=== PATIENT | female | born 1930 | race Caucasian/White ===

== ENCOUNTER 2016-03-11 09:17 | Inpatient (IN) | payer MEDICARE, OTHER ==
[~2016-03-11] VITALS: Ht 154.9 cm; Wt 90.9 kg
[2016-03-11] VITALS (12 sets, daily range): BP systolic 120–158; BP diastolic 44–62; PULSE 52–109; RESP 14–20; O2SAT 95–100
[~2016-03-11 09:17] MED LIST: ACET325T51 PO; ASPI-973 PO; CEPH-512 PO; CHOL200047 PO; CITA10TA9 PO; CLON0.1T PO; CLOP75TA3 PO; DILT240C51 PO; DOCU-41 PO; EPIN0.3P17 IJ; FAMO20T PO; HYDR-3939 PO; LISI-567 PO; MAGN400O4 PO; NAM10 PO; PANT40TA2 PO; POLY17PO6 PO
[2016-03-11] MEDS ORDERED: HYDR-3939 PO (09:51)
[2016-03-11] MEDS ORDERED: DOCU-41 PO (09:51)
[2016-03-11] MEDS ORDERED: CLON0.1T PO (09:51)
[2016-03-11] MEDS ORDERED: POLY17PO2 PO (09:51)
[2016-03-11] MEDS ORDERED: DILT240C51 PO (09:51)
[2016-03-11] MEDS ORDERED: FAMO20TA4 PO (09:51)
[2016-03-11] MEDS ORDERED: EPIN0.3P17 IJ (09:51)
[2016-03-11] MEDS ORDERED: ACET325T51 PO (09:51)
[2016-03-11] MEDS ORDERED: NAM10 PO (09:51)
[2016-03-11] MEDS ORDERED: LISI-567 PO (09:51)
[2016-03-11] MEDS ORDERED: CITA20TA PO (09:51)
[2016-03-11] MEDS ORDERED: MAGN400O4 PO (09:51)
[2016-03-11] MEDS ORDERED: ASPI-973 PO (09:51)
[2016-03-11] MEDS ORDERED: PANT40TA3 PO (09:51)
[2016-03-11] MEDS ORDERED: CHOL200047 PO (09:51)
[2016-03-11] MEDS ORDERED: FUR20 PO (09:51)
[2016-03-11] MEDS ORDERED: CLOP75TA28 PO (09:51)
--- NOTE | 2016-03-11 10:08 | ED.REPORT ---
HPI-General Illness Date of Service Mar 11, 2016 ED Provider: Kirill Fernando MD 85 year old female with a hx of Alzheimer's, previous TIA's, paroxysmal atrial fibrillation on aspirin and Plavix, and an admit for pyelonephritis January 2016 who presents to the ED via EMS from the [facility] due to increasing weakness today. The patient had a fall yesterday without injury. Today the patient was unable to use her walker. Per care staff the patient vomited once today. She is unable to give any history due to dementia, although pt does deny pain at this time. Nursing Notes Stated Complaint: WEAKNESS Chief Complaint: General Complaint Nursing Notes Reviewed: Yes (HiConversion reconicled - on ASA and Plavix) Allergies: Coded Allergies: Honey Bee (Verified Allergy, Severe, all bees, 03/11/16) simvastatin (Verified Allergy, Intermediate, 03/11/16) Scheduled Aspirin (Aspirin) 81 Mg Tablet 81 MG PO DAILY Cholecalciferol (Vitamin D3) (Vitamin D3) 2,000 Unit Capsule 2,000 UNIT PO DAILY Citalopram Hydrobromide (Celexa) 20 Mg Tablet 20 MG PO DAILY Clonidine (Clonidine) 0.1 Mg Tablet 0.1 MG PO BID Clopidogrel (Clopidogrel) 75 Mg Tablet 75 MG PO DAILY Diltiazem ER (Cartia XT) 240 Mg Cap.er.24h 240 MG PO DAILY Docusate Sodium (Colace) 100 Mg Capsule 100 MG PO HS Famotidine (Famotidine) 20 Mg Tablet 20 MG PO DAILY Furosemide (Furosemide) 20 Mg Tab 20 MG PO DAILY Hydralazine (Hydralazine) 25 Mg Tablet 50 MG PO QID Lisinopril (Lisinopril) 20 Mg Tablet 20 MG PO DAILY Memantine (Namenda) 10 Mg Tablet 10 MG PO BID Pantoprazole DR (Pantoprazole DR) 40 Mg Tablet.dr 40 MG PO DAILY Polyethylene Glycol 3350 (Polyethylene Glycol 3350) 17 Gm Powd.pack 17 GM PO DAILY Scheduled PRN Acetaminophen (Acetaminophen) 325 Mg Tablet 325 MG PO q6hr PRN PRN For Pain Epinephrine (Epinephrine) 0.3 Mg/0.3 Ml Auto.injct 0.3 MG IJ PRN For Anaphyllaxis Magnesium Hydroxide (Milk of Magnesia) 400 Mg/5 Ml Oral.susp 30 ML PO prn PRN PRN For Constipation General Time Seen by : 09:53 Chief Complaint Weakness Hx Obtained From: EMS Unable to Obtain Hx: Mental status Arrived By: Ambulance Sudden in Onset?: No Severity: Current: No pain currently Past Medical History Past Medical History Notes: Code Status: DNR Patient underwent EEG February 2016 there was abnormal, with recommendations for repeat including sleep state - see note 02/21/16 Last ED visit for 20 10/21/2015 for ground level fall Last admitted 01/04/2016, pyelonephritis Past Medical History Dementia History of TIA with left facial droop Bradycardia From Previous Report in 2011 h/o Schatzki's ring h/o diverticulitis status post partial colectomy, reflux high cholesterol impaired fasting glucose urinary incontinence gout chronic kidney disease stage III, with a creatinine that runs 1.4-1.5. 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 Reports: Hyperlipidemia, Hypertension Reports: Depression Past Surgical History lap esthela multiple axillary surgeries on the right side, right-sided leg lesion removal Family History Noncontributory Smoking History Never Smoker Social History Alcohol Use: Denies alcohol use Drug Use: Denies drug use Other Social History: Lives alone, Lives in senior care Ambulatory Status Walker Review of Systems Unable to Obtain ROS Mental status Physical Exam Vital Signs Vital Signs Date Time Temp Pulse Resp B/P Pulse Ox O2 Delivery O2 Flow Rate FiO2 03/11/16 14:04 64 20 143/52 96 Room Air 03/11/16 10:50 55 14 127/44 99 Room Air 03/11/16 09:25 36.6 57 14 135/45 100 Room Air Initial VS: Reviewed ENT: Mucous membranes moist, Conjunctiva normal, No scleral icterus Skin: Warm, Dry General/Constitutional: Awake Demented, unable to give any history. Does not appear to be in any obvious discomfort. Head / Eyes: Normocephalic, PERRL No visible signs fo trauma to head. Neck: Atraumatic, Full range of motion Respiratory / Chest: Breath sounds NL, Breath sounds = bilat, No respiratory distress, No rales, No rhonchi, No wheezing Cardiovascular: Heart rate NL, Regular rhythm, Heart sounds NL, Cap refill not delayed, Peripheral circulation NL Abdomen: Soft, Non-tender Upper Extremities Upper Extremity / MS: No deformity, Neurologic intact No signs of hip or extremity fracture. Pt is globally weak and unable to lift any extremity off the bed, but there is no focal deficit. Neurologic: Speech NL Pt is globally weak and unable to lift any extremity off the bed, but there is no focal deficit. Demented. Interpretation & Diagnostics Lab Results Interpretation Result Diagram: 03/11/16 1640 03/11/16 1235 Test 03/11/16 12:16 03/11/16 12:35 Urine Color Straw (YELLOW) Urine Appearance Hazy (CLEAR,HAZY) Urine pH 6.0 (5.0-8.0) Urine Specific [place] 1.010 (1.003-1.035) Urine Protein Negativemg/dL (NEG,TRACE) Urine Glucose (UA) Negativemg/dL (NEGATIVE) Urine Ketones Negativemg/dL (NEGATIVE) Urine Occult Blood Negative (NEGATIVE) Urine Nitrite Negative (NEGATIVE) Urine Bilirubin Negative (NEGATIVE) Urine Urobilinogen Normalmg/dL (NORMAL) Urine Leukocyte Esterase Negative (NEGATIVE) Urine RBC 0-2/hpf (0-2) Urine WBC 0-5/hpf (0-5) Urine Epithelial Cells Occasional/hpf (NONE-MOD) Urine Crystals None seen (NONE SEEN) Urine Bacteria Few/hpf (NONE-FEW) Urine Hyaline Casts None/lpf (NONE) Urine Granular Casts None seen (NONE SEEN) Urine Waxy Casts None seen (NONE SEEN) Urine Red Blood Cell Casts None seen (NONE SEEN) Urine White Blood Cell Casts None seen (NONE SEEN) Urine Mucus None seen (None Seen) Urine Trichomonas None seen (NONE SEEN) Urine Yeast None (NONE SEEN) Urinalysis Comment None Urine Culture Reflexed Not indicated White Blood Count 12.1th/mm3 (3.8-10.1) Red Blood Count 2.88mil/mm3 (3.90-5.20) Mean Corpuscular Volume 74.7fL (81-100) Mean Corpuscular Hemoglobin 24.0pg (27.0-35.0) Mean Corpuscular Hemoglobin Concent 32.1% (32.0-37.0) Red Cell Distribution Width 14.7% (12.3-15.4) Platelet Count 326bil/L (150-400) Neutrophils (%) (Auto) 74.2% (40-74) Lymphocytes (%) (Auto) 16.7% (14-46) Monocytes (%) (Auto) 6.9% (4-12) Eosinophils (%) (Auto) 1.3% (0-5) Basophils (%) (Auto) 0.7% (0-3) Prothrombin Time 10.2sec (8.1-12.5) Prothromb Time International Ratio 0.95ratio Sodium Level 136mEq/L (134-144) Potassium Level 4.0mEq/L (3.5-5.2) Chloride Level 98mEq/L (97-108) Carbon Dioxide Level 22mmol/L (18-29) Blood Urea Nitrogen 44mg/dL (8-27) Creatinine 2.59mg/dL (0.57-1.00) Estimat Glomerular Filtration Rate 25mL/min (>59) Glucose Level 130mg/dL (60-99) Lactic Acid Level 0.8mmol/L (0.4-2.0) Calcium Level 8.9mg/dL (8.5-10.1) Iron Level 17ug/dL (35-150) Total Iron Binding Capacity 309ug/dL (250-450) Percent Iron Saturation 6%sat (15-50) Unsaturated Iron Binding 291.8ug/dL Ferritin 12ng/mL (13-150) Total Bilirubin 0.2mg/dL (0.0-1.2) Aspartate Amino Transf (AST/SGOT) 8U/L (0-50) Alanine Aminotransferase (ALT/SGPT) 5U/L (0-32) Alkaline Phosphatase 83U/L (25-165) Troponin T < 0.010ug/L (0.0-0.011) Total Protein 6.3g/dL (6.4-8.4) Albumin 3.3g/dL (3.4-5.0) Lab Results Interpretation: CMP trace leukocytosis, severe anemia-new and worse than previous, has not been this low since July 2015 CMP moderate renal insufficiency, creatinine has doubled since January 2016 UA negative General Lab Results Interp 1: Labs reviewed ECG Interpretation ECG Interpretation: Sinus bradycardia rate of 54, no acute ischemic changes Improved from previous EKG January 2016 in the sense that it is a clear sinus rhythm Time: 10:08 Interpreted by: ED physician X-Ray Chest Interpretation Chest Xray Interpretation: IMPRESSION: No acute cardiopulmonary disease process. Dictated by: Dorothy Ramsay MD, PhD on 03/11/2016 at 11:24 View: Portable, 1 view Interpretation / Wet Read by: Interpret - Radiologist CT Head Interpretation IMPRESSION: 1. No definite acute intracranial abnormality. 2. Left sided encephalomalacia involving the occipital and posterior parietal lobes redemonstrated similar in appearance to the prior study but increased in extent compared to the 06/04/15 study. Consider further evaluation with MRI if clinical concern persists. 3. Moderate cerebral volume loss and chronic white matter small vessel ischemic changes redemonstrated. Dictated by: Ar Black M.D. on 03/11/2016 at 11:38 Study: Head CT no contrast Interpretation / Wet Read by: Interpret - Radiologist Re-Eval/Medical Decision Med Decision/Clinical Course This is an 85-year-old demented female unable provide any useful history herself. She was sent into worsening global weakness to the point that she is no longer ambulate even with a walker. Been a relatively recent falls, details unclear. Patient denies any pain. She is extremely pale, but she can answer questions and follow commands. She is globally weak-but has no focal deficits. I do not appreciate visible external signs of trauma. Records indicate combination of aspirin and Plavix use and patient has a history of previous GI bleeds with documented AVMs in July 2015, and intermittent transfusions in the interim. She was last admitted for pyelonephritis in recent months. Lungs are clear, she is not getting Percocet, abdomen soft nontender. She does have brown stool that is guaiac positive on rectal exam. Blood work is notable for severe anemia, concerning for worsening slow GI bleed in the setting of aspirin and Plavix use. CT the head revealed no signs of intracranial injury or trauma. Blood work is also notable for worsening creatinine. UA is negative for markers of infection. Patient is being typed and crossed, transfusion as planned and ordered for 3 units of packed red cells. She has been starting on a Protonix drip. The plan is still currently hold the aspirin and Plavix. Family is just arrived in the hopes of having discussion over how aggressive she wants to be with her medical care. In the meantime and consult GI for their input. Case has been discussed with the hospitalist. 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 Brown stool, Guaiac positive. Patient family now in room. Plan for admission. Consultation #1: Referral / Consult Name: Nano Lu MD Call Returned at: 14:19 Rn Quality: Will see patient Note: GI- Consultation #2: Referral / Consult Name: Mika Weeks MD Consulted With: Hospitalist Call Returned at: 14:30 Rn Quality: Will see patient, Agrees with eval, Agrees with plan, Accepts admit Differential Diagnosis: Negative: Drug dependence, Neutropenia, Pneumonia, Urinary tract infection Counseled Regarding: Diagnosis, Lab results, Need for admission Discharge & Departure Primary Impression: Symptomatic anemia Additional Impressions: GI bleed GI bleed type/associated pathology: unspecified gastrointestinal hemorrhage type Qualified Code: K92.2 - Gastrointestinal hemorrhage, unspecified Acute on chronic renal insufficiency Disposition: ADMITTED TO HOSPITAL Discharge Condition All VS Reviewed: Yes Referrals: Jose G Brown MD (PCP) Scribe Attestation Portions of this note were transcribed by Shalini Suarez. I, (Dr. Fernando) personally performed the history, physical exam and medical decision-making; I reviewed and confirmed the accuracy of the information in the transcribed note. Signed by: Shalini Suarez. 03/11/2016, 0393 copies to: Jose G Brown MD, Matthew F MD Mar 11, 2016 10:08 Shalini Suarez Mar 11, 2016 10:23
--- NOTE | 2016-03-11 11:26 | DRSVH ---
PROCEDURE: X-RAY CHEST ONE VIEW, PORTABLE ([id number]) INDICATIONS: fall, weakness TECHNIQUE: One view of the chest was acquired. COMPARISON: [facility], CR, XR CHEST 1VW (PORTABLE), 01/03/2016, 22:36. FINDINGS: Surgical changes and devices: Cholecystectomy clips Lungs and pleura: No pleural effusions or pneumothorax. Lungs are clear. Mediastinum: Mediastinal contours appear normal. Heart size is normal. Bones and chest wall: No suspicious bony lesions. Overlying soft tissues appear unremarkable. IMPRESSION: No acute cardiopulmonary disease process. Dictated by: Dorothy Ramsay MD, PhD on 03/11/2016 at 11:24 Approved by: Dorothy Ramsay MD, PhD on 03/11/2016 at 11:24
--- NOTE | 2016-03-11 11:40 | DRSVH ---
PROCEDURE: CT BRAIN WITHOUT CONTRAST ([id number]) INDICATIONS: fall, weakness TECHNIQUE: Noncontrast 4.5 mm thick angled axial sections acquired from the foramen magnum to the vertex, with c oronal reformats. COMPARISON: [facility], CT, CT BRAIN WO CON, 07/01/2015, 9:01. [facility], C T, CT BRAIN WO CON, 02/21/2016, 13:17. FINDINGS: Image quality: Excellent. CSF spaces: Basal cisterns are patent. No extra-axial fluid collections. There is moderate cerebra l volume loss, with resultant ventricular and sulcal prominence. Brain: No acute intracranial hemorrhage, mass, or mass effect. There is encephalomalacia redemonstr ated within the left occipital and posterior parietal lobes consistent with a prior infarct. This ap pears similar to the prior study but increased in extent compared to the 07/01/15 study. There are smyth bcortical, periventricular and deep white matter hypodensities consistent with moderate chronic small vessel ischemic changes. A few scattered more distinct hypodensities in the bilateral basal ganglia and external capsules are suggestive of prior lacunar infarcts. There is intracranial internal bradford tid artery atherosclerosis. Skull and face: Calvarium and visualized facial bones appear intact, without suspicious lesions. Sinuses: Visualized sinuses and mastoids are clear. IMPRESSION: 1. No definite acute intracranial abnormality. 2. Left sided encephalomalacia involving the occipital and posterior parietal lobes redemonstrated s imilar in appearance to the prior study but increased in extent compared to the 06/04/15 study. Consid er further evaluation with MRI if clinical concern persists. 3. Moderate cerebral volume loss and chronic white matter small vessel ischemic changes redemonstrat ed. Dictated by: Ar Black M.D. on 03/11/2016 at 11:38 Approved by: Ar Black M.D. on 03/11/2016 at 11:38
[2016-03-11 12:46] LABS: BASOPHILS % (AUTO) 0.7 % (0-3); EOSINOPHILS % (AUTO) 1.3 % (0-5); MONOCYTES % (AUTO) 6.9 % (4-12); Mean Corpuscular Volume 74.7 fL (81-100); NEUTROPHILS % (AUTO) 74.2 % (40-74); Platelet Count 326 bil/L (150-400)
[2016-03-11 13:18] LABS: APPEARANCE,URINE HAZY (CLEAR,HAZY); COLOR,URINE STRAW (YELLOW); OCCULT BLOOD,URINE NEGATIVE (NEGATIVE); UROBILINOGEN,URINE NORMAL (NORMAL)
[2016-03-11 13:21] LABS: TROPONIN T < 0.010 ug/L (0.0-0.011)
[2016-03-11 14:27] LABS: INR 0.95 ratio
[2016-03-11] MEDS ORDERED: Pantoprazole Inj 80 MG, Pharmacy To Mix 1 EA in 0.9% Sodium Chloride 80 ML IV ONE ×2 (14:30)
[2016-03-11] MEDS ORDERED: Pantoprazole 4 mg/mL 10 mL Inj IVPUSH ONE (14:30)
--- NOTE | 2016-03-11 14:34 | PCM.HPMED ---
Subjective Date of Service Mar 11, 2016 Primary Provider: Admitting Physician: Mika Weeks MD Primary Care Physician: Jose G Brown MD Attending Physician: Mika Weeks MD Chief Complaint: Weakness, falling, acute on chronic anemia History of Present Illness: 85 year old female with a hx of vascular dementia, previous TIA's, paroxysmal atrial fibrillation on aspirin and Plavix, and an admit for pyelonephritis January 2016 who presents to the ED via EMS from the [facility] due to increasing weakness today. The patient had a fall yesterday without injury. Today the patient was unable to use her walker. Per care staff the patient vomited once today. She is unable to give any history due to dementia, although pt does deny pain at this time. Entire history is obtained from the chart as the patient is unable to give any meaningful information. Review of Systems: Unobtainable, none reported by son who is at the bedside but states he does not know everything. Gen.: No fevers chills weight loss weight gain Eyes: no visual disturbances or blurring vision HEENT: No nose/throat drainage, no pain in ears or throat, no hearing loss Lymph: No lymph nodes noted Cardiac: No chest pain, orthopnea, PND, palpitations , pedal edema or dyspnea on exertion Pulmonary: no cough, wheezing or bringing up of sputum GI: No anorexia nausea vomiting blood or black in the stool : no dysuria hematuria urinary frequency or decrease in urine output Musculoskeletal: Joint swelling no joint pain no new muscle aches or back pain Neuro: No syncope, seizures no loss of consciousness no new focal weakness, numbness or tingling Psychiatric: New new anxiety insomnia or depression Endocrine: No new heat or cold intolerances polyuria or polydipsia Hematology: No lymphadenopathy or easy bleeding or bruising noted skin: No new rashes, stasis dermatitis Allergies Coded Allergies: Honey Bee (Verified Allergy, Severe, all bees, 03/11/16) simvastatin (Verified Allergy, Intermediate, 03/11/16) Home Medications Scheduled Aspirin (Aspirin) 81 Mg Tablet 81 MG PO DAILY Cholecalciferol (Vitamin D3) (Vitamin D3) 2,000 Unit Capsule 2,000 UNIT PO DAILY Citalopram Hydrobromide (Celexa) 20 Mg Tablet 20 MG PO DAILY Clonidine (Clonidine) 0.1 Mg Tablet 0.1 MG PO BID Clopidogrel (Clopidogrel) 75 Mg Tablet 75 MG PO DAILY Diltiazem ER (Cartia XT) 240 Mg Cap.er.24h 240 MG PO DAILY Docusate Sodium (Colace) 100 Mg Capsule 100 MG PO HS Famotidine (Famotidine) 20 Mg Tablet 20 MG PO DAILY Furosemide (Furosemide) 20 Mg Tab 20 MG PO DAILY Hydralazine (Hydralazine) 25 Mg Tablet 50 MG PO QID Lisinopril (Lisinopril) 20 Mg Tablet 20 MG PO DAILY Memantine (Namenda) 10 Mg Tablet 10 MG PO BID Pantoprazole DR (Pantoprazole DR) 40 Mg Tablet.dr 40 MG PO DAILY Polyethylene Glycol 3350 (Polyethylene Glycol 3350) 17 Gm Powd.pack 17 GM PO DAILY Scheduled PRN Acetaminophen (Acetaminophen) 325 Mg Tablet 325 MG PO q6hr PRN PRN For Pain Epinephrine (Epinephrine) 0.3 Mg/0.3 Ml Auto.injct 0.3 MG IJ PRN For Anaphyllaxis Magnesium Hydroxide (Milk of Magnesia) 400 Mg/5 Ml Oral.susp 30 ML PO prn PRN PRN For Constipation PMH 1. 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 2. Atrial fibrillation new in April of 2015. 3. Diverticulosis. 4. Dementia. 5. Esophageal thickening on CT scan. 6. Diastolic CHF with preserved ejection fraction April of 2015. 7. Hypertension. 8. Chronic kidney disease stage 3. 9. Depression. 10. Gout. 11. Chronic left hip pain. 12. Mild chronic normocytic anemia. 13. Schatzki ring. 14. Diverticulitis. 15. Status post partial colectomy. 16. GERD. SOCIAL HISTORY: No smoking. No alcohol use. She lives at the [facility] and has significant dementia. Her son and daughter live locally. ALLERGIES: BEE STINGS. FAMILY HISTORY: No known history of early cancer or heart disease Social History Hx Alcohol Use: No Hx Substance Use: No Hx Tobacco Use: No Smoking Status: Never Smoker Exam Vital Signs Vital Sign - Last Date Time Temp Pulse Resp B/P Pulse Ox O2 Delivery O2 Flow Rate FiO2 03/11/16 14:04 64 20 143/52 96 Room Air 03/11/16 09:25 36.6 Exam Gen.- A+ O 1 no apparent distress. Pale elderly female with uncontrolled pulled up to her neck lying in bed Eyes- open conjunctiva clear, pupils equal nonicteric Mouth- oral mucosa moist, no exudate, mucosa and lips moist ENT- ears normal, nose normal Neck- supple/trach midline, JVD less than 8 cm CVS- RRR no murmur or gallop, trace pedal edema Lungs CTA GI- NABS/NT soft, flat Musc- moving 4 no obvious deformity Neuro- cranial nerves II through XII intact to gross examination, nonfocal Skin- warm and dry, no rashes/lesions/wounds noted Psych-patient is not misbehaving, but does not want to participate with physical exam and takes coaxing from her son, Lab and Diagnostics Labs PT/INR 10.2/0.95, LFTs WNL, troponin 0.01, UA clear Result Diagram: 03/11/16 1235 03/11/16 1235 X-Rays, CTs and MRIs CT brain concurrently reviewed by myself. 1. No definite acute intracranial abnormality. 2. Left sided encephalomalacia involving the occipital and posterior parietal lobes redemonstrated similar in appearance to the prior study but increased in extent compared to the 06/04/15 study. Consider further evaluation with MRI if clinical concern persists. 3. Moderate cerebral volume loss and chronic white matter small vessel ischemic changes redemonstrated. CXR concurrently reviewed by myself no acute cardiopulmonary disease process. 12-lead ECG No EKG Assessment & Plan 85-year-old female with known gastric angiodysplasia comes in with recurrent anemia and heme positive stool. Her presentation was because she was too weak to walk around and falling. She can give no pertinent history due to advanced dementia. GI bleed- GI consulted, patient on PPI drip likely recurrence of bleeding from angiodysplasia that is known. Endoscopy planned for 03/12. Consider IR intervention/coiling if there is ongoing occult bleeding that is not identified by endoscopy. Acute/chronic anemia-we will go ahead and hold aspirin and Plavix and transfusing 3units PRBCs as ordered from ED, given her renal failure I am holding off on giving her a semi-between the units. Also check anemia panels prior to giving blood. Follow H&H every 4 hours, patient seems to be tolerating her anemia pretty well though I do not think this is acute. A. fib-known and chronic, rate controlled. Presumably aspirin and Plavix are being used his anticoagulation in lieu of warfarin in a patient with a propensity to bleed, not sure this is a great choice and perhaps warfarin may be a better choice only in that it is easily reversed. DIXON/CKD3- baseline creatinine closer to 1.5, continue gentle hydration and follow-up BUN/creatinine and avoid nephrotoxic drugs, hold PRANAV HTN-holding Pranav and continue all other BP meds on parameters. Blood pressure still surprisingly high. Dementia-chronic, patient unable to give any meaningful history. Weakness-PT/OT eval when patient is stable. Prophylaxis- SCDs for legs heparin is contraindicated in setting of GI bleed , GI patients on a PPI drip Disposition- patient comes from assisted living and is DO NOT RESUSCITATE Mika Weeks MD Mar 11, 2016 14:34
[2016-03-11] MEDS ORDERED: Polyethylene Glycol (PEG) 17 Gm Powder PO PRN (14:35)
[2016-03-11] MEDS ORDERED: Ondansetron 2 mg/mL 2 mL Inj IVPUSH PRN (14:35)
[2016-03-11] MEDS ORDERED: HYDROcodone-APAP 5-325 mg Tablet PO PRN (14:35)
[2016-03-11] MEDS ORDERED: Alum-Mag Hydrox-Simeth 30 mL Suspension PO PRN (14:35)
[2016-03-11] MEDS ORDERED: Magnesium Hydroxide 10 mL Oral Concentration PO PRN (15:15)
[2016-03-11] MEDS: 0.9% Sodium Chloride 1,000 ML IV SCH (15:52)
--- NOTE | 2016-03-11 15:52 | NUR ---
Blood transfusion consent POAna María, herminio is at work now and could not be reached according to son in room. She is off work at 1640. Will contact daughter then to get transfusion consent. Addendum: 03/11/16 at 1622 by ROMI LIVE RN Dr. Weeks aware of the above info. Will transfuse blood when consent available. Addendum: 03/11/16 at 1722 by ROMI LIVE RN Lyndsey Smith came to [facility] after work. She signed informed consent for blood transfusion.
[2016-03-11] MEDS ORDERED: OLANZapine Zydis ODT 5 mg Tablet PO PRN (16:30)
[2016-03-11] MEDS ORDERED: 0.9% Sodium Chloride 250 ML ONE ×2 (16:41→21:33)
[2016-03-11 16:45] LABS: Unsaturated Iron Binding 291.8 ug/dL
--- NOTE | 2016-03-11 17:22 | NUR ---
Discontinued Telemetry Pt. was combative and confused (baseline dementia). She frequently pulled on her tele leads. Leads were replaced multiple times. She continued to pull on the leads soon after the leads were replaced. Discontinue telemetry per standing order from Dr. Weeks.
--- NOTE | 2016-03-11 18:04 | PCM.CHPMED ---
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 Per ED notes, she had a fall yesterday without injury and was unable to use her walker today. Per care staff she had vomited once today. She was unable to give any history due to dementia. However , she does deny nausea, vomiting, or any sort of pain at this time. In the ED, stool guaiac was positive. Vitals were stable. Hgb was 6.9, Hct 21.5. AST 8, ALT 5, alk phos 83. Trop <0.01. Lactic acid 0.8. INR 0.95. Review of Systems: Review of systems limited due to patient mental status. PMH Past Medical History Vascular dementia with CVA right frontal last year. CVA - 2014, right frontal, right springer radiata, middle cerebral artery vascular disease, on Plavix History of TIA with left facial droop History of paroxysmal atrial fibrillation on aspirin and Plavix, initially Anemia, transfused 1 unit January 2016, AVMs stomach July 2015 History of GI bleeds h/o Schatzki's ring h/o diverticulitis status post partial colectomy, GERD Atrial fibrillation new in April of 2015. Bradycardia Hyperlipidemia impaired fasting glucose urinary incontinence Gout CKD stage III, with a creatinine that runs 1.4-1.5. Admit for pyelonephritis January 2016 Hyperlipidemia Hypertension Depression Allergies: Coded Allergies: Honey Bee (Verified Allergy, Severe, all bees, 03/11/16) simvastatin (Verified Allergy, Intermediate, 03/11/16) Family History Family History No known family history of colon cancer. Social History Hx Alcohol Use: NoHx Substance Use: NoHx Tobacco Use: No Smoking Status: Never Smoker Exam Vital Signs Vital Sign - Last Date Time Temp Pulse Resp B/P Pulse Ox O2 Delivery O2 Flow Rate FiO2 03/11/16 14:04 64 20 143/52 96 Room Air 03/11/16 09:25 36.6 General: Alert, Cooperative, No Acute Distress, Other (Oriented only to name) Head: Normal Eyes: PERRLA, EOMI Mouth: Mucous Membranes Dry Chest & Lungs: Clear to auscultation & percussion Cardiovascular: Regular Rate/Rhythm, Normal S1, Normal S2, No Murmurs/Rubs/ Gallops Abdomen: Non-tender, Non-distended, No masses, Normoactive bowel tones, Soft, Other (Hypoactive bowel tones) Neurological: Normal Speech, Other (Global weakness in all 4 extremities, equally) Lab and Diagnostics Result Diagram: 03/11/16 1235 03/11/16 1235 Assessment & Plan Assessment Patient is an 85 year old female with history of prior CVA, paroxysmal afib on Aspirin and Plavix, gastric AVMs, diverticulitis s/p partial colectomy, and anemia with upper GI bleed s/p transfusion on 2 hospitalizations who presents with progressive weakness. She was admitted for acute blood loss anemia and acute GI bleed. 1. Acute GI bleed. - Patient with a history of multiple GI bleeds, on aspirin and Plavix presents with severe anemia and guaiac positive stools. Given her gastric AVMs, possibility for upper GI bleed is high. Given her history of diverticulitis and hemorrhoids, lower GI bleed is possible but unlikely given lack of hematochezia. - Pt may take clear liquids until 6 AM, NPO after 6 AM. - Upper endoscopy planned for tomorrow - Protonix 40 mg IV BID 2. Acute anemia - Patient presents with Hb of 6.9. Likely multifactorial given history of iron deficiency, multiple GI bleeds, and CKD Stage 3. - Upper endoscopy to search for cause of bleeding. Problems: GI Prophylaxis: Proton Pump Inhibitor Resuscitation Status: DNR/DNI:Do Not Resuscitate/Intubate Attending Statement pt seen and examined with resident physician. I agree with his History, physical , assessment and plan as outlined above. Kaleb De La Vega Mar 11, 2016 15:29 Nano Lu MD Mar 13, 2016 15:04
--- NOTE | 2016-03-11 18:15 | NUR ---
PRBC L. AC site infiltrated during transfusion. New peripheral IV re-established by IV nurse. PRBC restart at 1812.
[2016-03-11] MEDS: cloNIDine 0.1 mg Tablet PO SCH (22:06)
[2016-03-12] VITALS (13 sets, daily range): BP systolic 116–202; BP diastolic 45–69; PULSE 48–62; RESP 14–20; O2SAT 94–100
[2016-03-12] MEDS: 0.9% Sodium Chloride 1,000 ML IV SCH ×3 (00:32→15:11)
[2016-03-12] MEDS: Pantoprazole Inj 80 MG in 0.9% Sodium Chloride 80 ML IV SCH ×2 (02:17→12:13)
--- NOTE | 2016-03-12 03:13 | NUR ---
care update patient receiving third unitt of blood. tolerating well.
[2016-03-12 07:21] LABS: BASOPHILS % (AUTO) 0.7 % (0-3); EOSINOPHILS % (AUTO) 3.4 % (0-5); MONOCYTES % (AUTO) 9.4 % (4-12); Mean Corpuscular Hemoglobin 25.7 pg (27.0-35.0); Mean Corpuscular Volume 77.9 fL (81-100); NEUTROPHILS % (AUTO) 67.4 % (40-74); Platelet Count 280 bil/L (150-400)
--- NOTE | 2016-03-12 07:23 | NUR ---
family at bedside family explained that they will have a family member at the bedside throughout the day. noted to merlene mata rn.
[2016-03-12] MEDS: Polyethylene Glycol (PEG) 17 Gm Powder PO SCH (07:57)
[2016-03-12] MEDS: cloNIDine 0.1 mg Tablet PO SCH ×2 (07:57→21:26)
[2016-03-12] MEDS: Diltiazem CD 120 mg ER24 Capsule PO SCH ×2 (08:30→20:30)
[2016-03-12] MEDS ORDERED: Pantoprazole 40 mg ER24 Tablet PO SCH (08:30)
--- NOTE | 2016-03-12 09:28 | NUR ---
Evaluation completed. Please go to "Notes" then click on "Assessments and Notes" (bottom left corner of screen). Then select appropriate discipline tab on top of screen.
--- NOTE | 2016-03-12 09:32 | NUR ---
Hold Lasix and Cardizem Discussed with Dr. Joshi that pt. was on PO Lasix and NS 100mL/hr, also pt. has been in Sinus bradycardia 40-50s. Dr. Joshi ordered holding PO Lasix and PO Cardizem. Continue NS infusion at current rate.
--- NOTE | 2016-03-12 09:34 | PCM.PNMED ---
Subjective Date of Service Mar 12, 2016 Subjective Patient completed 3U PRBCs overnight, tolerated well without any adverse effects. Uneventful overnight, no episodes of nausea, vomiting, or hematochezia. She has no complaints this morning and denies abdominal pain, N/V/ D, fevers, or chills. Exam Vital Signs Vital Sign - Last Date Time Temp Pulse Resp B/P Pulse Ox O2 Delivery O2 Flow Rate FiO2 03/12/16 07:28 36.8 51 20 185/66 100 Room Air Intake and Output 03/11/16 03/11/16 03/12/16 Cumulative From/Thru 15:00 23:00 07:00 03/11/16 09:25 - 03/12/16 06:34 Intake Total 441 ml 925 ml 1366 ml Output Total 675 ml 675 ml Balance 441 ml 250 ml 691 ml Intake Oral 0 ml 0 ml IV Total 38 ml 243 ml 281 ml Packed Cells 403 ml 682 ml 1085 ml Output Urine Total 675 ml 675 ml Exam General: Alert, Cooperative, No Acute Distress, Other (Oriented only to name, generalized weakness). Mouth: Mucous Membranes Moist Chest & Lungs: Clear to auscultation & percussion Cardiovascular: Regular Rate/Rhythm, Normal S1, Normal S2, No Murmurs/Rubs/ Gallops Abdomen: Non-tender, Non-distended, No masses, Normoactive bowel tones, Soft, Other (Hypoactive bowel tones) Neuro: Normal speech, grossly neurologically intact. Lab and Diagnostics Result Diagram: 03/12/1634 03/12/16 0634 X-Rays, CTs and MRIs CT brain concurrently reviewed by myself. 1. No definite acute intracranial abnormality. 2. Left sided encephalomalacia involving the occipital and posterior parietal lobes redemonstrated similar in appearance to the prior study but increased in extent compared to the 06/04/15 study. Consider further evaluation with MRI if clinical concern persists. 3. Moderate cerebral volume loss and chronic white matter small vessel ischemic changes redemonstrated. CXR concurrently reviewed by myself no acute cardiopulmonary disease process. 12-lead ECG No EKG Assessment & Plan Patient is an 85 year old female with history of prior CVA, paroxysmal afib on Aspirin and Plavix, gastric AVMs, diverticulitis s/p partial colectomy, and anemia with upper GI bleed s/p transfusion on 2 hospitalizations who presents with progressive weakness. She was admitted for acute blood loss anemia and acute GI bleed. 1. Acute GI bleed. - Patient with a history of multiple GI bleeds, on aspirin and Plavix presents with severe anemia and guaiac positive stools. Given her gastric AVMs, possibility for upper GI bleed is high. Given her history of diverticulitis and hemorrhoids, lower GI bleed is possible but unlikely given lack of hematochezia. - Will proceed with upper endoscopy today - Continue Protonix drip 2. Acute anemia - Patient presents with Hb of 6.9. Likely multifactorial given history of iron deficiency, multiple GI bleeds, and CKD Stage 3. Iron low at 17, ferritin low at 12. B12 low at 157. - Upper endoscopy to search for cause of bleeding. - Recommend iron supplements and B12 supplementation GI Prophylaxis: Proton Pump Inhibitor Resuscitation Status: DNR/DNI:Do Not Resuscitate/Intubate Attending Statement pt seen and examined. agree with resident physician note above. patient's daughter and son updated. Kaleb De La Vega Mar 12, 2016 08:50 Nano Lu MD Mar 13, 2016 15:05
--- NOTE | 2016-03-12 11:40 | PCM.HPANE ---
Patient Data Surgeon Admitting Provider:Mika Weeks MD Attending Provider:Mika Weeks MD Primary Care Physician:Jose G Brown MD Other Provider: Reason for Visit Symptomatic Anemia, Gi Bleed SYMPTOMATIC ANEMIA, GI BLEED Ht/WT & BMI Height (Feet): 5 Height (Inches): 1.00 Weight (Kilograms): 90.910 Body Mass Index 37.84 Allergies Coded Allergies: Honey Bee (Verified Allergy, Severe, all bees, 03/11/16) simvastatin (Verified Allergy, Intermediate, 03/11/16) Past Anesthesia History Anesthesia History: Denies:: Anesthesia Reactions Diabetes History Hx Diabetes?: No MRSA MRSA: No Medications Reported Medications Magnesium Hydroxide (Milk of Magnesia)400 Mg/5 Ml Oral.susp30 Ml PO prn PRN For Constipation 03/11/16 Epinephrine 0.3 Mg/0.3 Ml Auto.injct0.3 Mg IJ PRN For Anaphyllaxis 03/11/16 Acetaminophen 325 Mg Blmbgl801 Mg PO q6hr PRN For Pain 03/11/16 Polyethylene Glycol 3350 17 Gm Powd.pack17 Gm PO DAILY 03/11/16 Docusate Sodium (Colace)100 Mg Jileucp337 Mg PO HS 03/11/[address] 40 Mg Tablet.dr40 Mg PO DAILY 03/11/16 Lisinopril 20 Mg Rbtukr42 Mg PO DAILY 03/11/16 Cholecalciferol (Vitamin D3) (Vitamin D3)2,000 Unit Capsule2,000 Unit PO DAILY 03/11/16 Memantine (Namenda)10 Mg Phttyz47 Mg PO BID 03/11/16 Hydralazine 25 Mg Ninjra54 Mg PO QID 03/11/16 Famotidine 20 Mg Tmigdg04 Mg PO DAILY 03/11/16 Clopidogrel 75 Mg Rhkltz38 Mg PO DAILY 03/11/16 Clonidine 0.1 Mg Tablet0.1 Mg PO BID 03/11/16 Diltiazem ER (Cartia XT)240 Mg Cap.er.60e212 Mg PO DAILY 03/11/16 Aspirin 81 Mg Kamvsf23 Mg PO DAILY 03/11/16 Furosemide 20 Mg Tab20 Mg PO DAILY 03/11/16 Citalopram Hydrobromide (Celexa)20 Mg Zrqpek33 Mg PO DAILY 03/11/16 Discontinued Reported Medications Docusate Sodium (Colace)100 Mg Letxekz183 Mg PO HS Ref 0 01/04/16 Magnesium Hydroxide (Milk of Magnesia)400 Mg/5 Ml Oral.susp30 Ml PO DAILY PRN For Constipation 07/22/15 Lisinopril 20 Mg Hwmwkw50 Mg PO DAILY 07/22/15 Famotidine (Pepcid)20 Mg Qgfrlt33 Mg PO DAILY 07/22/15 Clonidine 0.1 Mg Tablet0.1 Mg PO BID Ref 0 07/22/15 Diltiazem ER (Cartia XT)240 Mg Cap.er.33u343 Mg PO DAILY 07/22/15 Memantine (Namenda)10 Mg Tqjpph05 Mg PO BID 30 Days Ref 0 04/12/15 Aspirin 81 Mg Gfnksn11 Mg PO DAILY Ref 0 04/12/15 Citalopram 10 Mg Wpvzsa01 Mg PO DAILY 30 Days Ref 0 05/14/14 Epinephrine 0.3 Mg/0.3 Ml Auto.injct0.3 Mg IJ PRN PRN For Anaphyllaxis 05/14/14 Acetaminophen 325 Mg Pxyogx722 Mg PO Q6 PRN For Pain 05/14/14 Cholecalciferol (Vitamin D3) (Vitamin D3)2,000 Unit Capsule2,000 Unit PO DAILY 05/14/14 Discontinued Scripts Cephalexin (Keflex)500 Mg Xervrjd451 Mg PO QID 3 Days Ref 0 Prov:ErickElie Livingston DO 01/09/16 Polyethylene Glycol 3350 (Miralax)17 Gm Powd.pack17 Gm PO DAILY #30 PACKET Ref 0 Prov:BranchEvonne Medina DO 07/26/[address] (Protonix)40 Mg Ytpeil89 Mg PO DAILY #30 TABLET Ref 0 Prov:Angelo Wood MD 07/03/15 Hydralazine 25 Mg Cwwuyx07 Mg PO QID #120 Ref 0 hold if BP<120,if BP>180 on two consecutive checks, give and additional 25mg Prov:Angelo Wood MD 07/03/15 Clopidogrel Bisulfate (Plavix)75 Mg Djauyl35 Mg PO DAILY 30 Days Prov:Shannan Adair MD 05/20/14 History History of ENT Problems?: Yes HEENT History: Positive for:: Cataracts Dysphagia (Sometimes she choked on dry food) Glaucoma Denies:: Hearing Problem Sinus Problem Hx of Heart Problems?: Yes Cardiovascular History: Positive for:: Congestive Heart Failure Edema Hypertension Irregular Heartbeat (A. Fib) Denies:: Cardiac Surgery Chest Pain Heart Murmur Pacemaker Thrombophlebitis Hx of Respiratory Problem?: Yes Respiratory History: Positive for:: Pneumonia Denies:: Asthma COPD Chest Surgery Dyspnea Emphysema Hemoptysis Tuberculosis 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) Dementia Dizziness Headaches Denies:: Parkinson's Disease Seizures Hx of GI Problems?: Yes Gastrointestinal History: Positive for:: Diverticulitis (s/p partial colectomy ) Gastroesphageal Reflux Gastrointestinal Bleeding Denies:: Heartburn (Unsure) Hepatitis Hiatal Hernia Rectal Bleeding Other GI Pertinent History: Total hysterectomy Hx of Problems?: Yes Genitourinary History: Positive for:: Urinary Tract Infection Denies:: HX of Hemodialysis Kidney Stones HX of Peritoneal Dialysis: No Other Pertinent History: Chronic kidney insufficientcy Female Hx: Denies:: Currently Endometriosis Pelvic Inflammatory Problems with Breasts? Hx Musculoskeletal Problems?: Yes Musculoskeletal History: Positive for:: Back Injury Denies:: Joint Replacement Musculoskeletal Trauma Hx of Psycho/Social Problems?: Yes Psycho Social History: Positive for:: Hx Depression Denies:: Anxiety Bipolar Disorder Suicide Attempt Hx Surgeries?: Yes (right arm-- lumps removed x3 as a child, esthela) Hx Any Other Health Problems?: Yes Other History: Positive for:: Hospitalization (childbirth, appendectomy, hysterectomy) Denies:: Cancer Endocrine Disease Thyroid Disease History Blood Transfusions: Positive for:: Accept Blood Products? Blood Transfusions Denies:: Blood Transfuse Reaction Hx Diabetes: No Hx Alcohol Use: NoHx Substance Use: No Smoking Status: Never Smoker Have You Smoked inLast 12 mo: No Stop/Bang S-Snoring: Do You Snore Loudly: No T-Tired: feel tired, fatigued: No O-Obsered: Observed not breath: No P-Blood Pressure: treated: Yes B- Body Mass Index > 35 kg/m2: No A- Age over 50: Yes N- Neck Large Circumference: No G- Gender Male: No ROYCE Total Score: 1 Risk Assessment Category Category 1A: Patient has history of documented sleep apnea, and HAS NOT received any narcotic, sedative or anesthesia administration during this stay. Category 1B: Patient has history of documented sleep apnea, and HAS received any narcotic , sedative or anesthesia administration during this stay Category 2: Patient has SUSPECTED Obstructive Sleep Apnea, and HAS received any narcotic , sedative or anesthesia administration during this stay. Category 3: Patient has SUSPECTED Obstructive Sleep Apnea and HAS NOT received narcotic, sedative or anesthesia administration during this stay. Category 4: Outpatient in Procedural Areas with known sleep apnea or who screen positive for High Risk via the STOP/BANG questionnaire. Exam Exam Vital Signs Vital Signs Date Time Temp Pulse Resp B/P Pulse Ox O2 Delivery O2 Flow Rate FiO2 03/12/16 11:31 36.6 53 16 164/69 98 Room Air 03/12/16 07:28 36.8 51 20 185/66 100 Room Air 03/12/16 04:53 36.4 48 18 164/67 Meds/Labs/Diagnostics Admission Meds Current Medications Pantoprazole 80 mg 80 mg STAT ONCE IVPUSH Last administered on 03/11/16 14:40 ; Start 03/11/16 at 14:30; Stop 03/11/16 at 14:31; Status DC Pantoprazole 80 mg/Miscellaneous 1 ea/Sodium Chloride 100 ml @ 10 mls/hr ONCE ONCE IV Last administered on 03/11/16 15:52; Start 03/11/16 at 14:30; Stop 03/12 at 00:29; Status DC Sodium Chloride (Normal Saline) 1,000 ml @ 100 mls/hr Q10H IV Last administered on 03/11/16 15:52; Start 03/11/16 at 14:32 Citalopram Hydrobromide (CeleXA) 20 mg DAILY PO Last administered on 03/12/16 07:57; Start 03/12/16 at 08:30 Clonidine (Catapres) 0.1 mg BID PO Last administered on 03/12/16 07:57; Start 03/11/16 at 20:30 Hydralazine HCl (Apresoline) 50 mg QID PO Last administered on 03/12/16 07:57 ; Start 03/11/16 at 16:30 Lisinopril (Zestril) 20 mg DAILY PO Last administered on 03/12/16 07:57; Start 03/12/16 at 08:30 Memantine 10 mg 10 mg BID PO Last administered on 03/12/16 07:57; Start at 20:30 Pantoprazole 80 mg/Sodium Chloride 100 ml @ 10 mls/hr Q10H IV Last administered on 03/12/16 02:17; Start 03/12/16 at 01:00 Sodium Chloride 250 ml @ STK-MED ONCE .ROUTE Last administered on 03/11/16 18:09; Start 03/11/16 at 16:41; Stop 03/11/16 at 16:42; Status DC Sodium Chloride (Normal Saline) 250 ml @ STK-MED ONCE .ROUTE Last administered on 03/11/16 22:08; Start 03/11/16 at 21:33; Stop 03/11/16 at 21:34; Status DC Labs Test 03/11/16 12:16 03/11/16 12:35 03/12/16 06:34 Urine Color Straw (YELLOW) Urine Appearance Hazy (CLEAR,HAZY) Urine pH 6.0 (5.0-8.0) Urine Specific [place] 1.010 (1.003-1.035) Urine Protein Negativemg/dL (NEG,TRACE) Urine Glucose (UA) Negativemg/dL (NEGATIVE) Urine Ketones Negativemg/dL (NEGATIVE) Urine Occult Blood Negative (NEGATIVE) Urine Nitrite Negative (NEGATIVE) Urine Bilirubin Negative (NEGATIVE) Urine Urobilinogen Normalmg/dL (NORMAL) Urine Leukocyte Esterase Negative (NEGATIVE) Urine RBC 0-2/hpf (0-2) Urine WBC 0-5/hpf (0-5) Urine Epithelial Cells Occasional/hpf (NONE-MOD) Urine Crystals None seen (NONE SEEN) Urine Bacteria Few/hpf (NONE-FEW) Urine Hyaline Casts None/lpf (NONE) Urine Granular Casts None seen (NONE SEEN) Urine Waxy Casts None seen (NONE SEEN) Urine Red Blood Cell Casts None seen (NONE SEEN) Urine White Blood Cell Casts None seen (NONE SEEN) Urine Mucus None seen (None Seen) Urine Trichomonas None seen (NONE SEEN) Urine Yeast None (NONE SEEN) Urinalysis Comment None Urine Culture Reflexed Not indicated Reticulocyte Count,Calculated 0.8% (0.6-2.6) Prothrombin Time 10.2sec (8.1-12.5) Prothromb Time International Ratio 0.95ratio Lactic Acid Level 0.8mmol/L (0.4-2.0) Iron Level 17ug/dL (35-150) Total Iron Binding Capacity 309ug/dL (250-450) Percent Iron Saturation 6%sat (15-50) Unsaturated Iron Binding 291.8ug/dL Ferritin 12ng/mL (13-150) Total Bilirubin 0.2mg/dL (0.0-1.2) Aspartate Amino Transf (AST/SGOT) 8U/L (0-50) Alanine Aminotransferase (ALT/SGPT) 5U/L (0-32) Alkaline Phosphatase 83U/L (25-165) Troponin T < 0.010ug/L (0.0-0.011) Total Protein 6.3g/dL (6.4-8.4) Albumin 3.3g/dL (3.4-5.0) Vitamin B12 Level 157pg/mL (211-946) White Blood Count 10.2th/mm3 (3.8-10.1) Red Blood Count 4.44mil/mm3 (3.90-5.20) Hemoglobin 11.4g/dL (12.0-15.6) Hematocrit 34.6% (35.0-46.0) Mean Corpuscular Volume 77.9fL (81-100) Mean Corpuscular Hemoglobin 25.7pg (27.0-35.0) Mean Corpuscular Hemoglobin Concent 32.9% (32.0-37.0) Red Cell Distribution Width 15.4% (12.3-15.4) Platelet Count 280bil/L (150-400) Neutrophils (%) (Auto) 67.4% (40-74) Lymphocytes (%) (Auto) 18.6% (14-46) Monocytes (%) (Auto) 9.4% (4-12) Eosinophils (%) (Auto) 3.4% (0-5) Basophils (%) (Auto) 0.7% (0-3) Sodium Level 139mEq/L (134-144) Potassium Level 3.7mEq/L (3.5-5.2) Chloride Level 100mEq/L (97-108) Carbon Dioxide Level 23mmol/L (18-29) Blood Urea Nitrogen 37mg/dL (8-27) Creatinine 2.22mg/dL (0.57-1.00) Estimat Glomerular Filtration Rate 30mL/min (>59) Glucose Level 114mg/dL (60-99) Calcium Level 8.8mg/dL (8.5-10.1) Plan Impression Patient chart reviewed, patient interviewed and anesthestic plan with risks, benefits, and alternatives discussed, and informed consent obtained. NPO Status: GREATER THAN 8 HOURS Uli Orr MD Mar 12, 2016 11:40
--- NOTE | 2016-03-12 12:55 | NUR ---
Palliative Care Palliative Care received verbal order from Dr Joshi 03/12/16 to assist with goals of care. Patient is an 85 year old female with history of prior CVA, paroxysmal afib, gastric AVMs, diverticulitis s/p partial colectomy and anemia with upper GI bleed s/p transfusion on 2 hospitalizations. She presented to the ED with progressive weakness 03/11/16 and was admitted. She is receiving care for acute blood loss anemia and acute GI bleed. Palliative Care team saw patient several times during 05/2014 admission. Patient lives at [facility]. Lyndsey Briseida (daughter) [phone] Kar Stone (son) [phone] Palliative Care to follow. Sara Sanches
--- NOTE | 2016-03-12 13:43 | NUR ---
Evaluation completed. Please go to "Notes" then click on "Assessments and Notes" (bottom left corner of screen). Then select appropriate discipline tab on top of screen.
--- NOTE | 2016-03-12 14:34 | NUR ---
Endo Pt. transferred to ENDO at 1434 via a stretcher, accompanied by 2 RNs and daughter. Daughter, who is a POA signed the informed consent for upper endoscopy. Dr. Lu explained the procedure to daughter yesterday. Addendum: 03/12/16 at 1835 by ROMI LIVE RN Pt. returned to [facility] at 1632. She was alert. Daughter at bedside.
[2016-03-12] MEDS ORDERED: Propofol 10,000 mCg/mL 20 mL Inj ONE (14:38)
--- NOTE | 2016-03-12 15:08 | PCM.HPANE ---
Patient Data Surgeon Admitting Provider:Mika Weeks MD Attending Provider:Mika Weeks MD Primary Care Physician:Jose G Brown MD Other Provider: Reason for Visit Symptomatic Anemia, Gi Bleed SYMPTOMATIC ANEMIA, GI BLEED Ht/WT & BMI Height (Feet): 5 Height (Inches): 1.00 Weight (Kilograms): 90.910 Body Mass Index 37.00 Allergies Coded Allergies: Honey Bee (Verified Allergy, Severe, all bees, 03/11/16) simvastatin (Verified Allergy, Intermediate, 03/11/16) Past Anesthesia History Anesthesia History: Denies:: Abnormal Airway, Anesthesia Reactions, Difficult Intubation, Fam Anesthesia Reaction, Fam Malignant Hypertherm, Malignant Hyperthermia Diabetes History Hx Diabetes?: No MRSA MRSA: No Medications Blood Thinner: Aspirin, Plavix Last Dose Blood Thinner: Mar 11, 2016 Reported Medications Magnesium Hydroxide (Milk of Magnesia)400 Mg/5 Ml Oral.susp30 Ml PO prn PRN For Constipation 03/11/16 Epinephrine 0.3 Mg/0.3 Ml Auto.injct0.3 Mg IJ PRN For Anaphyllaxis 03/11/16 Acetaminophen 325 Mg Gtylzh777 Mg PO q6hr PRN For Pain 03/11/16 Polyethylene Glycol 3350 17 Gm Powd.pack17 Gm PO DAILY 03/11/16 Docusate Sodium (Colace)100 Mg Vqigrmn030 Mg PO HS 03/11/[address] 40 Mg Tablet.dr40 Mg PO DAILY 03/11/16 Lisinopril 20 Mg Zezpmd76 Mg PO DAILY 03/11/16 Cholecalciferol (Vitamin D3) (Vitamin D3)2,000 Unit Capsule2,000 Unit PO DAILY 03/11/16 Memantine (Namenda)10 Mg Ahadzw75 Mg PO BID 03/11/16 Hydralazine 25 Mg Oacfsk43 Mg PO QID 03/11/16 Famotidine 20 Mg Vzfevt47 Mg PO DAILY 03/11/16 Clopidogrel 75 Mg Ezdkkz59 Mg PO DAILY 03/11/16 Clonidine 0.1 Mg Tablet0.1 Mg PO BID 03/11/16 Diltiazem ER (Cartia XT)240 Mg Cap.er.54m372 Mg PO DAILY 03/11/16 Aspirin 81 Mg Odqbrh55 Mg PO DAILY 03/11/16 Furosemide 20 Mg Tab20 Mg PO DAILY 03/11/16 Citalopram Hydrobromide (Celexa)20 Mg Jupaer89 Mg PO DAILY 03/11/16 Discontinued Reported Medications Docusate Sodium (Colace)100 Mg Zkfrips807 Mg PO HS Ref 0 01/04/16 Magnesium Hydroxide (Milk of Magnesia)400 Mg/5 Ml Oral.susp30 Ml PO DAILY PRN For Constipation 07/22/15 Lisinopril 20 Mg Yahmoi57 Mg PO DAILY 07/22/15 Famotidine (Pepcid)20 Mg Evzdgw95 Mg PO DAILY 07/22/15 Clonidine 0.1 Mg Tablet0.1 Mg PO BID Ref 0 07/22/15 Diltiazem ER (Cartia XT)240 Mg Cap.er.10b279 Mg PO DAILY 07/22/15 Memantine (Namenda)10 Mg Gwkbfw87 Mg PO BID 30 Days Ref 0 04/12/15 Aspirin 81 Mg Frujiq63 Mg PO DAILY Ref 0 04/12/15 Citalopram 10 Mg Kdigzr22 Mg PO DAILY 30 Days Ref 0 05/14/14 Epinephrine 0.3 Mg/0.3 Ml Auto.injct0.3 Mg IJ PRN PRN For Anaphyllaxis 05/14/14 Acetaminophen 325 Mg Gegzxb187 Mg PO Q6 PRN For Pain 05/14/14 Cholecalciferol (Vitamin D3) (Vitamin D3)2,000 Unit Capsule2,000 Unit PO DAILY 05/14/14 Discontinued Scripts Cephalexin (Keflex)500 Mg Zzbzloz684 Mg PO QID 3 Days Ref 0 Prov:Elie Suarez DO 01/09/16 Polyethylene Glycol 3350 (Miralax)17 Gm Powd.pack17 Gm PO DAILY #30 PACKET Ref 0 Prov:Evonne Joshi DO 07/26/[address] (Protonix)40 Mg Ukmsgb30 Mg PO DAILY #30 TABLET Ref 0 Prov:Angelo Wood MD 07/03/15 Hydralazine 25 Mg Smnkkr19 Mg PO QID #120 Ref 0 hold if BP<120,if BP>180 on two consecutive checks, give and additional 25mg Prov:Angelo Wood MD 07/03/15 Clopidogrel Bisulfate (Plavix)75 Mg Ewespx72 Mg PO DAILY 30 Days Prov:Shannan Adair MD 05/20/14 History History of ENT Problems?: Yes HEENT History: Positive for:: Cataracts Dysphagia (Sometimes she choked on dry food) Glaucoma Denies:: Abnormal Airway Difficult Intubation Hearing Problem Sinus Problem Hx of Heart Problems?: Yes Cardiovascular History: Positive for:: Atrial Fibrillation Congestive Heart Failure Edema Hypertension Irregular Heartbeat (A. 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) Dementia Dizziness Headaches Denies:: Parkinson's Disease Seizures Hx of GI Problems?: Yes Gastrointestinal History: Positive for:: Diverticulitis (s/p partial colectomy ) Gastroesphageal Reflux Gastrointestinal Bleeding Denies:: Heartburn (Unsure) Hepatitis Hiatal Hernia Rectal Bleeding Other GI Pertinent History: Total hysterectomy Hx of Problems?: Yes Genitourinary History: Positive for:: Urinary Tract Infection Denies:: HX of Hemodialysis Kidney Stones HX of Peritoneal Dialysis: No Other Pertinent History: Chronic kidney insufficientcy Female Hx: Denies:: Currently Endometriosis Pelvic Inflammatory Problems with Breasts? Hx Musculoskeletal Problems?: Yes Musculoskeletal History: Positive for:: Back Injury Denies:: Joint Replacement Musculoskeletal Trauma Hx of Psycho/Social Problems?: Yes Psycho Social History: Positive for:: Hx Depression Denies:: Anxiety Bipolar Disorder Suicide Attempt Hx Surgeries?: Yes (right arm-- lumps removed x3 as a child, esthela) Hx Any Other Health Problems?: Yes Other History: Positive for:: Hospitalization (childbirth, appendectomy, hysterectomy) Denies:: Cancer Endocrine Disease Thyroid Disease History Blood Transfusions: Positive for:: Accept Blood Products? Blood Transfusions Denies:: Blood Transfuse Reaction Hx Diabetes: No Hx Alcohol Use: NoHx Substance Use: No Smoking Status: Never Smoker Have You Smoked inLast 12 mo: No Stop/Bang Treated for Sleep Apnea?: No Do You Have a CPAP Machine?: No S-Snoring: Do You Snore Loudly: No T-Tired: feel tired, fatigued: No O-Obsered: Observed not breath: No P-Blood Pressure: treated: Yes B- Body Mass Index > 35 kg/m2: No A- Age over 50: Yes N- Neck Large Circumference: No G- Gender Male: No ROYCE Total Score: 2 ROYCE Risk Assessment: Low Risk, <3 Yes Risk Assessment Category Category 1A: Patient has history of documented sleep apnea, and HAS NOT received any narcotic, sedative or anesthesia administration during this stay. Category 1B: Patient has history of documented sleep apnea, and HAS received any narcotic , sedative or anesthesia administration during this stay Category 2: Patient has SUSPECTED Obstructive Sleep Apnea, and HAS received any narcotic , sedative or anesthesia administration during this stay. Category 3: Patient has SUSPECTED Obstructive Sleep Apnea and HAS NOT received narcotic, sedative or anesthesia administration during this stay. Category 4: Outpatient in Procedural Areas with known sleep apnea or who screen positive for High Risk via the STOP/BANG questionnaire. Exam Exam Vital Signs Vital Signs Date Time Temp Pulse Resp B/P Pulse Ox O2 Delivery O2 Flow Rate FiO2 03/12/16 14:49 37.2 59 14 174/67 97 Room Air 03/12/16 11:31 36.6 53 16 164/69 98 Room Air 03/12/16 07:28 36.8 51 20 185/66 100 Room Air General Appearance: Alert, Oriented X3, Cooperative, No Acute Distress HEENT/AIRWAY: MP 2 Lungs: Clear to Auscultation, Normal Air Movement Heart: Exam Unremarkable, Regular Rate/Rhythm, No Murmurs/Rubs/Gallops Meds/Labs/Diagnostics Admission Meds Current Medications Citalopram Hydrobromide (CeleXA) 20 mg DAILY PO Last administered on 03/12/16 07:57; Start 03/12/16 at 08:30 Clonidine (Catapres) 0.1 mg BID PO Last administered on 03/12/16 07:57; Start 03/11/16 at 20:30 Hydralazine HCl (Apresoline) 50 mg QID PO Last administered on 03/12/16 12:17 ; Start 03/11/16 at 16:30 Lisinopril (Zestril) 20 mg DAILY PO Last administered on 03/12/16 07:57; Start 03/12/16 at 08:30 Memantine 10 mg 10 mg BID PO Last administered on 03/12/16 07:57; Start at 20:30 Pantoprazole 80 mg/Sodium Chloride 100 ml @ 10 mls/hr Q10H IV Last administered on 03/12/16 12:13; Start 03/12/16 at 01:00 Sodium Chloride 250 ml @ STK-MED ONCE .ROUTE Last administered on 03/11/16 18:09; Start 03/11/16 at 16:41; Stop 03/11/16 at 16:42; Status DC Sodium Chloride (Normal Saline) 250 ml @ STK-MED ONCE .ROUTE Last administered on 03/11/16 22:08; Start 03/11/16 at 21:33; Stop 03/11/16 at 21:34; Status DC Labs Test 03/11/16 12:16 03/11/16 12:35 03/12/16 06:34 03/12/16 13:13 Urine Color Straw (YELLOW) Urine Appearance Hazy (CLEAR,HAZY) Urine pH 6.0 (5.0-8.0) Urine Specific [place] 1.010 (1.003-1.035) Urine Protein Negativemg/dL (NEG,TRACE) Urine Glucose (UA) Negativemg/dL (NEGATIVE) Urine Ketones Negativemg/dL (NEGATIVE) Urine Occult Blood Negative (NEGATIVE) Urine Nitrite Negative (NEGATIVE) Urine Bilirubin Negative (NEGATIVE) Urine Urobilinogen Normalmg/dL (NORMAL) Urine Leukocyte Esterase Negative (NEGATIVE) Urine RBC 0-2/hpf (0-2) Urine WBC 0-5/hpf (0-5) Urine Epithelial Cells Occasional/hpf (NONE-MOD) Urine Crystals None seen (NONE SEEN) Urine Bacteria Few/hpf (NONE-FEW) Urine Hyaline Casts None/lpf (NONE) Urine Granular Casts None seen (NONE SEEN) Urine Waxy Casts None seen (NONE SEEN) Urine Red Blood Cell Casts None seen (NONE SEEN) Urine White Blood Cell Casts None seen (NONE SEEN) Urine Mucus None seen (None Seen) Urine Trichomonas None seen (NONE SEEN) Urine Yeast None (NONE SEEN) Urinalysis Comment None Urine Culture Reflexed Not indicated Reticulocyte Count,Calculated 0.8% (0.6-2.6) Prothrombin Time 10.2sec (8.1-12.5) Prothromb Time International Ratio 0.95ratio Lactic Acid Level 0.8mmol/L (0.4-2.0) Iron Level 17ug/dL (35-150) Total Iron Binding Capacity 309ug/dL (250-450) Percent Iron Saturation 6%sat (15-50) Unsaturated Iron Binding 291.8ug/dL Ferritin 12ng/mL (13-150) Total Bilirubin 0.2mg/dL (0.0-1.2) Aspartate Amino Transf (AST/SGOT) 8U/L (0-50) Alanine Aminotransferase (ALT/SGPT) 5U/L (0-32) Alkaline Phosphatase 83U/L (25-165) Troponin T < 0.010ug/L (0.0-0.011) Total Protein 6.3g/dL (6.4-8.4) Albumin 3.3g/dL (3.4-5.0) Vitamin B12 Level 157pg/mL (211-946) White Blood Count 10.2th/mm3 (3.8-10.1) Red Blood Count 4.44mil/mm3 (3.90-5.20) Mean Corpuscular Volume 77.9fL (81-100) Mean Corpuscular Hemoglobin 25.7pg (27.0-35.0) Mean Corpuscular Hemoglobin Concent 32.9% (32.0-37.0) Red Cell Distribution Width 15.4% (12.3-15.4) Platelet Count 280bil/L (150-400) Neutrophils (%) (Auto) 67.4% (40-74) Lymphocytes (%) (Auto) 18.6% (14-46) Monocytes (%) (Auto) 9.4% (4-12) Eosinophils (%) (Auto) 3.4% (0-5) Basophils (%) (Auto) 0.7% (0-3) Sodium Level 139mEq/L (134-144) Potassium Level 3.7mEq/L (3.5-5.2) Chloride Level 100mEq/L (97-108) Carbon Dioxide Level 23mmol/L (18-29) Blood Urea Nitrogen 37mg/dL (8-27) Creatinine 2.22mg/dL (0.57-1.00) Estimat Glomerular Filtration Rate 30mL/min (>59) Glucose Level 114mg/dL (60-99) Calcium Level 8.8mg/dL (8.5-10.1) Hemoglobin 12.4g/dL (12.0-15.6) Hematocrit 36.0% (35.0-46.0) Plan Impression Patient chart reviewed, patient interviewed and anesthestic plan with risks, benefits, and alternatives discussed, and informed consent obtained. NPO Status: GREATER THAN 8 HOURS ASA Physical Status: ASA3 Severe Disease Anesthetic Plan: MAC Bene/Risks/Altern/Consents: Yes HP Complete Prior to Induction: Yes Other dementia, daughter signed permit Neil Santos MD Mar 12, 2016 15:08
--- NOTE | 2016-03-12 15:45 | PCM.ANEP2 ---
Post Anesthesia Evaluation ASA/CMS Post Anesthesia VS in Patient's Normal Range?: Yes Resp Stable; Airway Patent?: Yes CV Function & Hydration Stable: Yes Mental Status Recovered?: Yes Pain control Satisfactory?: Yes N/V Control Satisfactory?: Yes Neil Santos MD Mar 12, 2016 15:45
--- NOTE | 2016-03-12 15:45 | PCM.ANEP1 ---
Post Anesthesia Phase 1 PACU Phase 1 Assessment Date of Service: Mar 11, 2016 Vital Signs Vital Signs Date Time Temp Pulse Resp B/P Pulse Ox O2 Delivery O2 Flow Rate FiO2 03/12/16 14:49 37.2 59 14 174/67 97 Room Air 03/12/16 11:31 36.6 53 16 164/69 98 Room Air Anesthetic Administered: MAC Level of Alertness: Awake, talking KUMAR's with Equal Strength: Yes Pain: No Nausea or Vomiting: No Oxygen Delivery: Nasal Cannula Lungs: Clear to Auscultation, Normal Air Movement Neil Santos MD Mar 12, 2016 15:45
--- NOTE | 2016-03-12 18:01 | PCM.PNMED ---
Subjective Date of Service Mar 12, 2016 Subjective denies any pain or discomfort Exam Vital Signs Vital Sign - Last Date Time Temp Pulse Resp B/P Pulse Ox O2 Delivery O2 Flow Rate FiO2 03/12/16 16:42 36.5 62 15 202/61 97 Room Air Intake and Output 03/11/16 03/11/16 03/12/16 Cumulative From/Thru 15:00 23:00 07:00 03/11/16 09:25 - 03/12/16 06:34 Intake Total 441 ml 925 ml 1366 ml Output Total 675 ml 675 ml Balance 441 ml 250 ml 691 ml Intake Oral 0 ml 0 ml IV Total 38 ml 243 ml 281 ml Packed Cells 403 ml 682 ml 1085 ml Output Urine Total 675 ml 675 ml General: Alert, Cooperative, No Acute Distress, Other (disoriented x 3) Head: Normal Eyes: Scleral Anicteric Mouth: Mucous Membr Moist/[employer] Neck: Supple Chest & Lungs: Chest Wall Normal, Clear to auscultation & percussion Cardiovascular: Regular Rate/Rhythm Abdomen: Non-tender, Normoactive bowel tones, Soft Extremities: No cyanosis/clubbing/edma bilat Neurological: Grossly Neurologically Intact, Normal Speech IVs and Medications Medications Reviewed: Medications were reviewed in detail Lab and Diagnostics Result Diagram: 03/12/16 1713 03/12/16 0634 X-Rays, CTs and MRIs CT brain concurrently reviewed by myself. 1. No definite acute intracranial abnormality. 2. Left sided encephalomalacia involving the occipital and posterior parietal lobes redemonstrated similar in appearance to the prior study but increased in extent compared to the 06/04/15 study. Consider further evaluation with MRI if clinical concern persists. 3. Moderate cerebral volume loss and chronic white matter small vessel ischemic changes redemonstrated. CXR concurrently reviewed by myself no acute cardiopulmonary disease process. 12-lead ECG No EKG Assessment & Plan 85 year old female with history of prior CVA, paroxysmal afib on Aspirin and Plavix, gastric AVMs, diverticulitis s/p partial colectomy, and anemia with upper GI bleed s/p transfusion on 2 hospitalizations who presents with progressive weakness. She was admitted for acute blood loss anemia and acute GI bleed. # Suspected acute upper GI bleed. poa - Patient with a history of multiple GI bleeds, on aspirin and Plavix presents with severe anemia and guaiac positive stools. - post 3 units of PRBC transfusion after admission - f/u h/h - appreciate GI consult. will f/u w/ recs - plan for upper endoscopy today - Continue Protonix drip # Acute on chronic anemia. poa - Patient presents with Hb of 6.9. Likely multifactorial given history of iron deficiency, multiple GI bleeds, and CKD Stage 3. - post PRBC transfusion as noted above - EGD as noted above - f/u # A. fib. chronic, rate controlled. - c/w Diltiazem - hold Aspirin and Plavix # DIXON/CKD3 - baseline creatinine closer to 1.5 - avoid nephrotoxic drugs - f/u repeat labs in am now that h/h improved # HTN. chronic. poorly controlled - c/w home current meds - cover with prn IV Hydralazine as well. # Dementia, chronic and advanced - at baseline per discussion with her children # Weakness - PT/OT eval when patient is stable. # Goals of care. - discussed with her daughter (DPOA) and pt's son who wish to talk with palliative care and consider possible hospice if pt would qualify - palliative care consulted. will f/u w/ recs Dispo: 2-3 days GI Prophylaxis: Proton Pump Inhibitor VTE Mechanical Devices: Intermittant Pneumatic CD Resuscitation Status: DNR/DNI:Do Not Resuscitate/Intubate Time spent 35 min Sergei Joshi Mar 12, 2016 18:01
[2016-03-12] MEDS ORDERED: hydrALAZINE 20 mg/mL Inj IV PRN (18:05)
--- NOTE | 2016-03-12 22:40 | NUR ---
diltiazem held diltiazem held. hr 50.
--- NOTE | 2016-03-12 22:48 | NUR ---
fatigued patient is fatigued. sleepy. awakens easily to take her evening meds daughter at bedside
--- NOTE | 2016-03-12 23:48 | ENDO ---
[address] [address] ENDOSCOPY PROCEDURE PATIENT: RAÚL LINCOLN : 1930 MR#: [id number] ADMIT: 03/11/2016 JOB ID: [id number] PROCEDURE: Esophagogastroduodenoscopy. INDICATION: Anemia. Please see anesthesia report for details regarding ASA classification, Mallampati score, and medications. INSTRUMENT USED: [id number]. PROCEDURE DETAILS: After informed consent was obtained, the patient was brought to the GI suite, where she was placed on oxygen via nasal cannula and monitored with continuous pulse oximeter, telemetry, and blood pressure monitoring. A time-out was performed. Then, she was placed in a left lateral decubitus position and medications were administered for sedation. A bite block was placed. The standard EGD scope was inserted through the bite block and advanced under direct visualization to second portion of duodenum without difficulty. FINDINGS: 1. Normal-appearing duodenal bulb, first and second portion. 2. Normal-appearing pylorus. 3. In the antrum and body of stomach, there was mild diffuse erythema suggestive of gastritis. 4. Retroflexed views in the gastric body revealed a normal-appearing cardia and fundus, with continuation of mild erythema suggestive of gastritis. Multiple random biopsies were not obtained as the patient is on Plavix and aspirin. 5. Normal-appearing GE junction with a regular Z-line. 6. Normal-appearing esophagus. IMPRESSION: Mild gastritis, otherwise normal exam from the esophagus to second portion of duodenum. No findings to explain the patient's acute anemia. RECOMMENDATIONS: I had a long discussion with the patient's daughter and son yesterday regarding further workup of anemia if the upper endoscopy should be normal, and the decision for colonoscopy was deferred as the patient is not able to prep for colonoscopy. I would continue to follow H and H, consider discontinuing aspirin and Plavix if able. COMPLICATIONS: None. ESTIMATED BLOOD LOSS: 0.
[2016-03-13 01:22] VITALS: BP 185/79; PULSE 58; RESP 16; O2SAT 94
--- NOTE | 2016-03-13 01:24 | NUR ---
activity up to bsc with one person assist. patient denies dizzyness, vs stable. persona and bed alarm on. given supportive care
[2016-03-13 06:25] VITALS: BP 186/69; RESP 16; O2SAT 98
[2016-03-13] MEDS: Pantoprazole 40 mg ER24 Tablet PO SCH (06:33)
[2016-03-13] MEDS: Diltiazem CD 120 mg ER24 Capsule PO SCH ×2 (09:18→20:30)
[2016-03-13] MEDS: cloNIDine 0.1 mg Tablet PO SCH ×2 (09:18→20:38)
[2016-03-13] MEDS: Polyethylene Glycol (PEG) 17 Gm Powder PO SCH (09:19)
[2016-03-13] MEDS ORDERED: fentaNYL-PF 50 mCg/mL 2 mL Inj ONE (11:05)
--- NOTE | 2016-03-13 11:13 | PCM.PNMED ---
Subjective Date of Service Mar 13, 2016 Subjective Patient had an uneventful night. This morning she has no complaints, denies N/V/ D, abdominal pain, or hematochezia. Denies fevers or chills. Exam Vital Signs Vital Sign - Last Date Time Temp Pulse Resp B/P Pulse Ox O2 Delivery O2 Flow Rate FiO2 03/13/16 06:25 37.0 16 186/69 98 Room Air 03/13/16 01:22 58 Intake and Output 03/12/16 03/12/16 03/13/16 Cumulative From/Thru 15:00 23:00 07:00 03/11/16 09:25 - 03/13/16 03:22 Intake Total 1037 ml 2403 ml Output Total 675 ml Balance 1037 ml 1728 ml Intake Oral 0 ml 0 ml IV Total 1037 ml 1318 ml Packed Cells 1085 ml Output Urine Total 675 ml # Voids 3 3 # Bowel Movements 1 1 Exam General: Alert, Cooperative, No Acute Distress, Other (Oriented only to name, generalized weakness). Mouth: Mucous Membranes Moist Chest & Lungs: Clear to auscultation & percussion Cardiovascular: Regular Rate/Rhythm, Normal S1, Normal S2, No Murmurs/Rubs/ Gallops Abdomen: Non-tender, Non-distended, No masses, Normoactive bowel tones, Soft, Other (Hypoactive bowel tones) Neuro: Normal speech, grossly neurologically intact. Lab and Diagnostics Result Diagram: 03/13/16 0602 03/13/16 0602 X-Rays, CTs and MRIs CT brain concurrently reviewed by myself. 1. No definite acute intracranial abnormality. 2. Left sided encephalomalacia involving the occipital and posterior parietal lobes redemonstrated similar in appearance to the prior study but increased in extent compared to the 06/04/15 study. Consider further evaluation with MRI if clinical concern persists. 3. Moderate cerebral volume loss and chronic white matter small vessel ischemic changes redemonstrated. CXR concurrently reviewed by myself no acute cardiopulmonary disease process. 12-lead ECG No EKG Assessment & Plan Patient is an 85 year old female with history of prior CVA, paroxysmal afib on Aspirin and Plavix, gastric AVMs, diverticulitis s/p partial colectomy, and anemia with upper GI bleed s/p transfusion on 2 hospitalizations who presents with progressive weakness. She was admitted for acute blood loss anemia and acute GI bleed. 1. Acute GI bleed. - Patient with a history of multiple GI bleeds, on aspirin and Plavix presents with severe anemia and guaiac positive stools. EGD on 03/12/16 was negative other than mild gastritis, with no findings to explain the patient's acute anemia. Given her history of diverticulitis and hemorrhoids, lower GI bleed is possible but unlikely given lack of hematochezia. On discussion with family, decision for colonoscopy was deferred as the patient is not able to prep for colonoscopy. - Status post 3 U PRBC after admission - Continue Protonix drip - Hold Aspirin/Plavix. Consider discontinuing these medications completely if possible. 2. Acute anemia - Patient presents with Hb of 6.9. Likely multifactorial given history of iron deficiency, multiple GI bleeds, and CKD Stage 3. Iron low at 17, ferritin low at 12. B12 low at 157. - Upper endoscopy to search for cause of bleeding. - Recommend iron supplements and B12 supplementation - Continue to trend H&H, transfuse as needed GI Prophylaxis: Proton Pump Inhibitor VTE Mechanical Devices: Intermittant Pneumatic CD Resuscitation Status: DNR/DNI:Do Not Resuscitate/Intubate Attending Statement pt seen and examined agree with resident physician progress note. Discussed with daughter who is patient's power of securities attorney regarding colonoscopy for further evaluation of anemia. Daughter deferred pursuing colonoscopy at this time. Recommend discontinuing Plavix if able. Kaleb De La Vega Mar 13, 2016 11:13 Nano Lu MD Mar 13, 2016 17:31
--- NOTE | 2016-03-13 13:51 | NUR ---
Social Work Initial Assessment Attempt: ESTEFANI attempted to meet with patient at bedside to discuss discharge plan. Patient demented. Patient is an 85 year old female admitted on 03/11/16 for symptomatic anemia, GI bleed. Patient payer as Medicare and [facility]. Patient is a resident of [facility] and expected to return back upon discharge. ESTEFANI contacted [facility], [phone]. Per [facility] rep Cassy, patient uses a walker at facility. patient independent with feeding and requires assistance with bathing and transfers. Rep aware of possible discharge for tomorrow. Cassy states that she to report to bedside today to ensure bed assessment for return back. ESTEFANI faxed clinicals to [facility], [phone] for review. Palliative care also following. ESTEFANI to also await therapy assessment to ensure discharge needs. ESTEFANI to follow. PLAN: Return back to [facility], pending discussion with daughter and [facility] bedside assessment today. ESTEFANI will continue to follow. ARLETH pendin peterson. David ARGUELLES Addendum: 03/13/16 at 1708 by FAMILIA MAHARAJ SS ESTEFANI completed assessment with patient daughter Jossie who verified information. Plan is for patient to return back to the [facility]. Patient as resided at facility for 2 years. Patient has previous SNF history at [facility]. Patient has previous C history. Patient uses a walker for use at facility. Patient PCP as MD Nicole. Patient has AD on file per daughter. No other anticiapted discharge needs at this time. ARLETH completed with daughter. ESTEFANI to follow. PLAN: PLAN: Return back to [facility],pending bedside assessment today. SW will continue to follow. David ARGUELLES
[2016-03-13 14:55] VITALS: BP 168/64; PULSE 50; RESP 16; O2SAT 97
--- NOTE | 2016-03-13 15:26 | NUR ---
Progress Patient up to chair today sat through lunch. Patient not eating very little Po intake. Pt enc so diet increased to full liquids in hope patient will eat something at dinner. Pt 's hydralazine with held at 1130 as sbp < 130 as parameters say.
--- NOTE | 2016-03-13 17:05 | PCM.PNMED ---
Subjective Date of Service Mar 13, 2016 Subjective denies any pain or discomfort Exam Vital Signs Vital Sign - Last Date Time Temp Pulse Resp B/P Pulse Ox O2 Delivery O2 Flow Rate FiO2 03/13/16 14:55 36.7 50 16 168/64 97 Room Air Intake and Output 03/12/16 03/12/16 03/13/16 Cumulative From/Thru 15:00 23:00 07:00 03/11/16 09:25 - 03/13/16 03:22 Intake Total 1037 ml 2403 ml Output Total 675 ml Balance 1037 ml 1728 ml Intake Oral 0 ml 0 ml IV Total 1037 ml 1318 ml Packed Cells 1085 ml Output Urine Total 675 ml # Voids 3 3 # Bowel Movements 1 1 Exam General: Alert, Cooperative, No Acute Distress, Other (disoriented x 3) Head: Normal Eyes: Scleral Anicteric Mouth: Mucous Membr Moist/Fabrica Neck: Supple Chest & Lungs: Chest Wall Normal, Clear to auscultation bilat Cardiovascular: Regular Rate/Rhythm Abdomen: Non-tender, Normoactive bowel tones, Soft Extremities: No cyanosis/clubbing/edema bilat Neurological: Grossly Neurologically Intact, Normal Speech IVs and Medications Medications Reviewed: Medications were reviewed in detail Lab and Diagnostics Result Diagram: 03/13/16 0602 03/13/16 0602 X-Rays, CTs and MRIs CT brain concurrently reviewed by myself. 1. No definite acute intracranial abnormality. 2. Left sided encephalomalacia involving the occipital and posterior parietal lobes redemonstrated similar in appearance to the prior study but increased in extent compared to the 06/04/15 study. Consider further evaluation with MRI if clinical concern persists. 3. Moderate cerebral volume loss and chronic white matter small vessel ischemic changes redemonstrated. CXR concurrently reviewed by myself no acute cardiopulmonary disease process. 12-lead ECG No EKG Assessment & Plan 85 year old female with history of prior CVA, paroxysmal afib on Aspirin and Plavix, gastric AVMs, diverticulitis s/p partial colectomy, and anemia with upper GI bleed s/p transfusion on 2 hospitalizations who presents with progressive weakness. She was admitted for acute blood loss anemia and acute GI bleed. # Suspected acute upper GI bleed. poa - Patient with a history of multiple GI bleeds, on aspirin and Plavix presents with severe anemia and guaiac positive stools. - post 3 units of PRBC transfusion after admission - f/u h/h - appreciate GI consult. will f/u w/ recs - post EGD on 03/12/16 without any obvious source of bleeding - Continue Protonix # Acute on chronic anemia. poa - Patient presents with Hb of 6.9. Likely multifactorial given history of iron deficiency, multiple GI bleeds, and CKD Stage 3. - post PRBC transfusion as noted above - EGD as noted above - f/u # A. fib. chronic, rate controlled. - c/w Diltiazem - hold Aspirin and Plavix # DIXON/CKD3. improving - baseline creatinine closer to 1.5 - avoid nephrotoxic drugs - f/u repeat labs in am # HTN. chronic. poorly controlled - c/w home current meds - cover with prn IV Hydralazine as well. # Dementia, chronic and advanced - at baseline per discussion with her children # Weakness - PT/OT eval when patient is stable. # Goals of care. - f/u w/ palliative care consult Dispo: likely 2 days pending stale h/h and goals of care GI Prophylaxis: Proton Pump Inhibitor VTE Mechanical Devices: Intermittant Pneumatic CD Resuscitation Status: DNR/DNI:Do Not Resuscitate/Intubate Time spent 25 min Sergei Joshi Mar 13, 2016 17:05
[2016-03-13 20:26] VITALS: BP 148/55; PULSE 49; RESP 16; O2SAT 96
--- NOTE | 2016-03-13 20:47 | NUR ---
availablity of POA for palliative care daughter mg is available from 1230-1pm tomorrow to speak to palliative care. and then will be available at 5pm to take [facility] if [facility]. 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
--- NOTE | 2016-03-13 20:49 | PCM.CONPAL ---
Date of Service Mar 13, 2016 Date of Hospital Admission: Mar 11, 2016 at 14:33 Date of Palliative Consult: Mar 13, 2016 Requesting Provider: Kirill Fernando MD Reason Palliative Care Consult: Goals of Care Discussion Hospital Unit @time of consult: Orthopedic/Surgical Care Palliative Care Recommendation Summary of palliative recommendations: -Symptom management (Pain/other) No pain Risk of fall Dementia-moderate GI Bleed with recurrent Fe def. No reversible lesion found on EGD and decision based on GI note is to hold on colonoscopy. AFib with hx CVA on dual antiplatelet tx. Based on recurrent GI bleed and recurrent Fe def anemia it would be prudent to discontinue antiplatelet therapy. At a minimum she should only be on a single agent. Based on her only moderate dementia and hx, I suspect her life expectancy is in range of yr or yrs giving her time to manifest her risk of stroke. But contraindications include risk of fall and GI bleed. Code status- per EMR is DNR/DNI. -DPOA/Advanced Directives/POLST--Daughter is listed as DPOAHC -Family/emotional support-involved son and daug -Spiritual support I will try again to connect with her daughter to review and confirm GOC. Problems: Disposition Back to [facility] when stable Resuscitation Status Resuscitation Status: DNR/DNI:Do Not Resuscitate/Intubate Pt History History of Present Illness Patient is an 85 year old female with history of severe dementia, prior CVA in 2014, paroxysmal afib on Aspirin and Plavix, AVMs in the gastric cardia, diverticulitis s/p partial colectomy, and anemia s/p transfusion in Jan 2016 who presents for progressive weakness. Per ED notes, she had a fall yesterday without injury and was unable to use her walker today. Per care staff she had vomited once today. She was unable to give any history due to dementia. However , she does deny nausea, vomiting, or any sort of pain at this time. In the ED, stool guaiac was positive. Vitals were stable. Hgb was 6.9, Hct 21.5. AST 8, ALT 5, alk phos 83. Trop <0.01. Lactic acid 0.8. INR 0.95. PALLIATIVE CARE NOTE: 85 yo female followed by Dr. Jose G Brown with hx of GI bleed and recurrent Fe def anemia. Reason for consult is to review goals of care. She has a hx of gastritis and gastric AVMs with eval in the past for same She has also been on ASA and plavix due to hx of CVA in 2014 and hx of afib. She was brought to [facility] ER due to progressive weakness and recent fall and was noted to have Hgb 6.9 and guaiac + stools. She was last transfused in January. She lives at the [facility] with dx of dementia-moderately severe with hx of CVA 2014 and HTN Past Medical History Significant PMH Noted: PMH Past Medical History Vascular dementia with CVA right frontal last year. CVA - 2015, right frontal, right springer radiata, middle cerebral artery vascular disease, on Plavix History of TIA with left facial droop History of paroxysmal atrial fibrillation on aspirin and Plavix, initially Anemia, transfused 1 unit January 2016, AVMs stomach July 2015 History of GI bleeds h/o Schatzki's ring h/o diverticulitis status post partial colectomy, GERD Atrial fibrillation new in April of 2015. Bradycardia Hyperlipidemia impaired fasting glucose urinary incontinence Gout CKD stage III, with a creatinine that runs 1.4-1.5. Admit for pyelonephritis January 2016 Hyperlipidemia Hypertension nonsmoker and ho hx ETOH overuse FMHX-not obtainable from pt due to dementia Social History Occupation: retired Family Members Issues: son Kar and daughter Lawrence live locally Living Situation: live in assisted care at the [facility] Spiritual Support Spiritual Support unknown Responsive Patient Symptoms Other patient denies any problem but is not accurate historian Palliative Performance Scale PPS Ambulation: Reduced PPS Activity: Unable to do any work PPS Self-Care: Considerable assistance required PPS Intake: Normal or reduced PPS Conscious Level: Full or drowsey, +/- confusion Performance Scale: 70% FAST Scale FAST Score: 6-A (I suspect but would need nsg input) Allergy Allergies Reviewed: Yes Medications Current Medications: Current Medications Citalopram Hydrobromide 20 mg DAILY PO Last administered on 03/13/16 09:18; Admin Dose 20 MG; Start 03/12/16 at 08:30 Diltiazem HCl 120 mg BID PO Last administered on 03/13/16 09:18; Admin Dose 120 MG; Start 03/12/16 at 08:30 Docusate Sodium 100 mg HS PO Last administered on 03/13/16 20:40; Admin Dose 100 MG; Start 03/11/16 at 21:00 Furosemide 20 mg DAILY PO; Start 03/12/16 at 08:30; Stop 03/12/16 at 18:02; Status DC Lisinopril 20 mg DAILY PO Last administered on 03/13/16 09:19; Admin Dose 20 MG ; Start 03/12/16 at 08:30 Pantoprazole 40 mg DAILY PO; Start 03/12/16 at 08:30; Stop 03/13/16 at 08:37; Status DC Polyethylene Glycol 17 gm 17 gm DAILY PO Last administered on 03/13/16 09:19; Admin Dose 17 GM; Start 03/12/16 at 08:30 Pantoprazole/ Sodium Chloride 100 ml @ 10 mls/hr Q10H IV Last administered on 12:13; Admin Dose 10 MLS/HR; Start 03/12/16 at 01:00; Stop 03/12/16 at 17:41; Status DC Pantoprazole 40 mg 0630 PO Last administered on 03/13/16 06:33; Admin Dose 40 MG; Start 03/13/16 at 06:30 Hydralazine HCl 10 mg Q6H PRN IV; Start 03/12/16 at 18:05 Hydralazine HCl 50 mg QID PO Last administered on 03/13/16 20:39; Admin Dose 50 MG; Start 03/13/16 at 21:30 Scheduled Aspirin (Aspirin) 81 Mg Tablet 81 MG PO DAILY Cholecalciferol (Vitamin D3) (Vitamin D3) 2,000 Unit Capsule 2,000 UNIT PO DAILY Citalopram Hydrobromide (Celexa) 20 Mg Tablet 20 MG PO DAILY Clonidine (Clonidine) 0.1 Mg Tablet 0.1 MG PO BID Clopidogrel (Clopidogrel) 75 Mg Tablet 75 MG PO DAILY Diltiazem ER (Cartia XT) 240 Mg Cap.er.24h 240 MG PO DAILY Docusate Sodium (Colace) 100 Mg Capsule 100 MG PO HS Famotidine (Famotidine) 20 Mg Tablet 20 MG PO DAILY Furosemide (Furosemide) 20 Mg Tab 20 MG PO DAILY Hydralazine (Hydralazine) 25 Mg Tablet 50 MG PO QID Lisinopril (Lisinopril) 20 Mg Tablet 20 MG PO DAILY Memantine (Namenda) 10 Mg Tablet 10 MG PO BID Pantoprazole DR (Pantoprazole DR) 40 Mg Tablet.dr 40 MG PO DAILY Polyethylene Glycol 3350 (Polyethylene Glycol 3350) 17 Gm Powd.pack 17 GM PO DAILY Scheduled PRN Acetaminophen (Acetaminophen) 325 Mg Tablet 325 MG PO q6hr PRN PRN For Pain Epinephrine (Epinephrine) 0.3 Mg/0.3 Ml Auto.injct 0.3 MG IJ PRN For Anaphyllaxis Magnesium Hydroxide (Milk of Magnesia) 400 Mg/5 Ml Oral.susp 30 ML PO prn PRN PRN For Constipation Objective Findings Exam Vital Sign - Last Date Time Temp Pulse Resp B/P Pulse Ox O2 Delivery O2 Flow Rate FiO2 03/13/16 20:26 37.2 49 16 148/55 96 Room Air Intake and Output 03/12/16 03/12/16 03/13/16 Cumulative From/Thru 15:00 23:00 07:00 03/11/16 09:25 - 03/13/16 03:22 Intake Total 1037 ml 2403 ml Output Total 675 ml Balance 1037 ml 1728 ml Intake Oral 0 ml 0 ml IV Total 1037 ml 1318 ml Packed Cells 1085 ml Output Urine Total 675 ml # Voids 3 3 # Bowel Movements 1 1 Objective BP ranges 155-185/ HR usually around 50 General: Alert, Oriented, Person HEENT: PERRLA, EOMI, Scleral Anicteric Heart: Dysrhythmia Present Lungs: Diminished, Other (mostly due to poor effort for deep breath) Abdomen: Soft Neuro: Other Extremities: No Edema Lab/Diagnostics Lab and Imaging results reviewed in detail in EMR. Hgb stable at 11 and Hct 34-35 CR 2.2-1.9 Patient/Family Conference Members Present Family Members Present patient only msgs left with daughter. son apparently left town today Discussion/Goals of Care Discussion Patient is too demented to assess and discuss and family not available If patient is no longer alert and aware because of their illness, would you choose comfort for them? Palliative Care counselled: Time spent Total time [45 ] minutes; >50% face to face with patient and/or family, providing counselling regarding plans and recommendations, and in care coordination with his/her medical teams. Review of records, hx, review of d/c planning with SS/CM and attempts to connect with family. I also spent an additional [ ] minutes counseling for advanced care planning with the patient/the patients family/the surrogate decision maker. Gale Pacheco MD Mar 13, 2016 20:49
--- NOTE | 2016-03-14 00:21 | NUR ---
activity patient able to eat dinner. given medications. no complaints ronal alarm on. no attempts to get oob.
[2016-03-14 05:09] VITALS: BP 161/46; PULSE 48; RESP 16; O2SAT 97
[2016-03-14] MEDS: Pantoprazole 40 mg ER24 Tablet PO SCH (06:12)
[2016-03-14 08:12] LABS: Mean Corpuscular Hemoglobin 26.1 pg (27.0-35.0); Mean Corpuscular Volume 78.9 fL (81-100)
[2016-03-14] MEDS: Diltiazem CD 120 mg ER24 Capsule PO SCH (08:30)
--- NOTE | 2016-03-14 09:08 | PCM.PNMED ---
Subjective Date of Service Mar 14, 2016 Subjective Uneventful overnight. Patient has no complaints, denies N/V/D, hematochezia, fevers, chills, SOB, cough, wheezing, dizziness. Exam Vital Signs Vital Sign - Last Date Time Temp Pulse Resp B/P Pulse Ox O2 Delivery O2 Flow Rate FiO2 03/14/16 05:09 36.9 48 16 161/46 97 Room Air Intake and Output 03/13/16 03/13/16 03/14/16 Cumulative From/Thru 15:00 23:00 07:00 03/11/16 09:25 - 03/14/16 06:10 Intake Total 0 ml 340 ml 150 ml 2893 ml Output Total 675 ml Balance 0 ml 340 ml 150 ml 2218 ml Intake Oral 0 ml 340 ml 150 ml 490 ml IV Total 1318 ml Packed Cells 1085 ml Output Urine Total 675 ml # Voids 3 2 2 10 # Bowel Movements 0 0 1 Exam General: Alert, Cooperative, No Acute Distress, Other (Oriented only to name). Mouth: Mucous Membranes Moist Chest & Lungs: Clear to auscultation & percussion Cardiovascular: Regular Rate/Rhythm, Normal S1, Normal S2, No Murmurs/Rubs/ Gallops Abdomen: Non-tender, Non-distended, No masses, Normoactive bowel tones, Soft Neuro: Normal speech, grossly neurologically intact. Lab and Diagnostics Result Diagram: 03/14/16 0800 03/14/16 0800 X-Rays, CTs and MRIs CT brain concurrently reviewed by myself. 1. No definite acute intracranial abnormality. 2. Left sided encephalomalacia involving the occipital and posterior parietal lobes redemonstrated similar in appearance to the prior study but increased in extent compared to the 06/04/15 study. Consider further evaluation with MRI if clinical concern persists. 3. Moderate cerebral volume loss and chronic white matter small vessel ischemic changes redemonstrated. CXR concurrently reviewed by myself no acute cardiopulmonary disease process. 12-lead ECG No EKG Assessment & Plan Patient is an 85 year old female with history of prior CVA, paroxysmal afib on Aspirin and Plavix, gastric AVMs, diverticulitis s/p partial colectomy, and anemia with upper GI bleed s/p transfusion on 2 hospitalizations who presents with progressive weakness. She was admitted for acute blood loss anemia and acute GI bleed. 1. Acute GI bleed. Stable. - Patient with a history of multiple GI bleeds, on aspirin and Plavix presents with severe anemia and guaiac positive stools. EGD on 03/12/16 was negative other than mild gastritis, with no findings to explain the patient's acute anemia. Given her history of diverticulitis and hemorrhoids, lower GI bleed is possible but unlikely given lack of hematochezia. On discussion with family, decision for colonoscopy was deferred as the patient is not able to prep for colonoscopy. She has not had any jian red blood in her stools during this hospitalization. - Status post 3 U PRBC on admission - Protonix 40 mg daily - Hold Aspirin/Plavix. Consider discontinuing these medications completely if possible. 2. Acute anemia. Stable. - Patient presents with Hb of 6.9. Likely multifactorial given history of iron deficiency, multiple GI bleeds, and CKD Stage 3. Her Hb has remained stable between 11.5 - 12.5 since 03/12/16 after blood transfusion on admission. - Recommend iron supplements and B12 supplementation - Continue to trend H&H daily, transfuse as needed GI Prophylaxis: Proton Pump Inhibitor VTE Mechanical Devices: Intermittant Pneumatic CD Resuscitation Status: DNR/DNI:Do Not Resuscitate/Intubate Attending Statement Patient seen and examined Agree with present physician note Plan as outlined in his notes. Kaleb De La Vega Mar 14, 2016 09:08 Nano Lu MD Apr 01, 2016 14:46
[2016-03-14] MEDS: Polyethylene Glycol (PEG) 17 Gm Powder PO SCH (09:50)
[2016-03-14] MEDS: cloNIDine 0.1 mg Tablet PO SCH (09:53)
--- NOTE | 2016-03-14 10:05 | PCM.DIMED ---
Discharge Instructions Date of Service Mar 14, 2016 Dates of Hospitalization Mar 11, 2016 at 14:33 Discharge Diagnosis Discharge Diagnosis # Suspected acute GI bleed. present on admission - post 3 units of packed red blood cell (PRBC) transfusion on admission - post esophagogastroduodenoscopy (EGD) on 03/12/16 without any obvious source of bleeding # Acute on chronic anemia. present on admission with workup and treatment as noted above # A. fib. chronic, rate controlled. # Acute kidney injury (DIXON) on top of chronic kidney disease (CKD stage 3). Improved # Hypertension, chronic. stable. # Dementia, chronic and advanced # Generalized weakness and deconditioning. Medication Instructions Stop taking Aspirin and Plavix until followup with primary care provider within about one week to determine when and if to resume either of these medications. Diet Low fat, Low Sodium, Heart Healthy Activity Other (as tolerated) Call your provider Fever or Chills, Shortness of breath, Bleeding, Chest pain, Vomitting Patient Instructions Follow-up plan 1. Followup with primary care provider in 5-10 days Follow-up Provider: Jose G Brown MD, Masoud Mar 14, 2016 10:05
--- NOTE | 2016-03-14 10:30 | NUR ---
Social Work Continued Discharge Planning: Order for discharge acknowledged. Plan is return back to [facility]. ESTEFANI spoke to [facility] rep Cassy who states that bedside assessment took place yesterday and patient accepted to return back to [facility]. ESTEFANI contacted patient daughter Lyndsey who is aware and in agreement for transfer today. Family to transport patient at 5p today. [facility] rep Cassy made aware. ESTEFANI faxed discharge instructions for facility at [phone]. SW to follow. PLAN: Return back to [facility]
[2016-03-14 10:35] VITALS: BP 128/73; PULSE 77; RESP 16; O2SAT 96
[2016-03-14 12:12] VITALS: BP 124/74; PULSE 82; RESP 16; O2SAT 96
[2016-03-14 12:17] VITALS: BP 146/59
[2016-03-14 12:57] VITALS: BP 118/63; PULSE 81; RESP 20; O2SAT 98
--- NOTE | 2016-03-14 13:05 | NUR ---
Progress/meds Patient up to chair for lunch . Patient cooperative with care, took am meds. Hydralazine at 1130 withheld as BP was 118/63. Lisinopril withheld this am related to creatinine level above parameters. Plan is for patient to go back [facility] this evening and daughter will transport.
[2016-03-14] MEDS ORDERED: CYAN10008 PO (13:47)
[2016-03-14] MEDS ORDERED: FERR-83 PO (13:47)
--- NOTE | 2016-03-14 14:33 | PCM.PNPALL ---
Date of Service Mar 14, 2016 Date of Hospital Admission: Mar 11, 2016 at 14:33 Date of Palliative Consult: Mar 13, 2016 Palliative Care Recommendation Summary of palliative recommendations: -Symptom management (Pain/other) No pain Risk of fall-high Dementia-moderate GI Bleed with recurrent Fe def. No reversible lesion found on EGD and decision based on GI note is to hold on colonoscopy. AFib with hx CVA on dual antiplatelet tx. Based on recurrent GI bleed and recurrent Fe def anemia it would be prudent to discontinue antiplatelet therapy. At a minimum she should only be on a single agent. Based on her only moderate dementia and hx, I suspect her life expectancy is in range of yr or yrs giving her time to manifest her risk of stroke. But contraindications include risk of fall and GI bleed. See discussion- will continue ASA only, start oral iron and cover for constipation. Vit B12 def-advise treatment. All of the above is discussed with hospitalist who defers to pt's PCP-call to Dr. Nicole to review case and issue and arrange for close f/u on H/H Code status- per EMR is DNR/DNI.POLST done and [facility]. -DPOA/Advanced Directives/POLST--Daughter is listed as DPOAHC -Family/emotional support-involved son and daug Problems: End of Life Preferences DNR/DNI Goals of Care To continue transfusions as needed for recurrent anemia Disposition Back to [facility] when stable Resuscitation Status Resuscitation Status: DNR/DNI:Do Not Resuscitate/Intubate Limited Interventions: Medications and IV Fluid POLST Updates/Changes POLST Discussed with: Health Care Agent (DPOAHC) (daughter) Palliative Subjective Palliative Care Daily Responde: Patient, Family/Proxy (daughter Lawrence) Brief History 85 yo female with hx of dementia and recurrent iron def anemia with known persistent GI bleed. No identified source of bleeding with EGD. This is 2nd hospitalization for transfusion. She has hx of CVA and afib and was on 2 antiplt agents Discussion with daughter-Lawrence. Patient has moderately severe dementia. Patient/Family Concerns goals of care, risk of stroke, ?hospice Subjective patient has no complaints but is not an accurate historian Palliative Performance Scale PPS Ambulation: Mainly Sit/Lie PPS Activity: Unable to do any work PPS Self-Care: 1 person assist PPS Intake: Normal or reduced PPS Conscious Level: Full or drowsey, +/- confusion Performace Scale: 60% Objective Findings Exam Vital Sign - Last Date Time Temp Pulse Resp B/P Pulse Ox O2 Delivery O2 Flow Rate FiO2 03/14/16 12:57 36.7 81 20 118/63 98 Room Air Intake and Output 03/13/16 03/13/16 03/14/16 Cumulative From/Thru 15:00 23:00 07:00 03/11/16 09:25 - 03/14/16 06:10 Intake Total 0 ml 340 ml 150 ml 2893 ml Output Total 675 ml Balance 0 ml 340 ml 150 ml 2218 ml Intake Oral 0 ml 340 ml 150 ml 490 ml IV Total 1318 ml Packed Cells 1085 ml Output Urine Total 675 ml # Voids 3 2 2 10 # Bowel Movements 0 0 1 General: Alert, Oriented, Person HEENT: PERRLA, EOMI, Scleral Anicteric Heart: Dysrhythmia Present Lungs: Diminished, Other (mostly due to poor effort for deep breath) Abdomen: Soft Neuro: Other (L facial weakness, up in chair, needs to be fed-seems to just not think of it, can move her arms.) Extremities: Edema (1+) Lab/Diagnostics Lab and Imaging results reviewed in detail in EMR. HCT stable at 12 low iron and vit B12 of 157 Patient/Family Conference Members Present Family Members Present daughter Lawrence Medical Team Members Present? Kim ZUÑIGA and later phone call to Dr. Joshi and Dr. Brown Discussion/Goals of Care Discussion FAMILY UNDERSTANDING OF DISEASE: Daughter concerned re risk of CVA if off her antiplatelets and as per Dr. Brown -- had this concern in the past even when it was dropped to just ASA in past and daughter requested back on both.Reviewed signif increase in risk of bleeding in elderly and with 2 antiplatelet agents. One could argue to stop both. I do not think there is an argument to be on 2 with her now recurrence of anemia and GI blood loss. Agreement is to continue with only ASA and that will not start for another week. Reviewed that she may qualify for hospice if it is decided not to have further transfusions but the daughter is not comfortable with that at this time. Reviewed goal to keep her out of hospital with close monitoring of labs treating with replacement iron and vit B12 and transfuse as needed. 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 Confirmed DNR/DNI DISEASE PROGRESSION/EVIDENCE OF DECLINE: SYMPTOM BURDEN: GOALS: To [facility] HOPES/WORRIES: Daughter fears another CVA since it took such a toll on her mother with 1st. Time spent Total time [ 50] minutes; >50% face to face with patient and/or family, providing counselling regarding plans and recommendations, and in care coordination with his/her medical teams. including time with coordinaiton of care with hospitalist and with PCP and review of GOC with her daughter I also spent an additional [ ] minutes counseling for advanced care planning with the patient/the patients family/the surrogate decision maker. copies to: Jose G Brown MD, Deborah A MD Mar 14, 2016 14:33
--- NOTE | 2016-03-14 16:15 | PCM.DC.MED ---
Discharge Summary Date of Service Mar 14, 2016 Dates of Hospitalization Date of Hospital Admission Mar 11, 2016 at 14:33 Date of Discharge: Mar 14, 2016 Providers: Admitting Physician: Mika Weeks MD Primary Care Physician: Jose G Brown MD Attending Physician: Mika Weeks MD Diagnosis at Time of Discharge Diagnosis at Time of Discharge # Suspected acute GI bleed. present on admission - post 3 units of packed red blood cell (PRBC) transfusion on admission - post esophagogastroduodenoscopy (EGD) on 03/12/16 without any obvious source of bleeding # Acute on chronic anemia. present on admission with workup and treatment as noted above # A. fib. chronic, rate controlled. # Acute kidney injury (DIXON) on top of chronic kidney disease (CKD stage 3). Improved # Hypertension, chronic. stable. # Dementia, chronic and advanced # Generalized weakness and deconditioning. Consultations 1. GI 2. Palliative care Procedures XRay, CTs & MRIs Date of Service: 03/11/16 1016 PROCEDURE: X-RAY CHEST ONE VIEW, PORTABLE ([id number]) IMPRESSION: No acute cardiopulmonary disease process. Dictated by: Dorothy Ramsay MD, PhD on 03/11/2016 at 11:24 Approved by: Dorothy Ramsay MD, PhD on 03/11/2016 at 11:24 Date of Service: 03/11/16 1016 PROCEDURE: CT BRAIN WITHOUT CONTRAST ([id number]) IMPRESSION: 1. No definite acute intracranial abnormality. 2. Left sided encephalomalacia involving the occipital and posterior parietal lobes redemonstrated similar in appearance to the prior study but increased in extent compared to the 06/04/15 study. Consider further evaluation with MRI if clinical concern persists. 3. Moderate cerebral volume loss and chronic white matter small vessel ischemic changes redemonstrated. Dictated by: Ar Black M.D. on 03/11/2016 at 11:38 Approved by: Ar Black M.D. on 03/11/2016 at 11:38 Invasive Procedures PROCEDURE: Esophagogastroduodenoscopy. INDICATION: Anemia. FINDINGS: 1. Normal-appearing duodenal bulb, first and second portion. 2. Normal-appearing pylorus. 3. In the antrum and body of stomach, there was mild diffuse erythema suggestive of gastritis. 4. Retroflexed views in the gastric body revealed a normal-appearing cardia and fundus, with continuation of mild erythema suggestive of gastritis. Multiple random biopsies were not obtained as the patient is on Plavix and aspirin. 5. Normal-appearing GE junction with a regular Z-line. 6. Normal-appearing esophagus. IMPRESSION: Mild gastritis, otherwise normal exam from the esophagus to second portion of duodenum. No findings to explain the patient's acute anemia. RECOMMENDATIONS: I had a long discussion with the patient's daughter and son yesterday regarding further workup of anemia if the upper endoscopy should be normal, and the decision for colonoscopy was deferred as the patient is not able to prep for colonoscopy. I would continue to follow H and H, consider discontinuing aspirin and Plavix if able. Nano Lu MD 03/12/16 1541 <Electronically signed by Nano Lu MD> 03/13/16 1507 Brief History 85 year old female with history of prior CVA, paroxysmal afib on Aspirin and Plavix, gastric AVMs, diverticulitis s/p partial colectomy, and anemia with upper GI bleed s/p transfusion on 2 hospitalizations who presents with progressive weakness. She was admitted for acute blood loss anemia and acute GI bleed. Hospital Course # Suspected acute GI bleed. poa - Patient with a history of multiple GI bleeds, on aspirin and Plavix presents with severe anemia and guaiac positive stools. - appreciate GI consult. - post EGD on 03/12/16 without any obvious source of bleeding - colonoscopy not done per GI report due to family request because concern pt unable to tolerate the prep - Continue Protonix - will hold ASA and Plavix for now with recommendation to f/u w/ PCP in one week to determine if and when to resume these medications. # Acute on chronic anemia. poa - Patient presents with Hb of 6.9. Likely multifactorial given history of iron deficiency, multiple GI bleeds, and CKD Stage 3. - post 3 units of PRBC transfusion after admission - h/h stable post transfusion - iron and B12 deficiency noted. will d/c on supplemental iron and B12 # A. fib. chronic, rate controlled. - c/w Diltiazem - hold Aspirin and Plavix until further f/u w/ PCP in about one week # DIXON/CKD3. improved - Cr. on presentation was 2.59 - avoid nephrotoxic drugs # HTN. chronic. stable - c/w home current meds # Dementia, chronic and advanced - at baseline per discussion with her children by day of d/c lungs CTA bilat. abdomen soft, nt, nd, +bs Exam Vital Signs (Last) Date Time Temp Pulse Resp B/P Pulse Ox O2 Delivery O2 Flow Rate FiO2 03/14/16 12:57 36.7 81 20 118/63 98 Room Air Test 03/11/16 12:16 03/11/16 12:35 03/12/16 06:34 03/14/16 08:00 Urine Color Straw (YELLOW) Urine Appearance Hazy (CLEAR,HAZY) Urine pH 6.0 (5.0-8.0) Urine Specific [place] 1.010 (1.003-1.035) Urine Protein Negativemg/dL (NEG,TRACE) Urine Glucose (UA) Negativemg/dL (NEGATIVE) Urine Ketones Negativemg/dL (NEGATIVE) Urine Occult Blood Negative (NEGATIVE) Urine Nitrite Negative (NEGATIVE) Urine Bilirubin Negative (NEGATIVE) Urine Urobilinogen Normalmg/dL (NORMAL) Urine Leukocyte Esterase Negative (NEGATIVE) Urine RBC 0-2/hpf (0-2) Urine WBC 0-5/hpf (0-5) Urine Epithelial Cells Occasional/hpf (NONE-MOD) Urine Crystals None seen (NONE SEEN) Urine Bacteria Few/hpf (NONE-FEW) Urine Hyaline Casts None/lpf (NONE) Urine Granular Casts None seen (NONE SEEN) Urine Waxy Casts None seen (NONE SEEN) Urine Red Blood Cell Casts None seen (NONE SEEN) Urine White Blood Cell Casts None seen (NONE SEEN) Urine Mucus None seen (None Seen) Urine Trichomonas None seen (NONE SEEN) Urine Yeast None (NONE SEEN) Urinalysis Comment None Urine Culture Reflexed Not indicated Reticulocyte Count,Calculated 0.8% (0.6-2.6) Prothrombin Time 10.2sec (8.1-12.5) Prothromb Time International Ratio 0.95ratio Lactic Acid Level 0.8mmol/L (0.4-2.0) Iron Level 17ug/dL (35-150) Total Iron Binding Capacity 309ug/dL (250-450) Percent Iron Saturation 6%sat (15-50) Unsaturated Iron Binding 291.8ug/dL Ferritin 12ng/mL (13-150) Total Bilirubin 0.2mg/dL (0.0-1.2) Aspartate Amino Transf (AST/SGOT) 8U/L (0-50) Alanine Aminotransferase (ALT/SGPT) 5U/L (0-32) Alkaline Phosphatase 83U/L (25-165) Troponin T < 0.010ug/L (0.0-0.011) Total Protein 6.3g/dL (6.4-8.4) Albumin 3.3g/dL (3.4-5.0) Vitamin B12 Level 157pg/mL (211-946) Neutrophils (%) (Auto) 67.4% (40-74) Lymphocytes (%) (Auto) 18.6% (14-46) Monocytes (%) (Auto) 9.4% (4-12) Eosinophils (%) (Auto) 3.4% (0-5) Basophils (%) (Auto) 0.7% (0-3) White Blood Count 11.2th/mm3 (3.8-10.1) Red Blood Count 4.60mil/mm3 (3.90-5.20) Hemoglobin 12.0g/dL (12.0-15.6) Hematocrit 36.3% (35.0-46.0) Mean Corpuscular Volume 78.9fL (81-100) Mean Corpuscular Hemoglobin 26.1pg (27.0-35.0) Mean Corpuscular Hemoglobin Concent 33.1% (32.0-37.0) Red Cell Distribution Width 16.2% (12.3-15.4) Platelet Count 313bil/L (150-400) Sodium Level 140mEq/L (134-144) Potassium Level 3.8mEq/L (3.5-5.2) Chloride Level 103mEq/L (97-108) Carbon Dioxide Level 24mmol/L (18-29) Blood Urea Nitrogen 27mg/dL (8-27) Creatinine 2.00mg/dL (0.57-1.00) Estimat Glomerular Filtration Rate 34mL/min (>59) Glucose Level 114mg/dL (60-99) Calcium Level 8.7mg/dL (8.5-10.1) Discharge Medications Discharge Medications Cholecalciferol (Vitamin D3) (Vitamin D3) 2,000 Unit Capsule 2,000 UNIT PO DAILY (Reported) Citalopram Hydrobromide (Celexa) 20 Mg Tablet 20 MG PO DAILY (Reported) Clonidine (Clonidine) 0.1 Mg Tablet 0.1 MG PO BID (Reported) Cyanocobalamin (Vitamin B-12) (Vitamin B-12) 1,000 Mcg Tablet 1,000 MCG PO DAILY Prescribed by: SHREE HAAS MD Diltiazem ER (Cartia XT) 240 Mg Cap.er.24h 240 MG PO DAILY (Reported) Docusate Sodium (Colace) 100 Mg Capsule 100 MG PO HS (Reported) Famotidine (Famotidine) 20 Mg Tablet 20 MG PO DAILY (Reported) Ferrous Sulfate (Ferrous Sulfate) 325 Mg Tablet 325 MG PO TID Prescribed by: SHREE HAAS MD Hydralazine (Hydralazine) 25 Mg Tablet 50 MG PO QID (Reported) Lisinopril (Lisinopril) 20 Mg Tablet 20 MG PO DAILY (Reported) Memantine (Namenda) 10 Mg Tablet 10 MG PO BID (Reported) Pantoprazole DR (Pantoprazole DR) 40 Mg Tablet.dr 40 MG PO DAILY (Reported) Polyethylene Glycol 3350 (Polyethylene Glycol 3350) 17 Gm Powd.pack 17 GM PO DAILY (Reported) As needed Acetaminophen (Acetaminophen) 325 Mg Tablet 325 MG PO q6hr PRN PRN For Pain ( Reported) Epinephrine (Epinephrine) 0.3 Mg/0.3 Ml Auto.injct 0.3 MG IJ PRN For Anaphyllaxis (Reported) Magnesium Hydroxide (Milk of Magnesia) 400 Mg/5 Ml Oral.susp 30 ML PO prn PRN PRN For Constipation (Reported) Additional med instructions Stop taking Aspirin and Plavix until followup with primary care provider within about one week to determine when and if to resume either of these medications. Followup Plan Disposition: assisted living Follow-up plan 1. Followup with primary care provider in 5-10 days Discharge Diet: Low fat, Low Sodium, Heart Healthy Discharge Activity: Other (as tolerated) Follow-up Provider: Jose G Brown MD Follow-up with PCP in: 1 week Time spent 35 min copies to: Jose G Brown MD, Masoud Mar 14, 2016 16:15
--- NOTE | 2016-03-14 18:00 | NUR ---
Discharge Pt left with family in stable condition with all belongings to [facility] at 1735, No IV access, prescriptions given. instructions for scheduling follow up appointment given to daughter.
--- NOTE | 2016-03-26 13:03 | NUR ---
Palliative care note D/A: Chart reviewed for consideration of call to pt, post dc from acute care. Review of chart reveals that pt is currently admitted. Case discussed with Dr. Pacheco, who saw pt as PC consult during last admit. Dr. Pacheco to review and will talk to hospitalist regarding referral for consult, if felt to be beneficial. P: Palliative to follow as needed. Davina DHILLON, CCM
== END 2016-03-14 17:46 | disposition home or self-care (01) | DRG 378 ==
LOC: EDUNIT# 09:17 → EDBD 09:17 → SED 09:17 → OSC 14:33
PROVIDERS: ADMIT Hospitalist; ATTEND Hospitalist
PROC: 0DJ08ZZ Inspection of Upper Intestinal Tract, Via Natural or Artificial Opening Endoscopic (ICD-10-PCS; principal; 2016-02-10)
PROC: 30233N1 Transfusion of Nonautologous Red Blood Cells into Peripheral Vein, Percutaneous Approach (ICD-10-PCS; 2016-03-11)
PROC: 30233N1 Transfusion of Nonautologous Red Blood Cells into Peripheral Vein, Percutaneous Approach (ICD-10-PCS; 2016-03-12)
DX: K92.2 Gastrointestinal hemorrhage, unspecified (principal); D62 Acute posthemorrhagic anemia; I48.0 Paroxysmal atrial fibrillation; G30.9 Alzheimer's disease, unspecified; F02.80 Dementia in other diseases classified elsewhere, unspecified severity, without behavioral disturbance, psychotic disturbance, mood disturbance, and anxiety; Z66 Do not resuscitate; I69.992 Facial weakness following unspecified cerebrovascular disease; E78.00 Pure hypercholesterolemia, unspecified; R29.6 Repeated falls; K21.9 Gastro-esophageal reflux disease without esophagitis; I12.9 Hypertensive chronic kidney disease with stage 1 through stage 4 chronic kidney disease, or unspecified chronic kidney disease; D50.9 Iron deficiency anemia, unspecified; N18.3 Chronic kidney disease, stage 3 (moderate); Z79.82 Long term (current) use of aspirin; Z86.73 Personal history of transient ischemic attack (TIA), and cerebral infarction without residual deficits; Z79.01 Long term (current) use of anticoagulants

== ENCOUNTER 2016-03-23 20:51 | Inpatient (IN) | payer MEDICARE, OTHER ==
[~2016-03-23] VITALS: Ht 157.5 cm; Wt 68.4 kg
[~2016-03-23 20:51] MED LIST changes: -ASPI-973 PO; -CEPH-512 PO; -CITA10TA9 PO; +CITA20TA PO; -CLOP75TA3 PO; +CYAN10008 PO; -FAMO20T PO; +FAMO20TA4 PO; +FERR-83 PO; -PANT40TA2 PO; +PANT40TA3 PO; +POLY17PO2 PO; -POLY17PO6 PO
[2016-03-23 20:55] VITALS: BP 162/60; PULSE 54; RESP 12; O2SAT 98
--- NOTE | 2016-03-23 21:22 | ED.REPORT ---
HPI-Altered Mental Status Date of Service Mar 23, 2016 ED Provider: Jonas Liang MD Pt is an 85 y.o. female with a hx of Alzheimer's, HTN, CKD, and GERD who presents to the ED via EMS from [facility], with worsening confusion. Per daughter staff at the [facility] states that the pt has been notably getting worse , and daughter states pt is not talking as much and is slower to respond. Pt was Pt unable to provide a hx due to mental status. Nursing Notes Stated Complaint: AMS Chief Complaint: Neuro Symptoms/ Deficits Nursing Notes Reviewed: Yes Allergies: Coded Allergies: Honey Bee (Verified Allergy, Severe, all bees, 03/11/16) simvastatin (Verified Allergy, Intermediate, 03/11/16) Scheduled Cholecalciferol (Vitamin D3) (Vitamin D3) 2,000 Unit Capsule 2,000 UNIT PO DAILY Citalopram Hydrobromide (Celexa) 20 Mg Tablet 20 MG PO DAILY Clonidine (Clonidine) 0.1 Mg Tablet 0.1 MG PO BID Cyanocobalamin (Vitamin B-12) (Vitamin B-12) 1,000 Mcg Tablet 1,000 MCG PO DAILY Diltiazem ER (Cartia XT) 240 Mg Cap.er.24h 240 MG PO DAILY Docusate Sodium (Colace) 100 Mg Capsule 100 MG PO HS Famotidine (Famotidine) 20 Mg Tablet 20 MG PO DAILY Ferrous Sulfate (Ferrous Sulfate) 325 Mg Tablet 325 MG PO TID Hydralazine (Hydralazine) 25 Mg Tablet 50 MG PO QID Lisinopril (Lisinopril) 20 Mg Tablet 20 MG PO DAILY Memantine (Namenda) 10 Mg Tablet 10 MG PO BID Pantoprazole DR (Pantoprazole DR) 40 Mg Tablet.dr 40 MG PO DAILY Polyethylene Glycol 3350 (Polyethylene Glycol 3350) 17 Gm Powd.pack 17 GM PO DAILY Scheduled PRN Acetaminophen (Acetaminophen) 325 Mg Tablet 325 MG PO q6hr PRN PRN For Pain Epinephrine (Epinephrine) 0.3 Mg/0.3 Ml Auto.injct 0.3 MG IJ PRN For Anaphyllaxis Magnesium Hydroxide (Milk of Magnesia) 400 Mg/5 Ml Oral.susp 30 ML PO prn PRN PRN For Constipation General Time Seen by MD: 21:20 Transferred From: long-term Chief Complaint Confused Hx Obtained From: Daughter Unable to Obtain Hx: Patient condition, Mental status Arrived By: Ambulance Sudden in Onset?: No Onset Occurred: 3 days ago Symptom Duration: Since onset Progression since Onset: Gradually worsening Severity: Current: No pain currently Recent Healthcare: Recent hospitalization Similar Sx Previous: No Past Medical History Past Medical History Notes: Code Status: DNR Patient underwent EEG February 2016 there was abnormal, with recommendations for repeat including sleep state - see note 02/21/16 Last ED visit for 20 10/21/2015 for ground level fall Last admitted 01/04/2016, pyelonephritis Past Medical History Dementia History of TIA with left facial droop Bradycardia From Previous Report in 2011 h/o Schatzki's ring h/o diverticulitis status post partial colectomy, reflux high cholesterol impaired fasting glucose urinary incontinence gout chronic kidney disease stage III, with a creatinine that runs 1.4-1.5. 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 Reports: Hyperlipidemia, Hypertension Reports: Depression Past Surgical History lap esthela multiple axillary surgeries on the right side, right-sided leg lesion removal Family History Noncontributory Smoking History Never Smoker Social History Alcohol Use: Denies alcohol use Drug Use: Denies drug use Other Social History: Lives alone, Lives in intermediate Ambulatory Status Walker Review of Systems Psychiatric: Reports: Change mental status, Confusion Complete sys rev & neg: except as marked. Physical Exam Initial Vital Signs Vital Signs (First) Date Time Temp Pulse Resp B/P Pulse Ox O2 Delivery O2 Flow Rate FiO2 03/23/16 20:55 36.9 54 12 162/60 98 Room Air Initial VS: Reviewed Abdomen / GI: Soft, Non-tender Skin: Warm, Dry, No cyanosis General/Constitutional: Awake, No acute distress, Not toxic appearing Pt is non-verbal upon examination Head / Eyes: Atraumatic, Normocephalic, PERRL Neck: Atraumatic Respiratory / Chest: Atraumatic, Breath sounds NL, Breath sounds = bilat, No respiratory distress, No rales, No rhonchi, No wheezing, No retractions, No stridor Cardiovascular: Heart rate NL, Heart sounds NL Trace bilateral lower extremity edema Mental Status: Positive: Confused Alzheimer's Abdomen: Atraumatic, Soft, Non-tender, No guarding, No rebound Rectum / Perineum: Atraumatic, No gross blood Rectal for Blood: Positive: Blood - occult heme +, Negative: Melena present Interpretation & Diagnostics Lab Results Interpretation Result Diagram: 03/23/163 03/23/162222 Test 03/23/16 21:17 03/23/16 22:23 Urine Color Yellow (YELLOW) Urine Appearance Clear (CLEAR,HAZY) Urine pH 5.5 (5.0-8.0) Urine Specific [place] 1.020 (1.003-1.035) Urine Protein Tracemg/dL (NEG,TRACE) Urine Glucose (UA) Negativemg/dL (NEGATIVE) Urine Ketones Negativemg/dL (NEGATIVE) Urine Occult Blood Negative (NEGATIVE) Urine Nitrite Negative (NEGATIVE) Urine Bilirubin Negative (NEGATIVE) Urine Urobilinogen Normalmg/dL (NORMAL) Urine Leukocyte Esterase Negative (NEGATIVE) Urine RBC 0-2/hpf (0-2) Urine WBC 0-5/hpf (0-5) Urine Epithelial Cells Occasional/hpf (NONE-MOD) Urine Crystals None seen (NONE SEEN) Urine Bacteria Few/hpf (NONE-FEW) Urine Hyaline Casts None/lpf (NONE) Urine Granular Casts None seen (NONE SEEN) Urine Waxy Casts None seen (NONE SEEN) Urine Red Blood Cell Casts None seen (NONE SEEN) Urine White Blood Cell Casts None seen (NONE SEEN) Urine Mucus None seen (None Seen) Urine Trichomonas None seen (NONE SEEN) Urine Yeast None (NONE SEEN) Urinalysis Comment Amorphous sediment Urine Culture Reflexed Not indicated White Blood Count 9.5th/mm3 (3.8-10.1) Red Blood Count 4.09mil/mm3 (3.90-5.20) Hemoglobin 10.6g/dL (12.0-15.6) Hematocrit 32.8% (35.0-46.0) Mean Corpuscular Volume 80.2fL (81-100) Mean Corpuscular Hemoglobin 25.9pg (27.0-35.0) Mean Corpuscular Hemoglobin Concent 32.3% (32.0-37.0) Red Cell Distribution Width 18.3% (12.3-15.4) Platelet Count 271bil/L (150-400) Neutrophils (%) (Auto) 66.2% (40-74) Lymphocytes (%) (Auto) 19.0% (14-46) Monocytes (%) (Auto) 10.8% (4-12) Eosinophils (%) (Auto) 3.3% (0-5) Basophils (%) (Auto) 0.4% (0-3) Sodium Level 134mEq/L (134-144) Potassium Level 4.5mEq/L (3.5-5.2) Chloride Level 100mEq/L (97-108) Carbon Dioxide Level 20mmol/L (18-29) Blood Urea Nitrogen 41mg/dL (8-27) Creatinine 2.28mg/dL (0.57-1.00) Estimat Glomerular Filtration Rate 29mL/min (>59) Glucose Level 121mg/dL (60-99) Lactic Acid Level 0.8mmol/L (0.4-2.0) Calcium Level 8.9mg/dL (8.5-10.1) Total Bilirubin 0.2mg/dL (0.0-1.2) Aspartate Amino Transf (AST/SGOT) 10U/L (0-50) Alanine Aminotransferase (ALT/SGPT) 5U/L (0-32) Alkaline Phosphatase 89U/L (25-165) Total Protein 6.2g/dL (6.4-8.4) Albumin 3.3g/dL (3.4-5.0) X-Ray Chest Interpretation Chest Xray Interpretation: IMPRESSION: 1. Partially visualized prominent bowel loops within the upper abdomen. This is of clinical concern for potential structure ileus, abdomen x-ray is recommended for additional evaluation. 2. No acute pulmonary process. Dictated by: Rupa Blakely M.D. on 03/23/2016 at 21:57 Approved by: Rupa Blakely M.D. on 03/23/2016 at 21:57 CT Head Interpretation IMPRESSION: 1. No acute intracranial process. 2. Moderate to severe atrophy and chronic microvascular ischemic changes. Dictated by: Rupa Blakely M.D. on 03/23/2016 at 21:59 Approved by: Rupa Blakely M.D. on 03/23/2016 at 21:59 CT Abd / Pelvis Interpretation CONCLUSION: Multiple stones in the distal CBD, which is dilated t 1.2cm, nonspecific, uncertain chronicity. Status post cholecystectomy. Nonspecific small bowel fluid levels, cannot rule out mild gastroenteritis or ileus. Gaseous distention and fecal loading of capacious colon. Radiologist: Naima Garza M.D. Re-Eval/Medical Decision Med Decision/Clinical Course 85-year-old female history of Alzheimer's, CK D, paroxysmal atrial fibrillation, diverticulitis status post colectomy, status post cholecystectomy recent admission suspected GI bleed 2 weeks ago with normal endoscopy presenting sent in by her assisted living facility for possible worsening mental status over the last couple days. Further details unobtainable. Per daughter, she is slightly slower than usual. CT brain no acute pathology. Urine and chest x-ray negative for infection. CT abdomen and pelvis performed given questionable voluntary guarding and finding of choledocholithiasis with common bile duct 1.2 cm. Normal LFTs. Lipase pending. Discussed with GI Dr Wisdom who recommended admission and repeating LFTs in the morning and that he will see patient in morning. Normal workup for altered mental status in ED as above. Given normal white blood cell count do not suspect cholangitis. Will not start on antibiotics at this time. Admitted to floor. DNR/DNI. Source of Hx: Old records Re-Evaluation/Progress : Time of Eval: 23:34 Re-Evaluation/Progress Note: Pt rechecked. Pt is voluntarily guarding. Discussed with daughter possible need for admit, daughter understands and agrees with plan. Consultation #1: Referral / Consult Name: mAos Wisdom MD Call Returned at: 23:47 Note: Consulted with Dr. Wisdom. Recommends admit for observation, will see pt tomorrow. Consultation #2: Referral / Consult Name: Ariana Calabrese DO Call Returned at: 00:16 Pants Closer: Accepts admit Note: Discussed pt condition and consult by Dr. Wisdom. Accepts admit Counseled Regarding: Diagnosis, Lab results Patient Discharge & Departure Impression: Primary Impression: Altered mental status Additional Impression: Choledocholithiasis Disposition: ADMITTED TO HOSPITAL Discharge Condition All VS Reviewed: Yes Condition: Stable Referrals: Jose G Brown MD (PCP) Brodieibomar Attestation Portions of this note were transcribed by Marino Sanchez I, Dr. Liang personally performed the history, physical exam and medical decision-making; I reviewed and confirmed the accuracy of the information in the transcribed note. Signed by: Airam Perry, 03/24/16 and 0018. copies to: Jose G Brown MD, Ben M MD Mar 23, 2016 21:21 MARINO SANCHEZ Mar 23, 2016 21:31
[2016-03-23 21:50] LABS: APPEARANCE,URINE CLEAR (CLEAR,HAZY); COLOR,URINE YELLOW (YELLOW); OCCULT BLOOD,URINE NEGATIVE (NEGATIVE); PH,URINE 5.5 (5.0-8.0); UROBILINOGEN,URINE NORMAL (NORMAL)
--- NOTE | 2016-03-23 21:58 | DRSVH ---
PROCEDURE: X-RAY CHEST ONE VIEW, PORTABLE ([id number]) INDICATIONS: altered mental status TECHNIQUE: One view of the chest was acquired. COMPARISON: None. FINDINGS: Surgical changes and devices: Cholecystectomy clips. Lungs and pleura: No pleural effusions or pneumothorax. Lungs are clear. Mediastinum: Mediastinal contours appear normal. Heart size is normal. Bones and chest wall: No suspicious bony lesions. Overlying soft tissues appear unremarkable. Other: Partially visualized prominent polyps are seen within the upper abdomen. IMPRESSION: 1. Partially visualized prominent bowel loops within the upper abdomen. This is of clinical concern f or potential structure ileus, abdomen x-ray is recommended for additional evaluation. 2. No acute pulmonary process. Dictated by: Rupa Blakely M.D. on 03/23/2016 at 21:57 Approved by: Rupa Blakely M.D. on 03/23/2016 at 21:57
--- NOTE | 2016-03-23 22:01 | DRSVH ---
PROCEDURE: CT BRAIN WITHOUT CONTRAST ([id number]) INDICATIONS: altered mental status TECHNIQUE: Noncontrast 4.5 mm thick angled axial sections acquired from the foramen magnum to the vertex, with c oronal reformats. COMPARISON: [facility], CT, CT BRAIN WO CON, 03/11/2016, 11:13. FINDINGS: Image quality: Excellent. CSF spaces: Basal cisterns are patent. No extra-axial fluid collections. The ventricles are symmet sree in size and shape. Brain: No intracranial bleeds or masses. There is cerebral volume loss for age, with resultant vent ricular and sulcal prominence. There are periventricular and deep white matter chronic small vessel ischemic changes. There is intracranial internal carotid artery atherosclerosis. Old left parieto-o ccipital infarction. Skull and face: Calvarium and visualized facial bones appear intact, without suspicious lesions. Sinuses: Visualized sinuses and mastoids are clear. IMPRESSION: 1. No acute intracranial process. 2. Moderate to severe atrophy and chronic microvascular ischemic changes. Dictated by: Rupa Blakely M.D. on 03/23/2016 at 21:59 Approved by: Rupa Blaekly M.D. on 03/23/2016 at 21:59
[2016-03-23 22:54] LABS: BASOPHILS % (AUTO) 0.4 % (0-3); EOSINOPHILS % (AUTO) 3.3 % (0-5); MONOCYTES % (AUTO) 10.8 % (4-12); Mean Corpuscular Hemoglobin 25.9 pg (27.0-35.0); Mean Corpuscular Volume 80.2 fL (81-100); NEUTROPHILS % (AUTO) 66.2 % (40-74); Platelet Count 271 bil/L (150-400)
[2016-03-24] VITALS (11 sets, daily range): BP systolic 160–195; BP diastolic 65–87; PULSE 52–87; RESP 16–18; O2SAT 95–98
[2016-03-24] MEDS ORDERED: Polyethylene Glycol (PEG) 17 Gm Powder PO PRN (00:20)
[2016-03-24] MEDS ORDERED: Alum-Mag Hydrox-Simeth 30 mL Suspension PO PRN (00:20)
--- NOTE | 2016-03-24 04:45 | PCM.HPMED ---
Subjective Date of Service Mar 24, 2016 Primary Provider: Admitting Physician: Ariana Calabrese DO Primary Care Physician: Jose G Brown MD Attending Physician: Ariana Calabrese DO Chief Complaint: Confusion History of Present Illness: Patient is an 85 YO female with a history of Alzheimer's, previous TIA's, HTN, CKD and GERD who presented to [facility] ED via EMS from [facility], [facility], with worsening confusion. She is unable to give any history due to dementia, although patient does deny pain at this time. Per her daughter, who was by the patient's bedside, the patient was noted by the staff at the [facility] to be notably getting worse, weaker and more confused over the last couple of days. Entire history is obtained from the chart as the patient is unable to give any meaningful information. Patient was hospitalized for suspected acute GI bleed earlier this month, s/p post esophagogastroduodenoscopy (EGD) on 03/12/16 without any obvious source of bleeding. Her evaluation in the emergency room includes creatinine noted to be 2.28, BUN 41, glucose 121. Hgb 10.6, normal white blood cell count. UA is negative for infection. Chest x-ray revealed prominent bowel loops within the upper abdomen. CT head without acute intracranial process. CT abdomen revealed multiple stones in the distal CBD, which is dilated to 1.2 cm. Review of Systems: Unobtainable, none reported by the patient, daughter, who is at the bedside but states she has not seen patient for a few days and does not know what exactly is happening. Allergies Coded Allergies: Honey Bee (Verified Allergy, Severe, all bees, 03/24/16) simvastatin (Verified Allergy, Intermediate, 03/24/16) Home Medications Scheduled Cholecalciferol (Vitamin D3) (Vitamin D3) 2,000 Unit Capsule 2,000 UNIT PO DAILY Citalopram Hydrobromide (Celexa) 20 Mg Tablet 20 MG PO DAILY Clonidine (Clonidine) 0.1 Mg Tablet 0.1 MG PO BID Cyanocobalamin (Vitamin B-12) (Vitamin B-12) 1,000 Mcg Tablet 1,000 MCG PO DAILY Diltiazem ER (Cartia XT) 240 Mg Cap.er.24h 240 MG PO DAILY Docusate Sodium (Colace) 100 Mg Capsule 100 MG PO HS Famotidine (Famotidine) 20 Mg Tablet 20 MG PO DAILY Ferrous Sulfate (Ferrous Sulfate) 325 Mg Tablet 325 MG PO TID Hydralazine (Hydralazine) 25 Mg Tablet 50 MG PO QID Lisinopril (Lisinopril) 20 Mg Tablet 20 MG PO DAILY Memantine (Namenda) 10 Mg Tablet 10 MG PO BID Pantoprazole DR (Pantoprazole DR) 40 Mg Tablet.dr 40 MG PO DAILY Polyethylene Glycol 3350 (Polyethylene Glycol 3350) 17 Gm Powd.pack 17 GM PO DAILY Scheduled PRN Acetaminophen (Acetaminophen) 325 Mg Tablet 325 MG PO q6hr PRN PRN For Pain Epinephrine (Epinephrine) 0.3 Mg/0.3 Ml Auto.injct 0.3 MG IJ PRN For Anaphyllaxis Magnesium Hydroxide (Milk of Magnesia) 400 Mg/5 Ml Oral.susp 30 ML PO prn PRN PRN For Constipation PMH Dementia History of TIA with left facial droop Bradycardia From Previous Report in 2011 h/o Schatzki's ring h/o diverticulitis status post partial colectomy, reflux high cholesterol impaired fasting glucose urinary incontinence gout chronic kidney disease stage III, with a creatinine that runs 1.4-1.5. 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 Reports: Hyperlipidemia, Hypertension Reports: Depression Surgical History lap esthela multiple axillary surgeries on the right side, right-sided leg lesion removal Family History unable to obtain d/t dementia Social History Hx Alcohol Use: No Hx Substance Use: No Hx Tobacco Use: No Smoking Status: Never Smoker Living Arrangement: Assisted Living Exam Vital Signs Vital Sign - Last Date Time Temp Pulse Resp B/P Pulse Ox O2 Delivery O2 Flow Rate FiO2 03/24/16 01:10 36.2 56 16 161/74 97 Room Air Exam GEN: Patient was awake, non-verbal HEENT: PERRL, EOMI, Neck soft supple, trachea midline, nomocephalic/atraumatic CV: +S1/S2, normal heart rate Respiratory: CTAB, no wheezes, rales, rhonchi GI: +bowel sounds x4, soft, no guarding, no rebound EXT: mild lower extremity prieto; dry, erythematous skin L>R Psych: confused, non-verbal Lab and Diagnostics Result Diagram: 03/23/16222203/23/162222 Microbiology UA negative X-Rays, CTs and MRIs PROCEDURE: X-RAY CHEST ONE VIEW, PORTABLE ([id number]) INDICATIONS: altered mental status IMPRESSION: 1. Partially visualized prominent bowel loops within the upper abdomen. This is of clinical concern for potential structure ileus, abdomen x-ray is recommended for additional evaluation. 2. No acute pulmonary process. Dictated by: Rupa Blakely M.D. on 03/23/2016 at 21:57 Approved by: Rupa Blakely M.D. on 03/23/2016 at 21:57 PROCEDURE: CT BRAIN WITHOUT CONTRAST ([id number]) INDICATIONS: altered mental status IMPRESSION: 1. No acute intracranial process. 2. Moderate to severe atrophy and chronic microvascular ischemic changes. Dictated by: Rupa Blakely M.D. on 03/23/2016 at 21:59 Approved by: Rupa Blakely M.D. on 03/23/2016 at 21:59 Assessment & Plan This is an 85 YO female with a hx of Alzheimer's, HTN, CKD, and GERD who presents to the ED via EMS from [facility], with worsening confusion. Patient admitted for choledocholithiasis. # Confusion, acute on chronic, present on admission - Pt has a history of Alzheimer's and TIA's, presented with worsening confusion. UA is negative, CT brain with no acute pathology. Possible worsening dementia.Continue to monitor. - Speech and swallow evaluation in the morning # Choledocholithiasis, unknown chronicity, present on admission - On CT abdomen/pelvis pt was found to have multiple stones in the distal CBD which is dilated to 1.2 cm.Patient is nonverbal, however she denies abdominal pain. She is afebrile and no jaundice noted on exam. No reports of loss of appetite, nausea and/or vomiting, roxanne-colored stools. Normal LFTs. Dr. Wisdom was consulted and he will see the pt in the morning. ERCP will be considered if LFTs should increase. - Monitor LFTs - no concern for cholangitis at this time given presentation, low threshold to start abx # DIXON, present on admission - Pt with CKD, stage III. Today's BUN is 41, Cr 2.28, GFR 29 which is much worse compared to he last admission on 03/14/16 (BUN was 27, Cr 2.00, GFR 34). - Avoid nephrotoxic agents - IVF and recheck labs in the morning # Anemia, acute on chronic, present on admission - Patient presents with Hb of 10.6 and stool occult blood positive. Likely multifactorial given history of iron deficiency, multiple GI bleeds, and CKD Stage III. Pt takes ferrous sulfate 325 mg PO TID daily. - Pt was was hospitalized for suspected acute GI bleed earlier this month, s/p PRBC transfusion and post esophagogastroduodenoscopy (EGD) on 03/12/16 without any obvious source of bleeding. Acute on chronic anemia. poa - Monitor H&H # H/o paroxysmal atrial fibrillation - Pt used to be on aspirin and plavix which were D/C d/t last BI bleed - Telemetry # Bradycardia, chronic, stable - Telemetry # HTN, chronic, stable - c/w home current meds # Dementia, chronic and advanced - worsening per discussion with her daughter Pain Evaluation: Other (no pain per patient) GI Prophylaxis: H2 abdi VTE Mechanical Devices: Intermittant Pneumatic CD Resuscitation Status: DNR/DNI:Do Not Resuscitate/Intubate Attending Statement The patient was seen and examined together with house staff on 03/24/2016 and I agree with the history, exam and plan as outlined in the note above. DWAYNE CALL DO Mar 24, 2016 04:45 Ariana Calabrese DO Mar 24, 2016 05:31
[2016-03-24] MEDS: 0.9% Sodium Chloride 1,000 ML IV SCH ×2 (05:27→14:45)
--- NOTE | 2016-03-24 06:16 | NUR ---
Admit to floor Alert to self, follows simple commands, denies pain. Tele; sinus deonna 54 overnight. placed NPO and IVF NS started, then IV site failed. Very fragile veins, ED in dept at 0615 to restart. Med rec not yet completed - may need to contact [facility] for medication update.
[2016-03-24 06:47] LABS: BASOPHILS % (AUTO) 0.5 % (0-3); EOSINOPHILS % (AUTO) 3.6 % (0-5); MONOCYTES % (AUTO) 12.4 % (4-12); Mean Corpuscular Hemoglobin 26.3 pg (27.0-35.0); Mean Corpuscular Volume 80.3 fL (81-100); Platelet Count 272 bil/L (150-400)
[2016-03-24 07:12] LABS: Bilirubin, Direct 0.2 mg/dL (0.0-0.3)
--- NOTE | 2016-03-24 07:40 | DRSVH ---
PROCEDURE: CT ABDOMEN AND PELVIS WITHOUT CONTRAST ([id number]) INDICATIONS: Abdominal pain TECHNIQUE: Noncontrast 5 mm thick sections acquired from the diaphragms to the symphysis. 5 mm coronal and sagi ttal reformats were then performed. For radiation dose reduction, the following was used: automated exposure control, adjustment of mA and/or kV according to patient size. COMPARISON: [facility], CT, CT ABD PELVIS WO CON, 04/12/2015, 18:07. FINDINGS: Image quality: Excellent. ABDOMEN: Lung bases: Lung bases are clear. Heart size is normal. Solid organs: Liver and spleen are normal in size. Gallbladder is surgically absent. Pancreas is n ormal in contours. Multiple focal radiopacities measuring up to 1.4 cm in the long axis are present w ithin the common bile duct suggesting choledocholithiasis. No intrahepatic biliary ductal dilatation on this noncontrast study. No adrenal nodules. Kidneys are normal in size, without hydronephrosis or nephrolithiasis. Peritoneum and bowel: Unenhanced bowel loops demonstrate normal wall thickness and caliber. There is moderate gaseous distention of the colon, likely within normal limits. The appendix is not visualize d; however there is no discrete right lower quadrant fluid or fat stranding to suggest acute appendic itis. No free fluid or air. Surgical clips are present in the left lower quadrant. Nodes and vessels: No retroperitoneal or mesenteric adenopathy by size criteria. Aorta and inferior vena cava are normal in caliber. There are scattered atheromatous calcifications throughout the aor ta and iliac arteries bilaterally. Miscellaneous: No ventral hernias. PELVIS: Genitourinary: Bladder wall thickness is normal. Uterus is nonvisualized and may be surgically abse nt. Miscellaneous: No inguinal hernias or adenopathy. Bones: No suspicious bony lesions. No vertebral body compression fractures. There is left convex s coliosis and severe degenerative changes centered at L2-3. IMPRESSION: 1. Findings suspicious for choledocholithiasis. If further characterization is warranted, MRCP may be helpful. There is no intrahepatic biliary ductal dilatation to suggest obstruction. 2. The appendix is not visualized; however there are no ancillary findings to suggest acute cholecyst itis. These findings are concordant with the overnight interpretation. Dictated by: Tamiko Keller M.D. on 03/24/2016 at 7:22 Approved by: Tamiko Keller M.D. on 03/24/2016 at 7:31
[2016-03-24] MEDS: Pantoprazole 40 mg ER24 Tablet PO SCH (08:30)
--- NOTE | 2016-03-24 08:30 | NUR ---
Evaluation completed. Patient is NPO for potential procedure. When cleared by MD, Patient is safe for thin/pureed diet with medication in pureed. Discussed with RN. FOXER to sign off. Please go to "Notes" then click on "Assessments and Notes" (bottom left corner of screen). Then select appropriate discipline tab on top of screen.
--- NOTE | 2016-03-24 10:48 | NUR ---
Phone call with Dr. Wisdom P: Pt NPO for potential ERCP. I: Dr. Wisdom phoned, no plan for ERCP today. Will consult tomorrow. No need for pt to be made NPO at midnight at this time. E: Speech performed swallow eval and made recommendations for diet. Liver function tests continue to be WNL. Family notified.
--- NOTE | 2016-03-24 14:16 | NUR ---
Case Management D: I spoke with Lyndsey, pt's daughter on the phone. ANGELICA explained. All questions answered. Permission for verbal signature given by Lyndsey. Will leave copy of DOMINGUEZ and medication part D in pt's room for Lyndsey to strip picker.
[2016-03-24] MEDS ORDERED: ASCO-294 PO (15:04)
[2016-03-24] MEDS: Diltiazem CD 240 mg ER24 Capsule PO SCH (17:20)
--- NOTE | 2016-03-24 19:36 | NUR ---
Blood Pressure P: Morning medications held d/t potential ERCP. Medication reconcilliation completed at 1430, MD made aware to reorder the rest of her medications. BP 195/87 at 1500. Pt asymptomatic upon assessment. I: notified. Clarified that MD did not want IV Hydralazine to be given and to just continue home doses. Pharmacy needed clarification on tablet formulary. After 3 phone calls to Ana, dose was finally received at 1700. BP at this time was 165/72. Doses given. E: Pt continues to be asymptomatic. YOLANDA RICHARDS to recheck BP at 1999. Addendum: 03/24/16 at 1942 by VALENTINE LO RN Follow up BP BP at 1830 was 161/74.
[2016-03-24] MEDS: Ondansetron 2 mg/mL 2 mL Inj IVPUSH PRN (21:07)
--- NOTE | 2016-03-24 21:54 | CONS ---
[address] [address] CONSULTATION REPORT PATIENT: RAÚL LINCOLN : 1930 MR#: [id number] ADMIT: 03/24/2016 JOB ID: [id number] DATE OF SERVICE: 03/24/2016 REQUESTING PROVIDER: Jonas Liang MD. REASON FOR CONSULTATION: Choledocholithiasis. HISTORY OF PRESENT ILLNESS: This is an 85-year-old female with numerous comorbidities including Alzheimer's, hypertension, chronic kidney disease, reflux, atrial fibrillation, and a recent admission for GI bleeding symptoms evaluated by my colleague, Dr. Lu a little over a week ago. The patient was sent back from her assisted living because they thought she appeared more confused and weaker than before. The patient was evaluated in the emergency department and found to have a normal white count with no left shift. Her blood count was acceptable with a hemoglobin 10.6, hematocrit 32.8. She has chronic renal insufficiency. Creatinine was 2.28, BUN was 41. Liver tests were completely normal. During the evaluation in the ED, she had an abdominopelvic CT and this was done without IV contrast, but there did appear to be several moderate to large stones in the common bile duct. That said, there was no radiographic suggestion of active obstruction. REVIEW OF SYSTEMS: The patient has not had any fevers or chills. She denies any abdominal pain. There has not been any nausea or vomiting. She apparently has not had any recurrent symptoms of bleeding. Review is as per HPI. ALLERGIES: HONEY BEES and SIMVASTATIN. MEDICATIONS: 1. Aspirin and Plavix have been on hold. 2. Ferrous sulfate. 3. Clonidine. 4. Diltiazem. 5. Hydralazine. 6. Lisinopril. 7. Periodic Tylenol. 8. Citalopram. 9. Namenda. 10. Colace. 11. Famotidine. 12. Pantoprazole. 13. MiraLAX. 14. Vitamin C. 15. Vitamin D3. 16. Vitamin B12. 17. Milk of magnesia. PAST MEDICAL HISTORY: Diverticulitis status post partial colectomy, cholecystectomy, vascular dementia with stroke, TIA, paroxysmal atrial fibrillation, anemia, GI bleed, Schatzki's ring, reflux, atrial fibrillation, bradycardia, hyperlipidemia, depression, hypertension, pyelonephritis, chronic kidney disease, gout, urinary incontinence and an impaired fasting glucose. Recent EGD by Dr. Lu revealed mild gastritis but otherwise a fairly normal exam. FAMILY HISTORY: Noncontributory. SOCIAL HISTORY: The patient resides in assisted living. Her daughter was at the bedside to provide collateral history. PHYSICAL EXAMINATION: The patient was minimally verbal. She has been afebrile today, but I note as of this dictation that she has a temperature recorded at 37.8 around quarter to 4 in the afternoon. Blood pressures have been slightly elevated, pulse in the 80s, breathing comfortably. Sats high 90s on room air. The patient followed commands and attempted to answer some of my questions. In speaking with her daughter, she felt that her cognitive status at this point was actually pretty close to baseline. She felt that her mom had improved quite considerably simply with the IV fluids that had been started in the emergency department. She has not seen her up and around. Typically she needs assistance to get up to use her walker but once at the walker position, is able to ambulate to some degree. I did not visualize this during the examination. Lungs were clear anteriorly. Heart regular. No significant edema appreciated. Abdomen was soft. Bowel sounds present. I did not appreciate any tenderness to exam. Definitely no discomfort in the right upper quadrant region. LABORATORY DATA: Hemoglobin 11.2, hematocrit 34.2, white count normal, platelets 272. Liver tests normal x2. Creatinine is 2.20, potassium was up a little bit today 5.3, no evidence of urinary tract infection. IMAGING: CT of abdomen and pelvis was as described above. ASSESSMENT AND RECOMMENDATIONS: This is an 85-year-old female who was sent over to the hospital for mental status change concerns. She seems to have responded to IV fluids at this point. She does not appear to have any recurrent bleeding. She was found to have what appears to be choledocholithiasis (I personally reviewed the CT images and concur that there does appear to be some mildly calcified stones in the CBD). However, there is no suggestion at present that the patient has any element of biliary obstruction nor cholangitis to account for her mental status changes and therefore I do not feel that proceeding with ERCP is necessary acutely. I suspect these stones have probably been present for many years in this position judging by their size. We discussed the possibility of moving forward with an elective ERCP, but the patient and her daughter may we may simply wish to play this by ear and only pursue something if she started to develop more classic symptoms of biliary obstruction or rising liver chemistries. I would recommend a physical therapy evaluation to see if she is at her acceptable physical baseline and, if so, at the discretion of the patient's daughter, she may be eligible for transfer back to her assisted living facility. I will sign off the case for now from a GI standpoint. I have requested the patient have repeat LFTs in about three weeks and follow up in Dr. Lu's clinic for further discussion.
[2016-03-25] VITALS (12 sets, daily range): BP systolic 164–208; BP diastolic 74–81; PULSE 69–106; RESP 16–18; O2SAT 93–97
[2016-03-25] MEDS: 0.9% Sodium Chloride 1,000 ML IV SCH (00:50)
[2016-03-25 06:39] LABS: Mean Corpuscular Hemoglobin 26.3 pg (27.0-35.0); Mean Corpuscular Volume 79.2 fL (81-100)
--- NOTE | 2016-03-25 07:24 | NUR ---
GI 2100 patient with sudden emesis approx 200 - 300ml pale green. Zofran given and no further nausea overnight. No signs of pain or discomfort. Turned Q2hrs and performed oral care. Slept well the rest of the night.
--- NOTE | 2016-03-25 07:27 | NUR ---
elevated B/p 208/81 at 0500. Scheduled Hydralazine PO 50mg's given. Day RN to reassess on morning rounds.
[2016-03-25] MEDS: Pantoprazole 40 mg ER24 Tablet PO SCH (07:53)
[2016-03-25] MEDS: Diltiazem CD 240 mg ER24 Capsule PO SCH (08:01)
[2016-03-25 10:09] LABS: Mean Corpuscular Volume 80.5 fL (81-100)
--- NOTE | 2016-03-25 10:36 | NUR ---
Evaluation completed. Please go to "Notes" then click on "Assessments and Notes" (bottom left corner of screen). Then select appropriate discipline tab on top of screen.
--- NOTE | 2016-03-25 14:48 | NUR ---
Wound Care Pressure ulcer protocol received, Pt seen at bedside. Patient is an 85 YO female with a history of Alzheimer's, previous TIA's, HTN, CKD and GERD who presented to [facility] ED via EMS from [facility], with worsening confusion. Inspection of skin today reveals no pressure related skin issues at this time. Given this patients Trace Score and confusion would recommend frequent repositioning and floating of heels.
[2016-03-25] MEDS ORDERED: MeTOProlol 1 mg/mL 5 mL Inj IVPUSH ONE (16:40)
--- NOTE | 2016-03-25 18:18 | PCM.PNMED ---
Subjective Date of Service Mar 25, 2016 Subjective Patient was examined at bedside today. Patient denies any chest pain, shortness of breath, diarrhea. Overnight the patient had a temperature 37.8 and one episode of vomiting. The temperature self resolved and the patient has not had any further bouts of nausea or vomiting. Exam Vital Signs Vital Sign - Last Date Time Temp Pulse Resp B/P Pulse Ox O2 Delivery O2 Flow Rate FiO2 03/25/16 15:35 37.0 105 16 196/81 93 Room Air Intake and Output 03/24/16 03/24/16 03/25/16 Cumulative From/Thru 15:00 23:00 07:00 03/23/16 20:55 - 03/25/16 05:50 Intake Total 1178 ml 600 ml 200 ml 1978 ml Output Total 700 ml 640 ml 1340 ml Balance 478 ml 600 ml -440 ml 638 ml Intake Oral 520 ml 600 ml 200 ml 1320 ml IV Total 658 ml 658 ml Output Urine Total 700 ml 640 ml 1340 ml # Voids 4 3 7 # Bowel Movements 2 0 2 Exam Physical Exam: GEN: Patient was awake, alert, responding appropriately to questions HEENT: PERRLA, EOMI, Neck soft supple, trachea midline, nomocephalic/atraumatic CV: +S1/S2, RRR, no murmurs auscultated Respiratory: CTAB, no wheezes, rales, rhonchi GI: +bowel sounds x4, soft, compressible, TTP EXT: no c/c/e, +2 pitting edema Neuro: CN II-XII grossly intact Psych: mood and affect were appropriate IVs and Medications Medications Reviewed: Medications were reviewed in detail Medications Current Medications Al Hydrox/Mg Hydrox/Simethicone 30 ml Q6H PRN PO; Start 03/24/16 at 00:20 Ondansetron HCl 4 to 8 mg Q4H PRN IVPUSH Last administered on 03/24/16 21:07; Admin Dose 4 MG; Start 03/24/16 at 00:20 Senna 17.2 mg BID PRN PO; Start 03/24/16 at 00:20 Polyethylene Glycol 17 gm 17 gm DAILY PRN PO; Start 03/24/16 at 00:20 Sodium Chloride 1,000 ml @ 100 mls/hr Q10H IV Last administered on 03/24/16 05 :27; Admin Dose 100 MLS/HR; Start 03/24/16 at 04:50; Stop 03/25/16 at 07:34; Status DC Famotidine 20 mg DAILY PO Last administered on 03/25/16 08:01; Admin Dose 20 MG ; Start 03/24/16 at 08:30 Lisinopril 20 mg DAILY PO Last administered on 03/25/16 08:01; Admin Dose 20 MG ; Start 03/24/16 at 08:30 Memantine 10 mg BID PO Last administered on 03/25/16 08:01; Admin Dose 10 MG; Start 03/24/16 at 08:30 Pantoprazole 40 mg DAILY PO; Start 03/24/16 at 08:30 Diltiazem HCl 240 mg MORNING PO; Start 03/24/16 at 15:40; Stop 03/24/16 at 16:16 ; Status DC Hydralazine HCl 50 mg QID PO Last administered on 03/25/16 17:01; Admin Dose 50 MG; Start 03/24/16 at 16:30 Diltiazem HCl 240 mg DAILY PO Last administered on 03/25/16 08:01; Admin Dose 240 MG; Start 03/24/16 at 17:05 Lab and Diagnostics Result Diagram: 03/25/16 0958 03/25/16 0550 Microbiology UA negative X-Rays, CTs and MRIs PROCEDURE: X-RAY CHEST ONE VIEW, PORTABLE ([id number]) INDICATIONS: altered mental status IMPRESSION: 1. Partially visualized prominent bowel loops within the upper abdomen. This is of clinical concern for potential structure ileus, abdomen x-ray is recommended for additional evaluation. 2. No acute pulmonary process. Dictated by: Rupa Blakely M.D. on 03/23/2016 at 21:57 Approved by: Rupa Blakely M.D. on 03/23/2016 at 21:57 PROCEDURE: CT BRAIN WITHOUT CONTRAST ([id number]) INDICATIONS: altered mental status IMPRESSION: 1. No acute intracranial process. 2. Moderate to severe atrophy and chronic microvascular ischemic changes. Dictated by: Rupa Blakely M.D. on 03/23/2016 at 21:59 Approved by: Rupa Blakely M.D. on 03/23/2016 at 21:59 Assessment & Plan This is an 85 YO female in her blood pressures have been high while with a hx of Alzheimer's, HTN, CKD, and GERD who presents to the ED via EMS from [facility], with worsening confusion. Patient admitted for choledocholithiasis. # Confusion, acute on chronic, present on admission - Pt has a history of Alzheimer's and TIA's, presented with worsening confusion. UA is negative, CT brain with no acute pathology. Possible worsening dementia.Continue to monitor. - PT eval and treat - Stage eval pending # Choledocholithiasis, unknown chronicity, present on admission - GI consulted does not recommend ERCP at this time - LFTs currently stable -Patient recently spiked a temperature overnight and leukocytosis white blood cell count 11.4 we will treat the patient for cholangitis with Zosyn renally dose and ceftriaxone. - Repeat a CBC and CMP in the morning # DIXON, present on admission - Pt with CKD, stage III. Today's BUN is 41, Cr 2.28, GFR 29 which is much worse compared to he last admission on 03/14/16 (BUN was 27, Cr 2.00, GFR 34). - Creatinine Improving today 1.94 - We will continue to monitor # Anemia, acute on chronic, present on admission - Patient presents with Hb of 10.6 and stool occult blood positive. Likely multifactorial given history of iron deficiency, multiple GI bleeds, and CKD Stage III. Pt takes ferrous sulfate 325 mg PO TID daily. - Pt was was hospitalized for suspected acute GI bleed earlier this month, s/p PRBC transfusion and post esophagogastroduodenoscopy (EGD) on 03/12/16 without any obvious source of bleeding. Acute on chronic anemia. poa - Today H&H is stable 12.5/38.7 # H/o paroxysmal atrial fibrillation - Pt used to be on aspirin and plavix which were D/C d/t last BI bleed - Telemetry # Bradycardia, chronic, stable - Telemetry # HTN, chronic, - Unstable patient has been having bouts of elevated blood pressure 5 mg of Lopressor was given will continue to monitor and adjust medications as necessary # Dementia, chronic and advanced - worsening per discussion with her daughter Disposition: Yesterday the patient appeared well and seemed that she would be ready for discharge today however overnight the patient spiked a temperature and this morning her white blood cell count elevated to 11.4. We had a low threshold for treating for cholangitis for this particular patient. We will continue to monitor LFTs but are currently stable. We will treat the patient with Zosyn and Rocephin and follow-up with the patient in the morning. GI Prophylaxis: H2 abdi VTE Mechanical Devices: Intermittant Pneumatic CD Resuscitation Status: DNR/DNI:Do Not Resuscitate/Intubate Beatriz Martínez DO Mar 25, 2016 18:05
[2016-03-25] MEDS ORDERED: cefTRIAXone Inj 1,000 MG in IV Premix 1 EACH IV SCH (18:30)
[2016-03-25] MEDS ORDERED: cefTRIAXone Inj 1,000 MG in Dextrose 5% Minibag Plus 50 ML IV SCH (18:31)
--- NOTE | 2016-03-25 18:43 | NUR ---
Hypertension/HR P: BP at 1545 196/81 with increased HR at 105bpm. I: MD notified at 1620 and order received for IV Metoprolol 5mg; verified by pharmacy and med available at 1745. 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 E: Follow up BP/HR at 1815 shows improved BP at 170/81 with HR at 72.
[2016-03-25] MEDS: Piperacillin-Tazo 3.375 Gm Inj 3.375 GM in Dextrose 5% Minibag Plus 50 ML IV SCH (20:43)
[2016-03-25] MEDS: Ondansetron 2 mg/mL 2 mL Inj IVPUSH PRN (22:38)
[2016-03-26] VITALS (9 sets, daily range): BP systolic 112–159; BP diastolic 64–82; PULSE 82–104; RESP 14–18; O2SAT 93–97
[2016-03-26] MEDS ORDERED: Acetaminophen IV 1,000 MG in IV Premix 1 EACH IV PRN (00:45)
--- NOTE | 2016-03-26 04:44 | NUR ---
Fever Pt spiked a temp of 38.6 and was also having nausea with emesis x2. Zofran given with good result. paged for increased temperature and ordered IV Tylenol. Pt temp now down to 37.4. Pt has also had loose stools x2 this shift. Incontinent of both bowel and urine. Pt has been turned q2 hrs this shift and will be placed on a P500 bed this morning.
[2016-03-26 06:54] LABS: BASOPHILS % (AUTO) 0.2 % (0-3); EOSINOPHILS % (AUTO) 0 % (0-5); MONOCYTES % (AUTO) 8.5 % (4-12); Mean Corpuscular Hemoglobin 25.9 pg (27.0-35.0); Mean Corpuscular Volume 80.7 fL (81-100); NEUTROPHILS % (AUTO) 87.9 % (40-74); Platelet Count 299 bil/L (150-400)
[2016-03-26] MEDS: Piperacillin-Tazo 3.375 Gm Inj 3.375 GM in Dextrose 5% Minibag Plus 50 ML IV SCH ×2 (07:45→23:01)
[2016-03-26] MEDS: Diltiazem CD 240 mg ER24 Capsule PO SCH (07:46)
[2016-03-26] MEDS: Pantoprazole 40 mg ER24 Tablet PO SCH (07:46)
--- NOTE | 2016-03-26 12:02 | NUR ---
Blood pressure. Notified Doctor r/t BP 111/69, pulse 85 before giving scheduled dose of Hydralazine. Doctor's verbal orders to hold Hydralazine.
--- NOTE | 2016-03-26 14:00 | NUR ---
Case Management- Daughter notified of IP status and IMM. Arianna GONZALEZ - RN
--- NOTE | 2016-03-26 15:14 | NUR ---
Social Work Initial Assessment: SW attempted to meet with patient at bedside to discuss discharge plan. Patient unable to participate in discharge planning due to AMS. Patient is a 85 year old female admitted under observation status for ALT mental status, choledocholithiasis. SW contacted daughter Lyndsey, to confirm discharge plan. Patient payer as Medicare and [employer] supp. Patient PCP as MD Brown. Patient is a resident of [facility], . [facility] pending bedside assessment. Patient 1 person assist at facility and uses a walker. Patient independent with feeds at facility. SW faxed clinical information to facility, . SW reviewed PT notes which reflect recommendations for return back to [facility] with further PT eval. No other needs identified at this time. SW to follow. PLAN: Return back to [facility], [facility], pending clinical course and bedside eval at discharge. SW to follow Sarah ARGUELLES Addendum: 03/26/16 at 1519 by FAMILIA HART Amended: Links added.
--- NOTE | 2016-03-26 17:27 | PCM.PNMED ---
Subjective Date of Service Mar 26, 2016 Subjective Patient was seen and examined at bedside. Patient seems more lethargic. Exam Vital Signs Vital Sign - Last Date Time Temp Pulse Resp B/P Pulse Ox O2 Delivery O2 Flow Rate FiO2 03/26/16 15:38 37.1 85 18 130/77 97 Room Air Intake and Output 03/25/16 03/25/16 03/26/16 Cumulative From/Thru 15:00 23:00 07:00 03/23/16 20:55 - 03/26/16 06:27 Intake Total 736 ml 350 ml 3064 ml Output Total 1340 ml Balance 736 ml 350 ml 1724 ml Intake Oral 736 ml 100 ml 2156 ml IV Total 250 ml 908 ml Output Urine Total 1340 ml # Voids 2 3 12 # Bowel Movements 0 2 4 Exam Physical Exam: GEN: Patient was awake, lethargic, would only answer questions with no or yes HEENT: PERRLA, Neck soft supple, trachea midline, nomocephalic/atraumatic CV: +S1/S2, RRR, Respiratory: CTAB, no wheezes, rales, rhonchi GI: +bowel sounds x4, soft, compressible, TTP EXT: no c/c/e Neuro: CN II-XII grossly intact IVs and Medications Medications Reviewed: Medications were reviewed in detail Medications Current Medications Piperacillin Sod/ Tazobactam Sod 3.375 gm/Dextrose/ Water 50 ml @ 12.5 mls/hr Q12 IV Last administered on 03/26/16 07:45; Admin Dose 12.5 MLS/HR; Start 03/25 at 20:30 Ceftriaxone Sodium/Dextrose 1000 mg/Premix 50 ml @ 100 mls/hr Q24 IV; Start at 18:30; Stop 03/25/16 at 18:30; Status DC Ceftriaxone Sodium 1000 mg/ Dextrose/Water 50 ml @ 100 mls/hr Q24 IV Last administered on 03/25/16 19:54; Admin Dose 100 MLS/HR; Start 03/25/16 at 18:31 ; Stop 03/26/16 at 11:49; Status DC Acetaminophen 1000 mg/Premix 100 ml @ 400 mls/hr Q6H PRN IV Last administered on 03/26/16 01:10; Admin Dose 400 MLS/HR; Start 03/26/16 at 00:45; Stop at 00:46 Ceftriaxone Sodium/Dextrose/ Water 50 ml @ 100 mls/hr Q24H IV; Start 03/26/16 at 20:00 Lab and Diagnostics Result Diagram: 03/26/16 0602 03/26/16 0602 Microbiology UA negative X-Rays, CTs and MRIs PROCEDURE: X-RAY CHEST ONE VIEW, PORTABLE ([id number]) INDICATIONS: altered mental status IMPRESSION: 1. Partially visualized prominent bowel loops within the upper abdomen. This is of clinical concern for potential structure ileus, abdomen x-ray is recommended for additional evaluation. 2. No acute pulmonary process. Dictated by: Rupa Blakely M.D. on 03/23/2016 at 21:57 Approved by: Rupa Blakely M.D. on 03/23/2016 at 21:57 PROCEDURE: CT BRAIN WITHOUT CONTRAST ([id number]) INDICATIONS: altered mental status IMPRESSION: 1. No acute intracranial process. 2. Moderate to severe atrophy and chronic microvascular ischemic changes. Dictated by: Rupa Blakely M.D. on 03/23/2016 at 21:59 Approved by: Rupa Blakely M.D. on 03/23/2016 at 21:59 Assessment & Plan This is an 85 YO female in her blood pressures have been high while with a hx of Alzheimer's, HTN, CKD, and GERD who presents to the ED via EMS from [facility], an [facility], with worsening confusion. Patient admitted for choledocholithiasis. #Leukocytosis -White blood cell count is 27.2 -Contacted GI for possible cholangitis however GI feels that this is not ascending cholangitis and other etiologies may be the source of infection. - Lactic acid pending -Antibiotic coverage with Rocephin and Zosyn -UA pending -Follow up chest x-ray # Confusion, acute on chronic, present on admission - Pt has a history of Alzheimer's and TIA's, presented with worsening confusion. UA is negative, CT brain with no acute pathology. Possible worsening dementia.Continue to monitor. - PT eval and treat - Stage eval pending # Choledocholithiasis, unknown chronicity, present on admission - GI consulted does not recommend ERCP at this time - LFTs currently stable -Patient recently spiked a temperature overnight and leukocytosis white blood cell count 11.4 we will treat the patient for cholangitis with Zosyn renally dose and ceftriaxone. - Repeat a CBC and CMP in the morning # DIXON, present on admission - Pt with CKD, stage III. Today's BUN is 41, Cr 2.28, GFR 29 which is much worse compared to he last admission on 03/14/16 (BUN was 27, Cr 2.00, GFR 34). - Creatinine Improving today 1.94 - We will continue to monitor # Anemia, acute on chronic, present on admission - Patient presents with Hb of 10.6 and stool occult blood positive. Likely multifactorial given history of iron deficiency, multiple GI bleeds, and CKD Stage III. Pt takes ferrous sulfate 325 mg PO TID daily. - Pt was was hospitalized for suspected acute GI bleed earlier this month, s/p PRBC transfusion and post esophagogastroduodenoscopy (EGD) on 03/12/16 without any obvious source of bleeding. Acute on chronic anemia. poa - Today H&H is stable 12.5/38.7 # H/o paroxysmal atrial fibrillation - Pt used to be on aspirin and plavix which were D/C d/t last BI bleed - Telemetry # Bradycardia, chronic, stable - Telemetry # HTN, chronic, - Unstable patient has been having bouts of elevated blood pressure 5 mg of Lopressor was given will continue to monitor and adjust medications as necessary # Dementia, chronic and advanced - worsening per discussion with her daughter Disposition: The patient's white blood cell count seems to be increasing at this time. We will try to rule out any sources of infection. When the patient was admitted she seemed to be doing well after IV fluids and rehydration. The patient was to be discharged home the following day however she developed a white blood cell count of 11.2. The patient was then started on Rocephin and Zosyn as there was a low threshold for small ascending cholangitis as her bile duct was dilated 1.2 cm as found on CT scan. GI was read consulted, but feels that this is not related to ascending cholangitis and has recommended looking for other sources of infection. We will continue to treat and monitor the patient. GI Prophylaxis: H2 abdi VTE Mechanical Devices: Intermittant Pneumatic CD Resuscitation Status: DNR/DNI:Do Not Resuscitate/Intubate Beatriz Martínez DO Mar 26, 2016 17:26
--- NOTE | 2016-03-26 18:21 | PCM.PNMED ---
Subjective Date of Service Mar 26, 2016 Subjective Pt resting comfortably in bed. Arousable but slow to answer questions. Denies fevers, chills, N/V/D, abdominal pain. Further history is limited. Exam Vital Signs Vital Sign - Last Date Time Temp Pulse Resp B/P Pulse Ox O2 Delivery O2 Flow Rate FiO2 03/26/16 15:38 37.1 85 18 130/77 97 Room Air Intake and Output 03/25/16 03/25/16 03/26/16 Cumulative From/Thru 15:00 23:00 07:00 03/23/16 20:55 - 03/26/16 06:27 Intake Total 736 ml 350 ml 3064 ml Output Total 1340 ml Balance 736 ml 350 ml 1724 ml Intake Oral 736 ml 100 ml 2156 ml IV Total 250 ml 908 ml Output Urine Total 1340 ml # Voids 2 3 12 # Bowel Movements 0 2 4 Exam General: Alert, Cooperative, No Acute Distress. Lethargic, would only answer questions with no or yes Head: Normocephalic, atraumatic. External ears normal. Eyes: PERRLA, EOMI. Anicteric sclerae. Mouth: Mouth Normal, Mucous Membranes Moist/[place] Neck: Neck supple with full range of motion. Chest & Lungs: Clear to auscultation bilaterally with no crackles, wheezes, or rhonchi. Cardiovascular: Regular Rate/Rhythm, Normal S1, Normal S2, No Murmurs/Rubs/ Gallops Abdomen: Non-tender, Non-distended, No masses, Normoactive bowel tones, Soft Musculoskeletal: Normal Range of Motion Extremities: No cyanosis/clubbing/edema bilaterally Neurological: Grossly Neurologically Intact, Lethargic Lab and Diagnostics Result Diagram: 03/26/16 0602 03/26/16 0602 Microbiology UA negative X-Rays, CTs and MRIs PROCEDURE: X-RAY CHEST ONE VIEW, PORTABLE ([id number]) INDICATIONS: altered mental status IMPRESSION: 1. Partially visualized prominent bowel loops within the upper abdomen. This is of clinical concern for potential structure ileus, abdomen x-ray is recommended for additional evaluation. 2. No acute pulmonary process. Dictated by: Rupa Blakely M.D. on 03/23/2016 at 21:57 Approved by: Rupa Blakely M.D. on 03/23/2016 at 21:57 PROCEDURE: CT BRAIN WITHOUT CONTRAST ([id number]) INDICATIONS: altered mental status IMPRESSION: 1. No acute intracranial process. 2. Moderate to severe atrophy and chronic microvascular ischemic changes. Dictated by: Rupa Blakely M.D. on 03/23/2016 at 21:59 Approved by: Rupa Blakely M.D. on 03/23/2016 at 21:59 Assessment & Plan This is an 85 YO female in her blood pressures have been high while with a hx of Alzheimer's, HTN, CKD, and GERD who presents to the ED via EMS from [facility], with worsening confusion. Leukocytosis, acute. -WBC colt from 11.4 to 27.2. Pt had fevers overnight. Her CT shows chronic choledocholithiasis which appears to be stable. Her bilirubin, LFTs, and alk phos are all normal at this time, so there is no suggestion that there is any biliary obstruction, and ascending cholangitis is unlikely. ERCP is not necessary acutely; recommend evaluating for other sources of infection. We will sign off for now. Please do not hesitate to contact us with any further questions. - Lactic acid pending - Ordered GGT - Repeat LFTs in AM - Consider ordering procalcitonin - Continue empiric antibiotics. Choledocholithiasis, unknown chronicity - LFTs, bilirubin, alk phos all stable at this time. Her stones do not appear to be causing biliary obstruction so acute intervention is not necessary at this time. Previously discussed the possibility of moving forward with an elective ERCP, but the patient and her daughter wish to simply wish to play this by ear and only pursue something if she started to develop more classic symptoms of biliary obstruction or rising liver chemistries. - Repeat LFTs in 3 weeks - Follow up with Dr. Sommers in 3 weeks for further discussion I spoke with Dr. Uriostegui and about this patient since I do not perform ERCP. They both do not believe believe that this is consistent with ascending cholangitis and therefore do not believe that acute ERCP is necessary. If you have any further questions, please contact either Dr. Uriostegui and or . GI Prophylaxis: H2 abdi VTE Mechanical Devices: Intermittant Pneumatic CD Resuscitation Status: DNR/DNI:Do Not Resuscitate/Intubate Kaleb De La Vega Mar 26, 2016 18:21 Holden Rosario MD Mar 28, 2016 14:02
--- NOTE | 2016-03-26 19:41 | NUR ---
Mentation patient is alert to self only. room air. non verbal. no sign and symptoms of respiratory discomfort or chest discomfort noted. patient up at bed side with physical therapy. Chest X ray done this shift. continue to monitor.
[2016-03-26] MEDS ORDERED: cefTRIAXone Inj 1,000 MG in Dextrose 5% Minibag Plus 50 ML IV SCH (20:00)
[2016-03-27 01:14] VITALS: BP 139/87; PULSE 99; RESP 16; O2SAT 97
[2016-03-27 04:57] LABS: APPEARANCE,URINE CLEAR (CLEAR,HAZY); COLOR,URINE YELLOW (YELLOW); OCCULT BLOOD,URINE NEGATIVE (NEGATIVE); PH,URINE 5.5 (5.0-8.0); UROBILINOGEN,URINE NORMAL (NORMAL)
--- NOTE | 2016-03-27 05:01 | NUR ---
Activity Pt much more alert this shift, eyes wide open, making eye contact and responding to yes/no questions. Pt denies pain/nausea. In and out cath done to obtain UA sample, sent to lab.
[2016-03-27 05:03] VITALS: BP 145/82; PULSE 83; RESP 16; O2SAT 96
[2016-03-27 06:08] LABS: Mean Corpuscular Hemoglobin 25.8 pg (27.0-35.0); Mean Corpuscular Volume 81.4 fL (81-100)
[2016-03-27] MEDS: Pantoprazole 40 mg ER24 Tablet PO SCH (08:28)
[2016-03-27] MEDS: Piperacillin-Tazo 3.375 Gm Inj 3.375 GM in Dextrose 5% Minibag Plus 50 ML IV SCH ×2 (08:28→17:47)
[2016-03-27] MEDS: Diltiazem CD 240 mg ER24 Capsule PO SCH (08:28)
[2016-03-27 09:15] VITALS: PULSE 100
--- NOTE | 2016-03-27 09:53 | DRSVH ---
PROCEDURE: X-RAY CHEST ONE VIEW, PORTABLE ([id number]) INDICATIONS: infection TECHNIQUE: One view of the chest was acquired. COMPARISON: [facility], CR, XR CHEST 1VW (PORTABLE), 03/23/2016, 21:35. FINDINGS: Surgical changes and devices: None. Lungs and pleura: No pleural effusions or pneumothorax. Lungs are clear. Mediastinum: Mediastinal contours appear normal. Heart size is normal. Bones and chest wall: No suspicious bony lesions. Overlying soft tissues appear unremarkable. IMPRESSION: Expiratory chest demonstrating no definite acute cardiopulmonary process. Dictated by: Sarmad Paredes [facility] Interpreted: Roger Funez MD on 03/27/2016 at 9:52 Transcribed by: OBDULIO on 03/27/2016 at 9:52 Approved by: Roger Funez M.D. on 03/28/2016 at 10:47
[2016-03-27 11:25] VITALS: BP 119/79; PULSE 94; RESP 18; O2SAT 94
--- NOTE | 2016-03-27 12:22 | NUR ---
Blood pressure P: BP at 1130 119/79, HR 94. I: Hydralazine withheld. E: Will recheck BP in 4 hours.
[2016-03-27 13:47] VITALS: BP 114/74; PULSE 92; RESP 16; O2SAT 97
[2016-03-27] MEDS ORDERED: 0.9% Sodium Chloride 250 ML ONE (17:39)
[2016-03-27 20:22] VITALS: BP 125/77; PULSE 89; RESP 18; O2SAT 97
--- NOTE | 2016-03-27 22:33 | PCM.PNMED ---
Subjective Date of Service Mar 27, 2016 Subjective Patient is feeling a little bit better today. She has no new complaints. She has no pain no fever no chills no sweats. Exam Vital Signs Vital Sign - Last Date Time Temp Pulse Resp B/P Pulse Ox O2 Delivery O2 Flow Rate FiO2 03/27/16 20:22 36.5 89 18 125/77 97 Room Air Intake and Output 03/26/16 03/26/16 03/27/16 Cumulative From/Thru 15:00 23:00 07:00 03/23/16 20:55 - 03/27/16 06:23 Intake Total 100 ml 257 ml 3421 ml Output Total 200 ml 1540 ml Balance 100 ml 57 ml 1881 ml Intake Oral 100 ml 0 ml 2256 ml IV Total 257 ml 1165 ml Output Urine Total 200 ml 1540 ml # Voids 4 2 18 # Bowel Movements 4 Exam General: Patient appears somewhat somnolent and fatigued. She is easily arousable and responsive. HEENT: Head is atraumatic normocephalic. Eyes: Pupils are equally round and reactive to light and accommodation. Extraocular muscles are intact. Sclera are white anicteric. Subconjunctival mucosa is pink. Ears and nose are unremarkable. Oropharynx: There is no mucosal lesions, there is no thrush, there is no pharyngitis. Neck: Is supple, there are no nodes, or masses, or tenderness. Chest: Is clear to auscultation and percussion. There are no rales, rhonchi, wheezes or rubs. Heart: Rate, rhythm is regular. There is no murmur, rub or gallop. Abdomen: Good bowel sounds are present. Abdomen is soft, nontender, no organomegaly or masses were appreciated. Extremities: Are symmetrical and well perfused. There is no edema, there is no cellulitis, no rash. Neurologic: There are no focal neurological deficits. Cranial nerves II through XII are intact. There are no sensory or motor deficits. Psychiatric: Patients mood is calm and shows no sign of agitation. Genital: Deferred Rectal: Deferred Lab and Diagnostics Result Diagram: 03/27/16 0536 03/27/16 0536 Microbiology UA negative X-Rays, CTs and MRIs PROCEDURE: X-RAY CHEST ONE VIEW, PORTABLE ([id number]) INDICATIONS: altered mental status IMPRESSION: 1. Partially visualized prominent bowel loops within the upper abdomen. This is of clinical concern for potential structure ileus, abdomen x-ray is recommended for additional evaluation. 2. No acute pulmonary process. Dictated by: Rupa Blakely M.D. on 03/23/2016 at 21:57 Approved by: Rupa Blakely M.D. on 03/23/2016 at 21:57 PROCEDURE: CT BRAIN WITHOUT CONTRAST ([id number]) INDICATIONS: altered mental status IMPRESSION: 1. No acute intracranial process. 2. Moderate to severe atrophy and chronic microvascular ischemic changes. Dictated by: Rupa Blakely M.D. on 03/23/2016 at 21:59 Approved by: Rupa Blakely M.D. on 03/23/2016 at 21:59 Caution: Report not yet finalized and possibly incomplete! PROCEDURE: X-RAY CHEST ONE VIEW, PORTABLE ([id number]) INDICATIONS: infection TECHNIQUE: One view of the chest was acquired. COMPARISON: [facility], CR, XR CHEST 1VW (PORTABLE), 03/23/2016, 21: 35. FINDINGS: Surgical changes and devices: None. Lungs and pleura: No pleural effusions or pneumothorax. Lungs are clear. Mediastinum: Mediastinal contours appear normal. Heart size is normal. Bones and chest wall: No suspicious bony lesions. Overlying soft tissues appear unremarkable. IMPRESSION: Expiratory chest demonstrating no definite acute cardiopulmonary process. Dictated by: Sarmad Paredes [facility] Interpreted: Roger Funez MD on 03/27/2016 at 9: 52 Transcribed by: OBDULIO on 03/27/2016 at 9:52 Assessment & Plan This is an 85 YO female in her blood pressures have been high while with a hx of Alzheimer's, HTN, CKD, and GERD who presents to the ED via EMS from [facility], an BONY, with worsening confusion. Patient admitted for choledocholithiasis. #Leukocytosis -White blood cell count has peaked at 27.2 and is now 17.8 -Contacted GI for possible cholangitis however GI feels that this is not ascending cholangitis and other etiologies may be the source of infection. However, as it is true there is no evidence of biliary obstruction there is still evidence of choledocholithiasis which could still be a potential source of infection. - Lactic acid pending -We will continue antibiotic coverage with Zosyn. -We will discontinue Rocephin as there is no need for double beta-lactam coverage. -UA shows no evidence of infection. -Follow up chest x-ray shows no evidence of infection. # Confusion, acute on chronic, present on admission - Pt has a history of Alzheimer's and TIA's, presented with worsening confusion. UA is negative, CT brain with no acute pathology. Possible worsening dementia versus exacerbation due to infection. - Continue to monitor. - PT eval and treat - Stage eval pending # Choledocholithiasis, unknown chronicity, present on admission - GI consulted and they do not recommend ERCP at this time - LFTs currently stable -Patient recently spiked a temperature overnight and leukocytosis white blood cell count up to 27.2 from 11.4. We will continue to treat the patient for cholangitis with Zosyn. - Repeat a CBC and CMP in the morning # DIXON, present on admission - Pt with acute on chronic renal failure with CKD, stage III. BUN was 41, and Cr 2.28, GFR 29 which is much worse compared to he last admission on 03/14/16 ( BUN was 27, Cr 2.00, GFR 34). Today BUN is 33 and creatinine 1.93 - Creatinine Improving today 1.94 - We will continue to monitor # Anemia, acute on chronic, present on admission - Patient presents with Hb of 10.6 and stool occult blood positive. Likely multifactorial given history of iron deficiency, multiple GI bleeds, and CKD Stage III. Pt takes ferrous sulfate 325 mg PO TID daily. - Pt was was hospitalized for suspected acute GI bleed earlier this month, s/p PRBC transfusion and post esophagogastroduodenoscopy (EGD) on 03/12/16 without any obvious source of bleeding. Acute on chronic anemia. poa - Today H&H is stable 12.5/38.7 # H/o paroxysmal atrial fibrillation - Pt used to be on aspirin and plavix which were D/C d/t last BI bleed - Telemetry monitoring to continue # Bradycardia, chronic, stable - Telemetry monitoring to continue # HTN, chronic, - Unstable patient has been having bouts of elevated blood pressure 5 mg of Lopressor was given will continue to monitor and adjust medications as necessary # Dementia, chronic and advanced - Worsening per discussion with her daughter. This certainly could be due to current infection. Disposition: The patient's elevated white blood cell count is concerning at this time. We will try to rule out any sources of infection. When the patient was admitted she seemed to be doing well after IV fluids and rehydration. The patient was to be discharged home the following day however she developed a white blood cell count of 11.2. The patient was then started on Rocephin and Zosyn as there was a low threshold for small ascending cholangitis as her bile duct was dilated 1.2 cm as found on CT scan. GI was read consulted, but feels that this is not related to ascending cholangitis and has recommended looking for other sources of infection. We will continue to treat and monitor the patient. Pain Evaluation: Adequate Pain Control GI Prophylaxis: Proton Pump Inhibitor VTE Mechanical Devices: Intermittant Pneumatic CD Resuscitation Status: DNR/DNI:Do Not Resuscitate/Intubate Alfonzo Murdock MD Mar 27, 2016 22:33
[2016-03-28] VITALS (7 sets, daily range): BP systolic 120–146; BP diastolic 71–79; PULSE 79–111; RESP 16–19; O2SAT 93–95
[2016-03-28] MEDS: Heparin 5,000 Unit/mL Inj SUBQ SCH ×3 (02:08→21:12)
[2016-03-28] MEDS: Piperacillin-Tazo 3.375 Gm Inj 3.375 GM in Dextrose 5% Minibag Plus 50 ML IV SCH ×3 (02:09→17:29)
--- NOTE | 2016-03-28 06:08 | NUR ---
INCONTINENT: Pt. incontinent of urine x2 and incontinent of stool x1 tonight. Incontinent care done. Wears a brief. Turned Q2hr. BPs WNL tonight. Uneventful night.
[2016-03-28 07:16] LABS: BASOPHILS % (AUTO) 0.4 % (0-3); EOSINOPHILS % (AUTO) 0.7 % (0-5); MONOCYTES % (AUTO) 8.8 % (4-12); Mean Corpuscular Hemoglobin 26.4 pg (27.0-35.0); Mean Corpuscular Volume 80.6 fL (81-100); NEUTROPHILS % (AUTO) 79.3 % (40-74); Platelet Count 291 bil/L (150-400)
[2016-03-28] MEDS: Diltiazem CD 240 mg ER24 Capsule PO SCH (07:51)
[2016-03-28] MEDS: Pantoprazole 40 mg ER24 Tablet PO SCH (07:51)
--- NOTE | 2016-03-28 13:31 | NUR ---
Discussed signing off MANAGER CORE with Dr. Murdock. Agreed at this time. Continue 1:1 feeding with nectar/pureed diet as least restrictive safe diet
--- NOTE | 2016-03-28 14:31 | NUR ---
Social Work Continued Discharge Planning: SW contacted and spoke to patient daughter Lyndsey, to discuss discharge plan. Patient is a resident of [facility], [phone] and daughter wanting patient to return at discharge. Therapy has discharged patient from services at this time as a result to patient not following commands. Patient not skillable at this time. SW contacted the [facility] and spoke to rep Cassy who was made aware of clinical status and lack of therapy progression. Rep states that patient accepted back and aware of patient inabilities to follow commands/limited mobility. Rep states that increase service support to be provided to patient at facility to accommodate her current needs. [facility] to conduct a bedside assessment upon discharge. Patient to undergo ERCP tomorrow. SW to follow. ARLETH completed with daughter via phone. PLAN: Return back the [facility], accepted back pending [facility] bedside assessment and clinical course. SW to follow David ARGUELLES
--- NOTE | 2016-03-28 15:59 | NUR ---
Shift: Pt with hx of dementia, answers some yes/no questions, is not oriented, does not move extremities. Q2h turn, incontinent of bowel/bladder, aman care provided as needed. Puree diet with nectar thick liquids, pt requires multiple cues to swallow, pockets meds with applesauce. Care ongoing.
--- NOTE | 2016-03-28 23:23 | PCM.PNMED ---
Subjective Date of Service Mar 28, 2016 Subjective The patient is less verbal today and in fact not speak any words to me while I was in the room asking her questions and examining her. She did follow some commands. But appears slightly more withdrawn today. Exam Vital Signs Vital Sign - Last Date Time Temp Pulse Resp B/P Pulse Ox O2 Delivery O2 Flow Rate FiO2 03/28/16 19:58 36.5 79 16 127/75 95 Room Air Intake and Output 03/27/16 03/27/16 03/28/16 Cumulative From/Thru 15:00 23:00 07:00 03/23/16 20:55 - 03/28/16 05:43 Intake Total 270 ml 120 ml 3811 ml Output Total 1540 ml Balance 270 ml 120 ml 2271 ml Intake Oral 100 ml 120 ml 2476 ml IV Total 170 ml 1335 ml Output Urine Total 1540 ml # Voids 2 2 22 # Bowel Movements 0 1 5 Exam General: Patient appears somewhat withdrawn today. She is easily arousable and responsive. However, she is nonverbal today. Her daughter "Lawrence" believes that this is not the patient's baseline and is much worse than her usual baseline. HEENT: Head is atraumatic normocephalic. Eyes: Pupils are equally round and reactive to light and accommodation. Extraocular muscles are intact. Sclera are white anicteric. Subconjunctival mucosa is pink. Ears and nose are unremarkable. Oropharynx: There is no mucosal lesions, there is no thrush, there is no pharyngitis. Neck: Is supple, there are no nodes, or masses, or tenderness. Chest: Is clear to auscultation and percussion. There are no rales, rhonchi, wheezes or rubs. Heart: Rate, rhythm is regular. There is no murmur, rub or gallop. Abdomen: Good bowel sounds are present. Abdomen is soft, nontender, no organomegaly or masses were appreciated. Extremities: Are symmetrical and well perfused. There is no edema, there is no cellulitis, no rash. Neurologic: There are no focal neurological deficits. Cranial nerves II through XII are intact. There are no sensory or motor deficits. Psychiatric: Patients mood is calm and shows no sign of agitation. Genital: Deferred Rectal: Deferred Lab and Diagnostics Result Diagram: 03/28/16 0647 03/28/16 0647 Microbiology UA negative X-Rays, CTs and MRIs PROCEDURE: X-RAY CHEST ONE VIEW, PORTABLE ([id number]) INDICATIONS: altered mental status IMPRESSION: 1. Partially visualized prominent bowel loops within the upper abdomen. This is of clinical concern for potential structure ileus, abdomen x-ray is recommended for additional evaluation. 2. No acute pulmonary process. Dictated by: Rupa Blakely M.D. on 03/23/2016 at 21:57 Approved by: Rupa Blakely M.D. on 03/23/2016 at 21:57 PROCEDURE: CT BRAIN WITHOUT CONTRAST ([id number]) INDICATIONS: altered mental status IMPRESSION: 1. No acute intracranial process. 2. Moderate to severe atrophy and chronic microvascular ischemic changes. Dictated by: Rupa Blakely M.D. on 03/23/2016 at 21:59 Approved by: Rupa Blakely M.D. on 03/23/2016 at 21:59 Caution: Report not yet finalized and possibly incomplete! PROCEDURE: X-RAY CHEST ONE VIEW, PORTABLE ([id number]) INDICATIONS: infection TECHNIQUE: One view of the chest was acquired. COMPARISON: [facility], CR, XR CHEST 1VW (PORTABLE), 03/23/2016, 21: 35. FINDINGS: Surgical changes and devices: None. Lungs and pleura: No pleural effusions or pneumothorax. Lungs are clear. Mediastinum: Mediastinal contours appear normal. Heart size is normal. Bones and chest wall: No suspicious bony lesions. Overlying soft tissues appear unremarkable. IMPRESSION: Expiratory chest demonstrating no definite acute cardiopulmonary process. Dictated by: Sarmad Paredes [facility] Interpreted: Roger Funez MD on 03/27/2016 at 9: 52 Transcribed by: OBDULIO on 03/27/2016 at 9:52 Assessment & Plan This is an 85 YO female in her blood pressures have been high while with a hx of Alzheimer's, HTN, CKD, and GERD who presents to the ED via EMS from [facility], an [facility], with worsening confusion. Patient admitted for choledocholithiasis. #Leukocytosis -White blood cell count has peaked at 27.2 and is now 13.6 -Contacted GI for possible cholangitis however GI feels that this is not ascending cholangitis and other etiologies may be the source of infection. However, as it is true there is no evidence of biliary obstruction, there is still evidence of choledocholithiasis which could still be a potential source of infection.. -As there is no other source of infection found I spoke to Dr. Uriostegui today, and also the patient's daughter Lawrence, and all are in agreement to proceed with ERCP for choledocholithiasis tomorrow. - Lactic acid pending, -We will continue antibiotic coverage with Zosyn. -We will discontinue Rocephin as there is no need for double beta-lactam coverage. -UA shows no evidence of infection. -Follow up chest x-ray shows no evidence of infection. # Confusion, acute on chronic, present on admission - Pt has a history of Alzheimer's and TIA's, presented with worsening confusion. UA is negative, CT brain with no acute pathology. Possible worsening dementia versus exacerbation due to infection. Patient's daughter states that the patient has experienced a significant decline in her performance status. - Continue to monitor. - PT eval and treat - Stage eval pending # Choledocholithiasis, unknown chronicity, present on admission - GI consulted and they will proceed with ERCP. - LFTs currently stable -Patient recently spiked a temperature and had leukocytosis with a white blood cell count up to 27.2 from 11.4. We will continue to treat the patient for cholangitis (without obstruction) with Zosyn. - Repeat a CBC and CMP in the morning # DIXON, present on admission - Pt with acute on chronic renal failure with CKD, stage III. BUN was 41, and Cr 2.28, GFR 29 which is much worse compared to he last admission on 03/14/16 ( BUN was 27, Cr 2.00, GFR 34). Today BUN is 34 and creatinine 2.2. - Creatinine was to stabilize. - We will continue to monitor # Anemia, acute on chronic, present on admission - Patient presents with Hb of 10.6 and stool occult blood positive. Likely multifactorial given history of iron deficiency, multiple GI bleeds, and CKD Stage III. Pt takes ferrous sulfate 325 mg PO TID daily. - Pt was was hospitalized for suspected acute GI bleed earlier this month, s/p PRBC transfusion and post esophagogastroduodenoscopy (EGD) on 03/12/16 without any obvious source of bleeding. Acute on chronic anemia. poa - Today H&H is stable 12.8/39 # H/o paroxysmal atrial fibrillation - Pt used to be on aspirin and plavix which were D/C d/t last BI bleed - Telemetry monitoring to continue # Bradycardia, chronic, stable - Telemetry monitoring to continue # HTN, chronic, - Unstable patient has been having bouts of elevated blood pressure 5 mg of Lopressor was given will continue to monitor and adjust medications as necessary # Dementia, chronic and advanced - Worsening per discussion with her daughter. This certainly could be due to current infection. Disposition: Patient is to have an ERCP tomorrow due to choledocholithiasis. GI Prophylaxis: Proton Pump Inhibitor VTE Mechanical Devices: Intermittant Pneumatic CD Resuscitation Status: DNR/DNI:Do Not Resuscitate/Intubate Alfonzo Murdock MD Mar 28, 2016 23:22
[2016-03-29] VITALS (13 sets, daily range): BP systolic 120–154; BP diastolic 62–82; PULSE 87–120; RESP 14–22; O2SAT 93–97
[2016-03-29] MEDS: Piperacillin-Tazo 3.375 Gm Inj 3.375 GM in Dextrose 5% Minibag Plus 50 ML IV SCH ×3 (00:27→18:09)
--- NOTE | 2016-03-29 06:28 | NUR ---
Activity/Pain/Diet Patient on bedrest. Being turned [id number] by two staff members. Tolerating well. No s/sx of pain or discomfort. FELDT score=0. Cooperative with care. Diet changed to clears @ 0000 and will be made NPO in preparation for ERCP later today.
[2016-03-29 06:54] LABS: BASOPHILS % (AUTO) 0.3 % (0-3); EOSINOPHILS % (AUTO) 0.1 % (0-5); MONOCYTES % (AUTO) 11.1 % (4-12); Mean Corpuscular Hemoglobin 26.3 pg (27.0-35.0); Mean Corpuscular Volume 80.6 fL (81-100); NEUTROPHILS % (AUTO) 79.9 % (40-74); Platelet Count 314 bil/L (150-400)
[2016-03-29 07:00] LABS: Magnesium 2.1 mg/dL (1.6-2.6); Phosphorus 3.5 mg/dL (2.5-4.9)
[2016-03-29] MEDS: Pantoprazole 40 mg ER24 Tablet PO SCH (08:30)
[2016-03-29] MEDS: Diltiazem CD 240 mg ER24 Capsule PO SCH (08:30)
[2016-03-29] MEDS: Heparin 5,000 Unit/mL Inj SUBQ SCH ×2 (10:54→21:10)
[2016-03-29] MEDS ORDERED: fentaNYL-PF 50 mCg/mL 2 mL Inj ONE (12:58)
[2016-03-29] MEDS ORDERED: Succinylcholine Chloride 20 mg/mL 5 mL Inj ONE (12:59)
[2016-03-29] MEDS ORDERED: Propofol 10,000 mCg/mL 20 mL Inj ONE (12:59)
--- NOTE | 2016-03-29 14:19 | NUR ---
Meds Patient lethargic this am, not safely following any directions to swallow meds so they were with held this am. Pt now npo for ERCP this afternoon. Addendum: 03/29/16 at 2017 by CORY LOUIS RN Post ERCP Patient received back from endo s/p ERCP. Pt is drowsy, does not talk much baseline is usually non verbal . Daughter at bedside.
[2016-03-29] MEDS ORDERED: Lactated Ringer's 1,000 ML IV ONE (14:31)
--- NOTE | 2016-03-29 15:16 | PCM.HPANE ---
Patient Data Surgeon Admitting Provider:Ariana Calabrese DO Attending Provider:Ariana Calabrese DO Primary Care Physician:Jose G Brown MD Other Provider: Reason for Visit Alt Mental Status,Choledocholithiasis ALT MENTAL STATUS,CHOLEDOCHOLITHIASIS Ht/WT & BMI Height (Feet): 5 Height (Inches): 2.00 Weight (Kilograms): 60.400 Body Mass Index 24.00 Allergies Coded Allergies: Honey Bee (Verified Allergy, Severe, all bees, 03/24/16) simvastatin (Verified Allergy, Intermediate, 03/24/16) Past Anesthesia History Anesthesia History: Denies:: Abnormal Airway, Anesthesia Reactions, Difficult Intubation, Fam Anesthesia Reaction, Fam Malignant Hypertherm, Malignant Hyperthermia Diabetes History Hx Diabetes?: No Current Bedside Blood Glucose: 136 MRSA MRSA: No Medications Blood Thinner: Aspirin, Plavix Active Scripts Ferrous Sulfate 325 Mg Abvbgq393 Mg PO TID 30 Days Ref 0 Prov:Sergei Joshi 03/14/16 Cyanocobalamin (Vitamin B-12) (Vitamin B-12)1,000 Mcg Tablet1,000 Mcg PO DAILY # 30 TABLET Prov:Sergei Joshi 03/14/16 Reported Medications Ascorbate Calcium (Vitamin C)500 Mg Vexjrs251 Mg PO DAILY 03/24/16 Epinephrine 0.3 Mg/0.3 Ml Auto.injct0.3 Mg IJ PRN For Anaphyllaxis 03/11/16 Acetaminophen 325 Mg Krfxfy150 Mg PO q6hr PRN For Pain 03/11/16 Polyethylene Glycol 3350 17 Gm Powd.pack17 Gm PO DAILY 03/11/16 Docusate Sodium (Colace)100 Mg Fqnncbl170 Mg PO HS 03/11/[address] 40 Mg Tablet.dr40 Mg PO DAILY 03/11/16 Lisinopril 20 Mg Dugwpz70 Mg PO DAILY 03/11/16 Cholecalciferol (Vitamin D3) (Vitamin D3)2,000 Unit Capsule2,000 Unit PO DAILY 03/11/16 Memantine (Namenda)10 Mg Xlcpbn23 Mg PO BID 03/11/16 Hydralazine 25 Mg Kygvkt07 Mg PO QID 03/11/16 Famotidine 20 Mg Uxddyc64 Mg PO DAILY 03/11/16 Clonidine 0.1 Mg Tablet0.1 Mg PO BID 1/9/17 Diltiazem ER (Cartia XT)240 Mg Cap.er.31h622 Mg PO DAILY 03/11/16 Citalopram Hydrobromide (Celexa)20 Mg Qengii02 Mg PO DAILY 03/11/16 Discontinued Reported Medications Magnesium Hydroxide (Milk of Magnesia)400 Mg/5 Ml Oral.susp30 Ml PO prn PRN For Constipation 03/11/16 History History of ENT Problems?: Yes HEENT History: Positive for:: Cataracts Dysphagia (Sometimes she choked on dry food) Denies:: Abnormal Airway Difficult Intubation Hearing Problem Sinus Problem Denture Type: Full- Upper Full- Lower Hx of Heart Problems?: Yes Cardiovascular History: Positive for:: Atrial Fibrillation Congestive Heart Failure Edema Hypertension Irregular Heartbeat (A. Fib) Denies:: AICD Cardiac Surgery Chest Pain Heart Murmur Pacemaker Thrombophlebitis Other History/Comments cARDIAC ros NEGATIVE Daughter denies any previous history of [place], CHF, CAD Hx of Respiratory Problem?: Yes Respiratory History: Positive for:: Pneumonia Denies:: Asthma COPD Chest Surgery Dyspnea Emphysema Hemoptysis Tuberculosis Other Resp Pertinent History: RA lung sounds clear. 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) Dementia Dizziness Headaches Denies:: Parkinson's Disease Seizures Other History/Comments TIA three years ago, no residual, age related activities Hx of GI Problems?: Yes Gastrointestinal History: Positive for:: Diverticulitis (s/p partial colectomy ) Gastroesphageal Reflux Gastrointestinal Bleeding Denies:: Heartburn (Unsure) Hepatitis Hiatal Hernia Rectal Bleeding Hx of Problems?: Yes Genitourinary History: Positive for:: Urinary Tract Infection Denies:: HX of Hemodialysis Kidney Stones HX of Peritoneal Dialysis: No Female Hx: Denies:: Currently Endometriosis Pelvic Inflammatory Problems with Breasts? Hx Musculoskeletal Problems?: Yes Musculoskeletal History: Positive for:: Back Injury Denies:: Joint Replacement Musculoskeletal Trauma Hx of Psycho/Social Problems?: Yes Psycho Social History: Positive for:: Hx Depression Denies:: Anxiety Bipolar Disorder Suicide Attempt Hx Surgeries?: Yes (right arm-- lumps removed x3 as a child, esthela) Hx Any Other Health Problems?: Yes Other History: Positive for:: Hospitalization (childbirth, appendectomy, hysterectomy) Denies:: Cancer Endocrine Disease Thyroid Disease History Blood Transfusions: Positive for:: Blood Transfusions Denies:: Blood Transfuse Reaction Hx Diabetes: NoBedside Blood Glucose: 136 Hx Alcohol Use: NoHx Substance Use: No Smoking Status: Never Smoker Have You Smoked inLast 12 mo: No Stop/Bang Treated for Sleep Apnea?: No Do You Have a CPAP Machine?: No S-Snoring: Do You Snore Loudly: No T-Tired: feel tired, fatigued: No O-Obsered: Observed not breath: No P-Blood Pressure: treated: Yes B- Body Mass Index > 35 kg/m2: No A- Age over 50: Yes N- Neck Large Circumference: No G- Gender Male: No ROYCE Total Score: 2 Risk Assessment Category Category 1A: Patient has history of documented sleep apnea, and HAS NOT received any narcotic, sedative or anesthesia administration during this stay. Category 1B: Patient has history of documented sleep apnea, and HAS received any narcotic , sedative or anesthesia administration during this stay Category 2: Patient has SUSPECTED Obstructive Sleep Apnea, and HAS received any narcotic , sedative or anesthesia administration during this stay. Category 3: Patient has SUSPECTED Obstructive Sleep Apnea and HAS NOT received narcotic, sedative or anesthesia administration during this stay. Category 4: Outpatient in Procedural Areas with known sleep apnea or who screen positive for High Risk via the STOP/BANG questionnaire. Exam Exam Vital Signs Vital Signs Date Time Temp Pulse Resp B/P Pulse Ox O2 Delivery O2 Flow Rate FiO2 03/29/16 13:36 36.6 100 14 154/77 94 Room Air 03/29/16 10:29 36.8 107 14 147/81 96 Room Air 03/29/16 08:00 120 General Appearance: Alert, Cooperative, No Acute Distress HEENT/AIRWAY: MP 2 Lungs: Clear to Auscultation Heart: Exam Unremarkable Meds/Labs/Diagnostics Bedside Blood Glucose: 136 Labs Test 03/23/16 21:17 03/24/16 06:30 03/26/16 17:40 03/27/16 03:45 Urine Culture Reflexed Not indicated Direct Bilirubin 0.2mg/dL (0.0-0.3) Lactic Acid Level 0.9mmol/L (0.4-2.0) Urine Color Yellow (YELLOW) Urine Appearance Clear (CLEAR,HAZY) Urine pH 5.5 (5.0-8.0) Urine Specific [place] 1.025 (1.003-1.035) Urine Protein 30mg/dL (NEG,TRACE) Urine Glucose (UA) Negativemg/dL (NEGATIVE) Urine Ketones Negativemg/dL (NEGATIVE) Urine Occult Blood Negative (NEGATIVE) Urine Nitrite Negative (NEGATIVE) Urine Bilirubin Negative (NEGATIVE) Urine Urobilinogen Normalmg/dL (NORMAL) Urine Leukocyte Esterase Negative (NEGATIVE) Urine RBC 0-2/hpf (0-2) Urine WBC 0-5/hpf (0-5) Urine Epithelial Cells Few/hpf (NONE-MOD) Urine Crystals None seen (NONE SEEN) Urine Bacteria Few/hpf (NONE-FEW) Urine Hyaline Casts None/lpf (NONE) Urine Granular Casts None seen (NONE SEEN) Urine Waxy Casts None seen (NONE SEEN) Urine Red Blood Cell Casts None seen (NONE SEEN) Urine White Blood Cell Casts None seen (NONE SEEN) Urine Mucus None seen (None Seen) Urine Trichomonas None seen (NONE SEEN) Urine Yeast None (NONE SEEN) Urinalysis Comment None Test 03/28/16 06:47 03/29/16 06:10 Prealbumin 17mg/dL (20-40) White Blood Count 17.7th/mm3 (3.8-10.1) Red Blood Count 5.06mil/mm3 (3.90-5.20) Hemoglobin 13.3g/dL (12.0-15.6) Hematocrit 40.8% (35.0-46.0) Mean Corpuscular Volume 80.6fL (81-100) Mean Corpuscular Hemoglobin 26.3pg (27.0-35.0) Mean Corpuscular Hemoglobin Concent 32.6% (32.0-37.0) Red Cell Distribution Width 20.2% (12.3-15.4) Platelet Count 314bil/L (150-400) Neutrophils (%) (Auto) 79.9% (40-74) Lymphocytes (%) (Auto) 8.3% (14-46) Monocytes (%) (Auto) 11.1% (4-12) Eosinophils (%) (Auto) 0.1% (0-5) Basophils (%) (Auto) 0.3% (0-3) Sodium Level 146mEq/L (134-144) Potassium Level 3.9mEq/L (3.5-5.2) Chloride Level 107mEq/L (97-108) Carbon Dioxide Level 20mmol/L (18-29) Blood Urea Nitrogen 35mg/dL (8-27) Creatinine 2.16mg/dL (0.57-1.00) Estimat Glomerular Filtration Rate 31mL/min (>59) Glucose Level 188mg/dL (60-99) Calcium Level 9.1mg/dL (8.5-10.1) Phosphorus Level 3.5mg/dL (2.5-4.9) Magnesium Level 2.1mg/dL (1.6-2.6) Total Bilirubin 0.6mg/dL (0.0-1.2) Aspartate Amino Transf (AST/SGOT) 25U/L (0-50) Alanine Aminotransferase (ALT/SGPT) 14U/L (0-32) Alkaline Phosphatase 71U/L (25-165) Total Protein 6.3g/dL (6.4-8.4) Albumin 3.3g/dL (3.4-5.0) Procalcitonin 3.57ng/mL (See Comment) Plan Impression Patient chart reviewed, patient interviewed and anesthestic plan with risks, benefits, and alternatives discussed, and informed consent obtained. NPO Status: GREATER THAN 8 HOURS ASA Physical Status: ASA3 Plus Emergency Anesthetic Plan: GA Bene/Risks/Altern/Consents: Yes HP Complete Prior to Induction: Yes (History taken from DaughterLyndsey) Amor Tran MD Mar 29, 2016 15:16
[2016-03-29] MEDS ORDERED: Lactated Ringer's 500 ML IV PRN (16:45)
[2016-03-29] MEDS ORDERED: Ondansetron 2 mg/mL 2 mL Inj IVPUSH PRN (16:45)
[2016-03-29] MEDS ORDERED: HYDROmorphone 1 mg/mL Inj IVPUSH PRN (16:45)
[2016-03-29] MEDS ORDERED: fentaNYL-PF 50 mCg/mL 2 mL Inj IVPUSH PRN (16:45)
[2016-03-29] MEDS ORDERED: EPHEDrine Sulfate 50 mg/mL Inj IVPUSH PRN (16:45)
[2016-03-29] MEDS ORDERED: Dexamethasone 4 mg/mL Inj IVPUSH PRN (16:45)
[2016-03-29] MEDS ORDERED: Phenylephrine 10,000 mCg/mL Inj IVPUSH PRN (16:45)
[2016-03-29] MEDS ORDERED: MetoCLOpramide 5 mg/mL 2 mL Inj IVPUSH PRN (16:45)
[2016-03-29] MEDS ORDERED: Lactated Ringer's 1,000 ML IV SCH (16:45)
--- NOTE | 2016-03-29 16:55 | DRSVH ---
PROCEDURE: X-RAY E.R.C. BILIARY DUCTS ([id number]) INDICATIONS: CBD STONE TECHNIQUE: Fluoroscopic spot films were acquired by the gastroenterology service during ERCP procedu re. COMPARISON: None. FINDINGS: Spot images from ERCP demonstrate sweeping of the common bile duct. IMPRESSION: Common bile duct sweeping. Dictated by: Ale Graves M.D. on 03/29/2016 at 16:51 Approved by: Ale Graves M.D. on 03/29/2016 at 16:51
[2016-03-29] MEDS: 0.9% NaCl + KCl 20 mEq/L 1,000 ML IV SCH (22:23)
--- NOTE | 2016-03-29 23:54 | PCM.PNMED ---
Subjective Date of Service Mar 29, 2016 Subjective Patient was seen after her ERCP procedure and she remains somewhat somnolent. She otherwise appears quite comfortable. She remains nonverbal Exam Vital Signs Vital Sign - Last Date Time Temp Pulse Resp B/P Pulse Ox O2 Delivery O2 Flow Rate FiO2 03/29/16 21:00 Supplement Oxygen 03/29/16 20:00 87 03/29/16 19:58 36.6 16 128/75 93 03/29/16 18:00 2.00 Intake and Output 03/28/16 03/28/16 03/29/16 Cumulative From/Thru 15:00 23:00 07:00 03/23/16 20:55 - 03/29/16 06:35 Intake Total 200 ml 513 ml 4524 ml Output Total 1540 ml Balance 200 ml 513 ml 2984 ml Intake Oral 200 ml 100 ml 2776 ml IV Total 413 ml 1748 ml Output Urine Total 1540 ml # Voids 2 24 # Bowel Movements 0 5 Exam General: Patient appears somewhat withdrawn today. She is easily arousable and responsive. However, she is nonverbal today. Her daughter "Lawrence" believes that this is not the patient's baseline and is much worse than her usual baseline. HEENT: Head is atraumatic normocephalic. Eyes: Pupils are equally round and reactive to light and accommodation. Extraocular muscles are intact. Sclera are white anicteric. Subconjunctival mucosa is pink. Ears and nose are unremarkable. Oropharynx: There is no mucosal lesions, there is no thrush, there is no pharyngitis. Neck: Is supple, there are no nodes, or masses, or tenderness. Chest: Is clear to auscultation and percussion. There are no rales, rhonchi, wheezes or rubs. Heart: Rate, rhythm is regular. There is no murmur, rub or gallop. Abdomen: Good bowel sounds are present. Abdomen is soft, nontender, no organomegaly or masses were appreciated. Extremities: Are symmetrical and well perfused. There is no edema, there is no cellulitis, no rash. Neurologic: There are no focal neurological deficits. Cranial nerves II through XII are intact. There are no sensory or motor deficits. Psychiatric: Patients mood is calm and shows no sign of agitation. Genital: Deferred Rectal: Deferred Lab and Diagnostics Result Diagram: 03/29/1660903/29/16609 Microbiology UA negative X-Rays, CTs and MRIs PROCEDURE: X-RAY CHEST ONE VIEW, PORTABLE ([id number]) INDICATIONS: altered mental status IMPRESSION: 1. Partially visualized prominent bowel loops within the upper abdomen. This is of clinical concern for potential structure ileus, abdomen x-ray is recommended for additional evaluation. 2. No acute pulmonary process. Dictated by: Ruap Blakely M.D. on 03/23/2016 at 21:57 Approved by: Rupa Blakely M.D. on 03/23/2016 at 21:57 PROCEDURE: CT BRAIN WITHOUT CONTRAST ([id number]) INDICATIONS: altered mental status IMPRESSION: 1. No acute intracranial process. 2. Moderate to severe atrophy and chronic microvascular ischemic changes. Dictated by: Rupa Blakely M.D. on 03/23/2016 at 21:59 Approved by: Rupa Blakely M.D. on 03/23/2016 at 21:59 Caution: Report not yet finalized and possibly incomplete! PROCEDURE: X-RAY CHEST ONE VIEW, PORTABLE ([id number]) INDICATIONS: infection TECHNIQUE: One view of the chest was acquired. COMPARISON: [facility], CR, XR CHEST 1VW (PORTABLE), 03/23/2016, 21: 35. FINDINGS: Surgical changes and devices: None. Lungs and pleura: No pleural effusions or pneumothorax. Lungs are clear. Mediastinum: Mediastinal contours appear normal. Heart size is normal. Bones and chest wall: No suspicious bony lesions. Overlying soft tissues appear unremarkable. IMPRESSION: Expiratory chest demonstrating no definite acute cardiopulmonary process. Dictated by: Sarmad Paredes [facility] Interpreted: Roger Funez MD on 03/27/2016 at 9: 52 Transcribed by: OBDULIO on 03/27/2016 at 9:52 Assessment & Plan This is an 85 YO female in her blood pressures have been high while with a hx of Alzheimer's, HTN, CKD, and GERD who presents to the ED via EMS from [facility], [facility], with worsening confusion. Patient admitted for choledocholithiasis. #Leukocytosis with white blood cell count increased again today -White blood cell count has increased again today -Contacted GI for possible cholangitis however GI feels that this is not ascending cholangitis and other etiologies may be the source of infection. However, as it is true there is no evidence of biliary obstruction, there is still evidence of choledocholithiasis which could still be a potential source of infection.. -As there is no other source of infection found I spoke to Dr. Uriostegui yesterday and patient was taken for ERCP today there was finding of large stones in the common bile duct which were removed. -We will continue antibiotic coverage with Zosyn. -We have discontinued Rocephin as there is no need for double beta-lactam coverage. -UA shows no evidence of infection. -Follow up chest x-ray shows no evidence of infection. # Confusion, acute on chronic, present on admission - Pt has a history of Alzheimer's and TIA's, presented with worsening confusion. UA is negative, CT brain with no acute pathology. Possible worsening dementia versus exacerbation due to infection. Patient's daughter states that the patient has experienced a significant decline in her performance status. - Continue to monitor. - PT eval and treat - Stage eval pending # Choledocholithiasis, unknown chronicity, present on admission - GI consulted and they will proceed with ERCP. - LFTs currently stable -Patient recently spiked a temperature and had leukocytosis with a white blood cell count up to 27.2 from 11.4. We will continue to treat the patient for possible cholangitis (without obstruction) with Zosyn. - Repeat a CBC and CMP in the morning - ERCP performed today with successful removal of large stones from the common bile duct # DIXON, present on admission - Pt with acute on chronic renal failure with CKD, stage III. BUN was 41, and Cr 2.28, GFR 29 which is much worse compared to he last admission on 03/14/16 ( BUN was 27, Cr 2.00, GFR 34). Today BUN is 34 and creatinine 2.2. - Creatinine was to stabilize. - We will continue to monitor # Anemia, acute on chronic, present on admission - Patient presents with Hb of 10.6 and stool occult blood positive. Likely multifactorial given history of iron deficiency, multiple GI bleeds, and CKD Stage III. Pt takes ferrous sulfate 325 mg PO TID daily. - Pt was was hospitalized for suspected acute GI bleed earlier this month, s/p PRBC transfusion and post esophagogastroduodenoscopy (EGD) on 03/12/16 without any obvious source of bleeding. Acute on chronic anemia. poa - Today H&H is stable 12. # H/o paroxysmal atrial fibrillation - Pt used to be on aspirin and plavix which were D/C d/t last BI bleed - Telemetry monitoring to continue # Bradycardia, chronic, stable - Telemetry monitoring to continue # HTN, chronic, - Unstable patient has been having bouts of elevated blood pressure 5 mg of Lopressor was given will continue to monitor and adjust medications as necessary # Dementia, chronic and advanced - Worsening per discussion with her daughter. This certainly could be due to current infection. Disposition: Patient had an ERCP today due to choledocholithiasis. Several large common bile duct stones were removed. Pain Evaluation: Adequate Pain Control GI Prophylaxis: Proton Pump Inhibitor VTE Mechanical Devices: Intermittant Pneumatic CD Resuscitation Status: DNR/DNI:Do Not Resuscitate/Intubate Alfonzo Murdock MD Mar 29, 2016 23:54
[2016-03-30] VITALS (8 sets, daily range): BP systolic 124–155; BP diastolic 69–91; PULSE 93–108; RESP 16–18; O2SAT 90–96
[2016-03-30] MEDS: Piperacillin-Tazo 3.375 Gm Inj 3.375 GM in Dextrose 5% Minibag Plus 50 ML IV SCH ×3 (00:51→17:06)
--- NOTE | 2016-03-30 02:54 | ENDO ---
[address] [address] ENDOSCOPY PROCEDURE PATIENT: RAÚL LINCOLN : 1930 MR#: [id number] ADMIT: 03/24/2016 JOB ID: [id number] PROCEDURE: Endoscopic retrograde cholangiopancreatography with biliary sphincterotomy and stone extraction. INDICATIONS: An 85-year-old female who presented with altered mental status of uncertain etiology. She was found to have choledocholithiasis on CT scan. She, however, has had consistently normal LFTs. She had a low grade temperature elevation and spiked a leukocytosis. Empiric antibiotics were started with the thought that this may still be cholangitis. She has responded to the antibiotics and we thus offered the patient, by way of her daughter, an early ERCP to clear the duct of stones and evaluate for the presence of biliary purulence. EQUIPMENT: Standard duodenoscope. SEDATION: General anesthesia with endotracheal intubation as provided by Dr. Tran. COMPLICATIONS: None identified. PROCEDURE INFORMATION: After the risks and benefits were explained, written and verbal informed consent was obtained. The patient was brought into the endoscopy suite and placed into the prone position following anesthesia and intubation. The scope was introduced into the mouth through the bite block, and advanced under indirect visualization to the stomach. Then under direct visualization, we guided into the second portion of the duodenum. The major papilla was identified and appeared to be morphologically within normal limits. There was bile easily seen emanating from the biliary os. I did not see any pus or purulence. Using an Olympus 20 mm sphincterotome preloaded with an 025 short straight VisiGlide wire, we easily obtained biliary access and guided the wire up into the intrahepatics. Biliary injection with contrast disclosed obvious filling defect consistent with multiple large stones. Biliary sphincterotomy was accomplished and quite adequate, yielding mcrae bile. I did not see any purulence. Using the Below balloon injection port stone extraction catheter, we tested the sphincterotomy at the 8.5 setting. It came through quite easily. I then advanced to the 11.5 setting, which in essence matched the two larger stones that were sitting there in the more proximal CBD. The balloon came through easily at the 11.5 setting. We thereafter engaged the first stone, the smaller of the two, and pulled it through. There were perhaps a couple of much smaller stones that were caught up in its removal. But this was successfully delivered into the duodenum. We then turned our attention to the larger more proximal stone, worked it down into the distal duct and engaged it with the 11.5 balloon, but it did not easily come through the sphincterotomy. This was perhaps slightly larger than the balloon at the 11.5 mm setting. We swapped this catheter out thereafter for 2.5 cm [employer] trapezoid basket. This was successfully advanced over the wire and the stone engaged within the basket. It was crushed and fragmented within the duct and then we pulled a large fragment of this stone out using the basket. We then swabbed out for the balloon tipped catheter once again and cleared the duct of small stone debris. The balloon was inflated at the level of the proximal common hepatic duct and brought down through the distal duct and the sphincterotomy without any further significant filling defects. It came through the sphincterotomy quite easily. All large debris appeared to have been removed. The intra-hepatics were not significantly dilated. The wire and catheter were thus removed. The scope was brought back into the stomach. Excess air and fluid was removed. The scope was then removed from the patient who tolerated the procedure well. The 100 mg indomethacin suppository was placed to prophylax against post ERCP pancreatitis. The patient was then extubated and transferred to the PACU in stable condition. FINDINGS: See above. Dilated biliary tree with several large stones removed by way of the combination of balloon and trapezoid basket destruction. Biliary sphincterotomy appeared to be quite adequate. ENDOSCOPIC DIAGNOSES: Choledocholithiasis status post biliary sphincterotomy, stone destruction, stone extraction. RECOMMENDATIONS: 1. N.p.o. x5 hours. 2. Otherwise continue pre ERCP orders as per primary team including antibiotics for now. 3. Clear liquids can be started at around 5 hours post ERCP. She can have her diet advanced to her baseline once again tomorrow morning as tolerated. 4. CBC, CMP are pending for the morning. 5. Note: I did not see any convincing evidence of cholangitis at this time. Depending on her ongoing response to antibiotic therapy, further investigation as to the cause for her leukocytosis and low grade fever may still be warranted.
[2016-03-30 06:20] LABS: BASOPHILS % (AUTO) 0.2 % (0-3); EOSINOPHILS % (AUTO) 0 % (0-5); MONOCYTES % (AUTO) 8.9 % (4-12); Mean Corpuscular Hemoglobin 25.7 pg (27.0-35.0); Mean Corpuscular Volume 82.8 fL (81-100); NEUTROPHILS % (AUTO) 83.3 % (40-74); Platelet Count 263 bil/L (150-400)
--- NOTE | 2016-03-30 08:48 | PCM.ANEP1 ---
Post Anesthesia Phase 1 PACU Phase 1 Assessment Vital Signs Vital Signs Date Time Temp Pulse Resp B/P Pulse Ox O2 Delivery O2 Flow Rate FiO2 03/30/16 04:13 36.7 95 18 155/80 95 Nasal Cannula 2.00 03/30/16 01:02 Supplement Oxygen 03/30/16 00:48 36.3 93 16 133/78 90 Nasal Cannula 2.00 Anesthetic Administered: GA Level of Alertness: Sleepy, easy to arouse KUMAR's with Equal Strength: Yes Pain: No Nausea or Vomiting: No Oxygen Delivery: Simple Mask Lungs: Clear to Auscultation Dermatome Level: Full Sensation Amor Tran MD Mar 30, 2016 08:48
--- NOTE | 2016-03-30 08:48 | PCM.ANEP2 ---
Post Anesthesia Evaluation ASA/CMS Post Anesthesia VS in Patient's Normal Range?: Yes Resp Stable; Airway Patent?: Yes CV Function & Hydration Stable: Yes Mental Status Recovered?: Yes Pain control Satisfactory?: Yes N/V Control Satisfactory?: Yes Amor Tran MD Mar 30, 2016 08:48
[2016-03-30] MEDS: Diltiazem CD 240 mg ER24 Capsule PO SCH (09:32)
[2016-03-30] MEDS: Pantoprazole 40 mg ER24 Tablet PO SCH (09:32)
[2016-03-30] MEDS: Heparin 5,000 Unit/mL Inj SUBQ SCH ×2 (09:33→20:00)
[2016-03-30 09:46] LABS: BASOPHILS % (AUTO) 0.3 % (0-3); EOSINOPHILS % (AUTO) 0.1 % (0-5); MONOCYTES % (AUTO) 7.4 % (4-12); Mean Corpuscular Hemoglobin 26.2 pg (27.0-35.0); Mean Corpuscular Volume 81.9 fL (81-100); NEUTROPHILS % (AUTO) 84.9 % (40-74); Platelet Count 267 bil/L (150-400)
[2016-03-30] MEDS: 0.9% NaCl + KCl 20 mEq/L 1,000 ML IV SCH (11:10)
--- NOTE | 2016-03-30 15:58 | NUR ---
Communication / Behavior Pt sleeping this a.m., but was easily awakened. She was able to tell me her name, but did not respond when I asked her for her date of . She was able to take her medications with applesauce without any problems. Pt has not spoken at all today beyond telling me her name this a.m. She has been awake and her eyes have been open much of the day. Pt will make eye contact, but sometimes does not respond to or follow commands. Other times she will nod her head "yes" or shake her head "no" in response to questions. Pt is cooperative with her care and shows no signs of pain or discomfort. Q 2 turns and heels floated for skin protection. Family at the bedside and helped feed pt at lunchtime. Care continues.
--- NOTE | 2016-03-30 23:57 | PCM.PNMED ---
Subjective Date of Service Mar 30, 2016 Subjective Patient was able to speak a few words today. She is a little bit more awake and alert than yesterday. She however is not following very many commands. She does appear comfortable and in no apparent distress. Exam Vital Signs Vital Sign - Last Date Time Temp Pulse Resp B/P Pulse Ox O2 Delivery O2 Flow Rate FiO2 03/30/16 22:05 107 03/30/16 15:37 37.0 16 124/69 96 Nasal Cannula 2.00 Intake and Output 03/29/16 03/29/16 03/30/16 Cumulative From/Thru 15:00 23:00 07:00 03/23/16 20:55 - 03/30/16 06:30 Intake Total 313 ml 761 ml 5598 ml Output Total 1540 ml Balance 313 ml 761 ml 4058 ml Intake Oral 0 ml 2776 ml IV Total 313 ml 761 ml 2822 ml Output Urine Total 1540 ml # Voids 1 25 # Bowel Movements 5 Exam General: Patient appears somewhat more responsive today. However, she continues to be somewhat withdrawn and nonverbal. She is following very few commands. HEENT: Head is atraumatic normocephalic. Eyes: Pupils are equally round and reactive to light and accommodation. Extraocular muscles are intact. Sclera are white anicteric. Subconjunctival mucosa is pink. Ears and nose are unremarkable. Oropharynx: There is no mucosal lesions, there is no thrush, there is no pharyngitis. Neck: Is supple, there are no nodes, or masses, or tenderness. Chest: Is clear to auscultation and percussion. There are no rales, rhonchi, wheezes or rubs. Heart: Rate, rhythm is regular. There is no murmur, rub or gallop. Abdomen: Good bowel sounds are present. Abdomen is soft, nontender, no organomegaly or masses were appreciated. Extremities: Are symmetrical and well perfused. There is no edema, there is no cellulitis, no rash. Neurologic: There are no focal neurological deficits. Cranial nerves II through XII are intact. There are no sensory or motor deficits. Psychiatric: Patients mood is calm and shows no sign of agitation. Genital: Deferred Rectal: Deferred Lab and Diagnostics Result Diagram: 03/30/16 0937 03/30/16 0937 Microbiology UA negative X-Rays, CTs and MRIs PROCEDURE: X-RAY CHEST ONE VIEW, PORTABLE ([id number]) INDICATIONS: altered mental status IMPRESSION: 1. Partially visualized prominent bowel loops within the upper abdomen. This is of clinical concern for potential structure ileus, abdomen x-ray is recommended for additional evaluation. 2. No acute pulmonary process. Dictated by: Rupa Blakely M.D. on 03/23/2016 at 21:57 Approved by: Rupa Blakely M.D. on 03/23/2016 at 21:57 PROCEDURE: CT BRAIN WITHOUT CONTRAST ([id number]) INDICATIONS: altered mental status IMPRESSION: 1. No acute intracranial process. 2. Moderate to severe atrophy and chronic microvascular ischemic changes. Dictated by: Rupa Blakely M.D. on 03/23/2016 at 21:59 Approved by: Rupa Blakely M.D. on 03/23/2016 at 21:59 Caution: Report not yet finalized and possibly incomplete! PROCEDURE: X-RAY CHEST ONE VIEW, PORTABLE ([id number]) INDICATIONS: infection TECHNIQUE: One view of the chest was acquired. COMPARISON: [facility], CR, XR CHEST 1VW (PORTABLE), 03/23/2016, 21: 35. FINDINGS: Surgical changes and devices: None. Lungs and pleura: No pleural effusions or pneumothorax. Lungs are clear. Mediastinum: Mediastinal contours appear normal. Heart size is normal. Bones and chest wall: No suspicious bony lesions. Overlying soft tissues appear unremarkable. IMPRESSION: Expiratory chest demonstrating no definite acute cardiopulmonary process. Dictated by: Sarmad Paredes RR Interpreted: Roger Funez MD on 03/27/2016 at 9: 52 Transcribed by: OBDULIO on 03/27/2016 at 9:52 Assessment & Plan This is an 85 YO female in her blood pressures have been high while with a hx of Alzheimer's, HTN, CKD, and GERD who presents to the ED via EMS from [place], an [facility], with worsening confusion. Patient admitted for choledocholithiasis. #Leukocytosis with white blood cell count improved today -White blood cell count has improved today -Contacted GI for possible cholangitis however GI feels that this is not ascending cholangitis and other etiologies may be the source of infection. However, as it is true there is no evidence of biliary obstruction, there is still evidence of choledocholithiasis which could still be a potential source of infection.. -As there is no other source of infection found I spoke to Dr. Uriostegui yesterday and patient was taken for ERCP yesterday and there was a finding of large stones in the common bile duct which were removed. -We will continue antibiotic coverage with Zosyn. -We have discontinued Rocephin as there is no need for double beta-lactam coverage. -UA shows no evidence of infection. -Follow up chest x-ray shows no evidence of infection. # Toxic metabolic encephalopathy with confusion, acute on chronic, present on admission - Pt has a history of Alzheimer's and TIA's, presented with worsening confusion. UA is negative, CT brain with no acute pathology. Possible worsening dementia versus exacerbation due to infection. Patient's daughter states that the patient has experienced a significant decline in her performance status. - Continue to monitor. - PT eval and treat - Stage eval pending # Choledocholithiasis, unknown chronicity, present on admission - GI consulted and they will proceed with ERCP. - LFTs currently stable -Patient recently spiked a temperature and had leukocytosis with a white blood cell count up to 27.2 from 11.4. We will continue to treat the patient for possible cholangitis (without obstruction) with Zosyn. - Repeat a CBC and CMP in the morning - ERCP performed 03/29/2016 with successful removal of large stones from the common bile duct # DIXON, present on admission - Pt with acute on chronic renal failure with CKD, stage III. BUN was 41, and Cr 2.28, GFR 29 which is much worse compared to he last admission on 03/14/16 ( BUN was 27, Cr 2.00, GFR 34). Today BUN is 43 and creatinine 2.34. - Creatinine appears to have stabilize. - We will continue to monitor # Anemia, acute on chronic, present on admission - Patient presents with Hb of 10.6 and stool occult blood positive. Likely multifactorial given history of iron deficiency, multiple GI bleeds, and CKD Stage III. Pt takes ferrous sulfate 325 mg PO TID daily. - Pt was was hospitalized for suspected acute GI bleed earlier this month, s/p PRBC transfusion and post esophagogastroduodenoscopy (EGD) on 03/12/16 without any obvious source of bleeding. Acute on chronic anemia. poa - Today H&H is stable at 11.5/ 37.1 # H/o paroxysmal atrial fibrillation - Pt used to be on aspirin and plavix which were D/C d/t last BI bleed - Telemetry monitoring to continue # Bradycardia, chronic, stable - Telemetry monitoring to continue # HTN, chronic, - Unstable patient has been having bouts of elevated blood pressure 5 mg of Lopressor was given will continue to monitor and adjust medications as necessary # Dementia, chronic and advanced - Worsening per discussion with her daughter. This certainly could be due to current infection, along with possible progressive dementia. Case discussed with patient's daughter "Lawrence" at bedside. Disposition: Patient had an ERCP yesterday due to choledocholithiasis. Several large common bile duct stones were removed. Patient still has leukocytosis. We will continue Zosyn over the weekend and see how she responds. Pain Evaluation: Adequate Pain Control GI Prophylaxis: Proton Pump Inhibitor VTE Mechanical Devices: Intermittant Pneumatic CD Resuscitation Status: DNR/DNI:Do Not Resuscitate/Intubate Alfonzo Murdock MD Mar 30, 2016 23:57
[2016-03-31] VITALS (8 sets, daily range): BP systolic 97–151; BP diastolic 64–88; PULSE 72–110; RESP 16–18; O2SAT 95–97
[2016-03-31] MEDS: 0.9% NaCl + KCl 20 mEq/L 1,000 ML IV SCH (00:17)
[2016-03-31] MEDS: Piperacillin-Tazo 3.375 Gm Inj 3.375 GM in Dextrose 5% Minibag Plus 50 ML IV SCH (00:21)
[2016-03-31 05:31] LABS: BASOPHILS % (AUTO) 0.2 % (0-3); EOSINOPHILS % (AUTO) 0.3 % (0-5); MONOCYTES % (AUTO) 6.2 % (4-12); Mean Corpuscular Hemoglobin 25.8 pg (27.0-35.0); Mean Corpuscular Volume 83.2 fL (81-100); NEUTROPHILS % (AUTO) 86.8 % (40-74); Platelet Count 272 bil/L (150-400)
--- NOTE | 2016-03-31 07:45 | NUR ---
Low grade temp 99.3 overnight. no chills or diaphoresis. Alert, but mostly non-verbal. Incontinent of Lg semi-formed stool this morning. No s/s of pain. Continue to turn Q 2hrs.
[2016-03-31] MEDS: Pantoprazole 40 mg ER24 Tablet PO SCH (08:30)
[2016-03-31] MEDS ORDERED: 0.9% Sodium Chloride 500 ML IV ONE (09:30)
[2016-03-31] MEDS: Diltiazem CD 240 mg ER24 Capsule PO SCH (10:31)
[2016-03-31] MEDS: Heparin 5,000 Unit/mL Inj SUBQ SCH ×2 (10:33→20:58)
[2016-03-31] MEDS: levoFLOXacin Inj 250 MG in IV Premix 1 EACH IV SCH (12:22)
[2016-03-31 15:24] LABS: APPEARANCE,URINE HAZY (CLEAR,HAZY); COLOR,URINE YELLOW (YELLOW); OCCULT BLOOD,URINE NEGATIVE (NEGATIVE); UROBILINOGEN,URINE NORMAL (NORMAL); YEAST,URINE MANY (NONE SEEN)
--- NOTE | 2016-03-31 17:14 | CONS ---
[address] [address] CONSULTATION REPORT PATIENT: RAÚL LINCOLN : 1930 MR#: [id number] ADMIT: 03/24/2016 JOB ID: [id number] DATE OF SERVICE: 03/31/2016 REQUESTING PHYSICIAN: Alfonzo Murdock MD. REASON FOR CONSULTATION: Management of acute kidney injury. PRESENT ILLNESS: This is an 85-year-old lady with past medical history of hypertension, chronic kidney disease, Alzheimer disease, GERD who was brought to the emergency department due to altered mental status. The patient is not able to provide me any history given underlying disease of dementia. I have gathered information from the medical record. The patient was admitted on March 24, 2016. The septic workup was done. Initially, it did not show any significant source of infection. However, a CAT scan of the abdomen showed suspicious for choledocholithiasis. She was found to have worsening leukocytosis peaked at 27.2. She was started on IV Zosyn. Special Event Assistant was then consulted to rule out cholangitis. The patient underwent ERCP with biliary sphincterotomy and stone extraction on March 29, 2016. Of note, 100 mg indomethacin suppository was placed after the procedure to prevent post ERCP pancreatitis. The patient's blood pressure has been stable throughout the hospitalization. There was no evidence of hypotension, rather she has had hypertension. She has not received any IV contrast over the past 72 hours. According to our records, her serum creatinines have ranged between 1.5-1.9. Her initial serum creatinine this time was 2.28 and has risen to 3.43 today. Since her kidney function has gotten worse, Dr. Murdock has stopped IV Zosyn and switched to Levaquin. The patient has been on multiple blood pressure medications including lisinopril, hydralazine, diltiazem. PAST MEDICAL HISTORY: 1. Hypertension with hypertensive nephrosclerosis. 2. Chronic kidney disease stage 3. 3. History of TIA. 4. Alzheimer disease. 5. GERD. 6. Diverticulitis status post partial colectomy. 7. Dyslipidemia. 8. Urinary incontinence. 9. Gout. 10. Paroxysmal atrial fibrillation. PAST SURGICAL HISTORY: 1. Status post laparoscopic cholecystectomy. 2. Status post partial colectomy. FAMILY HISTORY: Unable to obtain. SOCIAL HISTORY: The patient lives at assisted living. ALLERGIES: 1. SIMVASTATIN. 2. HONEY BEE. REVIEW OF SYSTEMS: Unable to obtain due to poor mentation. PHYSICAL EXAMINATION: Vitals: Temperature 37.2, pulse 103, respiratory rate 16, blood pressure 151/88, O2 sat 97% on 1 L nasal cannula. General appearance: Chronically ill-looking. Nonverbal. In no acute distress. Localized pain. HEENT: Mild pallor. No jaundice. No JVD. No lymphadenopathy. No thyroid enlargement. Dry mucous membranes. Heart: Regular rhythm. Normal S1, S2. No murmurs, rubs, or gallops. Lungs: Good air entry bilaterally. No wheezing. No rhonchi. Abdomen is soft, hyperactive bowel sounds. Nontender, nondistended. No hepatosplenomegaly. Extremity: No edema, cyanosis or clubbing of fingers. LABORATORY: Sodium 152, potassium 4.4, chloride 117, bicarb 18, BUN 56, creatinine 3.43, albumin 2.7, calcium 8.2. CBC: WBC 14.1, hemoglobin 10.9. ASSESSMENT: 1. Acute kidney injury superimposed on chronic kidney disease stage 3. Of note, her serum creatinine has gone up significantly on the following day after endoscopic retrograde cholangiopancreatography performed. Of note, she has been on lisinopril for the blood pressure. She also received one dose of indomethacin 100 mg suppository to prevent post ERCP pancreatitis. There was no evidence of hypotension, no evidence off IV contrast media administration. Dr. Murdock has stopped IV Zosyn for the potential complication from antibiotics, for example, acute interstitial nephritis or acute tubular necrosis. In my opinion, I think she has postoperative acute tubular necrosis, medication-induced acute tubular necrosis, for example, indomethacin or IV antibiotics. Moreover, she has been on lisinopril and that could interfere with renal hemodynamics. At this point, I would like to discontinue lisinopril, will change her antihypertensive medications. I will avoid giving her any nephrotoxins. I will check postvoid residual to rule out obstructive uropathy since she has history of urinary incontinence. I agreed with Dr. Murdock to switch Zosyn to Levaquin. I will repeat her UA and check urine eosinophils. I will switch Protonix to Pepcid. Again, this medication can induce acute interstitial nephritis. 2. Choledocholithiasis status post endoscopic retrograde cholangiopancreatography on March 29, 2016 with successful removal of large stones from the common bile duct. 3. Hypertension, uncontrolled. I will readjust her medication. She also has tachycardia. I will hold hydralazine and will restart labetalol. Will discontinue lisinopril. 4. Dementia with worsening mental status likely related to metabolic encephalopathy from the ongoing infections. 5. Hypernatremia is likely due to iatrogenic and inability to access to free water given history of dementia. I will switch normal saline to half normal saline running at 100 cc/hour. Thank you, Dr. Murdock, for allowing me to participate in the care of your patient.
--- NOTE | 2016-03-31 17:49 | NUR ---
HR Pt on tele AM call to tele ST [phone] Labetalol administered this afternoon Call from telesales manager asking if pt was given something because HR was coming down Currently running SR 76 Bed down and in locked position, frequent rounding as pt does not use call light
--- NOTE | 2016-04-01 04:42 | NUR ---
CV; heart rate 70's sinus rhythm. GI; took pills crushed in applesauce without problems.
[2016-04-01 05:40] VITALS: BP 117/72; PULSE 82; RESP 16; O2SAT 97
[2016-04-01 07:33] LABS: BASOPHILS % (AUTO) 0.4 % (0-3); EOSINOPHILS % (AUTO) 0.7 % (0-5); MONOCYTES % (AUTO) 9.3 % (4-12); Mean Corpuscular Hemoglobin 25.8 pg (27.0-35.0); Mean Corpuscular Volume 83.6 fL (81-100); Platelet Count 241 bil/L (150-400)
[2016-04-01 09:08] VITALS: BP 134/74; PULSE 84; O2SAT 96
[2016-04-01] MEDS: Heparin 5,000 Unit/mL Inj SUBQ SCH ×2 (09:08→20:56)
[2016-04-01] MEDS: Diltiazem CD 240 mg ER24 Capsule PO SCH (09:08)
--- NOTE | 2016-04-01 09:51 | NUR ---
Social Work: CONNER CONNER signed
[2016-04-01 11:17] VITALS: PULSE 70
--- NOTE | 2016-04-01 14:06 | PCM.PNMED ---
Subjective Date of Service Apr 01, 2016 Subjective Nephrology Progress Note: Attending Dr. Simone Stone is an 85-year-old demented female with a past medical history of Alzheimer's, hypertension, CKD stage III, and GERD who presented to [facility] ED via EMS from [facility] assisted living facility with worsening confusion. Patient admitted for choledocholithiasis. Hospital Day #9. Overnight: There were no acute events. Telemetry overnight: Sinus rhythm, heart rate 70-80's, without ectopy. Subjective exam and review of systems unobtainable as patient is non-verbal secondary to encephalopathy and underlying dementia. . Exam Vital Signs Vital Sign - Last Date Time Temp Pulse Resp B/P Pulse Ox O2 Delivery O2 Flow Rate FiO2 04/01/16 11:17 70 04/01/16 09:15 Supplement Oxygen 04/01/16 09:08 36.7 134/74 96 2.00 04/01/16 05:40 16 Intake and Output 03/31/16 03/31/16 04/01/16 Cumulative From/Thru 15:00 23:00 07:00 03/23/16 20:55 - 04/01/16 05:30 Intake Total 875 ml 1643 ml 920 ml 50933 ml Output Total 1540 ml Balance 875 ml 1643 ml 920 ml 8572 ml Intake Oral 0 ml 400 ml 3376 ml IV Total 875 ml 1243 ml 920 ml 6736 ml Output Urine Total 1540 ml # Voids 1 2 30 # Bowel Movements 1 2 8 Exam General: Elderly female lying in bed, in no acute distress, tremulous, well- developed, well-nourished, non-verbal. HEENT: Normocephalic, atraumatic. External ears without defect. Pupils equal, round, and reactive to light. Anicteric sclerae and no lid lag. Dry mucous membranes. Neck: Poor turgor. No lymphadenopathy or thyromegaly. Cardiovascular: Regular rate and rhythm with no murmurs, rubs, or gallops appreciated. Pulmonary: Clear to auscultation bilaterally with no crackles, wheezes, or rhonchi. Normal respiratory effort with no use of accessory muscles. Abdomen: Soft, nontender, nondistended, bowel sounds present. Extremities: No clubbing, cyanosis, or edema. Skin: Normal temperature, turgor, and texture; no rash, ulcers, or subcutaneous nodules appreciated. Neurological: Cranial nerves grossly intact. Normal muscle strength, tone, and bulk. Reflexes, coordination, and sensory function within normal limits. No known gait impairment. . IVs and Medications Medications Reviewed: Medications were reviewed in detail Lab and Diagnostics Item Value Date Time Procalcitonin 7.62 ng/mL 03/28/16 0647 Procalcitonin 3.57 ng/mL 03/29/16 0610 Item Value Date Time Calcium Level 8.0 mg/dL L 04/01/16 0725 Total Bilirubin 0.2 mg/dL 04/01/16 0725 Aspartate Amino Transf (AST/SGOT) 47 U/L 04/01/16 0725 Alanine Aminotransferase (ALT/SGPT) 29 U/L 04/01/16 0725 Alkaline Phosphatase 55 U/L 04/01/16 0725 Total Protein 5.3 g/dL L 04/01/16 0725 Albumin 2.7 g/dL L 04/01/16 0725 Result Diagram: 04/01/16 0725 04/01/16 0725 Microbiology Urine culture shows no growth to date. Urine eosinophils negative. . X-Rays, CTs and MRIs X-RAY CHEST ONE VIEW, PORTABLE INDICATIONS: altered mental status IMPRESSION: 1. Partially visualized prominent bowel loops within the upper abdomen. This is of clinical concern for potential structure ileus, abdomen x-ray is recommended for additional evaluation. 2. No acute pulmonary process. Dictated by: Rupa Blakely M.D. on 03/23/2016 at 21:57 Approved by: Rupa Blakely M.D. on 03/23/2016 at 21:57 CT BRAIN WITHOUT CONTRAST INDICATIONS: altered mental status IMPRESSION: 1. No acute intracranial process. 2. Moderate to severe atrophy and chronic microvascular ischemic changes. Dictated by: Rupa Blakely M.D. on 03/23/2016 at 21:59 Approved by: Rupa Blakely M.D. on 03/23/2016 at 21:59 CT ABDOMEN AND PELVIS WITHOUT CONTRAST IMPRESSION: 1. Findings suspicious for choledocholithiasis. If further characterization is warranted, MRCP may be helpful. There is no intrahepatic biliary ductal dilatation to suggest obstruction. 2. The appendix is not visualized; however there are no ancillary findings to suggest acute cholecystitis. These findings are concordant with the overnight interpretation. Dictated by: Tamiko Keller M.D. on 03/24/2016 at 7:22 Approved by: Tamiko Keller M.D. on 03/24/2016 at 7:31 X-RAY CHEST ONE VIEW, PORTABLE INDICATIONS: infection TECHNIQUE: One view of the chest was acquired. COMPARISON: [facility], CR, XR CHEST 1VW (PORTABLE), 03/23/2016, 21: 35. FINDINGS: Surgical changes and devices: None. Lungs and pleura: No pleural effusions or pneumothorax. Lungs are clear. Mediastinum: Mediastinal contours appear normal. Heart size is normal. Bones and chest wall: No suspicious bony lesions. Overlying soft tissues appear unremarkable. IMPRESSION: Expiratory chest demonstrating no definite acute cardiopulmonary process. Dictated by: Sarmad Pareeds [facility] Interpreted: Roger Funez MD on 03/27/2016 at 9: 52 Transcribed by: OBDULIO on 03/27/2016 at 9:52 X-RAY E.R.C. BILIARY DUCTS IMPRESSION: Common bile duct sweeping. Dictated by: Ale Graves M.D. on 03/29/2016 at 16:51 Approved by: Ale Graves M.D. on 03/29/2016 at 16:51 . Assessment & Plan Jossie Stone is an 85-year-old demented female with a past medical history of Alzheimer's, hypertension, CKD stage III, and GERD who presented to [facility] ED via EMS from [facility] assisted living facility with worsening confusion. Patient admitted for choledocholithiasis. Hospital Day #9. Impression: 1. Acute kidney injury superimposed on chronic kidney disease stage III. Acute portion likely secondary to postoperative acute tubular necrosis and medication- induced acute tubular necrosis (indomethacin, lisinopril, or Zosyn). 2. Choledocholithiasis status post endoscopic retrograde cholangiopancreatography on 03/29/2016 with successful removal of large stones from the common bile duct. 3. Hypertension, uncontrolled. 4. Dementia with worsening mental status likely related to metabolic encephalopathy from the ongoing infections. 5. Hypernatremia likely due to iatrogenic and inability to access to free water. Plan: - Continue labetalol 200 mg twice daily. Continue to hold hydralazine ( tachycardia) and lisinopril (DIXON). - Urine culture shows no growth to date. - Urine eosinophils negative. - Continue Pepcid as PPI's can induce acute interstitial nephritis. - Continue IVF with 0.45% NS at 100 mL/hour. - Renal function is improving very slowly. Baseline Cr between 1.5-1.9. Continue to monitor urine output and renal function closely. Avoid nephrotoxic agents. Does not require renal replacement therapy at this time. . GI Prophylaxis: Proton Pump Inhibitor VTE Mechanical Devices: Intermittant Pneumatic CD Resuscitation Status: DNR/DNI:Do Not Resuscitate/Intubate Attending Statement Nephrology attending: The patient's chart was reviewed and she was examined with the internal medicine resident please note as detailed above. We have discussed the patient and I agree with the above note and recommendations. 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 Evonne Joshi DO Apr 01, 2016 13:43 Bib Nichols DO Apr 01, 2016 14:57
[2016-04-01 14:37] VITALS: BP 101/58; PULSE 63; RESP 20; O2SAT 98
--- NOTE | 2016-04-01 18:47 | NUR ---
Activity/edema Pt extremely drowsy today. Groans w/ brief changes, q2 turns and opens eyes to cool wash rag and sternal rub. Daughter states this is not usual for her. Arms appear more edematous than previous shift w/ patient. Hospitalist notified, no new orders. Bed down and in locked position, call light w/in reach, however pt does not use call light. frequent rounding.
[2016-04-01 20:00] VITALS: PULSE 71
[2016-04-01 21:21] VITALS: BP 115/70; PULSE 74; RESP 16; O2SAT 95
--- NOTE | 2016-04-01 22:00 | PCM.PNMED ---
Subjective Date of Service Apr 01, 2016 Subjective Patient is sitting up in bed and her daughter "Lawrence" is feeding her. She is eating very slowly. She appears to be eating without difficulty otherwise. She has no new complaints. Exam Vital Signs Vital Sign - Last Date Time Temp Pulse Resp B/P Pulse Ox O2 Delivery O2 Flow Rate FiO2 04/01/16 21:21 36.8 74 16 115/70 95 Nasal Cannula 2.00 Intake and Output 03/31/16 03/31/16 04/01/16 Cumulative From/Thru 15:00 23:00 07:00 03/23/16 20:55 - 04/01/16 05:30 Intake Total 875 ml 1643 ml 920 ml 22037 ml Output Total 1540 ml Balance 875 ml 1643 ml 920 ml 8572 ml Intake Oral 0 ml 400 ml 3376 ml IV Total 875 ml 1243 ml 920 ml 6736 ml Output Urine Total 1540 ml # Voids 1 2 30 # Bowel Movements 1 2 8 Exam General: Patient appears somewhat more responsive today. She is responding well to her daughter feeding her. Although, she is eating very slowly. Patient still appears quite weak. HEENT: Head is atraumatic normocephalic. Eyes: Pupils are equally round and reactive to light and accommodation. Extraocular muscles are intact. Sclera are white anicteric. Subconjunctival mucosa is pink. Ears and nose are unremarkable. Oropharynx: There is no mucosal lesions, there is no thrush, there is no pharyngitis. Neck: Is supple, there are no nodes, or masses, or tenderness. Chest: Is clear to auscultation and percussion. There are no rales, rhonchi, wheezes or rubs. Heart: Rate, rhythm is regular. There is no murmur, rub or gallop. Abdomen: Good bowel sounds are present. Abdomen is soft, nontender, no organomegaly or masses were appreciated. Extremities: Are symmetrical and well perfused. There is no edema, there is no cellulitis, no rash. Neurologic: There are no focal neurological deficits. Cranial nerves II through XII are intact. There are no sensory or motor deficits. However, patient appears to exhibit generalized weakness. Psychiatric: Patients mood is calm and shows no sign of agitation. Genital: Deferred Rectal: Deferred Lab and Diagnostics Result Diagram: 04/01/16 0725 04/01/16 0725 Microbiology Urine culture shows no growth to date. Urine eosinophils negative. . X-Rays, CTs and MRIs X-RAY CHEST ONE VIEW, PORTABLE INDICATIONS: altered mental status IMPRESSION: 1. Partially visualized prominent bowel loops within the upper abdomen. This is of clinical concern for potential structure ileus, abdomen x-ray is recommended for additional evaluation. 2. No acute pulmonary process. Dictated by: Rupa Blakely M.D. on 03/23/2016 at 21:57 Approved by: Rupa Blakely M.D. on 03/23/2016 at 21:57 CT BRAIN WITHOUT CONTRAST INDICATIONS: altered mental status IMPRESSION: 1. No acute intracranial process. 2. Moderate to severe atrophy and chronic microvascular ischemic changes. Dictated by: Rupa Blakely M.D. on 03/23/2016 at 21:59 Approved by: Rupa Blakely M.D. on 03/23/2016 at 21:59 CT ABDOMEN AND PELVIS WITHOUT CONTRAST IMPRESSION: 1. Findings suspicious for choledocholithiasis. If further characterization is warranted, MRCP may be helpful. There is no intrahepatic biliary ductal dilatation to suggest obstruction. 2. The appendix is not visualized; however there are no ancillary findings to suggest acute cholecystitis. These findings are concordant with the overnight interpretation. Dictated by: Tamiko Keller M.D. on 03/24/2016 at 7:22 Approved by: Tamiko Keller M.D. on 03/24/2016 at 7:31 X-RAY CHEST ONE VIEW, PORTABLE INDICATIONS: infection TECHNIQUE: One view of the chest was acquired. COMPARISON: [facility], , XR CHEST 1VW (PORTABLE), 03/23/2016, 21: 35. FINDINGS: Surgical changes and devices: None. Lungs and pleura: No pleural effusions or pneumothorax. Lungs are clear. Mediastinum: Mediastinal contours appear normal. Heart size is normal. Bones and chest wall: No suspicious bony lesions. Overlying soft tissues appear unremarkable. IMPRESSION: Expiratory chest demonstrating no definite acute cardiopulmonary process. Dictated by: Sarmad MORGAN Interpreted: Roger Funez MD on 03/27/2016 at 9: 52 Transcribed by: OBDULIO on 03/27/2016 at 9:52 X-RAY E.R.C. BILIARY DUCTS IMPRESSION: Common bile duct sweeping. Dictated by: Ale Graves M.D. on 03/29/2016 at 16:51 Approved by: Ale Graves M.D. on 03/29/2016 at 16:51 . Assessment & Plan This is an 85 YO female in her blood pressures have been high while with a hx of Alzheimer's, HTN, CKD, and GERD who presents to the ED via EMS from [place], [place], with worsening confusion. Patient admitted for choledocholithiasis. #Leukocytosis with white blood cell count -Elevated White blood cell count can use to improve after ERCP -Contacted GI for possible cholangitis however GI feels that this is not ascending cholangitis and other etiologies may be the source of infection. However, as it is true there is no evidence of biliary obstruction, there is still evidence of choledocholithiasis which could still be a potential source of infection.. -As there is no other source of infection found I spoke to Dr. Uriostegui and patient was taken for ERCP 03/29/2016 and there was a finding of large stones in the common bile duct which were removed. -We will continue antibiotic coverage with Levaquin and Flagyl in place of Zosyn which was discontinued when patient developed renal failure. -We have discontinued Rocephin as there is no need for double beta-lactam coverage. -UA shows no evidence of infection. -Follow up chest x-ray shows no evidence of infection. # Toxic metabolic encephalopathy with confusion, acute on chronic, present on admission - Pt has a history of Alzheimer's and TIA's, presented with worsening confusion. UA is negative, CT brain with no acute pathology. Possible worsening dementia versus exacerbation due to infection. Patient's daughter states that the patient has experienced a significant decline in her performance status. - Continue to monitor. - PT eval and treat - Stage eval pending # Choledocholithiasis, unknown chronicity, present on admission - GI consulted and they proceeded with ERCP. - LFTs currently stable -Patient recently spiked a temperature and had leukocytosis with a white blood cell count up to 27.2 from 11.4. We will continue to treat the patient for possible cholangitis (without obstruction) with Levaquin and Flagyl. - Repeat a CBC and CMP in the morning - ERCP performed 03/29/2016 with successful removal of large stones from the common bile duct # DIXON, present on admission and I suspect exacerbated by high-dose indomethacin , used as premedication prior to ERCP, with acute tubular necrosis. - Pt with acute on chronic renal failure with CKD, stage III. Again likely secondary to indomethacin - Appreciate nephrology consultation and follow-up, we will follow the recommendations. - We will continue to monitor # Anemia, acute on chronic, present on admission - Patient presents with Hb of 10.6 and stool occult blood positive. Likely multifactorial given history of iron deficiency, multiple GI bleeds, and CKD Stage III. Pt takes ferrous sulfate 325 mg PO TID daily. - Pt was was hospitalized for suspected acute GI bleed earlier this month, s/p PRBC transfusion and post esophagogastroduodenoscopy (EGD) on 03/12/16 without any obvious source of bleeding. Acute on chronic anemia. poa - Today H&H is stable at 11.5/ 37.1 # H/o paroxysmal atrial fibrillation - Pt used to be on aspirin and plavix which were D/C d/t last BI bleed - Telemetry monitoring to continue # Bradycardia, chronic, stable - Telemetry monitoring to continue # HTN, chronic, - Unstable patient has been having bouts of elevated blood pressure 5 mg of Lopressor was given will continue to monitor and adjust medications as necessary # Dementia, chronic and advanced - Worsening per discussion with her daughter. This certainly could be due to current infection, along with possible progressive dementia. Case discussed with patient's daughter "Lawrence" at bedside. Disposition: Patient had an ERCP 03/29/2016 due to choledocholithiasis. Several large common bile duct stones were removed. Patient still has leukocytosis. We will continue IV antibiotics and recommendations as per nephrology due to acute renal failure after ERCP. Pain Evaluation: Adequate Pain Control GI Prophylaxis: Proton Pump Inhibitor VTE Mechanical Devices: Intermittant Pneumatic CD Resuscitation Status: DNR/DNI:Do Not Resuscitate/Intubate Alfonzo Murdock MD Apr 01, 2016 22:00
--- NOTE | 2016-04-01 22:19 | PCM.PNMED ---
Subjective Date of Service Apr 01, 2016 Subjective Patient is resting comfortably and appears to be tired from the days activities. She is in no apparent distress. She has no complaints. Exam Vital Signs Vital Sign - Last Date Time Temp Pulse Resp B/P Pulse Ox O2 Delivery O2 Flow Rate FiO2 04/01/16 21:21 36.8 74 16 115/70 95 Nasal Cannula 2.00 Intake and Output 03/31/16 03/31/16 04/01/16 Cumulative From/Thru 15:00 23:00 07:00 03/23/16 20:55 - 04/01/16 05:30 Intake Total 875 ml 1643 ml 920 ml 31563 ml Output Total 1540 ml Balance 875 ml 1643 ml 920 ml 8572 ml Intake Oral 0 ml 400 ml 3376 ml IV Total 875 ml 1243 ml 920 ml 6736 ml Output Urine Total 1540 ml # Voids 1 2 30 # Bowel Movements 1 2 8 Exam General: Patient appears tired from the base activities and she was seen later in the day. She is comfortable and shows no signs of pain or distress. HEENT: Head is atraumatic normocephalic. Eyes: Pupils are equally round and reactive to light and accommodation. Extraocular muscles are intact. Sclera are white anicteric. Subconjunctival mucosa is pink. Ears and nose are unremarkable. Oropharynx: There is no mucosal lesions, there is no thrush, there is no pharyngitis. Neck: Is supple, there are no nodes, or masses, or tenderness. Chest: Is clear to auscultation and percussion. There are no rales, rhonchi, wheezes or rubs. Heart: Rate, rhythm is regular. There is no murmur, rub or gallop. Abdomen: Good bowel sounds are present. Abdomen is soft, nontender, no organomegaly or masses were appreciated. Extremities: Are symmetrical and well perfused. There is slight symmetrical edema, there is no cellulitis, no rash. Neurologic: There are no focal neurological deficits. Cranial nerves II through XII are intact. There are no sensory or motor deficits. However, patient appears to exhibit generalized weakness. Psychiatric: Patients mood is calm and shows no sign of agitation. Genital: Deferred Rectal: Deferred Lab and Diagnostics Result Diagram: 04/01/1672404/01/16724 Microbiology Urine culture shows no growth to date. Urine eosinophils negative. . X-Rays, CTs and MRIs X-RAY CHEST ONE VIEW, PORTABLE INDICATIONS: altered mental status IMPRESSION: 1. Partially visualized prominent bowel loops within the upper abdomen. This is of clinical concern for potential structure ileus, abdomen x-ray is recommended for additional evaluation. 2. No acute pulmonary process. Dictated by: Rupa Blakely M.D. on 03/23/2016 at 21:57 Approved by: Rupa Blakely M.D. on 03/23/2016 at 21:57 CT BRAIN WITHOUT CONTRAST INDICATIONS: altered mental status IMPRESSION: 1. No acute intracranial process. 2. Moderate to severe atrophy and chronic microvascular ischemic changes. Dictated by: Rupa Blakely M.D. on 03/23/2016 at 21:59 Approved by: Rupa Blakely M.D. on 03/23/2016 at 21:59 CT ABDOMEN AND PELVIS WITHOUT CONTRAST IMPRESSION: 1. Findings suspicious for choledocholithiasis. If further characterization is warranted, MRCP may be helpful. There is no intrahepatic biliary ductal dilatation to suggest obstruction. 2. The appendix is not visualized; however there are no ancillary findings to suggest acute cholecystitis. These findings are concordant with the overnight interpretation. Dictated by: Tamiko Keller M.D. on 03/24/2016 at 7:22 Approved by: Tamiko Keller M.D. on 03/24/2016 at 7:31 X-RAY CHEST ONE VIEW, PORTABLE INDICATIONS: infection TECHNIQUE: One view of the chest was acquired. COMPARISON: [facility], CR, XR CHEST 1VW (PORTABLE), 03/23/2016, 21: 35. FINDINGS: Surgical changes and devices: None. Lungs and pleura: No pleural effusions or pneumothorax. Lungs are clear. Mediastinum: Mediastinal contours appear normal. Heart size is normal. Bones and chest wall: No suspicious bony lesions. Overlying soft tissues appear unremarkable. IMPRESSION: Expiratory chest demonstrating no definite acute cardiopulmonary process. Dictated by: Sarmad MORGAN Interpreted: Roger Funez MD on 03/27/2016 at 9: 52 Transcribed by: OBDULIO on 03/27/2016 at 9:52 X-RAY E.R.C. BILIARY DUCTS IMPRESSION: Common bile duct sweeping. Dictated by: Ale Graves M.D. on 03/29/2016 at 16:51 Approved by: Ale Graves M.D. on 03/29/2016 at 16:51 . Assessment & Plan This is an 85 YO female in her blood pressures have been high while with a hx of Alzheimer's, HTN, CKD, and GERD who presents to the ED via EMS from [place], [place], with worsening confusion. Patient admitted for choledocholithiasis. #Leukocytosis with white blood cell count -Elevated White blood cell count continues to improve after ERCP -Contacted GI for possible cholangitis however GI feels that this is not ascending cholangitis and other etiologies may be the source of infection. However, as it is true there is no evidence of biliary obstruction, there is still evidence of choledocholithiasis which could still be a potential source of infection.. -As there is no other source of infection found I spoke to Dr. Uriostegui and patient was taken for ERCP 03/29/2016 and there was a finding of large stones in the common bile duct which were removed. -We will continue antibiotic coverage with Levaquin and Flagyl in place of Zosyn which was discontinued when patient developed renal failure. -We have discontinued Rocephin as there is no need for double beta-lactam coverage. -UA shows no evidence of infection. -Follow up chest x-ray shows no evidence of infection. # Toxic metabolic encephalopathy with confusion, acute on chronic, present on admission, and ongoing - Pt has a history of Alzheimer's and TIA's, presented with worsening confusion. UA is negative, CT brain with no acute pathology. Possible worsening dementia versus exacerbation due to infection. Patient's daughter states that the patient has experienced a significant decline in her performance status. - Continue to monitor. - PT to continue eval and treat - Speech therapy to continue to evaluate and treat as needed # Choledocholithiasis, unknown chronicity, present on admission - GI consulted and they proceeded with ERCP. - LFTs currently stable -Patient recently spiked a temperature and had leukocytosis with a white blood cell count up to 27.2 from 11.4. We will continue to treat the patient for possible cholangitis (without obstruction) with Levaquin and Flagyl. In place of Zosyn - Repeat a CBC and CMP in the morning - ERCP performed 03/29/2016 with successful removal of large stones from the common bile duct # DIXON, present on admission and( I suspect) exacerbated by high-dose indomethacin, used as premedication prior to ERCP, with acute tubular necrosis. - Pt with acute tubular necrosis on chronic renal failure with CKD, stage III. Again likely secondary to indomethacin - Appreciate nephrology consultation and follow-up, we will follow the recommendations as follows: - Continue labetalol 200 mg twice daily. Continue to hold hydralazine ( tachycardia) and lisinopril (DIXON). - Urine culture shows no growth to date. - Urine eosinophils negative. - Continue Pepcid as PPI's can induce acute interstitial nephritis. - Continue IVF with 0.45% NS at 100 mL/hour. - Renal function is improving very slowly. Baseline Cr between 1.5-1.9. Continue to monitor urine output and renal function closely. Avoid nephrotoxic agents. Does not require renal replacement therapy at this time # Anemia, acute on chronic, present on admission - Patient presents with Hb of 10.6 and stool occult blood positive. Likely multifactorial given history of iron deficiency, multiple GI bleeds, and CKD Stage III. Pt takes ferrous sulfate 325 mg PO TID daily. - Pt was was hospitalized for suspected acute GI bleed earlier this month, s/p PRBC transfusion and post esophagogastroduodenoscopy (EGD) on 03/12/16 without any obvious source of bleeding. Acute on chronic anemia. poa - Today H&H is stable at 11.5/ 37.1 # H/o paroxysmal atrial fibrillation - Pt used to be on aspirin and plavix which were D/C d/t last BI bleed - Telemetry monitoring to continue # Bradycardia, chronic, stable - Telemetry monitoring to continue # HTN, chronic, - Unstable patient has been having bouts of elevated blood pressure 5 mg of Lopressor was given will continue to monitor and adjust medications as necessary # Dementia, chronic and advanced - Worsening per discussion with her daughter. This certainly could be due to current infection, along with possible progressive dementia. Case discussed with patient's daughter "Lawrence" at bedside. Disposition: Patient had an ERCP 03/29/2016 due to choledocholithiasis. Several large common bile duct stones were removed. Patient still has leukocytosis. We will continue IV antibiotics and recommendations as per nephrology due to acute renal failure after ERCP. Pain Evaluation: Adequate Pain Control GI Prophylaxis: Proton Pump Inhibitor VTE Mechanical Devices: Intermittant Pneumatic CD Resuscitation Status: DNR/DNI:Do Not Resuscitate/Intubate Alfonzo Murdock MD Apr 01, 2016 22:19
[2016-04-02] VITALS (7 sets, daily range): BP systolic 104–133; BP diastolic 66–78; PULSE 58–81; RESP 16–24; O2SAT 95–97
--- NOTE | 2016-04-02 05:10 | NUR ---
Activity Pt awakens to voice but not responding to questions at this time, pt has slept most of shift. Pt was able to take meds crushed in applesauce, nectar thick liquids given. Pt is being turned q2 hours. SCDs are on.
[2016-04-02 07:56] LABS: Mean Corpuscular Hemoglobin 25.9 pg (27.0-35.0); Platelet Count 240 bil/L (150-400)
[2016-04-02 08:14] LABS: BASOPHILS % (AUTO) 0 % (0-3); EOSINOPHILS % (AUTO) 0 % (0-5); MONOCYTES % (AUTO) 7 % (4-12); NEUTROPHILS % (AUTO) 83 % (40-74)
[2016-04-02 08:17] LABS: Magnesium 2.2 mg/dL (1.6-2.6); Phosphorus 4.3 mg/dL (2.5-4.9)
[2016-04-02] MEDS: Diltiazem CD 240 mg ER24 Capsule PO SCH (08:39)
[2016-04-02] MEDS: Heparin 5,000 Unit/mL Inj SUBQ SCH ×2 (08:41→20:30)
[2016-04-02] MEDS: NACL IV SCH (12:05)
[2016-04-02] MEDS: DEXTROSE IV SCH (12:05)
[2016-04-02] MEDS: SODIUM BICARB IV SCH (12:05)
[2016-04-02] MEDS: levoFLOXacin Inj 250 MG in IV Premix 1 EACH IV SCH (12:06)
--- NOTE | 2016-04-02 13:23 | NUR ---
LOC P: Pt was initially unresponsive to verbal cues, and was awakened by touch. I: After she was sat up and cleaned at 0900, she answered a few questions with one word. E: In the afternoon she was able to answer a few more questions but slept the majority of the day.
--- NOTE | 2016-04-02 15:45 | PCM.PNMED ---
Subjective Date of Service Apr 02, 2016 Subjective Nephrology Progress Note: Attending Dr. Simone Stone is an 85-year-old demented female with a past medical history of Alzheimer's, hypertension, CKD stage III, and GERD who presented to [facility] ED via EMS from [facility] assisted living facility with worsening confusion. Patient admitted for choledocholithiasis. Hospital Day #10. Overnight: There were no acute events. Telemetry overnight: Sinus rhythm, heart rate 70 to 80's, occasional PAC's and PVC's. Subjective exam and review of systems unobtainable as patient is non-verbal secondary to encephalopathy and underlying dementia. . Exam Vital Signs Vital Sign - Last Date Time Temp Pulse Resp B/P Pulse Ox O2 Delivery O2 Flow Rate FiO2 04/02/16 09:17 Supplement Oxygen 04/02/16 08:11 37.7 81 24 133/78 95 1.00 Intake and Output 04/01/16 04/01/16 04/02/16 Cumulative From/Thru 15:00 23:00 07:00 03/23/16 20:55 - 04/02/16 05:50 Intake Total 0 ml 1885 ml 985 ml 23632 ml Output Total 1 ml 280 ml 1821 ml Balance -1 ml 1605 ml 985 ml 06678 ml Intake Oral 0 ml 300 ml 100 ml 3776 ml IV Total 1585 ml 885 ml 9206 ml Output Urine Total 1 ml 1541 ml Urine/Stool Mix 280 ml 280 ml # Voids 2 32 # Bowel Movements 1 2 11 Exam General: Elderly female lying in bed, in no acute distress, tremulous, well- developed, well-nourished, non-verbal. HEENT: Normocephalic, atraumatic. External ears without defect. Pupils equal, round, and reactive to light. Anicteric sclerae and no lid lag. Dry mucous membranes. Neck: Poor turgor. No lymphadenopathy or thyromegaly. Cardiovascular: Regular rate and rhythm with no murmurs, rubs, or gallops appreciated. Pulmonary: Clear to auscultation bilaterally with no crackles, wheezes, or rhonchi. Normal respiratory effort with no use of accessory muscles. Abdomen: Soft, nontender, nondistended, bowel sounds present. Extremities: No clubbing, cyanosis, or edema. Skin: Normal temperature, turgor, and texture; no rash, ulcers, or subcutaneous nodules appreciated. Neurological: Cranial nerves grossly intact. Normal muscle strength, tone, and bulk. Reflexes, coordination, and sensory function within normal limits. No known gait impairment. . IVs and Medications Medications Reviewed: Medications were reviewed in detail Lab and Diagnostics Item Value Date Time Calcium Level 8.2 mg/dL L 04/02/16 07 Phosphorus Level 4.3 mg/dL 04/02/16 07 Magnesium Level 2.2 mg/dL 04/02/16 07 Total Bilirubin 0.2 mg/dL 04/02/16 07 Aspartate Amino Transf (AST/SGOT) 30 U/L 04/02/16 07 Alanine Aminotransferase (ALT/SGPT) 28 U/L 04/02/16 07 Alkaline Phosphatase 61 U/L 04/02/16 07 C-Reactive Protein 2.4 mg/dL H 04/02/16 07 Total Protein 5.9 g/dL L 04/02/16744 Albumin 2.6 g/dL L 04/02/16744 Procalcitonin 0.42 ng/mL 04/02/16 07 Result Diagram: 04/02/1674404/02/16744 Microbiology Urine culture shows no growth to date. Urine eosinophils negative. . X-Rays, CTs and MRIs X-RAY CHEST ONE VIEW, PORTABLE INDICATIONS: altered mental status IMPRESSION: 1. Partially visualized prominent bowel loops within the upper abdomen. This is of clinical concern for potential structure ileus, abdomen x-ray is recommended for additional evaluation. 2. No acute pulmonary process. Dictated by: Rupa Blakely M.D. on 03/23/2016 at 21:57 Approved by: Rupa Blakely M.D. on 03/23/2016 at 21:57 CT BRAIN WITHOUT CONTRAST INDICATIONS: altered mental status IMPRESSION: 1. No acute intracranial process. 2. Moderate to severe atrophy and chronic microvascular ischemic changes. Dictated by: Rupa Blakely M.D. on 03/23/2016 at 21:59 Approved by: Rupa Blakely M.D. on 03/23/2016 at 21:59 CT ABDOMEN AND PELVIS WITHOUT CONTRAST IMPRESSION: 1. Findings suspicious for choledocholithiasis. If further characterization is warranted, MRCP may be helpful. There is no intrahepatic biliary ductal dilatation to suggest obstruction. 2. The appendix is not visualized; however there are no ancillary findings to suggest acute cholecystitis. These findings are concordant with the overnight interpretation. Dictated by: Tamiko Keller M.D. on 03/24/2016 at 7:22 Approved by: Tamiko Keller M.D. on 03/24/2016 at 7:31 X-RAY CHEST ONE VIEW, PORTABLE INDICATIONS: infection TECHNIQUE: One view of the chest was acquired. COMPARISON: [facility], CR, XR CHEST 1VW (PORTABLE), 03/23/2016, 21: 35. FINDINGS: Surgical changes and devices: None. Lungs and pleura: No pleural effusions or pneumothorax. Lungs are clear. Mediastinum: Mediastinal contours appear normal. Heart size is normal. Bones and chest wall: No suspicious bony lesions. Overlying soft tissues appear unremarkable. IMPRESSION: Expiratory chest demonstrating no definite acute cardiopulmonary process. Dictated by: Sarmad Paredes RRA Interpreted: Roger Funez MD on 03/27/2016 at 9: 52 Transcribed by: OBDULIO on 03/27/2016 at 9:52 X-RAY E.R.C. BILIARY DUCTS IMPRESSION: Common bile duct sweeping. Dictated by: Ale Graves M.D. on 03/29/2016 at 16:51 Approved by: Ale Graves M.D. on 03/29/2016 at 16:51 . Assessment & Plan Jossie Stone is an 85-year-old demented female with a past medical history of Alzheimer's, hypertension, CKD stage III, and GERD who presented to [facility] ED via EMS from [facility] assisted living facility with worsening confusion. Patient admitted for choledocholithiasis. Hospital Day #10. Impression: 1. Acute kidney injury superimposed on chronic kidney disease stage III. Acute portion likely secondary to postoperative acute tubular necrosis and medication- induced acute tubular necrosis (indomethacin, lisinopril, or Zosyn). 2. Choledocholithiasis status post endoscopic retrograde cholangiopancreatography on 03/29/2016 with successful removal of large stones from the common bile duct. 3. Hypertension, uncontrolled. 4. Dementia with worsening mental status likely related to metabolic encephalopathy from the ongoing infections. 5. Hypernatremia likely iatrogenic and secondary to inability to access to free water. 6. Anion gap metabolic acidosis. Plan: - Continue labetalol 200 mg twice daily. Continue to hold hydralazine ( tachycardia) and lisinopril (DIXON). - Continue Pepcid as PPI's can induce acute interstitial nephritis. - Switch IVF from 0.45% NS at 100 mL/hour to D5 0.45% NS 50 mEQ bicarbonate to treat DIXON and metabolic acidosis. - Renal function is improving very slowly. Baseline Cr between 1.5-1.9. Continue to monitor urine output and renal function closely. Avoid nephrotoxic agents. Does not require renal replacement therapy at this time. . GI Prophylaxis: Proton Pump Inhibitor VTE Mechanical Devices: Intermittant Pneumatic CD Resuscitation Status: DNR/DNI:Do Not Resuscitate/Intubate Attending Statement Patient was seen and examined along with the internal medicine resident we have certainly discussed the patient's case and her therapeutic plan which is detailed above and which I agree with. Unfortunately I feel there is little that we can offer and short or long-term. Evonne Joshi DO Apr 02, 2016 15:45 Bib Nichols DO Apr 02, 2016 17:20
--- NOTE | 2016-04-02 18:41 | NUR ---
Activity Patient Q 2 turned, complete bed bath and linen change this shift. Patient took medications crushed in pudding with no issues. No signs or symptoms of pain or nausea. Call light and tray table within reach. Will continue to monitor patient hourly.
--- NOTE | 2016-04-02 20:11 | NUR ---
Brown catheter Placed at 1999, 16FR. Backflow of urine present, pt tolerated procedure.
[2016-04-03] VITALS (7 sets, daily range): BP systolic 107–134; BP diastolic 55–81; PULSE 60–74; RESP 18–22; O2SAT 93–98
--- NOTE | 2016-04-03 00:26 | PCM.PNMED ---
Subjective Date of Service Apr 03, 2016 Subjective Patient lightly less responsive today. She appears fatigued. Exam Vital Signs Vital Sign - Last Date Time Temp Pulse Resp B/P Pulse Ox O2 Delivery O2 Flow Rate FiO2 04/02/16 22:00 66 04/02/16 20:28 37.6 16 112/69 97 1.00 04/02/16 15:55 Nasal Cannula Intake and Output 04/02/16 04/02/16 04/03/16 Cumulative From/Thru 15:00 23:00 07:00 03/23/16 20:55 - 04/02/16 19:42 Intake Total 454 ml 596 ml 04106 ml Output Total 100 ml 1921 ml Balance 454 ml 496 ml 16737 ml Intake Oral 50 ml 3826 ml IV Total 454 ml 546 ml 14484 ml Output Urine Total 1541 ml Urine/Stool Mix 100 ml 380 ml # Voids 32 # Bowel Movements 11 Exam General: Patient appears tired and is slightly less responsive today. She is comfortable and shows no signs of pain or distress. HEENT: Head is atraumatic normocephalic. Eyes: Pupils are equally round and reactive to light and accommodation. Extraocular muscles are intact. Sclera are white anicteric. Subconjunctival mucosa is pink. Ears and nose are unremarkable. Oropharynx: There is no mucosal lesions, there is no thrush, there is no pharyngitis. Neck: Is supple, there are no nodes, or masses, or tenderness. Chest: Is clear to auscultation and percussion. There are no rales, rhonchi, wheezes or rubs. Heart: Rate, rhythm is regular. There is no murmur, rub or gallop. Abdomen: Good bowel sounds are present. Abdomen is soft, nontender, no organomegaly or masses were appreciated. Extremities: Are symmetrical and well perfused. There is a slight increase in symmetrical edema, there is no cellulitis, no rash. Neurologic: There are no focal neurological deficits. Cranial nerves II through XII are intact. There are no sensory or motor deficits. However, patient appears to exhibit generalized weakness. Psychiatric: Patients mood is calm and shows no sign of agitation. Genital: The patient's attends pad is dry. Pelvic and rectal exam are deferred Rectal: Deferred Lab and Diagnostics Result Diagram: 04/02/16 0745 04/02/16 0745 Microbiology Urine culture shows no growth to date. Urine eosinophils negative. . X-Rays, CTs and MRIs X-RAY CHEST ONE VIEW, PORTABLE INDICATIONS: altered mental status IMPRESSION: 1. Partially visualized prominent bowel loops within the upper abdomen. This is of clinical concern for potential structure ileus, abdomen x-ray is recommended for additional evaluation. 2. No acute pulmonary process. Dictated by: Rupa Blakely M.D. on 03/23/2016 at 21:57 Approved by: Rupa Blakely M.D. on 03/23/2016 at 21:57 CT BRAIN WITHOUT CONTRAST INDICATIONS: altered mental status IMPRESSION: 1. No acute intracranial process. 2. Moderate to severe atrophy and chronic microvascular ischemic changes. Dictated by: Rupa Blakely M.D. on 03/23/2016 at 21:59 Approved by: Rupa Blakely M.D. on 03/23/2016 at 21:59 CT ABDOMEN AND PELVIS WITHOUT CONTRAST IMPRESSION: 1. Findings suspicious for choledocholithiasis. If further characterization is warranted, MRCP may be helpful. There is no intrahepatic biliary ductal dilatation to suggest obstruction. 2. The appendix is not visualized; however there are no ancillary findings to suggest acute cholecystitis. These findings are concordant with the overnight interpretation. Dictated by: Tamiko Keller M.D. on 03/24/2016 at 7:22 Approved by: Tamiko Keller M.D. on 03/24/2016 at 7:31 X-RAY CHEST ONE VIEW, PORTABLE INDICATIONS: infection TECHNIQUE: One view of the chest was acquired. COMPARISON: [facility], CR, XR CHEST 1VW (PORTABLE), 03/23/2016, 21: 35. FINDINGS: Surgical changes and devices: None. Lungs and pleura: No pleural effusions or pneumothorax. Lungs are clear. Mediastinum: Mediastinal contours appear normal. Heart size is normal. Bones and chest wall: No suspicious bony lesions. Overlying soft tissues appear unremarkable. IMPRESSION: Expiratory chest demonstrating no definite acute cardiopulmonary process. Dictated by: Sarmad MORGAN Interpreted: Roger Funez MD on 03/27/2016 at 9: 52 Transcribed by: OBDULIO on 03/27/2016 at 9:52 X-RAY E.R.C. BILIARY DUCTS IMPRESSION: Common bile duct sweeping. Dictated by: Ale Graves M.D. on 03/29/2016 at 16:51 Approved by: Ale Graves M.D. on 03/29/2016 at 16:51 . Assessment & Plan This is an 85 YO female in her blood pressures have been high while with a hx of Alzheimer's, HTN, CKD, and GERD who presents to the ED via EMS from [facility], an ASSISTED, with worsening confusion. Patient admitted for choledocholithiasis. #Leukocytosis with white blood cell count -Elevated White blood cell count continues to improve after ERCP -Contacted GI for possible cholangitis however GI feels that this is not ascending cholangitis and other etiologies may be the source of infection. However, as it is true there is no evidence of biliary obstruction, there is still evidence of choledocholithiasis which could still be a potential source of infection.. -As there is no other source of infection found I spoke to Dr. Uriostegui and patient was taken for ERCP 03/29/2016 and there was a finding of large stones in the common bile duct which were removed. -We will continue antibiotic coverage with Levaquin and Flagyl in place of Zosyn which was discontinued when patient developed renal failure. -We have discontinued Rocephin as there is no need for double beta-lactam coverage. -UA shows no evidence of infection. -Follow up chest x-ray shows no evidence of infection. # Toxic metabolic encephalopathy with confusion, acute on chronic, present on admission, and ongoing - Pt has a history of Alzheimer's and TIA's, presented with worsening confusion. UA is negative, CT brain with no acute pathology. Possible worsening dementia versus exacerbation due to infection. Patient's daughter states that the patient has experienced a significant decline in her performance status. - Continue to monitor. - PT to continue eval and treat - Speech therapy to continue to evaluate and treat as needed # Choledocholithiasis, unknown chronicity, present on admission - GI consulted and they proceeded with ERCP. - LFTs currently stable -Patient recently spiked a temperature and had leukocytosis with a white blood cell count up to 27.2 from 11.4. We will continue to treat the patient for possible cholangitis (without obstruction) with Levaquin and Flagyl. In place of Zosyn - Repeat a CBC and CMP in the morning - ERCP performed 03/29/2016 with successful removal of large stones from the common bile duct # DIXON, present on admission and( I suspect) exacerbated by high-dose indomethacin, used as premedication prior to ERCP, with acute tubular necrosis. - Pt with acute tubular necrosis on chronic renal failure with CKD, stage III. Again likely secondary to indomethacin - Appreciate nephrology consultation and follow-up, we will follow the recommendations as follows: - We will place Brown catheter to better monitor patient's urine output - Continue labetalol 200 mg twice daily. Continue to hold hydralazine ( tachycardia) and lisinopril (DIXON). - Urine culture shows no growth to date. - Urine eosinophils negative. - Continue Pepcid as PPI's can induce acute interstitial nephritis. - Continue IVF with 0.45% NS at 100 mL/hour. - Renal function is improving very slowly. Baseline Cr between 1.5-1.9. Continue to monitor urine output and renal function closely. Avoid nephrotoxic agents. Does not require renal replacement therapy at this time # Anemia, acute on chronic, present on admission - Patient presents with Hb of 10.6 and stool occult blood positive. Likely multifactorial given history of iron deficiency, multiple GI bleeds, and CKD Stage III. Pt takes ferrous sulfate 325 mg PO TID daily. - Pt was was hospitalized for suspected acute GI bleed earlier this month, s/p PRBC transfusion and post esophagogastroduodenoscopy (EGD) on 03/12/16 without any obvious source of bleeding. Acute on chronic anemia. poa - Today H&H is stable at 11.5/ 37.1 # H/o paroxysmal atrial fibrillation - Pt used to be on aspirin and plavix which were D/C d/t last BI bleed - Telemetry monitoring to continue # Bradycardia, chronic, stable - Telemetry monitoring to continue # HTN, chronic, - Unstable patient has been having bouts of elevated blood pressure 5 mg of Lopressor was given will continue to monitor and adjust medications as necessary # Dementia, chronic and advanced - Worsening per discussion with her daughter. This certainly could be due to current infection, along with possible progressive dementia. Case discussed with patient's daughter "Lawrence" at bedside. Disposition: Patient had an ERCP 03/29/2016 due to choledocholithiasis. Several large common bile duct stones were removed. Patient still has leukocytosis. We will continue IV antibiotics and recommendations as per nephrology due to acute renal failure after ERCP. Pain Evaluation: Adequate Pain Control GI Prophylaxis: Proton Pump Inhibitor VTE Mechanical Devices: Intermittant Pneumatic CD Resuscitation Status: DNR/DNI:Do Not Resuscitate/Intubate Alfonzo Murdock MD Apr 03, 2016 00:26
[2016-04-03] MEDS: SODIUM BICARB IV SCH ×3 (02:39→21:47)
[2016-04-03] MEDS: NACL IV SCH ×3 (02:39→21:47)
[2016-04-03] MEDS: DEXTROSE IV SCH ×3 (02:39→21:47)
[2016-04-03 07:43] LABS: BASOPHILS % (AUTO) 0.5 % (0-3); EOSINOPHILS % (AUTO) 1.1 % (0-5); Mean Corpuscular Hemoglobin 26.2 pg (27.0-35.0); Mean Corpuscular Volume 81.1 fL (81-100); NEUTROPHILS % (AUTO) 82.2 % (40-74); Platelet Count 262 bil/L (150-400)
[2016-04-03] MEDS: Diltiazem CD 240 mg ER24 Capsule PO SCH (09:33)
[2016-04-03] MEDS: Heparin 5,000 Unit/mL Inj SUBQ SCH ×2 (09:34→21:30)
[2016-04-03] MEDS ORDERED: Furosemide 10 mg/mL 4 mL Inj IVPUSH ONE (10:40)
--- NOTE | 2016-04-03 11:03 | DRSVH ---
PROCEDURE: X-RAY CHEST ONE VIEW, PORTABLE ([id number]) INDICATIONS: Elevated WBC/AMS/Possible Pneumonia TECHNIQUE: One view of the chest was acquired. COMPARISON: [facility], CR, XR CHEST 1VW (PORTABLE), 03/26/2016, 18:16. FINDINGS: Surgical changes and devices: None. Lungs and pleura: No pleural effusions or pneumothorax. Bibasilar airspace opacities present, other black lungs are clear. Mediastinum: Mediastinal contours appear normal. Heart size is normal. Bones and chest wall: No suspicious bony lesions. Overlying soft tissues appear unremarkable. Prisca re right shoulder arthropathy. IMPRESSION: Bibasilar atelectasis versus aspiration or pneumonia. Dictated by: Sarmad Paredes RRA Interpreted: Zach Booth MD on 04/03/2016 at 11:01 Transcribed by: GLENDY on 04/03/2016 at 11:02 Approved by: Zach Booth M.D. on 04/03/2016 at 11:08
--- NOTE | 2016-04-03 11:35 | PCM.PNMED ---
Subjective Date of Service Apr 03, 2016 Subjective Nephrology Progress Note: Attending Dr. Simone Stone is an 85-year-old demented female with a past medical history of Alzheimer's, hypertension, CKD stage III, and GERD who presented to [facility] ED via EMS from [facility] assisted living facility with worsening confusion. Patient admitted for choledocholithiasis. Hospital Day #11. Overnight: There were no acute events. Telemetry overnight: Sinus rhythm, heart rate 70 to 80's, occasional PAC's and PVC's. Subjective exam and review of systems unobtainable as patient is non-verbal secondary to encephalopathy and underlying dementia. . Exam Vital Signs Vital Sign - Last Date Time Temp Pulse Resp B/P Pulse Ox O2 Delivery O2 Flow Rate FiO2 04/03/16 11:21 35.6 60 107/55 95 Nasal Cannula 1.00 04/03/16 05:46 20 Intake and Output 04/02/16 04/02/16 04/03/16 Cumulative From/Thru 15:00 23:00 07:00 03/23/16 20:55 - 04/03/16 06:29 Intake Total 454 ml 596 ml 844 ml 56356 ml Output Total 100 ml 325 ml 2246 ml Balance 454 ml 496 ml 519 ml 05759 ml Intake Oral 50 ml 0 ml 3826 ml IV Total 454 ml 546 ml 844 ml 62508 ml Output Urine Total 325 ml 1866 ml Urine/Stool Mix 100 ml 380 ml # Voids 32 # Bowel Movements 1 12 Exam General: Elderly female lying in bed, in no acute distress, tremulous, well- developed, well-nourished, non-verbal. HEENT: Normocephalic, atraumatic. External ears without defect. Pupils equal, round, and reactive to light. Anicteric sclerae and no lid lag. Neck: Poor turgor. No lymphadenopathy or thyromegaly. Cardiovascular: Regular rate and rhythm with no murmurs, rubs, or gallops appreciated. Pulmonary: Scattered rhonchi without rales or wheeze. Slightly tachypneic. Abdomen: Soft, nontender, nondistended, bowel sounds present. Extremities: No clubbing or cyanosis. Mild non-pitting edema. Skin: Normal temperature, turgor, and texture; no rash, ulcers, or subcutaneous nodules appreciated. Neurological: Non-verbal, demented, encephalopathy? . IVs and Medications Medications Reviewed: Medications were reviewed in detail Lab and Diagnostics Item Value Date Time Calcium Level 8.4 mg/dL L 04/03/16 0735 Total Bilirubin 0.2 mg/dL 04/03/16 0735 Aspartate Amino Transf (AST/SGOT) 15 U/L 04/03/16 0735 Alanine Aminotransferase (ALT/SGPT) 16 U/L 04/03/16 0735 Alkaline Phosphatase 61 U/L 04/03/16 0735 Total Protein 5.7 g/dL L 04/03/16 0735 Albumin 2.5 g/dL L 04/03/16 0735 Result Diagram: 04/03/16 0735 04/03/16 0735 Microbiology Urine culture shows no growth to date. Urine eosinophils negative. . X-Rays, CTs and MRIs X-RAY CHEST ONE VIEW, PORTABLE INDICATIONS: altered mental status IMPRESSION: 1. Partially visualized prominent bowel loops within the upper abdomen. This is of clinical concern for potential structure ileus, abdomen x-ray is recommended for additional evaluation. 2. No acute pulmonary process. Dictated by: Rupa Blakely M.D. on 03/23/2016 at 21:57 Approved by: Rupa Blakely M.D. on 03/23/2016 at 21:57 CT BRAIN WITHOUT CONTRAST INDICATIONS: altered mental status IMPRESSION: 1. No acute intracranial process. 2. Moderate to severe atrophy and chronic microvascular ischemic changes. Dictated by: Rupa Blakely M.D. on 03/23/2016 at 21:59 Approved by: Rupa Blakely M.D. on 03/23/2016 at 21:59 CT ABDOMEN AND PELVIS WITHOUT CONTRAST IMPRESSION: 1. Findings suspicious for choledocholithiasis. If further characterization is warranted, MRCP may be helpful. There is no intrahepatic biliary ductal dilatation to suggest obstruction. 2. The appendix is not visualized; however there are no ancillary findings to suggest acute cholecystitis. These findings are concordant with the overnight interpretation. Dictated by: Tamiko Keller M.D. on 03/24/2016 at 7:22 Approved by: Tamiko Keller M.D. on 03/24/2016 at 7:31 X-RAY CHEST ONE VIEW, PORTABLE INDICATIONS: infection TECHNIQUE: One view of the chest was acquired. COMPARISON: [facility], CR, XR CHEST 1VW (PORTABLE), 03/23/2016, 21: 35. FINDINGS: Surgical changes and devices: None. Lungs and pleura: No pleural effusions or pneumothorax. Lungs are clear. Mediastinum: Mediastinal contours appear normal. Heart size is normal. Bones and chest wall: No suspicious bony lesions. Overlying soft tissues appear unremarkable. IMPRESSION: Expiratory chest demonstrating no definite acute cardiopulmonary process. Dictated by: Sarmad Paredes RRA Interpreted: Roger Funez MD on 03/27/2016 at 9: 52 Transcribed by: OBDULIO on 03/27/2016 at 9:52 X-RAY E.R.C. BILIARY DUCTS IMPRESSION: Common bile duct sweeping. Dictated by: Ale Graves M.D. on 03/29/2016 at 16:51 Approved by: Ale Graves M.D. on 03/29/2016 at 16:51 . Assessment & Plan Jossie Stone is an 85-year-old demented female with a past medical history of Alzheimer's, hypertension, CKD stage III, and GERD who presented to [facility] ED via EMS from [facility] assisted living facility with worsening confusion. Patient admitted for choledocholithiasis. Hospital Day #11. Impression: 1. Acute kidney injury superimposed on chronic kidney disease stage III. Acute portion likely secondary to postoperative acute tubular necrosis and medication- induced acute tubular necrosis (indomethacin, lisinopril, or Zosyn). 2. Choledocholithiasis status post endoscopic retrograde cholangiopancreatography on 03/29/2016 with successful removal of large stones from the common bile duct. 3. Hypertension, uncontrolled. 4. Dementia with worsening mental status likely related to metabolic encephalopathy from the ongoing infections. 5. Hypernatremia likely iatrogenic and secondary to inability to access to free water. 6. Anion gap metabolic acidosis. 7. Candidiasis. 8. Possible aspiration pneumonia. Plan: - Continue labetalol 200 mg twice daily. Continue to hold hydralazine ( tachycardia) and lisinopril (DIXON). - Continue Pepcid as PPI's can induce acute interstitial nephritis. - Discontinued IVF of D5 0.45% NS 50 mEQ bicarbonate to treat DIXON and metabolic acidosis. - Given Lasix 60 mg IV x1 to help improve breathing. - Renal function continues to improve. Baseline Cr between 1.5-1.9. Continue to monitor urine output and renal function closely. Avoid nephrotoxic agents. Does not require renal replacement therapy at this time. . GI Prophylaxis: Proton Pump Inhibitor VTE Mechanical Devices: Intermittant Pneumatic CD Resuscitation Status: DNR/DNI:Do Not Resuscitate/Intubate Attending Statement Nephrology attending: The patient was seen and evaluated along with the medicine resident. We have discussed the finding and the therapeutic plan which is detailed above. Evonne Joshi DO Apr 03, 2016 11:35 Bib Nichols DO Apr 03, 2016 15:58
--- NOTE | 2016-04-03 13:06 | NUR ---
LOC P: Pt was initially not able to track or hold attention. I: After morning med pass and starting assessment her eyes stayed open more and was able to voluntarily alter her field of gaze. E: Pt was able to hold attention for longer and keep her eyes open during interactions.
--- NOTE | 2016-04-03 14:45 | NUR ---
NUTRITION ASSESSMENT: ASSESS:85 YO female admitted for increased confusion and choledocholithiasis s/p ERCP on 03/29/16. Pt was eating and avg of 55% of meals on admit, but po intake has decreased to bites-25% of meals over the past 6 days with pt becoming less responsive per notes. PMHx: Alzheimer's, HTN, CKD stage III, GERD LABS: Reviewed. Na 147, BUN 60, Cr 2.47, Glu 192, Alb 2.5. MEDS: Reviewed. GI: BM x 1 (04/03) CURRENT WT: 64.6 kg. Admit wt: 60.6 kg. DIET: Pureed, [place] thick, with [place] thick ensure all trays. EST. NEEDS: 5896-2746 kcals (25-30 kcals/kg BW), 60-75 g protein (1.0-1.2 g/kg BW) NUTRITION DIAGNOSIS: 1.) Inadequate oral intake related to decreased level of consciousness as evidenced by po intake of bites-25% of meals x 6 days. NUTRITION INTERVENTION: 1.) Continue to send ensure on all trays. 2.) Consider nutrition support as pt has been unable to maintain adequate kcal/protein intake now x 6 days if nutrition support is consistent with pt plan of care. MONITOR / EVAL: PO intake, labs, nutritional status. Follow per high nutritional risk guidelines.
--- NOTE | 2016-04-03 16:02 | NUR ---
Social Work Continued Discharge Planning: Per report in rounds, patient is less responsive. White count elevating and creatnin is being monitored. PT signed off as a result to inabilities to follow commands. Patient underwent ERCP. MD to order speech eval. Mention of possible palliative care consult. SW to follow clinical course. Patient from [facility], [phone] and SW communicated with facility and provided facility with update. Rep Camacho to contact SW back to further discuss plans of care for patient due to current clinical status. SW to follow. PLAN: From [facility], pending clinical course. SW to follow. David ARGUELLES Addendum: 04/03/16 at 1633 by FAMILIA HART SW discussed [place] with patient daughter and verbal obtained. SW discussed discharge options with daughter of SNF. Patient daughter states that patient has previous history at [facility] and she was unsatisfied with SNF experience and doesn't want SNF placement as a result. SW mentioned possible alterative plans to daughter as [facility] may be unable to be equipped to handle her needs with patient being less responsive. SW to await further clinical course. SW to await call back from [facility]. SW to follow. PLAN: From [facility]. Possible return to [facility] vs SNF, pending clinical course. SW to follow. David ARGUELLES
--- NOTE | 2016-04-03 17:57 | NUR ---
LOC Pt unresponsive except will withdrawal from pain and at times will close and squint eyes to bright lights. Pt was up and awake for eating dinner with daughter feeding her 1:1. Educated daughter regarding upright sitting and swallowing stimulation. HOB upright, eyes are open and pt has swallowed on own several times as well as licked her lips. Pt will moan when being turned at times. Care continues
--- NOTE | 2016-04-03 19:03 | NUR ---
Swelling extremities Pt significant swelling in bilateral arms. Increase and slight decrease noted throughout the day. Swelling seems slightly worse this evening than this morning. MDs are aware of this. Brown output has increase since the Lasix. Care continues
[2016-04-04] VITALS (7 sets, daily range): BP systolic 127–144; BP diastolic 63–85; PULSE 65–80; RESP 18–22; O2SAT 94–97
--- NOTE | 2016-04-04 00:13 | PCM.PNMED ---
Subjective Date of Service Apr 04, 2016 Subjective Patient is less responsive today least this afternoon, this morning she is apparently more responsive according to the nursing staff. She appears comfortable. Exam Vital Signs Vital Sign - Last Date Time Temp Pulse Resp B/P Pulse Ox O2 Delivery O2 Flow Rate FiO2 04/03/16 23:56 36.4 68 20 130/72 96 Nasal Cannula 1.00 Intake and Output 04/03/16 04/03/16 04/04/16 Cumulative From/Thru 15:00 23:00 07:00 03/23/16 20:55 - 04/03/16 18:45 Intake Total 681 ml 27345 ml Output Total 1000 ml 3246 ml Balance -319 ml 32335 ml Intake Oral 100 ml 3926 ml IV Total 581 ml 61276 ml Output Urine Total 1000 ml 2866 ml Urine/Stool Mix 380 ml # Voids 32 # Bowel Movements 12 Exam General: Patient appears tired and is slightly less responsive again today. She is comfortable and shows no signs of pain or distress. HEENT: Head is atraumatic normocephalic. Eyes: Pupils are equally round and reactive to light and accommodation. Extraocular muscles are intact. Sclera are white anicteric. Subconjunctival mucosa is pink. Ears and nose are unremarkable. Oropharynx: There is no mucosal lesions, there is no thrush, there is no pharyngitis. Neck: Is supple, there are no nodes, or masses, or tenderness. Chest: Is clear to auscultation and percussion. There are no rales, rhonchi, wheezes or rubs. Heart: Rate, rhythm is regular. There is no murmur, rub or gallop. Abdomen: Good bowel sounds are present. Abdomen is soft, nontender, no organomegaly or masses were appreciated. Extremities: Are symmetrical and well perfused. There is a slight increase again in symmetrical edema of the upper and lower extremities, there is no cellulitis, no rash. Neurologic: There are no focal neurological deficits. Cranial nerves II through XII are intact. There are no sensory or motor deficits. However, patient appears to exhibit generalized weakness. Psychiatric: Patients mood is calm and shows no sign of agitation. Genital: Brown catheter is present. Pelvic and rectal exam are deferred Rectal: Deferred Lab and Diagnostics Result Diagram: 04/03/16 0735 04/03/16 0735 Microbiology Urine culture shows no growth to date. Urine eosinophils negative. . X-Rays, CTs and MRIs X-RAY CHEST ONE VIEW, PORTABLE INDICATIONS: altered mental status IMPRESSION: 1. Partially visualized prominent bowel loops within the upper abdomen. This is of clinical concern for potential structure ileus, abdomen x-ray is recommended for additional evaluation. 2. No acute pulmonary process. Dictated by: Rupa Blakely M.D. on 03/23/2016 at 21:57 Approved by: Rupa Blakely M.D. on 03/23/2016 at 21:57 CT BRAIN WITHOUT CONTRAST INDICATIONS: altered mental status IMPRESSION: 1. No acute intracranial process. 2. Moderate to severe atrophy and chronic microvascular ischemic changes. Dictated by: Rupa Blakely M.D. on 03/23/2016 at 21:59 Approved by: Rupa Blakely M.D. on 03/23/2016 at 21:59 CT ABDOMEN AND PELVIS WITHOUT CONTRAST IMPRESSION: 1. Findings suspicious for choledocholithiasis. If further characterization is warranted, MRCP may be helpful. There is no intrahepatic biliary ductal dilatation to suggest obstruction. 2. The appendix is not visualized; however there are no ancillary findings to suggest acute cholecystitis. These findings are concordant with the overnight interpretation. Dictated by: Tamiko Keller M.D. on 03/24/2016 at 7:22 Approved by: Tamiko Keller M.D. on 03/24/2016 at 7:31 X-RAY CHEST ONE VIEW, PORTABLE INDICATIONS: infection TECHNIQUE: One view of the chest was acquired. COMPARISON: [facility], CR, XR CHEST 1VW (PORTABLE), 03/23/2016, 21: 35. FINDINGS: Surgical changes and devices: None. Lungs and pleura: No pleural effusions or pneumothorax. Lungs are clear. Mediastinum: Mediastinal contours appear normal. Heart size is normal. Bones and chest wall: No suspicious bony lesions. Overlying soft tissues appear unremarkable. IMPRESSION: Expiratory chest demonstrating no definite acute cardiopulmonary process. Dictated by: Sarmad MORGAN Interpreted: Roger Funez MD on 03/27/2016 at 9: 52 Transcribed by: BODULIO on 03/27/2016 at 9:52 X-RAY E.R.C. BILIARY DUCTS IMPRESSION: Common bile duct sweeping. Dictated by: Ale Graves M.D. on 03/29/2016 at 16:51 Approved by: Ale Graves M.D. on 03/29/2016 at 16:51 . Assessment & Plan Jossie Stone is an 85-year-old demented female with a past medical history of Alzheimer's, hypertension, CKD stage III, and GERD who presented to [facility] ED via EMS from [facility] assisted living facility with worsening confusion. Patient admitted for choledocholithiasis. Hospital Day #11. Impression: 1. Acute kidney injury superimposed on chronic kidney disease stage III. Acute portion likely secondary to postoperative acute tubular necrosis and medication- induced acute tubular necrosis (indomethacin, lisinopril, or Zosyn). 2. Choledocholithiasis status post endoscopic retrograde cholangiopancreatography on 03/29/2016 with successful removal of large stones from the common bile duct. 3. Hypertension, uncontrolled. 4. Dementia with worsening mental status likely related to metabolic encephalopathy from the ongoing infections. 5. Hypernatremia likely iatrogenic and secondary to inability to access to free water. 6. Anion gap metabolic acidosis. Plan: - Continue labetalol 200 mg twice daily. Continue to hold hydralazine ( tachycardia) and lisinopril (DIXON). - Continue Pepcid as PPI's can induce acute interstitial nephritis. - Discontinued IVF of D5 0.45% NS 50 mEQ bicarbonate to treat DIXON and metabolic acidosis. - Given Lasix 60 mg IV x1 to help improve breathing. - Renal function continues to improve. Baseline Cr between 1.5-1.9. Continue to monitor urine output and renal function closely. Avoid nephrotoxic agents. Does not require renal replacement therapy at this time. . Pain Evaluation: Adequate Pain Control GI Prophylaxis: Proton Pump Inhibitor VTE Mechanical Devices: Intermittant Pneumatic CD Resuscitation Status: DNR/DNI:Do Not Resuscitate/Intubate Alfonzo Murdock MD Apr 04, 2016 00:13
--- NOTE | 2016-04-04 06:09 | NUR ---
Mentation No significant changes in mentation this shift. Remains alert to name and touch but does not communicate with staff or follow directions. Per daughter this is not patients baseline. Rails up x3 and nursing positioned near room for frequent monitoring.
[2016-04-04 08:42] LABS: BASOPHILS % (AUTO) 0.3 % (0-3); EOSINOPHILS % (AUTO) 1.3 % (0-5); MONOCYTES % (AUTO) 7.7 % (4-12); Mean Corpuscular Hemoglobin 25.8 pg (27.0-35.0); Mean Corpuscular Volume 81.1 fL (81-100); NEUTROPHILS % (AUTO) 82.1 % (40-74); Platelet Count 259 bil/L (150-400)
[2016-04-04 08:54] LABS: Phosphorus 3.8 mg/dL (2.5-4.9)
[2016-04-04] MEDS ORDERED: Furosemide 10 mg/mL 10 mL Inj IVPUSH ONE (08:55)
[2016-04-04] MEDS: Diltiazem CD 240 mg ER24 Capsule PO SCH (10:14)
[2016-04-04] MEDS: Heparin 5,000 Unit/mL Inj SUBQ SCH ×2 (10:15→19:45)
--- NOTE | 2016-04-04 10:48 | PCM.PNMED ---
Subjective Date of Service Apr 04, 2016 Subjective Nephrology Progress Note: Attending Dr. Simone Stone is an 85-year-old demented female with a past medical history of Alzheimer's, hypertension, CKD stage III, and GERD who presented to [facility] ED via EMS from [facility] assisted living facility with worsening confusion. Patient admitted for choledocholithiasis. Hospital Day #12. Overnight: There were no acute events. Telemetry overnight: Sinus rhythm, heart rate 70 to 80's, occasional PAC's and PVC's. Subjective exam and review of systems unobtainable as patient is non-verbal secondary to encephalopathy and underlying dementia. She does appear more alert. She seems to be having more difficulty with breathing and is using her accessory muscles. . Exam Vital Signs Vital Sign - Last Date Time Temp Pulse Resp B/P Pulse Ox O2 Delivery O2 Flow Rate FiO2 04/04/16 09:00 78 04/04/16 09:00 36.6 22 144/85 Nasal Cannula 1.00 04/04/16 04:57 95 Intake and Output 04/03/16 04/03/16 04/04/16 Cumulative From/Thru 15:00 23:00 07:00 03/23/16 20:55 - 04/04/16 05:53 Intake Total 681 ml 850 ml 88156 ml Output Total 1000 ml 510 ml 3756 ml Balance -319 ml 340 ml 27783 ml Intake Oral 100 ml 0 ml 3926 ml IV Total 581 ml 850 ml 45053 ml Output Urine Total 1000 ml 510 ml 3376 ml Urine/Stool Mix 380 ml # Voids 32 # Bowel Movements 0 12 Exam General: Elderly female lying in bed, in no acute distress, tremulous, well- developed, well-nourished, non-verbal. HEENT: Normocephalic, atraumatic. External ears without defect. Pupils equal, round, and reactive to light. Anicteric sclerae and no lid lag. Neck: Poor turgor. No lymphadenopathy or thyromegaly. Cardiovascular: Regular rate and rhythm with no murmurs, rubs, or gallops appreciated. Pulmonary: Scattered rhonchi without rales or wheeze. Slightly tachypneic with no use of accessory muscles. Abdomen: Soft, nontender, nondistended, bowel sounds present. Extremities: No clubbing or cyanosis. Mild non-pitting edema. Skin: Normal temperature, turgor, and texture; no rash, ulcers, or subcutaneous nodules appreciated. Neurological: Non-verbal, demented, encephalopathy? . IVs and Medications Medications Reviewed: Medications were reviewed in detail Lab and Diagnostics Item Value Date Time Calcium Level 7.7 mg/dL L 04/04/16 0823 Phosphorus Level 3.8 mg/dL 04/04/16 0823 Magnesium Level 2.0 mg/dL 04/04/16 0823 Total Bilirubin 0.2 mg/dL 04/04/16 0823 Aspartate Amino Transf (AST/SGOT) 11 U/L 04/04/16 0823 Alanine Aminotransferase (ALT/SGPT) 13 U/L 04/04/16 0823 Alkaline Phosphatase 57 U/L 04/04/16 0823 Total Protein 4.6 g/dL L 04/04/16 0823 Albumin 2.4 g/dL L 04/04/16 08 Result Diagram: 04/04/16 0804/04/16 08 Microbiology Urine culture shows no growth to date. Urine eosinophils negative. . X-Rays, CTs and MRIs X-RAY CHEST ONE VIEW, PORTABLE INDICATIONS: altered mental status IMPRESSION: 1. Partially visualized prominent bowel loops within the upper abdomen. This is of clinical concern for potential structure ileus, abdomen x-ray is recommended for additional evaluation. 2. No acute pulmonary process. Dictated by: Rupa Blakely M.D. on 03/23/2016 at 21:57 Approved by: Rupa Blakely M.D. on 03/23/2016 at 21:57 CT BRAIN WITHOUT CONTRAST INDICATIONS: altered mental status IMPRESSION: 1. No acute intracranial process. 2. Moderate to severe atrophy and chronic microvascular ischemic changes. Dictated by: Rupa Blakely M.D. on 03/23/2016 at 21:59 Approved by: Rupa Blakely M.D. on 03/23/2016 at 21:59 CT ABDOMEN AND PELVIS WITHOUT CONTRAST IMPRESSION: 1. Findings suspicious for choledocholithiasis. If further characterization is warranted, MRCP may be helpful. There is no intrahepatic biliary ductal dilatation to suggest obstruction. 2. The appendix is not visualized; however there are no ancillary findings to suggest acute cholecystitis. These findings are concordant with the overnight interpretation. Dictated by: Tamiko Keller M.D. on 03/24/2016 at 7:22 Approved by: Tamiko Keller M.D. on 03/24/2016 at 7:31 X-RAY CHEST ONE VIEW, PORTABLE INDICATIONS: infection TECHNIQUE: One view of the chest was acquired. COMPARISON: [facility], CR, XR CHEST 1VW (PORTABLE), 03/23/2016, 21: 35. FINDINGS: Surgical changes and devices: None. Lungs and pleura: No pleural effusions or pneumothorax. Lungs are clear. Mediastinum: Mediastinal contours appear normal. Heart size is normal. Bones and chest wall: No suspicious bony lesions. Overlying soft tissues appear unremarkable. IMPRESSION: Expiratory chest demonstrating no definite acute cardiopulmonary process. Dictated by: Sarmad Paredes RRA Interpreted: Roger Funez MD on 03/27/2016 at 9: 52 Transcribed by: OBDULIO on 03/27/2016 at 9:52 X-RAY E.R.C. BILIARY DUCTS IMPRESSION: Common bile duct sweeping. Dictated by: Ale Graves M.D. on 03/29/2016 at 16:51 Approved by: Ale Graves M.D. on 03/29/2016 at 16:51 . Assessment & Plan Jossie Stone is an 85-year-old demented female with a past medical history of Alzheimer's, hypertension, CKD stage III, and GERD who presented to [facility] ED via EMS from [facility] assisted living facility with worsening confusion. Patient admitted for choledocholithiasis. Hospital Day #11. Impression: 1. Acute kidney injury superimposed on chronic kidney disease stage III. Acute portion likely secondary to postoperative acute tubular necrosis and medication- induced acute tubular necrosis (indomethacin, lisinopril, or Zosyn). 2. Choledocholithiasis status post endoscopic retrograde cholangiopancreatography on 03/29/2016 with successful removal of large stones from the common bile duct. 3. Hypertension, uncontrolled. 4. Dementia with worsening mental status likely related to metabolic encephalopathy from the ongoing infections. 5. Hypernatremia likely iatrogenic and secondary to inability to access to free water. 6. Anion gap metabolic acidosis. 7. Candidiasis. 8. Possible aspiration pneumonia. Plan: - Continue labetalol 200 mg twice daily. Continue to hold hydralazine ( tachycardia) and lisinopril (DIXON). - Continue Pepcid as PPI's can induce acute interstitial nephritis. - Discontinued IVF of D5 0.45% NS 50 mEQ bicarbonate to treat DIXON and metabolic acidosis. - Given another dose of Lasix 60 mg IV x1 to help improve breathing and fluid overload. - Renal function continues to improve. Baseline Cr between 1.5-1.9. Continue to monitor urine output and renal function closely. Avoid nephrotoxic agents. Does not require renal replacement therapy at this time. . GI Prophylaxis: Proton Pump Inhibitor VTE Mechanical Devices: Intermittant Pneumatic CD Resuscitation Status: DNR/DNI:Do Not Resuscitate/Intubate Attending Statement Nephrology attending: She was seen and examined along with the internal medicine resident and findings and plan are detailed in note above. I agree with findings. Evonne Joshi DO Apr 04, 2016 10:48 Bib Nichols DO Apr 04, 2016 17:10
--- NOTE | 2016-04-04 11:53 | NUR ---
Palliative Care Palliative Care received verbal order from Dr Murdock 04/04/16 to assist with goals of care. Patient is an 85 year old woman with history of Alzheimer's, hypertension, CKD stage III and GERD. She presented with worsening confusion and was admitted 03/24/16 for care of choledocholithiasis. The Palliative Care Team has seen patient multiple times during different admissions since 2014. Patient resides at [facility]. Lyndsey Briseida (daughter) [phone] Kar Stone (son) [phone] Palliative Care to follow. Sara Sanches
[2016-04-04] MEDS: Albuterol-Ipratropium 3 mL Inhalation Solution NEB SCH ×4 (12:32→23:12)
[2016-04-04] MEDS: levoFLOXacin Inj 250 MG in IV Premix 1 EACH IV SCH (13:16)
--- NOTE | 2016-04-04 13:30 | NUR ---
Swallowing P: Pt has had problems swallowing and eating. I: When administering meds she was more alert and able to swallow voluntarily and open her mouth on verbal command. E: She was swallowing better and was able to take her meds without any coughing or clearing her throat and eat more for breakfast.
--- NOTE | 2016-04-04 13:52 | PCM.CONPAL ---
Date of Service Apr 04, 2016 Date of Hospital Admission: Mar 24, 2016 at 00:29 Date of Palliative Consult: Apr 04, 2016 Requesting Provider: Alfonzo Murdock MD Reason Palliative Care Consult: Goals of Care Discussion Reason for Consultation Goals of Care discussion Hospital Unit @time of consult: Orthopedic/Surgical Care Palliative Care Recommendation Summary of palliative recommendations: Hospital Course: The 85yoF patient hospital day 12 with past medical history remarkable for dementia, CKD, UGIB 2/2 AVM and was seen at [facility] and treated with ERCP choledocholithiasis on 03/29/2015 and she has been maintained on antibiotics for possible ascending cholangitis. Over the last several days the patient's condition failed to improve with intervention and antibiotic therapy and Palliative medicine was brought on board to discuss goals of care. -Symptom management (Pain/other) - All conditions are currently being treated by the primary medical team as well as nephrology, GI has signed off of the patient. - Palliative medicine has not current recommendations for symptom management , the patient appears to be in mild pain with position readjustment by nursing staff, however given her current mentation no recommendations can be made to start low dose opiates for pain, and given the patient's kidney function and history of GI bleed no NSAIDS are recommended. If pain needs to be modulated recommendations to start IV or liquid Tylenol. However given the patient's current infection status no Tylenol should be scheduled to avoid covering a new onset fever. -DPOA/Advanced Directives/POLST - Daughter Lyndsey Oliver lives in [facility] and is DPOA however likes to make decisions with impute from two brothers, one Buck Stone lives in [facility] one lives in [place] - Previous POLST completed by [facility] Palliative team in May 2014 was discussed but no changes made at this time -Family/emotional support - Daughter Lyndsey Oliver lives in [facility] and is DPOA however likes to make decisions with input from two brothers, one Buck Stone lives in [facility] one lives in [place] - FCTM held on 04/04/2016 with Daughter Lyndsey and Palliative team Dr. Pyle and Dr. Atwood The conversation was started with asking Lyndsey about her mother's background history as well as Lyndsey's understanding of her mother's current health status. Lyndsey stated that her mother has deteriorated significantly since , where she was able to walk with a walker. [facility] and requires assistance with dressing herself and self hygiene as well as dosing her medications. She was able to play bingo, however she does miss some number's and may not volunteer for activities without staff directing her to participate. Lyndsey stated that her mother still is able to hold light conversations and initiate some conversations with her own questions but they are typically brief in nature. Jossie will talk with her son in [place] however the son states that the phone conversations are often difficult to follow and may not always make sense. Jossie states that her mother's dementia condition is worsening over the last two years since her . She will sometimes forget that he has and she will hold and comfort a child's blush doll like a baby. As far as Jossie's understanding of her mother's current health condition she is unsure of the current prognosis of getting out of the hospital. She is aware that her mother was being treated for gallstones and a possible abdominal infection. She states that her mother has been less active the last several days, stating that she doesn't seem to be following commands well. She denies her mother having unilateral weakness in her upper extremities or face, stating she hasn't notice a facial droop and her mother will reach for the bed rail when turned. Lyndsey stated that her mother always seems to be kind of limp in the hospital but perks up with return to her own living space and more interaction with staff. it was pointed out that there was an old POLST document that Lyndsey had signed in May 2014. It was asked if there had been a newer version of this document signed, given Ori's change in health over the last two years. There was no new POLST. Lyndsey stated that she has spoken with Dr. Pacheco of the [facility] Palliative team earlier this year in March 2016 and no changes had been made at that time. Lyndsey stated that she is comfortable with the old POLST until her brother Buck returns to town. Lyndsey is also hoping that her mother's health and mental status improves over the next several days until her brother's return. Dr. Atwood pointed out that Ori has only passed a swallow study with pureed only and given her dementia it is possible that her swallow strength may not improve therefor the Ori would be at risk for aspiration in the future. Therefor a decision will need to be made around tube feedings. It was pointed out that recommendations are that tube feeding does not improve a dementia patient's quality of life, ans some research proves it does not improve quantity of life either. Lyndsey states she would think about it and discuss it with her brother. -Spiritual support - not discussed at this time. Family Goals: 1. Family wants to be told the truth about his/her illness, even if it is unpleasant. 2. Family would like to be told prognosis when it can be predicted, to better guide treatment decisions. 3.Treat the disease processes which can be reversed 4. Maintain patient comfort Additional Medical Diagnoses with primary management by Hospitalist team include : choledocholithiasis and probable ascending cholangitis Alzheimer's Dementia History of TIA with left facial droop urinary incontinence chronic kidney disease stage III, with a creatinine that runs 1.4-1.5. 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 Goals of Care 1. Family wants to be told the truth about his/her illness, even if it is unpleasant. 2. Family would like to be told prognosis when it can be predicted, to better guide treatment decisions. 3.Treat the disease processes which can be reversed 4. Maintain patient comfort Disposition Patient will likely be inpatient for a few more days as the medical team decides current management strategy. Patient will likely be discharges to SNF or back to [facility] with home health following unless patient continues to deteriorate, at that point another family discussion will be held. Resuscitation Status Resuscitation Status: DNR/DNI:Do Not Resuscitate/Intubate Limited Interventions: BiPAP, Medications and IV Fluid POLST Updates/Changes Previous POLST?: Yes POLST Last Review Date: Apr 04, 2016 Antibiotics: Determine Use or Limitations POLST Discussed with: Health Care Agent ([facility]POA[facility]) POLST Review Outcome: No Change . Advanced Care Planning Address: POLST Pain: Mild Pt History History of Present Illness [facility].William "Patient is an 85 YO female with a history of Alzheimer's, previous TIA's, HTN , CKD and GERD who presented to [facility] ED via EMS from [facility], with worsening confusion. She is unable to give any history due to dementia, although patient does deny pain at this time. Per her daughter, who was by the patient's bedside, the patient was noted by the staff at the [facility] to be notably getting worse, weaker and more confused over the last couple of days. Entire history is obtained from the chart as the patient is unable to give any meaningful information. Patient was hospitalized for suspected acute GI bleed earlier this month, s/p post esophagogastroduodenoscopy (EGD) on 03/12/16 without any obvious source of bleeding. Her evaluation in the emergency room includes creatinine noted to be 2.28, BUN 41, glucose 121. Hgb 10.6, normal white blood cell count. UA is negative for infection. Chest x-ray revealed prominent bowel loops within the upper abdomen. CT head without acute intracranial process. CT abdomen revealed multiple stones in the distal CBD, which is dilated to 1.2 cm." Hospital Course: The 85yoF patient hospital day 12 with past medical history remarkable for dementia, CKD, UGIB 2/2 AVM and was seen at [facility] and treated with ERCP choledocholithiasis on 03/29/2015 and she has been maintained on antibiotics for possible ascending cholangitis. Over the last several days the patient's condition failed to improve with intervention and antibiotic therapy and Palliative medicine was brought on board to discuss goals of care. Past Medical History Significant H Noted: Alzheimer's Dementia History of TIA with left facial droop Bradycardia h/o Schatzki's ring h/o diverticulitis status post partial colectomy, gastroesophageal reflux high cholesterol impaired fasting glucose urinary incontinence gout chronic kidney disease stage III, with a creatinine that runs 1.4-1.5. 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 and is DPOA however likes to make decisions with input from two brothers, one Buck Stone lives in [facility] one lives in [place] Living Situation: [facility] ADLs ADL Patient Status: Baseline ADL Ambulation: Reduced ADL Dressing: Considerable assistance required ADL Feeding: Full ADL Hygene/bathing: Occasional assistance necessary Allergy Allergies Reviewed: Yes Medications Current Medications: Current Medications Metronidazole/ Sodium Chloride 500 mg/Premix 100 ml @ 100 mls/hr Q8H IV Last administered on 04/04/16 10:09; Admin Dose 100 MLS/HR; Start 04/03/16 at 16:00 Sodium Bicarbonate/ Dextrose/Sodium Chloride 1,050 ml @ 75 mls/hr Q14H IV Last administered on 04/03/16 21:47; Admin Dose 75 MLS/HR; Start 04/03/16 at 15:25; Stop 04/04/16 at 10:04; Status DC Albuterol/ Ipratropium 3 ml QIDWA [facility]; Start 04/04/16 at 11:00 Scheduled Ascorbate Calcium (Vitamin C) 500 Mg Tablet 500 MG PO DAILY Cholecalciferol (Vitamin D3) (Vitamin D3) 2,000 Unit Capsule 2,000 UNIT PO DAILY Citalopram Hydrobromide (Celexa) 20 Mg Tablet 20 MG PO DAILY Clonidine (Clonidine) 0.1 Mg Tablet 0.1 MG PO BID Cyanocobalamin (Vitamin B-12) (Vitamin B-12) 1,000 Mcg Tablet 1,000 MCG PO DAILY Diltiazem ER (Cartia XT) 240 Mg Cap.er.24h 240 MG PO DAILY Docusate Sodium (Colace) 100 Mg Capsule 100 MG PO HS Famotidine (Famotidine) 20 Mg Tablet 20 MG PO DAILY Ferrous Sulfate (Ferrous Sulfate) 325 Mg Tablet 325 MG PO TID Hydralazine (Hydralazine) 25 Mg Tablet 50 MG PO QID Lisinopril (Lisinopril) 20 Mg Tablet 20 MG PO DAILY Memantine (Namenda) 10 Mg Tablet 10 MG PO BID Pantoprazole DR (Pantoprazole DR) 40 Mg Tablet.dr 40 MG PO DAILY Polyethylene Glycol 3350 (Polyethylene Glycol 3350) 17 Gm Powd.pack 17 GM PO DAILY Scheduled PRN Acetaminophen (Acetaminophen) 325 Mg Tablet 325 MG PO q6hr PRN PRN For Pain Epinephrine (Epinephrine) 0.3 Mg/0.3 Ml Auto.injct 0.3 MG IJ PRN For Anaphyllaxis Objective Findings Exam Vital Sign - Last Date Time Temp Pulse Resp B/P Pulse Ox O2 Delivery O2 Flow Rate FiO2 04/04/16 09:00 78 04/04/16 09:00 36.6 22 144/85 Nasal Cannula 1.00 04/04/16 04:57 95 Intake and Output 04/03/16 04/03/16 04/04/16 Cumulative From/Thru 15:00 23:00 07:00 03/23/16 20:55 - 04/04/16 05:53 Intake Total 681 ml 850 ml 68808 ml Output Total 1000 ml 510 ml 3756 ml Balance -319 ml 340 ml 62415 ml Intake Oral 100 ml 0 ml 3926 ml IV Total 581 ml 850 ml 89581 ml Output Urine Total 1000 ml 510 ml 3376 ml Urine/Stool Mix 380 ml # Voids 32 # Bowel Movements 0 12 General: Minimally responsive (patient does not follow commands however states "ouch" during exam), No acute distress HEENT: Atraumatic Heart: Regular Rate/Rhythm, Normal S1, S2, No Murmurs/Rubs/Gallops Lungs: Clear to Auscultation, Normal Air Movement Abdomen: Benign, Bowel Tones x4, Soft, Non Tender Neuro: Other (limited does not follow commands) Extremities: Pulses Palpable x4, Warm, Edema Lab/Diagnostics Lab and Imaging results reviewed in detail in EMR. Time spent Total time 70 minutes; >50% face to face with patient and/or family, providing counselling regarding plans and recommendations, and in care coordination with his/her medical teams. Attending Statement The patient was seen and examined together with Dr. Atwood on 04/04/16 and I agree with the history, exam and plan as outlined in the note above. LINDA ATWOOD DO Apr 04, 2016 11:58 Amor Pyle MD Apr 04, 2016 14:18
--- NOTE | 2016-04-04 14:09 | NUR ---
NUTRITION FOLLOW-UP: ASSESS:85 YO female admitted for increased confusion and choledocholithiasis s/p ERCP on 03/29/16. Renal function is slowly improving, nephrology is following. Pt was eating an avg of 55% of meals on admit, but po intake has decreased to bites-25% of meals over the past 6 days with pt becoming less responsive per notes. She is currently on a pureed diet per ST and is receiving NT ensure on all trays. Palliative care is involved for goals of care. Tube feeding was discussed by palliative care with pts daughter. Daughter is currently undecided regarding nutrition support. Daughter is aware that tube feeding is not typically recommended for pts w/dementia. PMHx: Alzheimer's, HTN, CKD stage III, GERD LABS: Reviewed. Na 150, Cl 117, Bun 55, Storage Battery Inspector 2.29, Glu 173, Ca 7.7, Alb 2.4 MEDS: Reviewed. GI: BM x 1 (04/03) CURRENT WT: 64.6 kg. BMI 26kg/m2, Admit wt: 60.6 kg. DIET: Pureed, [place] thick, with [place] thick ensure all trays. PO 0-25% EST. NEEDS: 9015-2054 kcals (25-30 kcals/kg BW), 60-75 g protein (1.0-1.2 g/kg BW) NUTRITION DIAGNOSIS: 1.) Inadequate oral intake related to decreased level of consciousness as evidenced by po intake of bites-25% of meals x 6 days.--PERSISTS 2.) Chew/Swallow difficulty related to mentation as evidence by need for pureed diet w/NT liquids per ST NUTRITION INTERVENTION: 1.) Continue to send ensure on all trays and continue to encourage PO intake w/1:1 feedings 2.) Consider nutrition support as pt has been unable to maintain adequate kcal/protein intake now x 6 days if nutrition support is consistent with pt plan of care. However, tube feeding is not typically recommend for pts with dementia as it does not improve quality of life. Will continue to monitor POC. MONITOR / EVAL: PO intake, ST, labs, wt, GI, POC, nutritional status. Follow per high nutritional risk guidelines.
--- NOTE | 2016-04-04 18:44 | NUR ---
LOC Pt awakens for meals. Opens eyes and mouth, has been swallowing well with no evidence of aspiration noted. Daughter feeds pt Breakfast and dinner when she is here. Son visited today as well. No respons from pt besides opening eyes. Pt will move foot when touched. Otherwise wont squeeze hand or turn head to look. Q2 turns for skin protection. Care continues
--- NOTE | 2016-04-05 01:28 | PCM.PNMED ---
Subjective Date of Service Apr 05, 2016 Subjective Patient was seen this afternoon and was poorly responsive. According to the nursing staff he was slightly more responsive this morning and is likely tired from the mornings activities Exam Vital Signs Vital Sign - Last Date Time Temp Pulse Resp B/P Pulse Ox O2 Delivery O2 Flow Rate FiO2 04/04/16 20:19 Supplement Oxygen 04/04/16 20:19 36.6 73 18 127/63 97 2.00 Intake and Output 04/04/16 04/04/16 04/05/16 Cumulative From/Thru 15:00 23:00 07:00 03/23/16 20:55 - 04/04/16 20:19 Intake Total 100 ml 52537 ml Output Total 1300 ml 5056 ml Balance -1200 ml 01305 ml Intake Oral 100 ml 4026 ml IV Total 18815 ml Output Urine Total 1300 ml 4676 ml Urine/Stool Mix 380 ml # Voids 32 # Bowel Movements 1 13 Exam General: Patient appears is slightly less responsive again today. She is comfortable and shows no signs of pain or distress. HEENT: Head is atraumatic normocephalic. Eyes: Pupils are equally round and reactive to light and accommodation. Extraocular muscles are intact. Sclera are white anicteric. Subconjunctival mucosa is pink. Ears and nose are unremarkable. Oropharynx: There is no mucosal lesions, there is no thrush, there is no pharyngitis. Neck: Is supple, there are no nodes, or masses, or tenderness. Chest: Is clear to auscultation and percussion. There are no rales, rhonchi, wheezes or rubs. Heart: Rate, rhythm is regular. There is no murmur, rub or gallop. Abdomen: Good bowel sounds are present. Abdomen is soft, nontender, no organomegaly or masses were appreciated. Extremities: Are symmetrical and well perfused. There is symmetrical edema of the upper and lower extremities, there is no cellulitis, no rash. Neurologic: There are no focal neurological deficits. Cranial nerves II through XII are intact. There are no sensory or motor deficits. However, patient appears to exhibit generalized weakness. Psychiatric: Patients mood is calm and shows no sign of agitation. Genital: Brown catheter is present. Pelvic and rectal exam are deferred Rectal: Deferred Lab and Diagnostics Result Diagram: 04/04/1682204/04/16822 Microbiology Urine culture shows no growth to date. Urine eosinophils negative. . X-Rays, CTs and MRIs X-RAY CHEST ONE VIEW, PORTABLE INDICATIONS: altered mental status IMPRESSION: 1. Partially visualized prominent bowel loops within the upper abdomen. This is of clinical concern for potential structure ileus, abdomen x-ray is recommended for additional evaluation. 2. No acute pulmonary process. Dictated by: Rupa Blakely M.D. on 03/23/2016 at 21:57 Approved by: Rupa Blakely M.D. on 03/23/2016 at 21:57 CT BRAIN WITHOUT CONTRAST INDICATIONS: altered mental status IMPRESSION: 1. No acute intracranial process. 2. Moderate to severe atrophy and chronic microvascular ischemic changes. Dictated by: Rupa Blakely M.D. on 03/23/2016 at 21:59 Approved by: Rupa Blakely M.D. on 03/23/2016 at 21:59 CT ABDOMEN AND PELVIS WITHOUT CONTRAST IMPRESSION: 1. Findings suspicious for choledocholithiasis. If further characterization is warranted, MRCP may be helpful. There is no intrahepatic biliary ductal dilatation to suggest obstruction. 2. The appendix is not visualized; however there are no ancillary findings to suggest acute cholecystitis. These findings are concordant with the overnight interpretation. Dictated by: Tamiko Keller M.D. on 03/24/2016 at 7:22 Approved by: Tamiko Keller M.D. on 03/24/2016 at 7:31 X-RAY CHEST ONE VIEW, PORTABLE INDICATIONS: infection TECHNIQUE: One view of the chest was acquired. COMPARISON: [facility], CR, XR CHEST 1VW (PORTABLE), 03/23/2016, 21: 35. FINDINGS: Surgical changes and devices: None. Lungs and pleura: No pleural effusions or pneumothorax. Lungs are clear. Mediastinum: Mediastinal contours appear normal. Heart size is normal. Bones and chest wall: No suspicious bony lesions. Overlying soft tissues appear unremarkable. IMPRESSION: Expiratory chest demonstrating no definite acute cardiopulmonary process. Dictated by: Sarmad MORGAN Interpreted: Roger Funez MD on 03/27/2016 at 9: 52 Transcribed by: OBDULIO on 03/27/2016 at 9:52 X-RAY E.R.C. BILIARY DUCTS IMPRESSION: Common bile duct sweeping. Dictated by: Ale Graves M.D. on 03/29/2016 at 16:51 Approved by: Ale Graves M.D. on 03/29/2016 at 16:51 . Assessment & Plan This is an 85 YO female in her blood pressures have been high while with a hx of Alzheimer's, HTN, CKD, and GERD who presents to the ED via EMS from [place], [facility], with worsening confusion. Patient admitted for choledocholithiasis. #Leukocytosis with white blood cell count -Elevated White blood cell count improved after ERCP -Contacted GI for possible cholangitis however GI feels that this is not ascending cholangitis and other etiologies may be the source of infection. However, as it is true there is no evidence of biliary obstruction, there is still evidence of choledocholithiasis which could still be a potential source of infection.. -As there is no other source of infection found I spoke to Dr. Uriostegui and patient was taken for ERCP 03/29/2016 and there was a finding of large stones in the common bile duct which were removed. -We will continue antibiotic coverage with Levaquin and Flagyl in place of Zosyn which was discontinued when patient developed renal failure. -We have discontinued Rocephin as there is no need for double beta-lactam coverage. -UA shows no evidence of infection. -Follow up chest x-ray shows no evidence of infection. # Toxic metabolic encephalopathy with confusion, acute on chronic, present on admission, and ongoing - Pt has a history of Alzheimer's and TIA's, presented with worsening confusion. UA is negative, CT brain with no acute pathology. Possible worsening dementia versus exacerbation due to infection. Patient's daughter states that the patient has experienced a significant decline in her performance status. - Continue to monitor. - PT to continue eval and treat - Speech therapy to continue to evaluate and treat as needed - Palliative care has been consulted. # Choledocholithiasis, unknown chronicity, present on admission - GI consulted and they proceeded with ERCP. - LFTs currently stable -Patient recently spiked a temperature and had leukocytosis with a white blood cell count up to 27.2 from 11.4. We will continue to treat the patient for possible cholangitis (without obstruction) with Levaquin and Flagyl. In place of Zosyn. Day #6 of 10 IV antibiotics after ERCP - Repeat a CBC and CMP in the morning - ERCP performed 03/29/2016 with successful removal of large stones from the common bile duct # DIXON, present on admission and( I suspect) exacerbated by high-dose indomethacin, used as premedication prior to ERCP, with acute tubular necrosis. - Pt with acute tubular necrosis on chronic renal failure with CKD, stage III. Again likely secondary to indomethacin - Appreciate nephrology consultation and follow-up, we will follow the recommendations as follows: - We will place Brown catheter to better monitor patient's urine output - Continue labetalol 200 mg twice daily. Continue to hold hydralazine ( tachycardia) and lisinopril (DIXON). - Urine culture shows no growth to date. - Urine eosinophils negative. - Continue Pepcid as PPI's can induce acute interstitial nephritis. - IVF have been discontinued today - Renal function is improving very slowly. Baseline Cr between 1.5-1.9. Continue to monitor urine output and renal function closely. Avoid nephrotoxic agents. Does not require renal replacement therapy at this time # Anemia, acute on chronic, present on admission - Patient presents with Hb of 10.6 and stool occult blood positive. Likely multifactorial given history of iron deficiency, multiple GI bleeds, and CKD Stage III. Pt takes ferrous sulfate 325 mg PO TID daily. - Pt was was hospitalized for suspected acute GI bleed earlier this month, s/p PRBC transfusion and post esophagogastroduodenoscopy (EGD) on 03/12/16 without any obvious source of bleeding. Acute on chronic anemia. poa - Today H&H is stable at 11.5/ 37.1 # H/o paroxysmal atrial fibrillation - Pt used to be on aspirin and plavix which were D/C d/t last BI bleed - Telemetry monitoring to continue # Bradycardia, chronic, stable - Telemetry monitoring to continue # HTN, chronic, - Unstable patient has been having bouts of elevated blood pressure 5 mg of Lopressor was given will continue to monitor and adjust medications as necessary # Dementia, chronic and advanced - Worsening per discussion with her daughter. This certainly could be due to current infection, along with possible progressive dementia. - Palliative care has been consulted. Case discussed with patient's daughter "Lawrence" at bedside. Disposition: Patient had an ERCP 03/29/2016 due to choledocholithiasis. Several large common bile duct stones were removed. Patient still has leukocytosis. Patient developed acute renal failure after the ERCP, likely due to acute tubular necrosis. This was multifactorial including use of indomethacin prior to ERCP. Dr. Whitaker to follow in a.m. Pain Evaluation: Adequate Pain Control GI Prophylaxis: Proton Pump Inhibitor VTE Mechanical Devices: Intermittant Pneumatic CD Resuscitation Status: DNR/DNI:Do Not Resuscitate/Intubate Limited Interventions: BiPAP, Medications and IV Fluid Alfonzo Murdock MD Apr 05, 2016 01:28
--- NOTE | 2016-04-05 01:54 | NUR ---
IV Site IV site flushed two times in order to become patent. Pt hand was moved to allow for easier access for antibiotic infusion.
[2016-04-05 05:12] VITALS: BP 142/69; PULSE 72; RESP 20; O2SAT 94
--- NOTE | 2016-04-05 06:13 | NUR ---
Mentation No significant changes noted in mentation this shift. Continues to open eyes to name and touch but is non verbal with staff.
[2016-04-05 07:30] LABS: BASOPHILS % (AUTO) 0.1 % (0-3); EOSINOPHILS % (AUTO) 0.2 % (0-5); MONOCYTES % (AUTO) 6.8 % (4-12); Mean Corpuscular Hemoglobin 25.7 pg (27.0-35.0); Mean Corpuscular Volume 81.9 fL (81-100); NEUTROPHILS % (AUTO) 88.1 % (40-74); Platelet Count 247 bil/L (150-400)
[2016-04-05] MEDS ORDERED: KCl 40 mEq/D5W 500 mL 40 MEQ in IV Premix 500 EACH IV ONE (08:30)
--- NOTE | 2016-04-05 09:26 | NUR ---
ARLETH: Patient unable to sign for self asked [employer] to follow up via phone with daughter.
[2016-04-05] MEDS ORDERED: Dextrose 5% 1,000 ML IV ONE (10:05)
[2016-04-05] MEDS: Heparin 5,000 Unit/mL Inj SUBQ SCH ×2 (10:40→22:24)
[2016-04-05] MEDS: Albuterol-Ipratropium 3 mL Inhalation Solution NEB SCH ×3 (10:55→19:23)
[2016-04-05 10:58] VITALS: PULSE 84; RESP 20; O2SAT 96
[2016-04-05] MEDS: Diltiazem CD 240 mg ER24 Capsule PO SCH (11:14)
--- NOTE | 2016-04-05 11:40 | PCM.PNMED ---
Subjective Date of Service Apr 05, 2016 Subjective Nephrology Progress Note: Attending Dr. Simone Stone is an 85-year-old demented female with a past medical history of Alzheimer's, hypertension, CKD stage III, and GERD who presented to [facility] ED via EMS from [facility] assisted living facility with worsening confusion. Patient admitted for choledocholithiasis. Hospital Day #13. Overnight: There were no acute events. Telemetry overnight: Sinus rhythm, heart rate 70 to 80's, occasional PAC's and PVC's. Subjective exam and review of systems unobtainable as patient is non-verbal secondary to possible encephalopathy and underlying dementia. She is more somnolent today. She continues to have difficulty with breathing and is using her accessory muscles. . Exam Vital Signs Vital Sign - Last Date Time Temp Pulse Resp B/P Pulse Ox O2 Delivery O2 Flow Rate FiO2 04/05/16 10:58 84 20 96 Nasal Cannula 2.00 04/05/16 05:12 36.8 142/69 Intake and Output 04/04/16 04/04/16 04/05/16 Cumulative From/Thru 15:00 23:00 07:00 03/23/16 20:55 - 04/05/16 05:47 Intake Total 100 ml 120 ml 82784 ml Output Total 1300 ml 560 ml 5616 ml Balance -1200 ml -440 ml 94110 ml Intake Oral 100 ml 120 ml 4146 ml IV Total 0 ml 92525 ml Output Urine Total 1300 ml 560 ml 5236 ml Urine/Stool Mix 380 ml # Voids 32 # Bowel Movements 1 0 13 Exam General: Elderly female lying in bed, in no acute distress, tremulous, well- developed, well-nourished, non-verbal. HEENT: Normocephalic, atraumatic. External ears without defect. Pupils equal, round, and reactive to light. Anicteric sclerae and no lid lag. Neck: Poor turgor. No lymphadenopathy or thyromegaly. Cardiovascular: Regular rate and rhythm with no murmurs, rubs, or gallops appreciated. Pulmonary: Scattered rhonchi without rales or wheeze. Slightly tachypneic with no use of accessory muscles. Abdomen: Soft, nontender, nondistended, bowel sounds present. Extremities: No clubbing or cyanosis. Mild non-pitting edema. Skin: Normal temperature, turgor, and texture; no rash, ulcers, or subcutaneous nodules appreciated. Neurological: Non-verbal, demented, encephalopathy? . IVs and Medications Medications Reviewed: Medications were reviewed in detail Lab and Diagnostics Item Value Date Time Calcium Level 8.3 mg/dL L 04/05/16 0650 Total Bilirubin 0.3 mg/dL 04/05/16 0650 Aspartate Amino Transf (AST/SGOT) 7 U/L 04/05/16 0650 Alanine Aminotransferase (ALT/SGPT) 10 U/L 04/05/16 0650 Alkaline Phosphatase 61 U/L 04/05/16 0650 Total Protein 4.9 g/dL L 04/05/16 0650 Albumin 2.5 g/dL L 04/05/16 0650 Result Diagram: 04/05/16 0650 04/05/16 0650 Microbiology Urine culture shows no growth to date. Urine eosinophils negative. . X-Rays, CTs and MRIs X-RAY CHEST ONE VIEW, PORTABLE IMPRESSION: Bibasilar atelectasis versus aspiration or pneumonia. Dictated by: Sarmad Paredes RRA Interpreted: Zach Booth MD on 04/03/2016 at 11:01 Transcribed by: GLENDY on 04/03/2016 at 11:02 Approved by: Zach Booth M.D. on 04/03/2016 at 11:08 X-RAY CHEST ONE VIEW, PORTABLE INDICATIONS: altered mental status IMPRESSION: 1. Partially visualized prominent bowel loops within the upper abdomen. This is of clinical concern for potential structure ileus, abdomen x-ray is recommended for additional evaluation. 2. No acute pulmonary process. Dictated by: Rupa Blakely M.D. on 03/23/2016 at 21:57 Approved by: Rupa Blakely M.D. on 03/23/2016 at 21:57 CT BRAIN WITHOUT CONTRAST INDICATIONS: altered mental status IMPRESSION: 1. No acute intracranial process. 2. Moderate to severe atrophy and chronic microvascular ischemic changes. Dictated by: Rupa Blakely M.D. on 03/23/2016 at 21:59 Approved by: Rupa Blakely M.D. on 03/23/2016 at 21:59 CT ABDOMEN AND PELVIS WITHOUT CONTRAST IMPRESSION: 1. Findings suspicious for choledocholithiasis. If further characterization is warranted, MRCP may be helpful. There is no intrahepatic biliary ductal dilatation to suggest obstruction. 2. The appendix is not visualized; however there are no ancillary findings to suggest acute cholecystitis. These findings are concordant with the overnight interpretation. Dictated by: Tamiko Keller M.D. on 03/24/2016 at 7:22 Approved by: Tamiko Keller M.D. on 03/24/2016 at 7:31 X-RAY CHEST ONE VIEW, PORTABLE INDICATIONS: infection TECHNIQUE: One view of the chest was acquired. COMPARISON: [facility], CR, XR CHEST 1VW (PORTABLE), 03/23/2016, 21: 35. FINDINGS: Surgical changes and devices: None. Lungs and pleura: No pleural effusions or pneumothorax. Lungs are clear. Mediastinum: Mediastinal contours appear normal. Heart size is normal. Bones and chest wall: No suspicious bony lesions. Overlying soft tissues appear unremarkable. IMPRESSION: Expiratory chest demonstrating no definite acute cardiopulmonary process. Dictated by: Sarmad Paredes RRA Interpreted: Roger Funez MD on 03/27/2016 at 9: 52 Transcribed by: OBDULIO on 03/27/2016 at 9:52 X-RAY E.R.C. BILIARY DUCTS IMPRESSION: Common bile duct sweeping. Dictated by: Ale Graves M.D. on 03/29/2016 at 16:51 Approved by: Ale Graves M.D. on 03/29/2016 at 16:51 . Assessment & Plan Jossie Stone is an 85-year-old demented female with a past medical history of Alzheimer's, hypertension, CKD stage III, and GERD who presented to [facility] ED via EMS from [facility] assisted living facility with worsening confusion. Patient admitted for choledocholithiasis. Hospital Day #13. Impression: 1. Acute kidney injury superimposed on chronic kidney disease stage III. Acute portion likely secondary to postoperative acute tubular necrosis and medication- induced acute tubular necrosis (indomethacin, lisinopril, or Zosyn). 2. Choledocholithiasis status post endoscopic retrograde cholangiopancreatography on 03/29/2016 with successful removal of large stones from the common bile duct. 3. Hypertension, uncontrolled. 4. Dementia with worsening mental status likely related to metabolic encephalopathy from the ongoing infections. 5. Hypernatremia likely iatrogenic and secondary to inability to access to free water. 6. Anion gap metabolic acidosis. 7. Candidiasis. 8. Possible aspiration pneumonia. 9. Hypernatremia. Plan: - Continue labetalol 200 mg twice daily. Continue to hold hydralazine ( tachycardia) and lisinopril (DIXON). - Continue Pepcid as PPI's can induce acute interstitial nephritis. - Started chlorthalidone 25 mg daily and D5W at 50 mL/hr to decrease hypernatremia. - Renal function continues to improve. Baseline Cr between 1.5-1.9. Continue to monitor urine output and renal function closely. Avoid nephrotoxic agents. Does not require renal replacement therapy at this time. . GI Prophylaxis: Proton Pump Inhibitor VTE Mechanical Devices: Intermittant Pneumatic CD Resuscitation Status: DNR/DNI:Do Not Resuscitate/Intubate Limited Interventions: BiPAP, Medications and IV Fluid Evonne Joshi DO Apr 05, 2016 11:40
--- NOTE | 2016-04-05 12:00 | NUR ---
Feeding Family at bedside who wish to feed pt. Pt awakens for breakfast and dinner mostly. Allowing pt to rest during lunch as it takes her a long time to eat other meals. Educated family of ensuring pt us upright and willing to take in foods and swallowing. Care continues
[2016-04-05] MEDS ORDERED: HYDROmorphone 0.5 mg/0.5 mL iSecure Syringe IVPUSH PRN (12:20)
--- NOTE | 2016-04-05 12:28 | PCM.PALLBR ---
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 Over the last several days the patient's condition failed to improve with intervention and antibiotic therapy and Palliative medicine was brought on board to discuss goals of care. Further details of my conversation with family members today noted below. -Symptom management (Pain/other) - Per conversation with Dr. Joshi of nephrology, patient has been started on IV fluid of D5W for management of her progressive hypernatremia. Family is comfortable with this sort of intervention to see if it can help her recover. Dr. Joshi has also made other appropriate orders for electrolyte supplementation , etc. - Patient generally appeared comfortable and in no other distress. Family did state that maintaining comfort was a primary goal and they were comfortable with use of opioids, etc. if needed for her comfort. To that end, orders written for prn hydromorphone as needed. -DPOA/Advanced Directives/POLST - Daughter Lyndsey Oliver lives in [facility] and is DPOA however likes to make decisions with input from two brothers, one Buck Stone lives in [facility] one lives in [place] - Previous POLST completed by [facility] Palliative team in May 2014 was discussed but no changes made at this time - Family is considering transition to comfort/end-of-life care if the patient shows no improvement over the next several days of conservative therapy -Family/emotional support - Good support from family members as noted -Spiritual support - not discussed at this time. Family Goals: 1. Family wants to be told the truth about her illness, even if it is unpleasant. 2. Family would like to be told prognosis when it can be predicted, to better guide treatment decisions. 3. Treat the disease processes which can be reversed 4. Maintain patient comfort Additional Medical Diagnoses with primary management by Hospitalist team include : choledocholithiasis and probable ascending cholangitis Alzheimer's Dementia History of TIA with left facial droop urinary incontinence chronic kidney disease stage III, with a creatinine that runs 1.4-1.5. 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 If she does not improve over the next several days, or it would appear that her poor prehospitalization functional status would be further permanently impaired , then family anticipates transition to comfort/end-of-life care Disposition To be determined Resuscitation Status Resuscitation Status: DNR/DNI:Do Not Resuscitate/Intubate Limited Interventions: BiPAP, Medications and IV Fluid POLST Updates/Changes Previous POLST?: Yes POLST Last Review Date: Apr 04, 2016 Antibiotics: Determine Use or Limitations POLST Discussed with: Health Care Agent (DPOAHC) POLST Review Outcome: No Change . Advanced Care Planning Address: Comfort care Pain: Mild Symptom management: Drowsiness/sleepiness Total time 65 minutes; >50% face to face with patient and/or family, providing counselling regarding plans and recommendations, and in care coordination with his/her medical teams. Of the above total time, 15 minutes counseling for advanced care planning with the patient's family, reviewing advanced directive and other care issues. copies to: Jose G Brown MD Palliative Brief Note Date of Service Apr 05, 2016 . Returned to reevaluate patient. Prior to visiting, reviewed her updated records in the EMR in detail. Spoke with her bedside nurse. Later, reviewed case with Dr. Joshi who is following for nephrology. When I first evaluated her, and no family members were present. Patient was somnolent but would open her eyes to stimulation. No verbal interaction and would not follow any commands. At the time of that visit, vital signs were noted. Skin was cool and dry. Head and neck exam without acute focal findings. No facial droop evident. Lungs with dependent crackles, no wheezes. Heart sounds irregular. Abdomen is obese, soft, without apparent tenderness or peritoneal signs. Extremities with diffuse puffiness, particularly upper extremities. Trace pitting edema at ankles. Moves her feet when stimulated (Babinskis downgoing) but I really cannot get her to move her upper extremities at all. When I raise her arms though, they are not flaccid and did not fall and to passive range of motion at the wrists and elbows resistance is felt. Laboratory studies reviewed. I returned later in the morning when her brother Kar and [id number] were present. Later her daughter Lawrence arrived as well. We talked at length, reviewing her status prior to hospitalization (slowly but steadily declining over the last year- her son noted that "she spends 90% of her time sleeping in a chair") and her progress during this hospitalization. Reviewed the directions noted on her POLST as well as the families of their wishes for care. Answered questions they had. Ultimately, they decided that they wanted to take some time and talk to family, review the situation with the third sibling and then talk further in the coming days about their wishes and goals for care. All were in agreement, however, that if the patient remained in her present state that they would not want to prolong her in that state and would transition to comfort care. Amor Pyle MD Apr 05, 2016 09:14
[2016-04-05 13:48] VITALS: BP 116/72; PULSE 67; RESP 16; O2SAT 96
--- NOTE | 2016-04-05 15:33 | PCM.PNMED ---
Subjective Date of Service Apr 05, 2016 Subjective No complaints Exam Vital Signs Vital Sign - Last Date Time Temp Pulse Resp B/P Pulse Ox O2 Delivery O2 Flow Rate FiO2 04/05/16 13:48 37.1 67 16 116/72 96 Nasal Cannula 2.00 Intake and Output 04/04/16 04/04/16 04/05/16 Cumulative From/Thru 15:00 23:00 07:00 03/23/16 20:55 - 04/05/16 05:47 Intake Total 100 ml 120 ml 36052 ml Output Total 1300 ml 560 ml 5616 ml Balance -1200 ml -440 ml 42095 ml Intake Oral 100 ml 120 ml 4146 ml IV Total 0 ml 34485 ml Output Urine Total 1300 ml 560 ml 5236 ml Urine/Stool Mix 380 ml # Voids 32 # Bowel Movements 1 0 13 Exam Gen: opens eyes to loud voice, didn't speak but did shrug shoulders in response to a question. Nurse reports she is more alert in the morning and able to eat breakfast and take her pills Heart: reg Lungs: clear ant/lat but doesn't take a deep breath on request. Abd: soft, NT, BT present Lower extrem: feet and ankles seem puffy but no pitting edema IVs and Medications Medications Reviewed: Medications were reviewed in detail Lab and Diagnostics Result Diagram: 04/05/16 0650 04/05/16 0650 Microbiology Urine culture shows no growth to date. Urine eosinophils negative. . X-Rays, CTs and MRIs X-RAY CHEST ONE VIEW, PORTABLE IMPRESSION: Bibasilar atelectasis versus aspiration or pneumonia. Dictated by: Sarmad Paredes [facility] Interpreted: Zach Booth MD on 04/03/2016 at 11:01 Transcribed by: GLENDY on 04/03/2016 at 11:02 Approved by: Zach Booth M.D. on 04/03/2016 at 11:08 X-RAY CHEST ONE VIEW, PORTABLE INDICATIONS: altered mental status IMPRESSION: 1. Partially visualized prominent bowel loops within the upper abdomen. This is of clinical concern for potential structure ileus, abdomen x-ray is recommended for additional evaluation. 2. No acute pulmonary process. Dictated by: Rupa Blakely M.D. on 03/23/2016 at 21:57 Approved by: Rupa Blakely M.D. on 03/23/2016 at 21:57 CT BRAIN WITHOUT CONTRAST INDICATIONS: altered mental status IMPRESSION: 1. No acute intracranial process. 2. Moderate to severe atrophy and chronic microvascular ischemic changes. Dictated by: Rupa Blakely M.D. on 03/23/2016 at 21:59 Approved by: Rupa Blakely M.D. on 03/23/2016 at 21:59 CT ABDOMEN AND PELVIS WITHOUT CONTRAST IMPRESSION: 1. Findings suspicious for choledocholithiasis. If further characterization is warranted, MRCP may be helpful. There is no intrahepatic biliary ductal dilatation to suggest obstruction. 2. The appendix is not visualized; however there are no ancillary findings to suggest acute cholecystitis. These findings are concordant with the overnight interpretation. Dictated by: Tamiko Keller M.D. on 03/24/2016 at 7:22 Approved by: Tamiko Keller M.D. on 03/24/2016 at 7:31 X-RAY CHEST ONE VIEW, PORTABLE INDICATIONS: infection TECHNIQUE: One view of the chest was acquired. COMPARISON: [facility], CR, XR CHEST 1VW (PORTABLE), 03/23/2016, 21: 35. FINDINGS: Surgical changes and devices: None. Lungs and pleura: No pleural effusions or pneumothorax. Lungs are clear. Mediastinum: Mediastinal contours appear normal. Heart size is normal. Bones and chest wall: No suspicious bony lesions. Overlying soft tissues appear unremarkable. IMPRESSION: Expiratory chest demonstrating no definite acute cardiopulmonary process. Dictated by: Sarmad Paredes RRA Interpreted: Roger Funez MD on 03/27/2016 at 9: 52 Transcribed by: OBDULIO on 03/27/2016 at 9:52 X-RAY E.R.C. BILIARY DUCTS IMPRESSION: Common bile duct sweeping. Dictated by: Ale Graves M.D. on 03/29/2016 at 16:51 Approved by: Ale Graves M.D. on 03/29/2016 at 16:51 . Assessment & Plan Jossie Stone is an 85-year-old demented female with a past medical history of Alzheimer's, hypertension, CKD stage III, and GERD who presented to [facility] ED via EMS from [facility] assisted living facility with worsening confusion. Patient admitted Mar 24 for choledocholithiasis. # Choledocholithiasis, unknown chronicity, present on admission - GI consulted and they proceeded with ERCP performed 03/29/2016 with successful removal of large stones from the common bile duct - Later in hosp stay spiked fever and leukocytosis worsened again, not felt by GI to be due to ascending cholangitis but treated with with Levaquin and Flagyl in place of Zosyn - LFTs currently stable #Leukocytosis with white blood cell count -As there is no other source of infection found on admission patient was taken for ERCP 03/29/2016 and there was a finding of large stones in the common bile duct which were removed. -We will continue antibiotic coverage with Levaquin and Flagyl in place of Zosyn which was discontinued when patient developed renal failure. -Elevated White blood cell count improved after ERCP but now worse again - more recent CXR with bibasilar opacities which could be c/w pneumonia ( Possible aspiration pneumonia), should be covered by Levaquin & Flagyl -Urine culture with jose armando. # Toxic metabolic encephalopathy with confusion, acute on chronic, present on admission, and ongoing - Pt has a history of Alzheimer's and TIA's, presented with worsening confusion. CT brain with no acute pathology. Possible worsening dementia versus exacerbation due to infection. Patient's daughter states that the patient has experienced a significant decline in her performance status. - Continue to monitor. - PT to continue eval and treat - Speech therapy to continue to evaluate and treat as needed - Palliative care has been consulted. # Acute kidney injury superimposed on chronic kidney disease stage III. Acute portion likely secondary to postoperative acute tubular necrosis and medication- induced acute tubular necrosis (indomethacin, lisinopril, or Zosyn). - Appreciate nephrology consultation and follow-up, recommendations today were: - Continue labetalol 200 mg twice daily. Continue to hold hydralazine ( tachycardia) and lisinopril (DIXON). - Continue Pepcid as PPI's can induce acute interstitial nephritis. - Started chlorthalidone 25 mg daily and D5W at 50 mL/hr to decrease hypernatremia. - Renal function continues to improve. Baseline Cr between 1.5-1.9. Continue to monitor urine output and renal function closely. Avoid nephrotoxic agents. Does not require renal replacement therapy at this time. # Hypernatremia - per nephrology, she has been started on IV fluid of D5W for management of her progressive hypernatremia # Hypertension, uncontrolled. - continue as per nephrology # Anemia, acute on chronic, present on admission - Patient presents with Hb of 10.6 and stool occult blood positive. Likely multifactorial given history of iron deficiency, multiple GI bleeds, and CKD Stage III. Pt takes ferrous sulfate 325 mg PO TID daily. - Pt was was hospitalized for suspected acute GI bleed earlier this month, s/p PRBC transfusion and post esophagogastroduodenoscopy (EGD) on 03/12/16 without any obvious source of bleeding. Acute on chronic anemia. poa # H/o paroxysmal atrial fibrillation - Pt used to be on aspirin and plavix which were D/C d/t last BI bleed - Telemetry monitoring to continue # Bradycardia, chronic, stable - Telemetry monitoring to continue # Dementia, chronic and advanced - Worsening per discussion with her daughter. This certainly could be due to current infection, along with possible progressive dementia. - Palliative care has been consulted - see their note. GI Prophylaxis: Proton Pump Inhibitor VTE Mechanical Devices: Intermittant Pneumatic CD Resuscitation Status: DNR/DNI:Do Not Resuscitate/Intubate Limited Interventions: BiPAP, Medications and IV Fluid Krystyna Whitaker MD Apr 05, 2016 15:33
[2016-04-05 16:08] VITALS: PULSE 66; RESP 22; O2SAT 96
--- NOTE | 2016-04-05 16:15 | NUR ---
Social Work: [facility] [employer] Specialist attempted to call patient's daughter in reference to CONENR because patient is non-decisionl, but there was no answer. SW left a message requesting a call back. Meg Andrews, CODY, ACM
[2016-04-05 17:44] LABS: APPEARANCE,URINE HAZY (CLEAR,HAZY); COLOR,URINE YELLOW (YELLOW); OCCULT BLOOD,URINE SMALL (NEGATIVE); UROBILINOGEN,URINE NORMAL (NORMAL); YEAST,URINE FEW (NONE SEEN)
[2016-04-05 19:23] VITALS: PULSE 68; RESP 20; O2SAT 98
[2016-04-05 20:55] VITALS: BP 113/63; PULSE 67; RESP 20; O2SAT 95
[2016-04-06] VITALS (8 sets, daily range): BP systolic 112–143; BP diastolic 61–72; PULSE 64–73; RESP 16–22; O2SAT 95–98
--- NOTE | 2016-04-06 04:50 | NUR ---
Mentation/Activity Patient resting with eyes closed most of shift. Does open eyes to verbal & tactile stimuli, but not awake enough to safely take PO medications. All PO medications held at bedtime. Patient tolerating Q2hour turns to prevent skin b/d. No s/sx of pain or discomfort. FELDT score= 0.
--- NOTE | 2016-04-06 06:26 | NUR ---
Fluids Currently has D5W running at 50 ml/hr. Bag almost empty, no further fluid ordered. Page sent to Dr. Calabrese @ [phone]. Addendum: 04/06/16 at 0728 by OLEG CRUZ RN No response back from Dr. Calabrese. [facility] SUSIE.
[2016-04-06 06:57] LABS: BASOPHILS % (AUTO) 0.1 % (0-3); EOSINOPHILS % (AUTO) 0.9 % (0-5); MONOCYTES % (AUTO) 8.5 % (4-12); Mean Corpuscular Hemoglobin 26.1 pg (27.0-35.0); Mean Corpuscular Volume 83.3 fL (81-100); NEUTROPHILS % (AUTO) 81.2 % (40-74); Platelet Count 225 bil/L (150-400)
[2016-04-06] MEDS: Albuterol-Ipratropium 3 mL Inhalation Solution NEB SCH ×4 (07:33→19:58)
[2016-04-06] MEDS ORDERED: 0.9% Sodium Chloride 250 ML ONE (08:18)
[2016-04-06] MEDS: Heparin 5,000 Unit/mL Inj SUBQ SCH ×2 (08:27→20:43)
[2016-04-06] MEDS: Diltiazem CD 240 mg ER24 Capsule PO SCH (08:28)
--- NOTE | 2016-04-06 11:10 | PCM.PNMED ---
Subjective Date of Service Apr 06, 2016 Subjective Nephrology Progress Note: Attending Dr. Simone Stone is an 85-year-old demented female with a past medical history of Alzheimer's, hypertension, CKD stage III, and GERD who presented to [facility] ED via EMS from [facility] assisted living facility with worsening confusion. Patient admitted for choledocholithiasis. Hospital Day #13. Overnight: There were no acute events. Telemetry overnight: Sinus rhythm, heart rate 70 to 80's, occasional PAC's and PVC's. Subjective exam and review of systems unobtainable as patient is non-verbal secondary to possible encephalopathy and underlying dementia. She continues to be very somnolent. . Exam Vital Signs Vital Sign - Last Date Time Temp Pulse Resp B/P Pulse Ox O2 Delivery O2 Flow Rate FiO2 04/06/16 08:40 Supplement Oxygen 04/06/16 08:25 65 143/70 97 04/06/16 07:34 16 3.00 04/06/16 05:55 36.6 Intake and Output 04/05/16 04/05/16 04/06/16 Cumulative From/Thru 15:00 23:00 07:00 03/23/16 20:55 - 04/06/16 06:20 Intake Total 930 ml 649 ml 63360 ml Output Total 350 ml 200 ml 6166 ml Balance 580 ml 449 ml 09393 ml Intake Oral 50 ml 0 ml 4196 ml IV Total 880 ml 649 ml 97609 ml Output Urine Total 350 ml 200 ml 5786 ml Urine/Stool Mix 380 ml # Voids 32 # Bowel Movements 0 13 Exam General: Elderly female lying in bed, in no acute distress, chronically ill appearing, non-verbal, somnolent. HEENT: Normocephalic, atraumatic. External ears without defect. Pupils equal, round, and reactive to light. Anicteric sclerae and no lid lag. Neck: Poor turgor. No lymphadenopathy or thyromegaly. Cardiovascular: Regular rate and rhythm with no murmurs, rubs, or gallops appreciated. Pulmonary: Scattered rhonchi without rales or wheeze. Slightly tachypneic with use of accessory muscles. Abdomen: Soft, nontender, nondistended, bowel sounds present. Extremities: No clubbing or cyanosis. Mild non-pitting edema. Skin: Normal temperature, turgor, and texture; no rash, ulcers, or subcutaneous nodules appreciated. Neurological: Non-verbal, demented,somnolent. . IVs and Medications Medications Reviewed: Medications were reviewed in detail Lab and Diagnostics Item Value Date Time Calcium Level 7.8 mg/dL L 04/06/16644 Total Bilirubin 0.3 mg/dL 04/06/16 06 Aspartate Amino Transf (AST/SGOT) 11 U/L 04/06/16 06 Alanine Aminotransferase (ALT/SGPT) 7 U/L 04/06/16 06 Alkaline Phosphatase 51 U/L 04/06/16644 Total Protein 4.7 g/dL L 04/06/16644 Albumin 2.3 g/dL L 04/06/16644 Result Diagram: 04/06/1664404/06/16644 Microbiology Urine culture shows no growth to date. Urine eosinophils negative. . X-Rays, CTs and MRIs X-RAY CHEST ONE VIEW, PORTABLE IMPRESSION: Bibasilar atelectasis versus aspiration or pneumonia. Dictated by: Sarmad Paredes [facility] Interpreted: Zach Booth MD on 04/03/2016 at 11:01 Transcribed by: GLENDY on 04/03/2016 at 11:02 Approved by: Zach Booth M.D. on 04/03/2016 at 11:08 X-RAY CHEST ONE VIEW, PORTABLE INDICATIONS: altered mental status IMPRESSION: 1. Partially visualized prominent bowel loops within the upper abdomen. This is of clinical concern for potential structure ileus, abdomen x-ray is recommended for additional evaluation. 2. No acute pulmonary process. Dictated by: Rupa Blakely M.D. on 03/23/2016 at 21:57 Approved by: Rupa Blakely M.D. on 03/23/2016 at 21:57 CT BRAIN WITHOUT CONTRAST INDICATIONS: altered mental status IMPRESSION: 1. No acute intracranial process. 2. Moderate to severe atrophy and chronic microvascular ischemic changes. Dictated by: Rupa Blakely M.D. on 03/23/2016 at 21:59 Approved by: Rupa Blakely M.D. on 03/23/2016 at 21:59 CT ABDOMEN AND PELVIS WITHOUT CONTRAST IMPRESSION: 1. Findings suspicious for choledocholithiasis. If further characterization is warranted, MRCP may be helpful. There is no intrahepatic biliary ductal dilatation to suggest obstruction. 2. The appendix is not visualized; however there are no ancillary findings to suggest acute cholecystitis. These findings are concordant with the overnight interpretation. Dictated by: Tamiko Keller M.D. on 03/24/2016 at 7:22 Approved by: Tamiko Keller M.D. on 03/24/2016 at 7:31 X-RAY CHEST ONE VIEW, PORTABLE INDICATIONS: infection TECHNIQUE: One view of the chest was acquired. COMPARISON: [facility], CR, XR CHEST 1VW (PORTABLE), 03/23/2016, 21: 35. FINDINGS: Surgical changes and devices: None. Lungs and pleura: No pleural effusions or pneumothorax. Lungs are clear. Mediastinum: Mediastinal contours appear normal. Heart size is normal. Bones and chest wall: No suspicious bony lesions. Overlying soft tissues appear unremarkable. IMPRESSION: Expiratory chest demonstrating no definite acute cardiopulmonary process. Dictated by: Sarmad Paredes RRA Interpreted: Roger Funez MD on 03/27/2016 at 9: 52 Transcribed by: OBDULIO on 03/27/2016 at 9:52 X-RAY E.R.C. BILIARY DUCTS IMPRESSION: Common bile duct sweeping. Dictated by: Ale Graves M.D. on 03/29/2016 at 16:51 Approved by: Ale Graves M.D. on 03/29/2016 at 16:51 . Assessment & Plan Jossie Stone is an 85-year-old demented female with a past medical history of Alzheimer's, hypertension, CKD stage III, and GERD who presented to [facility] ED via EMS from [facility] assisted living facility with worsening confusion. Patient admitted for choledocholithiasis. Hospital Day #13. Impression: 1. Acute kidney injury superimposed on chronic kidney disease stage III. Acute portion likely secondary to postoperative acute tubular necrosis and medication- induced acute tubular necrosis (indomethacin, lisinopril, or Zosyn). 2. Choledocholithiasis status post endoscopic retrograde cholangiopancreatography on 03/29/2016 with successful removal of large stones from the common bile duct. 3. Hypertension, uncontrolled. 4. Dementia with decline. 5. Hypernatremia likely iatrogenic and secondary to inability to access to free water. 6. Anion gap metabolic acidosis. 7. Candidiasis. 8. Possible aspiration pneumonia. 9. Hypernatremia. Resolving. Plan: - Continue labetalol 200 mg twice daily. Continue to hold hydralazine ( tachycardia) and lisinopril (DIXON). - Continue Pepcid as PPI's can induce acute interstitial nephritis. - Continue chlorthalidone 25 mg daily for hypernatremia. - Renal function continues to improve. Baseline Cr between 1.5-1.9. Continue to monitor urine output and renal function closely. Avoid nephrotoxic agents. Does not require renal replacement therapy at this time. - Palliative care has been consulted and the patient's family is leaning towards comfort care based on the patient's decline over the last year but they need some time over the weekend to discuss and to make this decision. We will sign off from a renal standpoint. Feel free to contact us with any further questions. . GI Prophylaxis: Proton Pump Inhibitor VTE Mechanical Devices: Intermittant Pneumatic CD Resuscitation Status: DNR/DNI:Do Not Resuscitate/Intubate Limited Interventions: BiPAP, Medications and IV Fluid Attending Statement Nephrology attending: The patient was seen and examined along with the internal medicine resident and we have thoroughly discussed the patient's care. His detailed note which is written above for which I agree with. At this point I feel that Mrs. Stone is about as stable as she is going to be. We will go ahead and sign off at this time. Should any problems arise between now and her time of discharge is cognizant a task or contact us if you have any questions. Evonne Joshi DO Apr 06, 2016 11:10 Bib Nichols DO Apr 06, 2016 11:46
--- NOTE | 2016-04-06 11:37 | NUR ---
CONNER signed by patient's daughter
--- NOTE | 2016-04-06 11:38 | NUR ---
Social Work: Readiness for discharge [place] met with patient's daughter at bedside to discuss discharge planning. Patient's daughter is aware that [facility] is not able to take the patient back with where she is medically. Patient's does want the patient to return to [facility] if she improves medically and they are able to accept her back. SW gave the patient's daughter a list of SNF and the patient's daughter will review and notify SW of choice incase the patient has to discharge to a SNF. SW will continue to follow. Meg Andrews LMSW, ACM
--- NOTE | 2016-04-06 11:59 | PCM.PNMED ---
Subjective Date of Service Apr 06, 2016 Subjective Family feels she's a little better today and she seems more relaxed to them Exam Vital Signs Vital Sign - Last Date Time Temp Pulse Resp B/P Pulse Ox O2 Delivery O2 Flow Rate FiO2 04/06/16 08:40 Supplement Oxygen 04/06/16 08:25 65 143/70 97 04/06/16 07:34 16 3.00 04/06/16 05:55 36.6 Intake and Output 04/05/16 04/05/16 04/06/16 Cumulative From/Thru 15:00 23:00 07:00 03/23/16 20:55 - 04/06/16 06:20 Intake Total 930 ml 649 ml 09325 ml Output Total 350 ml 200 ml 6166 ml Balance 580 ml 449 ml 90878 ml Intake Oral 50 ml 0 ml 4196 ml IV Total 880 ml 649 ml 84462 ml Output Urine Total 350 ml 200 ml 5786 ml Urine/Stool Mix 380 ml # Voids 32 # Bowel Movements 0 13 Exam Sleeping, doesn't arouse to voice but family says she's tired from eating breakfast this morning which they fed to her Heart: reg Lungs: clear ant/lat Abd: soft, NT Extrem: no edema IVs and Medications Medications Reviewed: Medications were reviewed in detail Lab and Diagnostics Result Diagram: 04/06/16 0645 04/06/16 0645 Microbiology Urine culture shows no growth to date. Urine eosinophils negative. . X-Rays, CTs and MRIs X-RAY CHEST ONE VIEW, PORTABLE IMPRESSION: Bibasilar atelectasis versus aspiration or pneumonia. Dictated by: Sarmad Paredes [facility] Interpreted: Zach Booth MD on 04/03/2016 at 11:01 Transcribed by: GLENDY on 04/03/2016 at 11:02 Approved by: Zach Booth M.D. on 04/03/2016 at 11:08 X-RAY CHEST ONE VIEW, PORTABLE INDICATIONS: altered mental status IMPRESSION: 1. Partially visualized prominent bowel loops within the upper abdomen. This is of clinical concern for potential structure ileus, abdomen x-ray is recommended for additional evaluation. 2. No acute pulmonary process. Dictated by: Rupa Blakely M.D. on 03/23/2016 at 21:57 Approved by: Rupa Blakely M.D. on 03/23/2016 at 21:57 CT BRAIN WITHOUT CONTRAST INDICATIONS: altered mental status IMPRESSION: 1. No acute intracranial process. 2. Moderate to severe atrophy and chronic microvascular ischemic changes. Dictated by: Rupa Blakely M.D. on 03/23/2016 at 21:59 Approved by: Rupa Blakely M.D. on 03/23/2016 at 21:59 CT ABDOMEN AND PELVIS WITHOUT CONTRAST IMPRESSION: 1. Findings suspicious for choledocholithiasis. If further characterization is warranted, MRCP may be helpful. There is no intrahepatic biliary ductal dilatation to suggest obstruction. 2. The appendix is not visualized; however there are no ancillary findings to suggest acute cholecystitis. These findings are concordant with the overnight interpretation. Dictated by: Tamiko Keller M.D. on 03/24/2016 at 7:22 Approved by: Tamiko Keller M.D. on 03/24/2016 at 7:31 X-RAY CHEST ONE VIEW, PORTABLE INDICATIONS: infection TECHNIQUE: One view of the chest was acquired. COMPARISON: [facility], CR, XR CHEST 1VW (PORTABLE), 03/23/2016, 21: 35. FINDINGS: Surgical changes and devices: None. Lungs and pleura: No pleural effusions or pneumothorax. Lungs are clear. Mediastinum: Mediastinal contours appear normal. Heart size is normal. Bones and chest wall: No suspicious bony lesions. Overlying soft tissues appear unremarkable. IMPRESSION: Expiratory chest demonstrating no definite acute cardiopulmonary process. Dictated by: Sarmad Paredes RRA Interpreted: Roger Funez MD on 03/27/2016 at 9: 52 Transcribed by: OBDULIO on 03/27/2016 at 9:52 X-RAY E.R.C. BILIARY DUCTS IMPRESSION: Common bile duct sweeping. Dictated by: Ale Graves M.D. on 03/29/2016 at 16:51 Approved by: Ale Graves M.D. on 03/29/2016 at 16:51 . Assessment & Plan Jossie Stone is an 85-year-old demented female with a past medical history of Alzheimer's, hypertension, CKD stage III, and GERD who presented to [facility] ED via EMS from [facility] assisted living facility with worsening confusion. Patient admitted Mar 24 for choledocholithiasis. # Choledocholithiasis, unknown chronicity, present on admission - GI consulted and they proceeded with ERCP performed 03/29/2016 with successful removal of large stones from the common bile duct - Later in hosp stay spiked fever and leukocytosis worsened again, not felt by GI to be due to ascending cholangitis but treated with with Levaquin and Flagyl in place of Zosyn (which was discontinued when patient developed renal failure, received Mar 25-) #Leukocytosis, mild and persistent but afebrile -As there is no other source of infection found on admission patient was taken for ERCP 03/29/2016 and there was a finding of large stones in the common bile duct which were removed. -Elevated White blood cell count improved after ERCP but then worsened again - more recent CXR with bibasilar opacities which could be c/w pneumonia ( Possible aspiration pneumonia), should be covered by Levaquin & Flagyl, both started Mar 31 so today will be day #7 for both which should be an adequate length of therapy, Will DC after today's doses -Urine culture with jose armando and fluconazole started Apr 02. Hard to know if this is cystitis infection vs colonization but if felt to be infection a 14 day course may be appropriate. # Toxic metabolic encephalopathy with confusion, acute on chronic, present on admission, and ongoing - Pt has a history of Alzheimer's and TIA's, presented with worsening confusion. CT brain with no acute pathology. Possible worsening dementia versus exacerbation due to infection. Patient's daughter states that the patient has experienced a significant decline in her performance status. - Continue to monitor. - PT to continue eval and treat - Speech therapy to continue to evaluate and treat as needed - Palliative care has been consulted. - Today family feels they are seeing some improvement and want to continue current therapy # Acute kidney injury superimposed on chronic kidney disease stage III. Acute portion likely secondary to postoperative acute tubular necrosis and medication- induced acute tubular necrosis (indomethacin, lisinopril, or Zosyn). - Renal function some improved, creatinine now stable at approx 2.2-2.4. Previously baseline Cr between 1.5-1.9. - Appreciate nephrology consultation and follow-up (now signing off), recommendations were: -- Continue labetalol 200 mg twice daily. Continue to hold hydralazine ( tachycardia) and lisinopril (DIXON). -- Continue Pepcid as PPI's can induce acute interstitial nephritis. -- Started chlorthalidone 25 mg daily and D5W at 50 mL/hr to decrease hypernatremia. -- Continue to monitor urine output and renal function closely. Avoid nephrotoxic agents. Does not require renal replacement therapy at this time. # Hypernatremia - per nephrology, she was started on IV fluid of D5W for management of her progressive hypernatremia, will continue # Hypertension, control improving. - continue as per nephrology recommendations # Anemia, acute on chronic, present on admission - Patient presents with Hb of 10.6 and stool occult blood positive. Likely multifactorial given history of iron deficiency, multiple GI bleeds, and CKD Stage III. Pt takes ferrous sulfate 325 mg PO TID daily. - Pt was was hospitalized for suspected acute GI bleed earlier this month, s/p PRBC transfusion and post esophagogastroduodenoscopy (EGD) on 03/12/16 without any obvious source of bleeding. Acute on chronic anemia. poa # H/o paroxysmal atrial fibrillation - Pt used to be on aspirin and plavix which were D/C d/t last BI bleed - Telemetry monitoring to continue # Bradycardia, chronic, stable - Telemetry monitoring to continue # Dementia, chronic and advanced - Worsening per discussion with her daughter. This certainly could be due to current infection, along with possible progressive dementia. - Palliative care has been consulted - see their note. GI Prophylaxis: Proton Pump Inhibitor VTE Mechanical Devices: Intermittant Pneumatic CD Resuscitation Status: DNR/DNI:Do Not Resuscitate/Intubate Limited Interventions: BiPAP, Medications and IV Fluid Krystyna Whitaker MD Apr 06, 2016 11:59
[2016-04-06] MEDS: Dextrose 5% 1,000 ML IV SCH (12:20)
[2016-04-06] MEDS: levoFLOXacin Inj 250 MG in IV Premix 1 EACH IV SCH (12:21)
--- NOTE | 2016-04-06 16:37 | NUR ---
NUTRITION FOLLOW-UP: ASSESS:85 YO female admitted for increased confusion and choledocholithiasis s/p ERCP on 03/29/16. Renal function is slowly improving, nephrology is following. Pt was eating an avg of 55% of meals on admit, but po intake decreased to bites-25% of meals x 6 days. However, her appetite appears to be improved, as current tray talleys indicate 75 - 100% trays. She is currently on a pureed diet per ST and is receiving NT ensure on all trays. Palliative care is involved for goals of care; family may transition to comfort care in the patient patient does not respond to treatment.. Tube feeding was discussed by palliative care with pts daughter. Daughter is currently undecided regarding nutrition support. Daughter is aware that tube feeding is not typically recommended for pts w/dementia. PMHx: Alzheimer's, HTN, CKD stage III, GERD LABS: Reviewed. Na 148, Chloride 115, BUN 51, Cr 2.22, Glu 183, Ca 7.8, Alb 2.3. MEDS: Reviewed. GI: BM x 1 (04/04) WT: 65.0 kg. BMI 26 kg/m2, Admit wt: 60.6 kg. DIET: Pureed, [place] thick, with [place] thick ensure all trays. PO 75% - 100% trays. EST. NEEDS: 8945-1482 kcals (25-30 kcals/kg BW), 60-75 g protein (1.0-1.2 g/kg BW) NUTRITION DIAGNOSIS: 1) Inadequate oral intake related to decreased level of consciousness as evidenced by po intake of bites-25% of meals x 6 days - IMPROVED. 2) Chew/Swallow difficulty related to mentation as evidence by need for pureed diet w/NT liquids per ST - PERSISTS. NUTRITION INTERVENTION: 1) Continue to send ensure on all trays and continue to encourage PO intake w/1:1 feedings 2) Consider nutrition support in the event PO intake declines again, in the event nutrition support is consistent with pt plan of care. However, tube feeding is not typically recommend for pts with dementia as it does not improve quality of life. Will continue to monitor POC. MONITOR / EVAL: PO intake, ST, labs, wt, GI, POC, nutritional status. Follow per high nutritional risk guidelines.
--- NOTE | 2016-04-06 16:53 | NUR ---
Mentation/Activity Patient alert and awake the first part of this shift. Patient consumed all of her breakfast and lunch this shift. Patient turned every two hours. Daughter at bedside. Heels floated and arms elevated. Call light and tray table within reach. Will continue to monitor patient hourly.
--- NOTE | 2016-04-06 22:42 | NUR ---
Mentation/Medication Patient more awake and alert this evening. Able to safely take PO medications without any issue. Order to hold Lobetalol if BP <120/80. BP this evening= 116/61. Lobetalol held.
[2016-04-07] VITALS (7 sets, daily range): BP systolic 135–158; BP diastolic 72–79; PULSE 73–88; RESP 18–24; O2SAT 95–98
[2016-04-07 06:46] LABS: Mean Corpuscular Hemoglobin 25.7 pg (27.0-35.0); Mean Corpuscular Volume 82.2 fL (81-100)
[2016-04-07] MEDS: Dextrose 5% 1,000 ML IV SCH (08:25)
[2016-04-07] MEDS: Diltiazem CD 240 mg ER24 Capsule PO SCH (08:30)
[2016-04-07] MEDS: Heparin 5,000 Unit/mL Inj SUBQ SCH ×2 (09:09→20:26)
[2016-04-07] MEDS: Albuterol-Ipratropium 3 mL Inhalation Solution NEB SCH ×4 (09:32→21:44)
--- NOTE | 2016-04-07 09:56 | PCM.PNMED ---
Subjective Date of Service Apr 07, 2016 Subjective Galo was feeding pt a pureed diet this morning when pt suddenly vomited, galo isn' t sure if pt had any cough or choking prior to vomiting Exam Vital Signs Vital Sign - Last Date Time Temp Pulse Resp B/P Pulse Ox O2 Delivery O2 Flow Rate FiO2 04/07/16 09:32 75 22 97 Nasal Cannula 3.00 04/07/16 05:10 37.1 135/72 Intake and Output 04/06/16 04/06/16 04/07/16 Cumulative From/Thru 15:00 23:00 07:00 03/23/16 20:55 - 04/07/16 06:32 Intake Total 1415 ml 719 ml 44810 ml Output Total 200 ml 325 ml 6691 ml Balance 1215 ml 394 ml 94140 ml Intake Oral 745 ml 0 ml 4941 ml IV Total 670 ml 719 ml 37273 ml Output Urine Total 200 ml 325 ml 6311 ml Urine/Stool Mix 380 ml # Voids 32 # Bowel Movements 0 13 Exam Appears comfortable, NAD, opens eyes to voice but doesn't speak Heart: occl irreg beat Lungs: clear ant/lat, poss slight decreased BS right lat base Abd: Soft, NT Extrem: No pedal edema IVs and Medications Medications Reviewed: Medications were reviewed in detail Lab and Diagnostics Result Diagram: 04/07/1618 04/07/16 0618 Microbiology Urine culture shows no growth to date. Urine eosinophils negative. . X-Rays, CTs and MRIs X-RAY CHEST ONE VIEW, PORTABLE IMPRESSION: Bibasilar atelectasis versus aspiration or pneumonia. Dictated by: Sarmad Paredes [facility] Interpreted: Zach Booth MD on 04/03/2016 at 11:01 Transcribed by: GLENDY on 04/03/2016 at 11:02 Approved by: Zach Booth M.D. on 04/03/2016 at 11:08 X-RAY CHEST ONE VIEW, PORTABLE INDICATIONS: altered mental status IMPRESSION: 1. Partially visualized prominent bowel loops within the upper abdomen. This is of clinical concern for potential structure ileus, abdomen x-ray is recommended for additional evaluation. 2. No acute pulmonary process. Dictated by: Rupa Blakely M.D. on 03/23/2016 at 21:57 Approved by: Rupa Blakely M.D. on 03/23/2016 at 21:57 CT BRAIN WITHOUT CONTRAST INDICATIONS: altered mental status IMPRESSION: 1. No acute intracranial process. 2. Moderate to severe atrophy and chronic microvascular ischemic changes. Dictated by: Rupa Blakely M.D. on 03/23/2016 at 21:59 Approved by: Rupa Blakely M.D. on 03/23/2016 at 21:59 CT ABDOMEN AND PELVIS WITHOUT CONTRAST IMPRESSION: 1. Findings suspicious for choledocholithiasis. If further characterization is warranted, MRCP may be helpful. There is no intrahepatic biliary ductal dilatation to suggest obstruction. 2. The appendix is not visualized; however there are no ancillary findings to suggest acute cholecystitis. These findings are concordant with the overnight interpretation. Dictated by: Tamiko Keller M.D. on 03/24/2016 at 7:22 Approved by: Tamiko Keller M.D. on 03/24/2016 at 7:31 X-RAY CHEST ONE VIEW, PORTABLE INDICATIONS: infection TECHNIQUE: One view of the chest was acquired. COMPARISON: [facility], CR, XR CHEST 1VW (PORTABLE), 03/23/2016, 21: 35. FINDINGS: Surgical changes and devices: None. Lungs and pleura: No pleural effusions or pneumothorax. Lungs are clear. Mediastinum: Mediastinal contours appear normal. Heart size is normal. Bones and chest wall: No suspicious bony lesions. Overlying soft tissues appear unremarkable. IMPRESSION: Expiratory chest demonstrating no definite acute cardiopulmonary process. Dictated by: Sarmad Paredes [facility] Interpreted: Roger Funez MD on 03/27/2016 at 9: 52 Transcribed by: OBDULIO on 03/27/2016 at 9:52 X-RAY E.R.C. BILIARY DUCTS IMPRESSION: Common bile duct sweeping. Dictated by: Ale Graves M.D. on 03/29/2016 at 16:51 Approved by: Ale Graves M.D. on 03/29/2016 at 16:51 . Assessment & Plan Jossie Stone is an 85-year-old demented female with a past medical history of Alzheimer's, hypertension, CKD stage III, and GERD who presented to [facility] ED via EMS from [facility] assisted living facility with worsening confusion. Patient admitted Mar 24 for choledocholithiasis. # Choledocholithiasis, unknown chronicity, present on admission - GI consulted and they proceeded with ERCP performed 03/29/2016 with successful removal of large stones from the common bile duct - Later in hosp stay spiked fever and leukocytosis worsened again, not felt by GI to be due to ascending cholangitis but treated with with Levaquin and Flagyl in place of Zosyn (which was discontinued when patient developed renal failure, received Mar 25-) #Leukocytosis, mild and persistent but afebrile, today down to 12.6 -As there is no other source of infection found on admission patient was taken for ERCP 03/29/2016 and there was a finding of large stones in the common bile duct which were removed. -Elevated White blood cell count improved after ERCP but then worsened again - more recent CXR 04/03 with bibasilar opacities which could be c/w pneumonia ( Possible aspiration pneumonia), should be covered by Levaquin & Flagyl, both started Mar 31 so today will be day #7 for both which should be an adequate length of therapy, Will DC after today's dose of Levaquin (qod dosing) and tomorrow am dose of Flagyl -Urine culture with jose armando and fluconazole started Apr 02. Repeat urine 2/3 with yeast, ID pending. Hard to know if this is cystitis infection vs colonization but if felt to be infection a 14 day course may be appropriate. # Toxic metabolic encephalopathy with confusion, acute on chronic, present on admission, and ongoing - Pt has a history of Alzheimer's and TIA's, presented with worsening confusion. CT brain with no acute pathology. Possible worsening dementia versus exacerbation due to infection. Patient's daughter states that the patient has experienced a significant decline in her performance status. - Continue to monitor. - Possible aspiration today. Will have Speech therapy re-evaluate. If not available today (Friday) recommended to galo that she be NPO until then but galo is reluctant (concerned about her nutritional status). Will discuss again if ST not available. - Palliative care has been consulted and should be seeing the pt/family again tomorrow (Friday). - This weekend family is still wanting to continue current therapy # Acute kidney injury superimposed on chronic kidney disease stage III. Acute portion likely secondary to postoperative acute tubular necrosis and medication- induced acute tubular necrosis (indomethacin, lisinopril, or Zosyn). - Renal function some improved, creatinine now stable at approx 2.2-2.4. Previously baseline Cr between 1.5-1.9. - Appreciate nephrology consultation and follow-up (now signing off), recommendations were: -- Continue labetalol 200 mg twice daily. Continue to hold hydralazine ( tachycardia) and lisinopril (DIXON). -- Continue Pepcid as PPI's can induce acute interstitial nephritis. -- Started chlorthalidone 25 mg daily and D5W at 50 mL/hr to decrease hypernatremia. -- Continue to monitor urine output and renal function closely. Avoid nephrotoxic agents. Does not require renal replacement therapy at this time. # Hypernatremia, stable today at 148 - per nephrology, she was started on IV fluid of D5W for management of her progressive hypernatremia, will continue # Hypertension, improved control - continue as per nephrology recommendations # Anemia, acute on chronic, present on admission - Patient presents with Hb of 10.6 and stool occult blood positive. Likely multifactorial given history of iron deficiency, multiple GI bleeds, and CKD Stage III. Pt takes ferrous sulfate 325 mg PO TID daily. - Pt was was hospitalized for suspected acute GI bleed earlier this month, s/p PRBC transfusion and post esophagogastroduodenoscopy (EGD) on 03/12/16 without any obvious source of bleeding. Acute on chronic anemia. poa # H/o paroxysmal atrial fibrillation - Pt used to be on aspirin and plavix which were D/C d/t last BI bleed - Telemetry monitoring to continue # Bradycardia, chronic, stable - Telemetry monitoring to continue # Dementia, chronic and advanced - Worsening per discussion with her daughter. This certainly could be due to current infection, along with possible progressive dementia. - Palliative care has been consulted - see their note. GI Prophylaxis: Proton Pump Inhibitor VTE Mechanical Devices: Intermittant Pneumatic CD Resuscitation Status: DNR/DNI:Do Not Resuscitate/Intubate Limited Interventions: BiPAP, Medications and IV Fluid Krystyna Whitaker MD Apr 07, 2016 09:56
[2016-04-08] MEDS: Dextrose 5% 1,000 ML IV SCH (04:26)
[2016-04-08 04:59] VITALS: BP 137/71; PULSE 88; RESP 21; O2SAT 95
--- NOTE | 2016-04-08 05:53 | NUR ---
Activity Pt opening eyes to verbal stimuli and responded "yes" when asked if she was doing okay, other than that answer pt has been nonverbal. There were no issues taking medications at bedtime. Pt has been turned Q2 hrs throughout the shift. Stephanie vasquez, aman care performed.
--- NOTE | 2016-04-08 07:33 | NUR ---
Palliative care note (late note for 04/05/16) D/A: Pt seen in consult today by Dr. Pyle. He notes conversation with family regarding possible transition to comfort care. Family wanting to get together and discuss further. Note that pt is from [place]. Pt is noted to have Medicare and [employer]. Possible consideration of hospice. Left message for Luz Marina at [facility] regarding above and possible referral. Left message for [employer] regarding above. It is possible that with a union based policy that might be an older police with more comprehensive benefits that there might be additional coverage as compared to more usual Medicare/supplement offerings. P: Palliative to follow. Davina DHILLON, CCM
[2016-04-08] MEDS: Albuterol-Ipratropium 3 mL Inhalation Solution NEB SCH ×4 (07:55→20:04)
[2016-04-08 07:57] VITALS: PULSE 85; RESP 22; O2SAT 95
[2016-04-08 08:52] LABS: BASOPHILS % (AUTO) 0.3 % (0-3); EOSINOPHILS % (AUTO) 1.5 % (0-5); MONOCYTES % (AUTO) 7.6 % (4-12); Mean Corpuscular Hemoglobin 26.1 pg (27.0-35.0); Mean Corpuscular Volume 81.7 fL (81-100); NEUTROPHILS % (AUTO) 84.3 % (40-74); Platelet Count 244 bil/L (150-400)
[2016-04-08] MEDS: Diltiazem CD 240 mg ER24 Capsule PO SCH (09:02)
[2016-04-08] MEDS: Heparin 5,000 Unit/mL Inj SUBQ SCH ×2 (09:02→21:36)
[2016-04-08 09:27] LABS: Magnesium 1.9 mg/dL (1.6-2.6); Phosphorus 3.7 mg/dL (2.5-4.9)
--- NOTE | 2016-04-08 09:49 | DRSVH ---
PROCEDURE: X-RAY CHEST ONE VIEW, PORTABLE ([id number]) INDICATIONS: pulmonary vasc congestion TECHNIQUE: One view of the chest was acquired. COMPARISON: [facility], CR, XR CHEST 1VW (PORTABLE), 04/03/2016, 9:08. FINDINGS: Surgical changes and devices: Cholecystectomy clips. Lungs and pleura: No pleural effusions or pneumothorax. Bibasilar airspace opacities.. Mediastinum: Mediastinal contours appear normal. Heart size is normal. Bones and chest wall: No suspicious bony lesions. Overlying soft tissues appear unremarkable. IMPRESSION: Bibasilar atelectasis versus aspiration or pneumonia. Correlate clinically. Dictated by: Sarmad Paredes RRA Interpreted: Dorothy Ramsay MD on 04/08/2016 at 9:48 Transcribed by: EMEKA on 04/08/2016 at 9:48 Approved by: Dorothy Ramsay MD, PhD on 04/08/2016 at 17:00
[2016-04-08 11:48] VITALS: PULSE 78; RESP 18; O2SAT 98
--- NOTE | 2016-04-08 12:07 | NUR ---
Patient has supplemental insurance through [employer] and [employer] this is not its own plan and is only there to supplement Medicare. Updated [employer]
--- NOTE | 2016-04-08 13:30 | NUR ---
Evaluation completed. Please go to "Notes" then click on "Assessments and Notes" (bottom left corner of screen). Then select appropriate discipline tab on top of screen.
[2016-04-08 13:35] VITALS: BP 129/64; PULSE 74; RESP 20; O2SAT 96
--- NOTE | 2016-04-08 13:46 | PCM.PALLBR ---
Palliative Care Recommendation Summary of palliative recommendations: Hospital Course: The 85yoF patient with past medical history remarkable for dementia, CKD, UGIB 2/2 AVM and was seen at [facility] and treated with ERCP choledocholithiasis on 03/29/2015 and she has been maintained on antibiotics for possible ascending cholangitis. Her progress has stalled and Palliative medicine was brought on board to discuss goals of care. Please see notes below for further details of lengthy conversations with family members today. I did advise her family members today that they need to plan on her being discharged in the next 1-2 days as she appears to have reached a plateau. -Symptom management (Pain/other) - Patient generally appeared comfortable and in no significant distress. Family has stated that maintaining comfort was a primary goal and they were comfortable with use of opioids, etc. if needed for her comfort. To that end, orders written for prn hydromorphone as needed. -DPOA/Advanced Directives/POLST - Daughter Lyndsey Oliver lives in [facility] and is DPOA however likes to make decisions with input from two brothers, one Buck Stone lives in [facility] one lives in [place]. Conversations through the weekend and today were with Lyndsey and Kra and Kar's - Previous POLST completed by [facility] Palliative team in May 2014 was discussed but no changes made at this time. She remains DO NOT RESUSCITATE/DO NOT INTUBATE/limited interventions - Family had considered transition to comfort/end-of-life care earlier, but with the patient's minimal improvement, are uncertain of how to proceed now. -Family/emotional support - Good support from family members as noted -Spiritual support - not discussed at this time. Family Goals: 1. Family wants to be told the truth about her illness, even if it is unpleasant. 2. Family would like to be told prognosis when it can be predicted, to better guide treatment decisions. 3. Treat the disease processes which can be reversed 4. Maintain patient comfort Additional Medical Diagnoses with primary management by Hospitalist team include : choledocholithiasis and probable ascending cholangitis Alzheimer's Dementia History of TIA with left facial droop urinary incontinence chronic kidney disease stage III, with a creatinine that runs 1.4-1.5. 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 If she does not improve over the next several days, or it would appear that her poor prehospitalization functional status would be further permanently impaired , then family anticipates transition to comfort/end-of-life care Disposition To be determined Resuscitation Status Resuscitation Status: DNR/DNI:Do Not Resuscitate/Intubate Limited Interventions: BiPAP, Medications and IV Fluid POLST Updates/Changes Previous POLST?: Yes POLST Last Review Date: Apr 04, 2016 Antibiotics: Determine Use or Limitations POLST Discussed with: Health Care Agent (DPOAHC) POLST Review Outcome: No Change . Advanced Care Planning Address: Comfort care Pain: None Symptom management: Drowsiness/sleepiness Total time 85 minutes; >50% face to face with patient and family, spread across multiple visits, providing counselling regarding plans and recommendations, and in care coordination with her medical teams. Of the above total time, 55 minutes counseling for advanced care planning with the patient's family copies to: Jose G Brown MD Palliative Brief Note Date of Service Apr 08, 2016 . Returned to reevaluate patient. I had visited over the weekend on Friday and spoke at length with the family at that time. Spoke with her son, daughter and [id number] again today on multiple occasions. Reviewed status with bedside nurse as well. Patient continues to slowly improve. Family has been able to get her to eat most of her meals, and occasionally she will speak one word to them. Whenever I see her, continues to keep her eyes tightly closed and does not follow any commands or directions. Family agrees that she has not moved in the bed at all and will not move her use her hands or arms at all- though occasionally she will wiggle her toes. This is a significant step back from her prior level of function. I spoke with physical therapy today after they had done a reevaluation at my request. They agree that she cannot meaningfully participate in a rehabilitation program. They felt that she has deteriorated very significantly since her last hospitalization. During my multiple conversations with her family members, we again reviewed her past status, her current hospitalization and limited degree of improvement, and tried to talk through what their wishes for ongoing care would be. Family members still are not in agreement and remain ambivalent about their wishes- some wish for some degree of ongoing aggressive care while others seem to indicate that they realize that she is approaching end-of-life. They remain uncertain though about what level of ongoing care they want, whether or not she should transition to hospice care, whether they would want to return to the hospital for further care, etc. They remain focused on laboratory and x-ray results while at the same time verbalizing that they understand that those results may be meaningless in the larger picture of her steady decline and progressive dementia. I had spoken with case planner as well and they are working on options dependent on her goals, status, insurance, etc. On exam today, she is an obese elderly woman lying in bed. Vital signs noted. Skin was pale, warm and dry. Head and neck exam without acute changes. Lungs clear anteriorly, heart sounds irregular, abdomen obese but without evidence of tenderness. Extremities with disuse puffiness and minimal pitting edema. Neurologic exam is limited in that she will not follow any commands, but there is no evidence of her extremities being flaccid- when I raise her arms up above her she clearly has muscle tone and does not allow her arms to fall down- she just simply cannot/will not participate or follow commands. Amor Pyle MD Apr 08, 2016 13:46
--- NOTE | 2016-04-08 13:47 | PCM.PNMED ---
Subjective Date of Service Apr 08, 2016 Subjective Patient was not communicative this morning Although daughter was able to feed her, patient did not have any aspiration episodes Patient had fever 37.9 yesterday Patient is currently off on oral antibiotics Exam Vital Signs Vital Sign - Last Date Time Temp Pulse Resp B/P Pulse Ox O2 Delivery O2 Flow Rate FiO2 04/08/16 11:48 78 18 98 Nasal Cannula 2.00 04/08/16 04:59 37.1 137/71 Intake and Output 04/07/16 04/07/16 04/08/16 Cumulative From/Thru 15:00 23:00 07:00 03/23/16 20:55 - 04/08/16 05:21 Intake Total 1095 ml 607 ml 38270 ml Output Total 450 ml 410 ml 7551 ml Balance 645 ml 197 ml 54550 ml Intake Oral 425 ml 0 ml 5366 ml IV Total 670 ml 607 ml 11289 ml Output Urine Total 450 ml 410 ml 7171 ml Urine/Stool Mix 380 ml # Voids 32 # Bowel Movements 0 13 Exam Cachectic, frail elderly lady Does not follow commands, no JVD, MMM, no LAD RRR, nl s1, s2 no mrg CTAB, no w,c S,ND,NT,normoactive BS+ warm, no edema, pulses 2/2 IVs and Medications Medications Reviewed: Medications were reviewed in detail Lab and Diagnostics Result Diagram: 04/08/16 0834 04/08/16 0834 Microbiology Urine culture shows no growth to date. Urine eosinophils negative. . X-Rays, CTs and MRIs X-RAY CHEST ONE VIEW, PORTABLE IMPRESSION: Bibasilar atelectasis versus aspiration or pneumonia. Dictated by: Sarmad Paredes RRA Interpreted: Zach Booth MD on 04/03/2016 at 11:01 Transcribed by: GLENDY on 04/03/2016 at 11:02 Approved by: Zach Booth M.D. on 04/03/2016 at 11:08 X-RAY CHEST ONE VIEW, PORTABLE INDICATIONS: altered mental status IMPRESSION: 1. Partially visualized prominent bowel loops within the upper abdomen. This is of clinical concern for potential structure ileus, abdomen x-ray is recommended for additional evaluation. 2. No acute pulmonary process. Dictated by: Rupa Blakely M.D. on 03/23/2016 at 21:57 Approved by: Rupa Blakely M.D. on 03/23/2016 at 21:57 CT BRAIN WITHOUT CONTRAST INDICATIONS: altered mental status IMPRESSION: 1. No acute intracranial process. 2. Moderate to severe atrophy and chronic microvascular ischemic changes. Dictated by: Rupa Blakely M.D. on 03/23/2016 at 21:59 Approved by: Rupa Blakely M.D. on 03/23/2016 at 21:59 CT ABDOMEN AND PELVIS WITHOUT CONTRAST IMPRESSION: 1. Findings suspicious for choledocholithiasis. If further characterization is warranted, MRCP may be helpful. There is no intrahepatic biliary ductal dilatation to suggest obstruction. 2. The appendix is not visualized; however there are no ancillary findings to suggest acute cholecystitis. These findings are concordant with the overnight interpretation. Dictated by: Tamiko Keller M.D. on 03/24/2016 at 7:22 Approved by: Tamiko Keller M.D. on 03/24/2016 at 7:31 X-RAY CHEST ONE VIEW, PORTABLE INDICATIONS: infection TECHNIQUE: One view of the chest was acquired. COMPARISON: [facility], CR, XR CHEST 1VW (PORTABLE), 03/23/2016, 21: 35. FINDINGS: Surgical changes and devices: None. Lungs and pleura: No pleural effusions or pneumothorax. Lungs are clear. Mediastinum: Mediastinal contours appear normal. Heart size is normal. Bones and chest wall: No suspicious bony lesions. Overlying soft tissues appear unremarkable. IMPRESSION: Expiratory chest demonstrating no definite acute cardiopulmonary process. Dictated by: Sarmad Paredes RRA Interpreted: Roger Funez MD on 03/27/2016 at 9: 52 Transcribed by: OBDULIO on 03/27/2016 at 9:52 X-RAY E.R.C. BILIARY DUCTS IMPRESSION: Common bile duct sweeping. Dictated by: Ale Graves M.D. on 03/29/2016 at 16:51 Approved by: Ale Graves M.D. on 03/29/2016 at 16:51 . Assessment & Plan Jossie Stone is an 85-year-old demented female with a past medical history of Alzheimer's, hypertension, CKD stage III, and GERD who presented to [facility] ED via EMS from [facility] assisted living facility with worsening confusion. Patient admitted Mar 24 for choledocholithiasis. acute, active # Toxic metabolic encephalopathy with confusion, acute on chronic, present on admission, and ongoing, likely multifactorial: Underlying advanced Alzheimer dz , hypernatremia, deconditioning, dehydration, infections-PNA, it seems that this is her new baseline MS, unlikely significantly improve. -appreciate palliative care input regarding establishing realistic goal of tx -currently patient is not actively on medical management, finished abx, GI procedures -will determine dispo: hospice vs SNF per palliative care input -avoid any forms of sedatives, eveline benzos, reassess MS qshift #Leukocytosis, mild and persistent, possible source: UTI with jose armando infection , as there is no other source of infection found on admission patient was taken for ERCP 03/29/2016 and there was a finding of large stones in the common bile duct which were removed. Leukocytosis improved after ERCP but then worsened again - had fever 37.9 2/5, wbc remaining high with Neut dominant. - more recent CXR 04/03 with bibasilar opacities which could be c/w pneumonia ( Possible aspiration pneumonia), should be covered by Levaquin & Flagyl, both started Mar 31, finished 7days course. - Urine culture with jose armando and fluconazole started Apr 02. Repeat urine 2/3 with yeast, -will d/c hill to rule out cath-associated UTI, send another UA -trends wbc, fever curve, procalcitonin # Hypernatremia, likely hypovolemic due to poor po intake, improving with free water - per nephrology, she was started on IV fluid of D5W for management of her progressive hypernatremia, will continue chronic, stable # Choledocholithiasis, unknown chronicity, present on admission - GI consulted and they proceeded with ERCP performed 03/29/2016 with successful removal of large stones from the common bile duct - Later in hosp stay spiked fever and leukocytosis worsened again, not felt by GI to be due to ascending cholangitis but treated with with Levaquin and Flagyl in place of Zosyn (which was discontinued when patient developed renal failure, received Mar 25-) # Acute kidney injury superimposed on chronic kidney disease stage III. Acute portion likely secondary to postoperative acute tubular necrosis and medication- induced acute tubular necrosis (indomethacin, lisinopril, or Zosyn). - Renal function some improved, creatinine now stable at approx 2.2-2.4. Previously baseline Cr between 1.5-1.9. - Appreciate nephrology consultation and follow-up (now signing off), recommendations were: -- Continue labetalol 200 mg twice daily. Continue to hold hydralazine ( tachycardia) and lisinopril (DIXON). -- Continue Pepcid as PPI's can induce acute interstitial nephritis. -- Started chlorthalidone 25 mg daily and D5W at 50 mL/hr to decrease hypernatremia. -- Continue to monitor urine output and renal function closely. Avoid nephrotoxic agents. Does not require renal replacement therapy at this time. # Hypertension, improved control - continue as per nephrology recommendations # Anemia, acute on chronic, present on admission - Patient presents with Hb of 10.6 and stool occult blood positive. Likely multifactorial given history of iron deficiency, multiple GI bleeds, and CKD Stage III. Pt takes ferrous sulfate 325 mg PO TID daily. - Pt was was hospitalized for suspected acute GI bleed earlier this month, s/p PRBC transfusion and post esophagogastroduodenoscopy (EGD) on 03/12/16 without any obvious source of bleeding. Acute on chronic anemia. poa # H/o paroxysmal atrial fibrillation - Pt used to be on aspirin and plavix which were D/C d/t last BI bleed - Telemetry monitoring to continue # Bradycardia, chronic, stable - Telemetry monitoring to continue # Dementia, chronic and advanced - Worsening per discussion with her daughter. This certainly could be due to current infection, along with possible progressive dementia. - Palliative care has been consulted - see their note. dispo: given persistent wbc, not ready for d/c yet, consider in 1-2days, diet: Puree, very high risks of aspiration dvt ppx: HSQ DNR/DNI GI Prophylaxis: Proton Pump Inhibitor VTE Mechanical Devices: Intermittant Pneumatic CD Resuscitation Status: DNR/DNI:Do Not Resuscitate/Intubate Limited Interventions: BiPAP, Medications and IV Fluid Time spent 35 minutes Jonathan Ortega MD Apr 08, 2016 13:47
--- NOTE | 2016-04-08 13:57 | NUR ---
Gave access and faxed facesheet to [facility] and [facility] per [employer] WORKER
[2016-04-08 15:27] LABS: APPEARANCE,URINE CLOUDY (CLEAR,HAZY); COLOR,URINE YELLOW (YELLOW); OCCULT BLOOD,URINE TRACE (NEGATIVE); UROBILINOGEN,URINE NORMAL (NORMAL)
--- NOTE | 2016-04-08 15:27 | NUR ---
Social Work Continued Discharge Planning: SW discussed discharge plans with patient family at bedside. SW discussed comfort care at SNF vs hospice at SNF. Patient and family states plans as SNF placement under comfort care at SNF, [facility] or [facility]. SW requested that UR specialist send referral to mentioned facilities. SW to follow on acceptance status. SW to follow. PLAN: SNF under comfort care, pending accepting SNF. David ARGUELLES
[2016-04-08 15:30] LABS: YEAST,URINE MANY (NONE SEEN)
[2016-04-08 20:07] VITALS: PULSE 71; RESP 18; O2SAT 94
[2016-04-08 22:14] VITALS: BP 135/64; PULSE 74; RESP 15; O2SAT 97
[2016-04-09] MEDS: Dextrose 5% 1,000 ML IV SCH ×2 (00:30→20:47)
--- NOTE | 2016-04-09 02:26 | NUR ---
AYLA Discussed order to remove hill with the pt's daughter and DPOA, Lawrence. She does not want the hill removed since the pt is nearing end of life and is "comfortable at the moment." Call made to Hospitalist who said to disregard the DC hill order.
[2016-04-09] MEDS: Ondansetron 2 mg/mL 2 mL Inj IVPUSH PRN (02:43)
--- NOTE | 2016-04-09 04:58 | NUR ---
Emesis Pt had large amount of emesis, unable to measure because pt projectile vomited on bed. Able to get pt up to 90 degrees before she began to vomit. Pt was given 8mg IV Zofran and has since stopped vomiting. Full bed change completed, along with oral care. Pt now resting, eyes closed, does not appear to be in discomfort.
[2016-04-09] MEDS: Albuterol-Ipratropium 3 mL Inhalation Solution NEB SCH (05:45)
[2016-04-09 05:46] VITALS: PULSE 67; RESP 18; O2SAT 91
[2016-04-09 05:48] VITALS: BP 146/69; PULSE 67; RESP 20; O2SAT 94
[2016-04-09 07:08] LABS: BASOPHILS % (AUTO) 0.9 % (0-3); MONOCYTES % (AUTO) 9.3 % (4-12); Mean Corpuscular Hemoglobin 25.9 pg (27.0-35.0); NEUTROPHILS % (AUTO) 77.9 % (40-74); Platelet Count 284 bil/L (150-400)
[2016-04-09] MEDS ORDERED: Albuterol-Ipratropium 3 mL Inhalation Solution NEB PRN (07:50)
[2016-04-09] MEDS: Diltiazem CD 240 mg ER24 Capsule PO SCH (08:34)
[2016-04-09] MEDS: Heparin 5,000 Unit/mL Inj SUBQ SCH ×2 (08:34→20:56)
--- NOTE | 2016-04-09 10:47 | NUR ---
Social Work Continued Discharge Planning: ESTEFANI spoke to [facility] of rep Merissa who states that patient accepted to SNF under comfort care as previously discussed with patient family. SW met with patient and family today to discuss discharge plan. Patient and family states choice to return back to [facility], [phone] with hospice services. SW spoke to [facility] and spoke to rep Cassy who states that patient able to be reconsidered for return back to [facility] in current condition under hospice care. SW discussed patient current clinical status with Cassy who was made aware and states patient able to be accepted. SW faxed additional clinical information for review [phone]. Per rep, no bedside assessment needed to be conducted. Rep requested that patient transfer to [facility] at same time of opening of hospice care services and facility prefers that patient doesn't transfer before hospice services as a result to limited staffing. SW updated palliative care. SW to coordinate hospice services with palliative care to confirm opening times with [facility] at [facility]. SW to follow. PLAN: Plan is return to [facility] under hospice of the services, pending confirmed opening time David Jovel Addendum: 04/09/16 at 1634 by FAMILIA HART Per hospice of the , [phone] Navneet who states hospice to open services tomorrow at noon. Delivery of equipment to take place tomorrow. SW to coordinate transport via [facility] ambulance. ARLETH completed with daughter. [facility] rep Cassy updated and prepared to accept patient tomorrow. David ARGUELLES
--- NOTE | 2016-04-09 12:15 | NUR ---
NUTRITION FOLLOW-UP: ASSESS: 85 YO female admitted for increased confusion and choledocholithiasis s/p ERCP on 03/29/16. Pt po intake is still inconsistent (bites - 100% of meals) but overall po intake appears to be improving slightly. RN reports pt had emesis this morning. Palliative care is involved for goals of care; family may transition to comfort care in the patient patient does not respond to treatment. Tube feeding was discussed by palliative care with pts daughter. Daughter is currently undecided regarding nutrition support. Daughter is aware that tube feeding is not typically recommended for pts w/dementia. PMHx: Alzheimer's, HTN, CKD stage III, GERD LABS: Reviewed. K+ 5.6, BUN 52, Cr 1.90, Glu 212, Ca 7.8, Alb 2.1. MEDS: Reviewed. GI: BM x 1 (04/09) WT: 68.4 kg. Admit wt: 60.6 kg. (Question accuracy as pt with limited po intake x 16 days, but could be related to fluids) DIET: Pureed, Regent thick, with Regent thick ensure all trays. PO bites-100% of trays. EST. NEEDS: 9734-3087 kcals (25-30 kcals/kg BW), 60-75 g protein (1.0-1.2 g/kg BW) NUTRITION DIAGNOSIS: 1) Inadequate oral intake related to decreased level of consciousness as evidenced by po intake of bites-100% of meals--PERSISTS. 2) Chew/Swallow difficulty related to mentation as evidence by need for pureed diet w/NT liquids per ST - PERSISTS. NUTRITION INTERVENTION: 1.) Continue to send ensure on all trays and continue to encourage PO intake w/1:1 feedings 2.) Consider nutrition support in the event PO intake declines again, in the event nutrition support is consistent with pt plan of care. However, tube feeding is not typically recommend for pts with dementia as it does not improve quality of life. Will continue to monitor POC. MONITOR / EVAL: PO intake, labs, weights, nutritional status. Follow per high nutritional risk guidelines.
--- NOTE | 2016-04-09 12:33 | NUR ---
Palliative care note D/A: Case discussed in both OSC and PC rounds today. Family has indicated now to Dr. Pyle that they have received a communication from [facility] indicating that facility can accept pt back with services of [facility]. Family indicates to Dr. Pyle that they would like to pursue this option. Phone call to Luz Marina at [facility]. She indicates that info visit can be done today with Yee, possibly around 1200. Also indicates that as of now- soonest open will be Friday04/12/16. Luz Marina to converse with [facility] staff to see if can find earlier open. This worker discusses with saranya Batista who kindly calls to [facility] who affirms that they wish for pt to be admitted same day as [facility] open. This worker meets with pt son Kar. He above plan explained to him and he affirms that they wish to have pt go home to with [facility]. Kar can meet with [facility] rep at 1145/1200 and indicates that his sister Lawrence (DPSHERITA) will be back around that time. Have called Luz Marina to confirm seeking an earlier open time for services, on this pt. Dr. Pyle aware. P: Palliative to follow. Davina DHILLON CCM Addendum: 04/09/16 at 1459 by JAYDON HARDY Palliative care note Phone call to Luz Marina at [facility] and [facility] regarding info visit and updates on open date. Davina DHILLON [facility]
--- NOTE | 2016-04-09 13:33 | PCM.PNMED ---
Subjective Date of Service Apr 09, 2016 Subjective No significant clinical improvement Patient still not communicative Hill was kept as family wishes Afebrile, hemodynamically stable overnight Family agreed on hospice, comfort care if needed [facility], Exam Vital Signs Vital Sign - Last Date Time Temp Pulse Resp B/P Pulse Ox O2 Delivery O2 Flow Rate FiO2 04/09/16 05:48 36.4 67 20 146/69 94 Nasal Cannula 2.00 Intake and Output 04/08/16 04/08/16 04/09/16 Cumulative From/Thru 15:00 23:00 07:00 03/23/16 20:55 - 04/09/16 05:48 Intake Total 390 ml 1176 ml 84688 ml Output Total 300 ml 201 ml 8052 ml Balance 90 ml 975 ml 11406 ml Intake Oral 390 ml 0 ml 5756 ml IV Total 1176 ml 10670 ml Output Urine Total 300 ml 200 ml 7671 ml Urine/Stool Mix 380 ml Emesis 1 ml 1 ml # Voids 32 # Bowel Movements 1 1 15 Exam Cachectic, frail elderly lady Does not follow commands, no JVD, MMM, no LAD RRR, nl s1, s2 no mrg CTAB, no w,c S,ND,NT,normoactive BS+ warm, no edema, pulses 2/2 IVs and Medications Medications Reviewed: Medications were reviewed in detail Lab and Diagnostics Result Diagram: 04/09/16 0615 04/09/16 0615 Microbiology Urine culture shows no growth to date. Urine eosinophils negative. . X-Rays, CTs and MRIs X-RAY CHEST ONE VIEW, PORTABLE IMPRESSION: Bibasilar atelectasis versus aspiration or pneumonia. Dictated by: Sarmad Paredes RRA Interpreted: Zach Booth MD on 04/03/2016 at 11:01 Transcribed by: GLENDY on 04/03/2016 at 11:02 Approved by: Zach Booth M.D. on 04/03/2016 at 11:08 X-RAY CHEST ONE VIEW, PORTABLE INDICATIONS: altered mental status IMPRESSION: 1. Partially visualized prominent bowel loops within the upper abdomen. This is of clinical concern for potential structure ileus, abdomen x-ray is recommended for additional evaluation. 2. No acute pulmonary process. Dictated by: Rupa Blakely M.D. on 03/23/2016 at 21:57 Approved by: Rupa Blakely M.D. on 03/23/2016 at 21:57 CT BRAIN WITHOUT CONTRAST INDICATIONS: altered mental status IMPRESSION: 1. No acute intracranial process. 2. Moderate to severe atrophy and chronic microvascular ischemic changes. Dictated by: Rupa Blakely M.D. on 03/23/2016 at 21:59 Approved by: Rupa Blakely M.D. on 03/23/2016 at 21:59 CT ABDOMEN AND PELVIS WITHOUT CONTRAST IMPRESSION: 1. Findings suspicious for choledocholithiasis. If further characterization is warranted, MRCP may be helpful. There is no intrahepatic biliary ductal dilatation to suggest obstruction. 2. The appendix is not visualized; however there are no ancillary findings to suggest acute cholecystitis. These findings are concordant with the overnight interpretation. Dictated by: Tamiko Keller M.D. on 03/24/2016 at 7:22 Approved by: Tamiko Keller M.D. on 03/24/2016 at 7:31 X-RAY CHEST ONE VIEW, PORTABLE INDICATIONS: infection TECHNIQUE: One view of the chest was acquired. COMPARISON: [facility], CR, XR CHEST 1VW (PORTABLE), 03/23/2016, 21: 35. FINDINGS: Surgical changes and devices: None. Lungs and pleura: No pleural effusions or pneumothorax. Lungs are clear. Mediastinum: Mediastinal contours appear normal. Heart size is normal. Bones and chest wall: No suspicious bony lesions. Overlying soft tissues appear unremarkable. IMPRESSION: Expiratory chest demonstrating no definite acute cardiopulmonary process. Dictated by: Sarmad Paredes RRA Interpreted: Roger Funez MD on 03/27/2016 at 9: 52 Transcribed by: OBDULIO on 03/27/2016 at 9:52 X-RAY E.R.C. BILIARY DUCTS IMPRESSION: Common bile duct sweeping. Dictated by: Ale Graves M.D. on 03/29/2016 at 16:51 Approved by: Ale Graves M.D. on 03/29/2016 at 16:51 . Assessment & Plan Jossie Stone is an 85-year-old demented female with a past medical history of Alzheimer's, hypertension, CKD stage III, and GERD who presented to [facility] ED via EMS from [facility] assisted living facility with worsening confusion. Patient admitted Mar 24 for choledocholithiasis. acute, active # Toxic metabolic encephalopathy with confusion, acute on chronic, present on admission, and ongoing, likely multifactorial: Underlying advanced Alzheimer dz , hypernatremia, deconditioning, dehydration, infections-PNA, it seems that this is her new baseline MS, unlikely significantly improve. -appreciate palliative care input regarding establishing realistic goal of tx -currently patient is not actively on medical management, finished abx, GI procedures -will determine dispo: hospice vs SNF per palliative care input -avoid any forms of sedatives, eveline benzos, reassess MS qshift #Leukocytosis, mild and persistent, possible source: UTI with jose armando infection as there is no other source of infection found on admission patient was taken for ERCP 03/29/2016 and there was a finding of large stones in the common bile duct which were removed. Leukocytosis improved after ERCP but then worsened again - had fever 37.9 2/5, wbc remaining high with Neut dominant. - more recent CXR 04/03 with bibasilar opacities which could be c/w pneumonia ( Possible aspiration pneumonia), should be covered by Levaquin & Flagyl, both started Mar 31, finished 7days course. - Urine culture with jose armando and fluconazole started Apr 02. Repeat urine 2/3 with yeast, -hill kept per family, follow up UCX 04/08 -trends wbc, fever curve, procalcitonin # Hypernatremia, likely hypovolemic due to poor po intake, improving with free water - per nephrology, she was started on IV fluid of D5W for management of her progressive hypernatremia, will continue chronic, stable # Choledocholithiasis, unknown chronicity, present on admission - GI consulted and they proceeded with ERCP performed 03/29/2016 with successful removal of large stones from the common bile duct - Later in hosp stay spiked fever and leukocytosis worsened again, not felt by GI to be due to ascending cholangitis but treated with with Levaquin and Flagyl in place of Zosyn (which was discontinued when patient developed renal failure, received Mar 25-) # Acute kidney injury superimposed on chronic kidney disease stage III. Acute portion likely secondary to postoperative acute tubular necrosis and medication- induced acute tubular necrosis (indomethacin, lisinopril, or Zosyn). - Renal function some improved, creatinine now stable at approx 2.2-2.4. Previously baseline Cr between 1.5-1.9. - Appreciate nephrology consultation and follow-up (now signing off), recommendations were: -- Continue labetalol 200 mg twice daily. Continue to hold hydralazine ( tachycardia) and lisinopril (DIXON). -- Continue Pepcid as PPI's can induce acute interstitial nephritis. -- Started chlorthalidone 25 mg daily and D5W at 50 mL/hr to decrease hypernatremia. -- Continue to monitor urine output and renal function closely. Avoid nephrotoxic agents. Does not require renal replacement therapy at this time. # Hypertension, improved control - continue as per nephrology recommendations # Anemia, acute on chronic, present on admission - Patient presents with Hb of 10.6 and stool occult blood positive. Likely multifactorial given history of iron deficiency, multiple GI bleeds, and CKD Stage III. Pt takes ferrous sulfate 325 mg PO TID daily. - Pt was was hospitalized for suspected acute GI bleed earlier this month, s/p PRBC transfusion and post esophagogastroduodenoscopy (EGD) on 03/12/16 without any obvious source of bleeding. Acute on chronic anemia. poa # H/o paroxysmal atrial fibrillation - Pt used to be on aspirin and plavix which were D/C d/t last BI bleed - Telemetry monitoring to continue # Bradycardia, chronic, stable - Telemetry monitoring to continue # Dementia, chronic and advanced - Worsening per discussion with her daughter. This certainly could be due to current infection, along with possible progressive dementia. - Palliative care has been consulted - see their note. dispo: Await dispo to hospice, medically no improvement. diet: Puree, very high risks of aspiration dvt ppx: HSQ DNR/DNI GI Prophylaxis: Proton Pump Inhibitor VTE Mechanical Devices: Intermittant Pneumatic CD Resuscitation Status: DNR/DNI:Do Not Resuscitate/Intubate Limited Interventions: BiPAP, Medications and IV Fluid Time spent 35 minutes Jonathan Ortega MD Apr 09, 2016 13:33
--- NOTE | 2016-04-09 14:26 | PCM.PALLBR ---
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 Her progress has stalled and Palliative medicine was brought on board to discuss goals of care. Please see notes below for further details of conversations with family members today. It appears that she will likely eventually discharged back to [facility] with hospice to follow, but final details are still pending. Secondary option would be for her to go to a local SNF on a comfort care track. Family is waiting to see what social sciences chair/discharge planners can come up with for a coordinated plan. -Symptom management (Pain/other) - Patient generally appeared comfortable and in no significant distress. Family has stated that maintaining comfort was a primary goal and they were comfortable with use of opioids, etc. if needed for her comfort. To that end, orders written for prn hydromorphone as needed. -DPOA/Advanced Directives/POLST - Daughter Lyndsey Oliver (Flo) lives in [facility] and is DPOA however likes to make decisions with input from two brothers, one Buck Stone lives in [facility] one lives in [place]. - Previous POLST completed by [facility] Palliative team in May 2014 was discussed but no changes made at this time. She remains DO NOT RESUSCITATE/DO NOT INTUBATE/limited interventions. - Today I talked with Guy about completing a new POLST that would be consistent with transition to hospice care- he did not feel comfortable doing that and so we will have to wait until patient's daughter/POA Lawrence is available and then complete a new POLST with her prior to discharge -Family/emotional support - Good support from family members as noted -Spiritual support - not discussed at this time. Family Goals: 1. Family wants to be told the truth about her illness, even if it is unpleasant. 2. Family would like to be told prognosis when it can be predicted, to better guide treatment decisions. 3. Treat the disease processes which can be reversed 4. Maintain patient comfort Additional Medical Diagnoses with primary management by Hospitalist team include : choledocholithiasis and probable ascending cholangitis Alzheimer's Dementia History of TIA with left facial droop urinary incontinence chronic kidney disease stage III, with a creatinine that runs 1.4-1.5. 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 If she does not improve over the next several days, or it would appear that her poor prehospitalization functional status would be further permanently impaired , then family anticipates transition to comfort/end-of-life care Disposition To be determined Resuscitation Status Resuscitation Status: DNR/DNI:Do Not Resuscitate/Intubate Limited Interventions: BiPAP, Medications and IV Fluid POLST Updates/Changes Previous POLST?: Yes POLST Last Review Date: Apr 04, 2016 Antibiotics: Determine Use or Limitations POLST Discussed with: Health Care Agent (DPOAHC) POLST Review Outcome: No Change . Advanced Care Planning Address: POLST, Comfort care Pain: None Total time 45 minutes; >50% face to face with patient and family, providing counselling regarding plans and recommendations, and in care coordination with her medical teams. Of the above total time, 20 minutes counseling for advanced care planning with the patient's family copies to: Jose G Brown MD Palliative Brief Note Date of Service Apr 09, 2016 . Returned to reevaluate patient and speak with family members on several occasions through the day. Prior to visiting, reviewed updated records in the EMR and reviewed disposition plans on multiple occasions with nsh teacher. Patient remains essentially stable. She will eat if the family feeds her, will occasionally say 1 word, and will grimace if unhappy, but no other activity or interaction. Remains bedbound and will not use her extremities at all. This does not appear to be due to actual weakness but rather due simply to lack of cooperation. On exam, obese elderly woman lying in bed with eyes closed. Will not open her eyes. Vital signs noted. Skin is warm and dry. Head and neck exam without acute focal findings. When I touch the skin of her forearm with my cold hand she grimaces but otherwise does not react. Heart sounds are regular, lungs clear anteriorly, abdomen soft and without apparent tenderness or peritoneal signs. Diffuse puffiness and edema of the extremities. Laboratory studies reviewed in detail with the patient's family, answering their questions. I spoke with her son Kar and his . Patient's daughter Lawrence, her POA, was not present at the times I visited. We reviewed disposition plans are underway. It appears that she will likely eventually discharged back to [facility] with hospice to follow, but final details are still pending. Secondary option would be for her to go to a local SNF on a comfort care track. Family is waiting to see what social sciences chair/ discharge planners can come up with for a coordinated plan. In the meantime, the patient continues her supportive medical care. Amor Pyle MD Apr 09, 2016 14:26
[2016-04-09 14:55] VITALS: BP 118/66; PULSE 62; RESP 16; O2SAT 93
--- NOTE | 2016-04-09 19:22 | NUR ---
Activity Patient given complete bed bath and hair washed. Tolerated bath/hair being cleaned. Q2 turn with heels floated. Family at bedside this shift. No signs or symptoms of pain or nausea. Call light and tray table within reach. Will continue to monitor patient hourly.
[2016-04-09 20:24] VITALS: BP 120/63; PULSE 62; RESP 20; O2SAT 92
[2016-04-09 23:00] VITALS: PULSE 72; RESP 22; O2SAT 96
--- NOTE | 2016-04-10 04:37 | NUR ---
Activity Pt continues to be turned Q2 hrs. Stephanie patent, aman care performed. Pt has been sleeping most of shift and opened eyes once while turning. No signs of discomfort.
[2016-04-10 05:33] VITALS: BP 130/70; PULSE 68; RESP 16; O2SAT 93
[2016-04-10] MEDS: Heparin 5,000 Unit/mL Inj SUBQ SCH ×2 (08:30→10:29)
[2016-04-10] MEDS: Diltiazem CD 240 mg ER24 Capsule PO SCH ×2 (08:30→10:30)
--- NOTE | 2016-04-10 08:30 | NUR ---
Arranged BLS transport with [facility] and they will cone picker at 1230 and return patient to [facility] to open with Hospice. 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
[2016-04-10] MEDS ORDERED: HYG25 PO (09:57)
[2016-04-10] MEDS ORDERED: LABE200T PO (09:57)
--- NOTE | 2016-04-10 10:11 | PCM.DIMED ---
Discharge Instructions Date of Service Apr 10, 2016 Dates of Hospitalization Mar 24, 2016 at 00:29 Discharge Diagnosis Discharge Diagnosis Deconditioning, debilitated state on hospice care Acute on chronic encephalopathy, likely multifactorial Persistent leukocytosis, unclear etiology chronic, stable Hypernatremia holedocholithiasis Acute kidney injury Hypertension Anemia H/o paroxysmal atrial fibrillation Bradycardia Dementia Medication Instructions Please note that labetalol and chlorthalidone started during hospitalization, BP remaining stable with this regimen You can continue other oral medicine as needed as long as you can tolerate Patient Instructions You were hospitalized with worsening confusion, which hasn't changed with multiple medical intervention, decided to start hospice care after discussion with your family. Instruction for future provider -Please note that palliative care service actively managed patient, consulted with family, currently She remains DO NOT RESUSCITATE/DO NOT INTUBATE/limited interventions per previous POLST, new POLST is to be updated upon discharge with an agreement of hospice care. -Please continue non-invasive medical treatment as necessary, liberal food intake with assistance although pt has very high risks of aspiration at any time. Follow-up plan follow up as needed with future provider [facility] Follow-up with PCP in: 2 weeks Jonathan Ortega MD Apr 10, 2016 10:00
--- NOTE | 2016-04-10 12:15 | NUR ---
Social Work Discharge: ESTEFANI met with patient and daughter at bedside to discuss discharge plan. Plan is HALF-WAY return to [facility], [phone] with [facility] services,[phone]. Ur specialist coordinated transport to [facility] for mixing picker tender at noon today. SW faxed discharge paperwork to [facility], [phone] and SW spoke to rep [place] who was advised of discharge today. [facility] aware of transport time. No other anticipated discharge needs identified at this time. ESTEFANI to follow. PLAN: Return to [facility] with [facility] services David ARGUELLES
--- NOTE | 2016-04-10 12:37 | NUR ---
Discharge Patient discharged home to [facility] with hosp[facility]. IV DC'd and intact. Discharge instructions given to daughter "Lawrence" POA with no questions. Labetalol and chlorthalidone RX sent with daughter. Daughter gathered all belongings. EMS escorted patient out via stretcher.
--- NOTE | 2016-04-10 14:09 | PCM.DC.MED ---
Discharge Summary Date of Service Apr 10, 2016 Dates of Hospitalization Date of Hospital Admission Mar 24, 2016 at 00:29 Date of Discharge: Apr 10, 2016 Providers: Admitting Physician: Ariana Calabrese DO Primary Care Physician: Jose G Brown MD Attending Physician: Ariana Calabrese DO Diagnosis at Time of Discharge Diagnosis at Time of Discharge Deconditioning, debilitated state on hospice care Acute on chronic encephalopathy, likely multifactorial Persistent leukocytosis, unclear etiology chronic, stable Hypernatremia holedocholithiasis Acute kidney injury Hypertension Anemia H/o paroxysmal atrial fibrillation Bradycardia Dementia Consultations Palliative care Gastroenterology Procedures XRay, CTs & MRIs X-RAY CHEST ONE VIEW, PORTABLE IMPRESSION: Bibasilar atelectasis versus aspiration or pneumonia. Dictated by: Sarmad MORGAN Interpreted: Zach Booth MD on 04/03/2016 at 11:01 Transcribed by: GLENDY on 04/03/2016 at 11:02 Approved by: Zach Booth M.D. on 04/03/2016 at 11:08 X-RAY CHEST ONE VIEW, PORTABLE INDICATIONS: altered mental status IMPRESSION: 1. Partially visualized prominent bowel loops within the upper abdomen. This is of clinical concern for potential structure ileus, abdomen x-ray is recommended for additional evaluation. 2. No acute pulmonary process. Dictated by: Rupa Blakely M.D. on 03/23/2016 at 21:57 Approved by: Rupa Blakely M.D. on 03/23/2016 at 21:57 CT BRAIN WITHOUT CONTRAST INDICATIONS: altered mental status IMPRESSION: 1. No acute intracranial process. 2. Moderate to severe atrophy and chronic microvascular ischemic changes. Dictated by: Rupa Blakely M.D. on 03/23/2016 at 21:59 Approved by: Rupa Blakely M.D. on 03/23/2016 at 21:59 CT ABDOMEN AND PELVIS WITHOUT CONTRAST IMPRESSION: 1. Findings suspicious for choledocholithiasis. If further characterization is warranted, MRCP may be helpful. There is no intrahepatic biliary ductal dilatation to suggest obstruction. 2. The appendix is not visualized; however there are no ancillary findings to suggest acute cholecystitis. These findings are concordant with the overnight interpretation. Dictated by: Tamiko Keller M.D. on 03/24/2016 at 7:22 Approved by: Tamiko Keller M.D. on 03/24/2016 at 7:31 X-RAY CHEST ONE VIEW, PORTABLE INDICATIONS: infection TECHNIQUE: One view of the chest was acquired. COMPARISON: [facility], CR, XR CHEST 1VW (PORTABLE), 03/23/2016, 21: 35. FINDINGS: Surgical changes and devices: None. Lungs and pleura: No pleural effusions or pneumothorax. Lungs are clear. Mediastinum: Mediastinal contours appear normal. Heart size is normal. Bones and chest wall: No suspicious bony lesions. Overlying soft tissues appear unremarkable. IMPRESSION: Expiratory chest demonstrating no definite acute cardiopulmonary process. Dictated by: Sarmad Paredes RRA Interpreted: Roger Funez MD on 03/27/2016 at 9: 52 Transcribed by: OBDULIO on 03/27/2016 at 9:52 X-RAY E.R.C. BILIARY DUCTS IMPRESSION: Common bile duct sweeping. Dictated by: Ale Graves M.D. on 03/29/2016 at 16:51 Approved by: Ale Graves M.D. on 03/29/2016 at 16:51 . Brief History From the H&P of Irena Garcia D.O. Patient is an 85 YO female with a history of Alzheimer's, previous TIA's, HTN, CKD and GERD who presented to [facility] ED via EMS from [facility], [facility], with worsening confusion. She is unable to give any history due to dementia, although patient does deny pain at this time. Per her daughter, who was by the patient's bedside, the patient was noted by the staff at the [facility] to be notably getting worse, weaker and more confused over the last couple of days. Entire history is obtained from the chart as the patient is unable to give any meaningful information. Patient was hospitalized for suspected acute GI bleed earlier this month, s/p post esophagogastroduodenoscopy (EGD) on 03/12/16 without any obvious source of bleeding. Her evaluation in the emergency room includes creatinine noted to be 2.28, BUN 41, glucose 121. Hgb 10.6, normal white blood cell count. UA is negative for infection. Chest x-ray revealed prominent bowel loops within the upper abdomen. CT head without acute intracranial process. CT abdomen revealed multiple stones in the distal CBD, which is dilated to 1.2 cm. Hospital Course Jossie Stone is an 85-year-old demented female with a past medical history of Alzheimer's, hypertension, CKD stage III, and GERD who presented to [facility] ED via EMS from [facility] assisted living facility with worsening confusion. Patient admitted Mar 24 for choledocholithiasis. #acute encephalopathy with confusion, acute on chronic, likely multifactorial: Underlying advanced Alzheimer dz, hypernatremia, deconditioning, dehydration, infections-PNA, given unchanged mental status, deconditioning, palliative care was consulted, family agreed to hospice care. Code status remained DNR/DNI. Pt is being discharged back to the [facility] with hospice service. #Probable infectious status with persistent leukocytosis, mild and persistent, initially there was no other source of infection found on admission patient was taken for ERCP 03/29/2016 and there was a finding of large stones in the common bile duct which were removed. Leukocytosis improved after ERCP but then worsened again. pt was also treated for jose armando UTI although it could be colonization with Brown catheter. CXR showed bibasilar opacities which could be c/w pneumonia (Possible aspiration pneumonia), finished Levaquin & Flagyl, both started Mar 31, finished 7days course. At the time of discharge, it was still unclear whether patient has underlying infection, which needs to be treated. Consensus from palliative discussion and family was more leaning toward hospice and comfort care, decided not to pursue further work-ups or treatment. # Hypernatremia, likely hypovolemic due to poor po intake, improved with free water chronic, stable # Choledocholithiasis, unknown chronicity, present on admission, GI consulted and they proceeded with ERCP performed 03/29/2016 with successful removal of large stones from the common bile duct, Later in hosp stay spiked fever and leukocytosis worsened again, not felt by GI to be due to ascending cholangitis but treated with with Levaquin and Flagyl in place of Zosyn (which was discontinued when patient developed renal failure, received Mar 25-) # Acute kidney injury superimposed on chronic kidney disease stage III. Acute portion likely secondary to postoperative acute tubular necrosis and medication- induced acute tubular necrosis (indomethacin, lisinopril, or Zosyn). renal function remained stable, Cr upon dc 1.90. # Hypertension, newly started labetalol 200 mg twice daily, chlorthalidone, held hydralazine (tachycardia) and lisinopril (DIXON), clonidine as well. BP remained stable, # Anemia, acute on chronic, present on admission, - Patient presents with Hb of 10.6 and stool occult blood positive. Likely multifactorial given history of iron deficiency, multiple GI bleeds, and CKD Stage III. Pt takes ferrous sulfate 325 mg PO TID daily. - Pt was was hospitalized for suspected acute GI bleed earlier this month, s/p PRBC transfusion and post esophagogastroduodenoscopy (EGD) on 03/12/16 without any obvious source of bleeding. # H/o paroxysmal atrial fibrillation, Pt used to be on aspirin and plavix which were D/C d/t last BI bleed # Bradycardia, chronic, stable # Dementia, chronic and advanced Exam Vital Signs (Last) Date Time Temp Pulse Resp B/P Pulse Ox O2 Delivery O2 Flow Rate FiO2 04/10/16 10:39 Supplement Oxygen 04/10/16 05:33 36.7 68 16 130/70 93 2.00 Exam Cachectic, frail elderly lady Does not follow commands, no JVD, MMM, no LAD RRR, nl s1, s2 no mrg CTAB, no w,c S,ND,NT,normoactive BS+ warm, no edema, pulses 2/2 Test 03/24/16 06:30 03/26/16 17:40 03/28/16 06:47 04/02/16 07:45 Direct Bilirubin 0.2mg/dL (0.0-0.3) Lactic Acid Level 0.9mmol/L (0.4-2.0) Prealbumin 17mg/dL (20-40) Band Neutrophils % 2% (1-5) Hematology Comments C-Reactive Protein 2.4mg/dL (0.0-0.5) Test 04/02/16 08:20 04/08/16 08:34 04/08/16 14:55 04/09/16 06:15 Erythrocyte Sedimentation Rate 1mm/hr (0-40) Procalcitonin 0.27ng/mL (0.00-0.08) Urine Color Yellow (YELLOW) Urine Appearance Cloudy (CLEAR,HAZY) Urine pH 5.0 (5.0-8.0) Urine Specific [place] 1.025 (1.003-1.035) Urine Protein Tracemg/dL (NEG,TRACE) Urine Glucose (UA) Negativemg/dL (NEGATIVE) Urine Ketones Negativemg/dL (NEGATIVE) Urine Occult Blood Trace (NEGATIVE) Urine Nitrite Negative (NEGATIVE) Urine Bilirubin Negative (NEGATIVE) Urine Urobilinogen Normalmg/dL (NORMAL) Urine Leukocyte Esterase Moderate (NEGATIVE) Urine RBC 0-2/hpf (0-2) Urine WBC 11-50/hpf (0-5) Urine Epithelial Cells Occasional/hpf (NONE-MOD) Urine Crystals None seen (NONE SEEN) Urine Bacteria Few/hpf (NONE-FEW) Urine Hyaline Casts Occasional/lpf (NONE) Urine Granular Casts Occasional (NONE SEEN) Urine Waxy Casts None seen (NONE SEEN) Urine Red Blood Cell Casts Rare (NONE SEEN) Urine White Blood Cell Casts None seen (NONE SEEN) Urine Mucus None seen (None Seen) Urine Trichomonas None seen (NONE SEEN) Urine Yeast Many (NONE SEEN) Urinalysis Comment None Urine Culture Reflexed Indicated White Blood Count 19.9th/mm3 (3.8-10.1) Red Blood Count 4.05mil/mm3 (3.90-5.20) Hemoglobin 10.5g/dL (12.0-15.6) Hematocrit 32.8% (35.0-46.0) Mean Corpuscular Volume 81.0fL (81-100) Mean Corpuscular Hemoglobin 25.9pg (27.0-35.0) Mean Corpuscular Hemoglobin Concent 32.0% (32.0-37.0) Red Cell Distribution Width 22.2% (12.3-15.4) Platelet Count 284bil/L (150-400) Neutrophils (%) (Auto) 77.9% (40-74) Lymphocytes (%) (Auto) 7.6% (14-46) Monocytes (%) (Auto) 9.3% (4-12) Eosinophils (%) (Auto) 2.0% (0-5) Basophils (%) (Auto) 0.9% (0-3) Sodium Level 142mEq/L (134-144) Potassium Level 5.6mEq/L (3.5-5.2) Chloride Level 109mEq/L (97-108) Carbon Dioxide Level 16mmol/L (18-29) Blood Urea Nitrogen 52mg/dL (8-27) Creatinine 1.90mg/dL (0.57-1.00) Estimat Glomerular Filtration Rate 36mL/min (>59) Glucose Level 212mg/dL (60-99) Calcium Level 7.8mg/dL (8.5-10.1) Phosphorus Level 4.0mg/dL (2.5-4.9) Magnesium Level 2.0mg/dL (1.6-2.6) Total Bilirubin 0.2mg/dL (0.0-1.2) Aspartate Amino Transf (AST/SGOT) 7U/L (0-50) Alanine Aminotransferase (ALT/SGPT) 5U/L (0-32) Alkaline Phosphatase 59U/L (25-165) Total Protein 5.5g/dL (6.4-8.4) Albumin 2.1g/dL (3.4-5.0) Microbiology Results Urine culture shows no growth to date. Urine eosinophils negative. . Discharge Medications Discharge Medications Ascorbate Calcium (Vitamin C) 500 Mg Tablet 500 MG PO DAILY (Reported) Chlorthalidone (Chlorthalidone) 25 Mg Tablet 25 MG PO DAILY Prescribed by: JONATHAN KHANNA MD Cholecalciferol (Vitamin D3) (Vitamin D3) 2,000 Unit Capsule 2,000 UNIT PO DAILY (Reported) Citalopram Hydrobromide (Celexa) 20 Mg Tablet 20 MG PO DAILY (Reported) Cyanocobalamin (Vitamin B-12) (Vitamin B-12) 1,000 Mcg Tablet 1,000 MCG PO DAILY Prescribed by: SHREE HAAS MD Diltiazem ER (Cartia XT) 240 Mg Cap.er.24h 240 MG PO DAILY (Reported) Docusate Sodium (Colace) 100 Mg Capsule 100 MG PO HS (Reported) Famotidine (Famotidine) 20 Mg Tablet 20 MG PO DAILY (Reported) Ferrous Sulfate (Ferrous Sulfate) 325 Mg Tablet 325 MG PO TID Prescribed by: SHREE HAAS MD Labetalol (Labetalol) 200 Mg Tablet 200 MG PO BID Prescribed by: JONATHAN KHANNA MD Lisinopril (Lisinopril) 20 Mg Tablet 20 MG PO DAILY (Reported) Memantine (Namenda) 10 Mg Tablet 10 MG PO BID (Reported) Pantoprazole DR (Pantoprazole DR) 40 Mg Tablet.dr 40 MG PO DAILY (Reported) Polyethylene Glycol 3350 (Polyethylene Glycol 3350) 17 Gm Powd.pack 17 GM PO DAILY (Reported) As needed Acetaminophen (Acetaminophen) 325 Mg Tablet 325 MG PO q6hr PRN PRN For Pain ( Reported) Epinephrine (Epinephrine) 0.3 Mg/0.3 Ml Auto.injct 0.3 MG IJ PRN For Anaphyllaxis (Reported) Additional med instructions Please note that labetalol and chlorthalidone started during hospitalization, BP remaining stable with this regimen You can continue other oral medicine as needed as long as you can tolerate Followup Plan Disposition: [facility] assisted living facility, hospice care Follow-up plan follow up as needed with future provider at the [facility] Patient Instructions You were hospitalized with worsening confusion, which hasn't changed with multiple medical intervention, decided to start hospice care after discussion with your family. Instruction for future provider -Please note that palliative care service actively managed patient, consulted with family, currently She remains DO NOT RESUSCITATE/DO NOT INTUBATE/limited interventions per previous POLST, new POLST is to be updated upon discharge with an agreement of hospice care. -Please continue non-invasive medical treatment as necessary, liberal food intake with assistance although pt has very high risks of aspiration at any time. Follow-up with PCP in: 2 weeks Time spent 65min Jonathan Khanna MD Apr 10, 2016 14:09
--- NOTE | 2016-04-10 18:47 | PCM.PALLBR ---
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 Her progress has stalled and Palliative medicine was brought on board to discuss goals of care. Please see notes below for further details of conversations with family members today. It appears that she will likely eventually discharged back to [facility] with hospice to follow, but final details are still pending. Secondary option would be for her to go to a local SNF on a comfort care track. Family is waiting to see what social services/discharge planners can come up with for a coordinated plan. -Symptom management (Pain/other) - Patient generally appeared comfortable and in no significant distress. Family has stated that maintaining comfort was a primary goal and they were comfortable with use of opioids, etc. if needed for her comfort. To that end, orders written for prn hydromorphone as needed. -DPOA/Advanced Directives/POLST - Daughter Lyndsey Oliver ([place] and is DPOA however likes to make decisions with input from two brothers, one Buck Stone lives in [facility] one lives in [place]. - Previous POLST completed by [facility] Palliative team in May 2014 was discussed but no changes made at this time. She remains DO NOT RESUSCITATE/DO NOT INTUBATE/limited interventions. SEE ABOVE RE POLST 04/10/16 -Family/emotional support - Good support from family members as noted -Spiritual support - not discussed at this time. Family Goals: 1. Family wants to be told the truth about her illness, even if it is unpleasant. 2. Family would like to be told prognosis when it can be predicted, to better guide treatment decisions. 3. Treat the disease processes which can be reversed 4. Maintain patient comfort Additional Medical Diagnoses with primary management by Hospitalist team include : choledocholithiasis and probable ascending cholangitis Alzheimer's Dementia History of TIA with left facial droop urinary incontinence chronic kidney disease stage III, with a creatinine that runs 1.4-1.5. 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 If she does not improve over the next several days, or it would appear that her poor prehospitalization functional status would be further permanently impaired , then family anticipates transition to comfort/end-of-life care Disposition To be determined Resuscitation Status Resuscitation Status: DNR/DNI:Do Not Resuscitate/Intubate Limited Interventions: BiPAP, Medications and IV Fluid POLST Updates/Changes Previous POLST?: Yes POLST Last Review Date: Apr 04, 2016 Antibiotics: Determine Use or Limitations Artificially Admin Nutrition: No Artifical Nutrition by Tube POLST Discussed with: Health Care Agent (DPOAHC) POLST Review Outcome: No Change . Advanced Care Planning Address: POLST, Comfort care Total time 15 minutes; >50% face to face with patient and/or family, providing counselling regarding plans and recommendations, and in care coordination with his/her medical teams. I also spent an additional [ ] minutes counseling for advanced care planning with the patient/the patients family/the surrogate decision maker. Palliative Brief Note Date of Service Apr 10, 2016 . 85-year-old patient with severe dementia, possible cholangitis, recent history of upper GI bleed And possible intermittent aspiration with eating. She has had a number of hospitalizations for above. Patient is initially not arousable. A couple hours later when her daughter Lawrence is present she opens her eyes but makes no attempt to communicate. She has a moist cough but tends to tolerate spoon feeding of crushed pills with applesauce and pudding. Her PPS score is in the range of 10. Goals of care- reviewed with daughter who is DPOAHC. Plan is for patient to return back to the [facility], with hospice support, CODE STATUS reviewed DO NOT RESUSCITATE DO NOT INTUBATE, no feeding tube, comfort care. POLST form is completed and signed to reflect this. Copies made for hospital record, for Lawrence and for [facility]. Time spent 15 minutes due to extensive discussions in the past regarding goals of care. Daughter is comfortable with this direction. Information communicated to hospice and counseling case manager. Gale Pacheco MD Apr 10, 2016 18:46 Information communicated to hospice and counseling case manager. Gale Pacheco MD Apr 10, 2016 18:46
== END 2016-04-10 12:22 | disposition hospice, home (50) | DRG 444 ==
LOC: SED 20:51 → OBSVTOIN 03-24 00:29 → INTOOBSV 03-24 00:29 → OSC 03-24 00:29 → SOU 04-05 07:34 → OSC 04-05 07:40
PROVIDERS: ADMIT Internal Medicine; ATTEND Internal Medicine
PROC: 0FC94ZZ Extirpation of Matter from Common Bile Duct, Percutaneous Endoscopic Approach (ICD-10-PCS; principal; 2016-03-29 15:30)
DX: K80.50 Calculus of bile duct without cholangitis or cholecystitis without obstruction (principal); G92 Toxic encephalopathy; N17.0 Acute kidney failure with tubular necrosis; J69.0 Pneumonitis due to inhalation of food and vomit; B37.41 Candidal cystitis and urethritis; E87.0 Hyperosmolality and hypernatremia; I48.0 Paroxysmal atrial fibrillation; K21.9 Gastro-esophageal reflux disease without esophagitis; G30.9 Alzheimer's disease, unspecified; F02.80 Dementia in other diseases classified elsewhere, unspecified severity, without behavioral disturbance, psychotic disturbance, mood disturbance, and anxiety; I12.9 Hypertensive chronic kidney disease with stage 1 through stage 4 chronic kidney disease, or unspecified chronic kidney disease; N18.3 Chronic kidney disease, stage 3 (moderate); Z66 Do not resuscitate; D64.9 Anemia, unspecified; Z86.73 Personal history of transient ischemic attack (TIA), and cerebral infarction without residual deficits